=== PATIENT | female | born 1975 | race Caucasian/White ===

== ENCOUNTER 2020-04-01 15:24 | Emergency (ER) | payer BC ==
--- OUTSIDE RECORDS SUMMARY | 2020-04-01 15:29 | XMS REPORT | Continuity of Care Document ---
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 MH OP[facility] left knee [facility] Other synovitis 04/07/2019 MH [facility] and [facility] tenosynovitis, Joint left lower leg Effusion, left 04/07/2019 MH O PID knee [facility] Other articular 04/07/2019 MH OPID cartilage [facility] disorders, Joint unspecified site Medications Medication Details Route Status Patient Ordering Order Source Instructions Provider Date Cefuroxime 500 500 mg = 1 Active MH MG Oral Tablet tab, PO, 019 Medical BID, X 7 Group day, # 14 tab, 0 Refill(s), Pharmacy: [facility]/pharmacy #[id number] benzonatate 100 100 mg = 1 Active MH mg oral capsule cap, PO, 019 Medical TID, do not Group crush or chew, X 10 day, # 30 cap, 0 Refill(s), Pharmacy: [facility]/pharmacy #[id number] 200 ACTUAT 1 puff, Active MH Albuterol 0.09 INHALER, 019 Medical MG/ACTUAT Q6H, PRN As Group Metered Dose needed for Inhaler [ProAir shortness of HFA] breath, # 1 ea, 1 Refill(s), Pharmacy: [facility]/pharmacy #[id number] Lo Loestrin Fe PO, Daily, 0 Active MH Refill(s) 019 Medical Group multivitamin 1 tab, PO, Active MH Daily, 0 018 Medical Refill(s) Group Allergies, Adverse Reactions, Alerts Substance Category Reaction Severity Reaction Status Date Comments S ource type Reported No Known Assertion Drug MH OP ID Medication allergy Jaky Allergies Immunizations No Data Provided for This Section Results No Data Provided for This Section Pathology Reports No Data Provided for This Section Diagnostic Reports Report Value Date Source Abdomen/Pelvis w IV Radiation Dose CTDIVOL = 0 (mGy): DLP = 610.39 (mGy-cm) 11/30/2019 MH OPID Jaky contrast CT PROCEDURE INFORMATION: Exam: CT Abdomen And Pelvis With Contrast Exam date and time: 11/30/2019 9:55 AM Age: 44 years old Clinical indication: Epigastric pain; Nausea wit h vomiting, unspecified; Additional info: R10.13 r11.2/. TECHNIQUE: Imaging protocol: Computed tomography of the abd omen and pelvis with intravenous contrast. Total DLP: 610.39 mGy-cm Radiation optimization: All CT scans at this facility use at least one of these dose optimization techniques: automated exposure control; mA and/or kV adjustment per patient size (includes targeted e xams where dose is matched to clinical indication); or iterative reconstructio n. Contrast material: OMNI 300; Contrast volume: 10 0 ml; Contrast route: I.V. Other contrast: Route: Oral, Material: OMNI 300, Volume: 50; COMPARISON: No relevant prior studies available. FINDINGS: Liver: Normal. No mass. Gallbladder and bile ducts: Status post cholecystectomy. There is intrahepatic biliary dilatation. The common bile duct does no t appear dilated. Pancreas: Normal. No ductal dilation. Spleen: Normal. No splenomegaly. Adrenals: Normal. No mass. Kidneys and ureters: There is a small hy podensity in the left kidney measuring 8 mm, too small to accurately characterize. Stomach and bowel: Small and large bowel are not obstructed. Moderate volume of stool within the colon. There is loop of small b owel extending into the right upper quadrant with adjacent surgical sutures co nsistent with biliary enteric anastomosis. Appendix: The appendix is normal caliber and yung led with oral contrast. No surrounding inflammatory changes. Intraperitoneal space: Unremarkable. No free air . No significant fluid collection. Vasculature: Unremarkable. No abdominal aortic a neurysm. Lymph nodes: Unremarkable. No enlarged lymph nod es. Bladder: Unremarkable as visualized. Reproductive: 2.8 cm hypodensity in the left ova ry. Bones/joints: Unremarkable. No acute fracture. Soft tissues: There are a few tiny fat containin g midline supraumbilical hernias. No large hernias or herniated loop of b owel. IMPRESSION: 1. Status post cholecystectomy and bilio enteric anastomosis. Mild intrahepatic biliary dilatation. Correlate with laboratory va lues 2. Moderate stool within the colon. Correlate fo r constipation. 3. Small right renal hypodensity, too small to a ccurately characterize. 4. Likely left ovarian cyst. This could be furth er assessed with follow-up pelvic ultrasound if clinically indicated. Satya Nieves MD On 11/30/2019 14:15:26; V [id number] Knee wo contrast MRI MRI of the Left Knee Without IV Contrast 1 11/17/2017 [facility] History: pain. Joint Comparison Study: none Technique: The study was per formed on a high field magnet without intravenous contrast. Findings: Menisci: There is no evidence of meniscal tear. Degenerative signal in the body and posterior ho rn of the medial meniscus. Cruciate Ligaments: Anterior and posterior cruci ate ligaments are intact. Collateral Ligaments: Medial collateral ligament is intact. Lateral collateral complex appears intact. The patellar and quadriceps tendons are intact. Osseous Structures: No bone contusions are ident ified. Grade II chondromalacia cent ral weightbearing articular aspect medial femoral condyle with subtle area subchondral sclerosis and reactive bone marrow edema that may represent a healed stress related inj ury. Articular cartilage in lateral compartment is intact. Soft Tissues: There is a moderate joint effusion with synovitis. There is no Banerjee's cyst. Patellofemoral Compartment: Full-thickness small chondral fissure medial patella facet. Grade II chondromalacia at the medial trochlear facet. Medial and lateral patellar retinacula appear in tact. Impression: No meniscal tear or cruciate ligament disruption . Subchondral sclerosis with m ild adjacent reactive bone marrow edema central weightbearing articular aspect of medial femoral condyle that may represent a healing/healed stress related injury. Minimal overlying chondromalacia. Moderate joint effusion with synovitis. Full-thickness chondral fiss ure medial patella facet. Mild chondromalacia medial trochlear facet. Dictation Code: 100 Knee 3 views DX Patient Name: ESTEE RESENDEZ 12/15/2017 Ian Santoyo DOB: 1975; Age: 42 years Female MR: [id number] Study: Knee 3 views DX 12/12/2017 3:47 PM DETECTIVE PRECINCT CLINICAL INDICATION: - PAIN NO INJURY COMPARISON: None FINDINGS: Views and laterality: Left knee 3 views No displaced fracture or dis location. The tibiofemoral and patellofemoral compartments are intact. Small to moderate joint effusion. IMPRESSION: No acute bony abnormalities. SL: [id number] Consultation Notes No Data Provided for This Section Discharge Summaries No Data Provided for This Section History and Physicals No Data Provided for This Section Vital Signs Vital Sign Value Date Comments Source Systolic (mm Hg) 124 06/15/2019 Medical Group Diastolic (mm Hg) 80 06/15/2019 Medical Group Heart Rate 98 06/15/2019 [facility] Temperature Oral (F) 98.3 F 06/15/2019 [facility] Weight 85.455 06/15/2019 Medical [facility] p Weight 72.727 12/12/2017 [facility] Heart Rate 73 12/12/2017 [facility] p Temperature Oral (F) 98.2 F 12/12/2017 [facility] Systolic (mm Hg) 111 12/12/2017 Medical Group Diastolic (mm Hg) 71 12/12/2017 Medical Group Encounters Location Location Encounter Encounter Reason Attending ADM [place] Stat Source Details Type Number For Provider Date Date Visit Outpatient [id number] LIZZ 10/28 [facility] [id number] KANWAL [facility] [id number] MARY 12/12 [facility] [id number] XRAY VISIT 12/12 [facility] [id number] XRAY VISIT 12/12 [facility] Family Outpatient [id number] NURSE 12/12 12/13 Medicine VISIT /2017 [facility] [place] [facility] Ambulatory [id number] NURSE 12/12 12/12 Radiology Pre-Reg VISIT /2017 [facility] [place] [facility] Outpatient [id number] NURSE 12/12 12/13 Radiology VISIT /2017 [facility] [place] [facility] Outpatient [id number] DOPPLER 02/26 [facility] VISIT /2017 [facility] Ambulatory [id number] NURSE 12/15 12/15 Radiology Pre-Reg VISIT /2017 [facility] [place] [facility] Outpt Diag [id number] Lino 09/17 09/18 [facility] Outpatient Services Rangel /2017 [facility] [place] [facility] [id number] 06/15 [facility] Family Outpatient [id number] 06/15 06/16 Medicine /2018 [facility] Outpt Diag [id number] Theodore 11/30 12/01 [facility] Outpatient Services Christopher /2019 [facility]aky Procedures Procedure Code Date Perfomer Comments Source Influenza [id number] [facility] Medica l vaccination<sup>1</s 7 Grou p,MH up> OPID Jaky, [facility] Cholecystectomy [id number] Medica l Group, OPID Jaky, OPID [facility] Miscellaneous [id number] reconstruction of [facility] edical operations<sup>2</rivera bile duct Grou p,MH p> OPID Jaky, OPID [facility] TL - Tubal ligation [id number] [facility] dical Group, OPID Jaky, OPID [facility] Assessment and Plan No Data Provided for This Section Plan of Care No Data Provided for This Section Social History Social History Date Source Social History TypeResponse 06/15/2019 [facility] Smoking Status Never smoker; Ready to change: No; Noelle rns about tobacco use in household: No; Exposure to Tobacco Smoke None; Cigarette Smoking Last 365 Days No; Reg Smoking Cessation Counseling No entered on: 06/15/19 Social History TypeResponse 06/15/2019 OPID Jaky Smoking Status Never smoker; Ready to change: No; Noelle rns about tobacco use in household: No; Exposure to Tobacco Smoke None; Cigarette Smoking Last 365 Days No; Reg Smoking Cessation Counseling No entered on: 06/15/19 Social History TypeResponse 12/12/2017 OPID [facility] Smoking Status Never smoker; Ready to change: No; Noelle rns about tobacco use in household: No; Exposure to Tobacco Smoke None; Cigarette Smoking Last 365 Days No; Reg Smoking Cessation Counseling No entered on: 12/12/17 Family History No Data Provided for This Section Advance Directives No Data Provided for This Section Functional Status No Data Provided for This Section
[2020-04-01] MEDS ORDERED: ONDANSETRON 4 MG/2 ML VIAL ONE (16:17)
[2020-04-01] MEDS ORDERED: PANTOPRAZOLE 40 MG INJ ONE (16:17)
[2020-04-01] MEDS ORDERED: NA CHLORIDE 0.9% 1,000 ML ONE ×3 (16:17→20:30)
[2020-04-01] MEDS ORDERED: WATER FOR INJ,STERILE 10 ML ONE (16:17)
[2020-04-01] MEDS ORDERED: MORPHINE 4 MG/ML SYR ONE ×2 (16:17→18:26)
[2020-04-01 16:24] LABS: Absolute Lymphocytes (CBC) 0.3 K/uL (0.7-4.9); Basophils % 0.3 % (0-1.3); Hematocrit 42.3 % (36.0-45.0); Lymphocytes % 7.6 % (15.3-44.8); MPV 10.6 fL (7.6-11.3); RBC Red Blood Cell Count 4.64 M/uL (3.86-4.86)
[2020-04-01 16:39] LABS: ALT/SGPT 905 U/L (12-78); Albumin 3.8 g/dL (3.4-5.0); Alkaline Phosphatase 348 U/L (45-117); BUN Blood Urea Nitrogen 13 mg/dL (7-18); Bicarbonate 25 mmol/L (21-32); Bilirubin Direct 0.6 mg/dL (0-0.2); Bilirubin Total 1.2 mg/dL (0.2-1.0); Glucose Level 121 mg/dL (74-106); Lipase 91 U/L (73-393); Potassium 3.7 mmol/L (3.5-5.1); Protein, Total 8.3 g/dL (6.4-8.2); Sodium Level 137 mmol/L (136-145)
[2020-04-01 16:42] LABS: AST/SGOT 502 U/L (15-37)
--- NOTE | 2020-04-01 17:26 | RAD REPORT ---
EXAM DESCRIPTION: CT - Abdomen Pelvis W Contrast - 04/01/2020 4:58 pm CLINICAL HISTORY: Abdominal pain COMPARISON: none. TECHNIQUE: Computed axial tomography of the abdomen pelvis was obtained. 100 cc Isovue-300 was admin istered intravenously. Oral contrast was not requested which limits evaluation of bowel. All CT scans are performed using dose optimization technique as appropriate and may include automated exposure control or mA/KV adjustment according to patient size. FINDINGS: Cholecystectomy. Mild to moderate prominence of the intrahepatic biliary tree Spleen, pancreas, adrenal and left kidney appear unremarkable. Small right renal cyst There is no evidence of diverticulitis. Normal appendix IMPRESSION: Moderate prominence of the intrahepatic biliary tree. This may be physiologic in this pa tient status post cholecystectomy. However, pathology such as stricture, neoplasm or stone can also r esult in this appearance. This should be correlated clinically and with appropriate lab values.
--- NOTE | 2020-04-01 18:29 | EDPHYS ---
Physician Documentation [facility] Name: Janey Hernandez Age: 44 yrs Sex: Female : 1975 Arrival Date: 04/01/2020 Time: 15:26 Bed 19 Private MD: [facility] Physician Eliud Dutton HPI: 04/01 15:56 This 44 yrs old Female presents to ER via Ambulatory with complaints of cp Abdominal Pain. 15:56 The patient presents with abdominal pain in the epigastric area. Onset: The cp symptoms/episode began/occurred today. The symptoms radiate to back. Associated signs and symptoms: Pertinent positives: nausea, vomiting, Pertinent negatives: chest pain, constipation, diarrhea, dysuria, fever. The symptoms are described as constant. Modifying factors: the symptoms are aggravated by pressure. 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 - Social history:: Smoking status: Patient denies any tobacco usage or history of. ROS: 15:57 Eyes: Negative for injury, pain, redness, and discharge. cp 15:57 Constitutional: Negative for body aches, chills, fever, poor PO intake. 15:57 Cardiovascular: Negative for chest pain, palpitations. 15:57 Respiratory: Negative for cough, shortness of breath, wheezing. 15:57 Abdomen/GI: Positive for abdominal pain, nausea and vomiting, Negative for diarrhea, constipation, anorexia, hematemesis, black/tarry stool, rectal bleeding. 15:57 Back: Positive for radiated pain. 15:57 : Negative for urinary symptoms. 15:57 Neuro: Negative for altered mental status, headache, weakness. 15:57 All other systems are negative. Exam: 15:58 Head/Face: Normocephalic, atraumatic. cp 15:58 Constitutional: The patient appears in no acute distress, alert, awake, non-diaphoretic, non-toxic, well developed, well nourished, uncomfortable. 16:00 Eyes: Periorbital structures: appear normal, Conjunctiva: normal, no exudate, no cp injection, Sclera: no appreciated abnormality, Lids and lashes: appear normal, bilaterally. 16:00 ENT: External ear(s): are unremarkable, Nose: is normal, Mouth: is normal, Posterior pharynx: is normal, airway is patent. 16:00 Chest/axilla: Inspection: normal, Palpation: is normal, no crepitus, no tenderness. 16:00 Cardiovascular: Rate: normal, Rhythm: regular. 16:00 Respiratory: the patient does not display signs of respiratory distress, Respirations: normal, no use of accessory muscles, no retractions, labored breathing, is not present, Breath sounds: are clear throughout, no decreased breath sounds, no stridor, no wheezing. 16:00 Abdomen/GI: Inspection: scar(s), are noted in the mid abdomen, Bowel sounds: active, all quadrants, Palpation: soft, in all quadrants, severe abdominal tenderness, in the epigastric area, rebound tenderness, is not appreciated, voluntary guarding, is elicited in the epigastric area. 16:00 Back: pain, that is mild, ROM is normal. 16:00 Neuro: Orientation: to person, place \T\ time. Mentation: is normal, Motor: moves all fours, strength is normal. Vital Signs: 15:51 BP 149 / 82; Pulse 70; Resp 18 S; Temp 99.5(O); Pulse Ox 97% on R/A; Weight 74.39 kg ca1 (R); Height 5 ft. 3 in. (160.02 cm) (R); Pain 10/10; 16:33 BP 123 / 65; Pulse 76; Resp 15 S; Pulse Ox 97% on R/A; ca1 17:30 BP 124 / 76; Pulse 111; Resp 16 S; Pulse Ox 99% on R/A; ca1 18:30 BP 121 / 61; Pulse 110; Resp 15 S; Pulse Ox 95% on R/A; ca1 20:00 BP 119 / 62; Pulse 112; Resp 18; Temp 99; Pulse Ox 100% on R/A; mg2 15:51 Body Mass Index 29.05 (74.39 kg, 160.02 cm) ca1 MDM: 15:49 Patient medically screened. christiane 16:00 Differential diagnosis: gastritis, non-specific abd pain, pancreatitis, Peptic Ulcer cp Disease, Perf. Duodenal Ulcer, Perf. Gastric Ulcer, Pyelonephritis, Ureterolithiasis, urinary tract infection, choledocholithiasis. 17:40 Data reviewed: vital signs, nurses notes, lab test result(s), radiologic studies, CT cp scan, I have discussed the patient's presentation/case with the attending Emergency Department Physician;. 19:35 Physician consultation: was contacted at 18:25, regarding regarding transfer, to [facility]. patient's condition, DR Torres, hospitalist, will accept patient as transfer due to our lack of GI availability. 04/01 15:57 Order name: Basic Metabolic Panel; Complete Time: 16:48 ca1 04/01 17:36 Interpretation: Normal except: GLUC 121. 04/01 15:57 Order name: CBC with Diff ca1 04/01 16:38 Interpretation: Normal except: KANA% 91.2; LYM% 7.6; MN% 0.5; LYMA 0.3; MNA 0.0. 04/01 15:57 Order name: Hepatic Function; Complete Time: 16:48 ca1 04/01 17:37 Interpretation: Normal except: ALK 348; BILIT 1.2; BILID 0.6; TP 8.3; GLOB 4.5; A/G cp 0.8; AST 502; ALT 905. 04/01 15:57 Order name: Lipase; Complete Time: 16:48 ca1 04/01 16:32 Order name: Urine Dipstick--Ancillary (enter results) 04/01 16:32 Order name: Urine --Ancillary (enter results) 04/01 15:59 Order name: CT Abd/Pelvis - IV Contrast Only; Complete Time: 17:28 04/01 17:28 Interpretation: Report reviewed. 04/01 20:03 Order name: CBC Smear Scan EDWI 04/01 15:57 Order name: IV Saline Lock; Complete Time: 16:06 ca1 04/01 15:57 Order name: Labs collected and sent; Complete Time: 16:06 ca1 04/01 15:59 Order name: Urine Dipstick-Ancillary (obtain specimen); Complete Time: 16:31 04/01 15:59 Order name: Urine Test (obtain specimen); Complete Time: 16:31 cp Administered Medications: 16:08 Drug: NS 0.9% 1000 ml Route: IV; Rate: 1 bolus; Site: right antecubital; ca1 19:16 Follow up: Response: No adverse reaction; IV Status: Completed infusion; IV Intake: mg2 1000ml 16:10 Drug: Zofran (Ondansetron) 4 mg Route: IVP; Site: right antecubital; ca1 19:15 Follow up: Response: No adverse reaction mg2 16:12 Drug: ProTONIX 40 mg Route: IVP; Site: right antecubital; ca1 19:15 Follow up: Response: No adverse reaction mg2 16:15 Drug: morphine 4 mg {Note: rass 0.} Route: IVP; Site: right antecubital; ca1 19:15 Follow up: Response: No adverse reaction; Marked relief of symptoms mg2 18:15 Drug: NS 0.9% 1000 ml Route: IV; Rate: 1 bolus; Site: right antecubital; ca1 19:16 Follow up: Response: No adverse reaction; IV Status: Completed infusion; IV Intake: mg2 1000ml 18:17 Drug: morphine 4 mg {Note: rass 0.} Route: IVP; Site: right antecubital; ca1 19:00 Follow up: Response: No adverse reaction; Marked relief of symptoms; RASS: Alert and mg2 Calm (0) 20:26 Drug: Dilaudid 0.5 mg Route: IVP; Site: right antecubital; mg2 20:32 Follow up: Response: No adverse reaction; administered prior to transfer mg2 20:30 Not Given (Physician Discretion): Dilaudid 0.5 mg IVP once; RASS on ADMIN: Combtv4, mg2 Very Agttd3, Agttd2, Rstlss1, AlertClm0, Drwsy-1, Lt Sdtn-2, Mod Sdtn-3, Dp Sdtn-4, UnArsble-5 20:31 Drug: NS 0.9% 1000 ml Route: IV; Rate: 125 ml/hr; Site: right antecubital; mg2 20:31 Follow up: Response: No adverse reaction; IV Status: Infusion continued upon transfer mg2 Disposition: 04/02 16:59 Co-signature as Attending Physician, Eliud Dutton MD I agree with the assessment and christiane plan of care. Disposition: 04/01/20 18:28 Transfer ordered to [facility]. Diagnosis are Abnormal results of liver function studies, Epigastric pain, Nausea and vomiting. - Reason for transfer: Higher level of care. - Accepting physician is DR Torres. - Condition is Stable. - Problem is new. - Symptoms have improved. Signatures: Dispatcher [employer] EDEliud Modi MD MD cha Page, Corey PA PA cp Haresh Gould RN RN mg2 Annalisa Lemus RN RN ca1 Corrections: (The following items were deleted from the chart) 04/01 16:38 16:38 Normal except: KANA% 91.2; LYM% 7.6; MN% 0.5; LYMA 0.3. cp cp 17:37 17:37 Normal except: ALK 348; BILIT 1.2; BILID 0.6; TP 8.3; GLOB 4.5; A/G 0.8; AST 502. cp cp 20:33 18:28 04/01/2020 18:28 Transfer ordered to [facility]. mg2 Diagnosis is Abnormal results of liver function studies; Epigastric pain; Nausea and vomiting. Reason for transfer: Higher level of care. Accepting physician is DR Torres. Condition is Stable. Problem is new. Symptoms have improved. cp
--- NOTE | 2020-04-01 18:29 | ER ---
Nurse's Notes [facility] Name: Janey Hernandez Age: 44 yrs Sex: Female : 1975 Arrival Date: 04/01/2020 Time: 15:26 Bed 19 Private MD: Diagnosis: Abnormal results of liver function studies;Epigastric pain;Nausea and vomiting Presentation: 04/01 15:51 Chief complaint: Patient states: Upper abdominal pain since 2.5 hrs ago, 30 minutes ca1 after eating. I have stomach issues. I take omeprazole everyday and Carafate when needed. Reports N/V. Denies diarrhea. Coronavirus screen: Proceed with normal triage. Patient denies a cough. Patient denies shortness of breath or difficulty breathing. Patient denies measured and/or subjective temperature greater than 100.4F prior to today's visit. Patient denies travel on a cruise ship or to a country the [facility] currently lists as an affected area. Patient denies contact with known and/or suspected case of COVID-19. Ebola Screen: Patient negative for fever greater than or equal to 101.5 degrees Fahrenheit, and additional compatible Ebola Virus Disease symptoms Patient denies exposure to infectious person. Patient denies travel to an Ebola-affected area in the 21 days before illness onset. No symptoms or risks identified at this time. Initial Sepsis Screen: Does the patient meet any 2 criteria? No. Patient's initial sepsis screen is negative. Does the patient have a suspected source of infection? No. Patient's initial sepsis screen is negative. Risk Assessment: Do you want to hurt yourself or someone else? Patient reports no desire to harm self or others. Onset of symptoms was April 01, 2020. 15:51 Method Of Arrival: Ambulatory ca1 15:51 Acuity: MICHAEL 3 ca1 Triage Assessment: 15:55 General: Appears in no apparent distress. uncomfortable, Behavior is calm, cooperative, ca1 appropriate for age. Pain: Complains of pain in right upper quadrant and left upper quadrant Pain does not radiate. Pain currently is 10 out of 10 on a pain scale. Pain began 2 hours ago. EENT: No signs and/or symptoms were reported regarding the EENT system. Neuro: Level of Consciousness is awake, alert, obeys commands, Oriented to person, place, time, situation. Cardiovascular: Heart tones S1 S2 present Capillary refill < 3 seconds is > 3 seconds Patient's skin is warm and dry. Respiratory: Airway is patent Respiratory effort is even, unlabored, Respiratory pattern is regular, symmetrical, Breath sounds are clear bilaterally. GI: Abdomen is round non-distended, Bowel sounds present X 4 quads. Abd is soft and non tender X 4 quads. Reports nausea, vomiting. : No signs and/or symptoms were reported regarding the genitourinary system. Derm: Skin is intact, is healthy with good turgor, Skin is pink, warm \T\ dry. Musculoskeletal: Circulation, motion, and sensation intact. Capillary refill < 3 seconds. 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 - Social history:: Smoking status: Patient denies any tobacco usage or history of. Screenin:56 Abuse screen: Denies threats or abuse. Denies injuries from another. Nutritional ca1 screening: No deficits noted. Tuberculosis screening: No symptoms or risk factors identified. Fall Risk IV access (20 points). Assessment: 15:56 Reassessment: see triage notes. ca1 16:33 Reassessment: Patient appears in no apparent distress at this time. Patient and/or ca1 family updated on plan of care and expected duration. Pain level reassessed. Patient is alert, oriented x 3, equal unlabored respirations, skin warm/dry/pink. 17:32 Reassessment: Patient appears in no apparent distress at this time. Patient and/or ca1 family updated on plan of care and expected duration. Pain level reassessed. Patient is alert, oriented x 3, equal unlabored respirations, skin warm/dry/pink. 18:30 Reassessment: Patient appears in no apparent distress at this time. Patient and/or ca1 family updated on plan of care and expected duration. Pain level reassessed. Patient is alert, oriented x 3, equal unlabored respirations, skin warm/dry/pink. 19:14 Reassessment: Patient appears in no apparent distress at this time. Patient and/or mg2 family updated on plan of care and expected duration. Pain level reassessed. Patient is alert, oriented x 3, equal unlabored respirations, skin warm/dry/pink. reports abdominal pain is back. 4/10. 19:22 Reassessment: tried to call for report [facility], but they said to call back in 10 mg2 mins. 19:49 Reassessment: report given to GURDEEP Lema of [facility]. mg2 Vital Signs: 15:51 BP 149 / 82; Pulse 70; Resp 18 S; Temp 99.5(O); Pulse Ox 97% on R/A; Weight 74.39 kg ca1 (R); Height 5 ft. 3 in. (160.02 cm) (R); Pain 10/10; 16:33 BP 123 / 65; Pulse 76; Resp 15 S; Pulse Ox 97% on R/A; ca1 17:30 BP 124 / 76; Pulse 111; Resp 16 S; Pulse Ox 99% on R/A; ca1 18:30 BP 121 / 61; Pulse 110; Resp 15 S; Pulse Ox 95% on R/A; ca1 20:00 BP 119 / 62; Pulse 112; Resp 18; Temp 99; Pulse Ox 100% on R/A; mg2 15:51 Body Mass Index 29.05 (74.39 kg, 160.02 cm) ca1 ED Course: 15:26 Patient arrived in ED. ag5 15:47 Eliud Puga PA is PHCP. cp 15:47 Eliud Dutton MD is Attending Physician. cp 15:51 Annalisa Lemus, GURDEEP is Primary Nurse. ca1 15:54 Triage completed. ca1 15:55 Arm band placed on right wrist. ca1 15:56 Patient has correct armband on for positive identification. Bed in low position. Call ca1 light in reach. Side rails up X 1. Pulse ox on. NIBP on. Warm blanket given. 16:02 No provider procedures requiring assistance completed. Initial lab(s) drawn, by me, ca1 sent to lab. Inserted saline lock: 20 gauge in right antecubital area, using aseptic technique. Blood collected. 16:56 CT completed. Patient tolerated procedure well. Patient moved back from CT. bq 16:59 CT Abd/Pelvis - IV Contrast Only In Process Unspecified. EDMS 17:56 initiated a transfer with Shell from the [facility]. eb 18:[address] Torres the hospitalist application security developer for [facility] with Eliud TERRY for patient transfer consultation. 18:28 administrative approval given by Kael Pepper Rn/ patient has been accepted to [facility] 16 tower bed 1614/ report to be called to [phone]/ Dr. Sood has accepted the patient in transfer. 19:06 Report given to GURDEEP Zambrano. ca1 20:33 Patient transferred, IV remains in place. mg2 Administered Medications: 16:08 Drug: NS 0.9% 1000 ml Route: IV; Rate: 1 bolus; Site: right antecubital; ca1 19:16 Follow up: Response: No adverse reaction; IV Status: Completed infusion; IV Intake: mg2 1000ml 16:10 Drug: Zofran (Ondansetron) 4 mg Route: IVP; Site: right antecubital; ca1 19:15 Follow up: Response: No adverse reaction mg2 16:12 Drug: ProTONIX 40 mg Route: IVP; Site: right antecubital; ca1 19:15 Follow up: Response: No adverse reaction mg2 16:15 Drug: morphine 4 mg {Note: rass 0.} Route: IVP; Site: right antecubital; ca1 19:15 Follow up: Response: No adverse reaction; Marked relief of symptoms mg2 18:15 Drug: NS 0.9% 1000 ml Route: IV; Rate: 1 bolus; Site: right antecubital; ca1 19:16 Follow up: Response: No adverse reaction; IV Status: Completed infusion; IV Intake: mg2 1000ml 18:17 Drug: morphine 4 mg {Note: rass 0.} Route: IVP; Site: right antecubital; ca1 19:00 Follow up: Response: No adverse reaction; Marked relief of symptoms; RASS: Alert and mg2 Calm (0) 20:26 Drug: Dilaudid 0.5 mg Route: IVP; Site: right antecubital; mg2 20:32 Follow up: Response: No adverse reaction; administered prior to transfer mg2 20:30 Not Given (Physician Discretion): Dilaudid 0.5 mg IVP once; RASS on ADMIN: Combtv4, mg2 Very Agttd3, Agttd2, Rstlss1, AlertClm0, Drwsy-1, Lt Sdtn-2, Mod Sdtn-3, Dp Sdtn-4, UnArsble-5 20:31 Drug: NS 0.9% 1000 ml Route: IV; Rate: 125 ml/hr; Site: right antecubital; mg2 20:31 Follow up: Response: No adverse reaction; IV Status: Infusion continued upon transfer mg2 Intake: 19:16 IV: 1000ml; Total: 1000ml. mg2 19:16 IV: 1000ml; Total: 2000ml. mg2 Outcome: 18:28 ER care complete, transfer ordered by MD. cp 20:33 [place] [facility] [facility] [place]. mg2 20:33 Condition: stable 20:33 Instructed on the need for transfer, Demonstrated understanding of instructions. 20:33 Patient left the ED. mg2 Signatures: Dispatcher [employer] EDMS Nadine Mata Corey, PA PA cp Botello, Elizabeth eb Gardose, Michele, RN RN mg2 Annalisa Lemus RN RN [facility] Tony Ugalde ag5
[2020-04-01 20:03] LABS: Blood Morphology Comment NOT SEEN (NOT SEEN); Platelet Estimate ADEQ; Urine White Blood Cell Casts OK
[2020-04-01] MEDS ORDERED: HYDROMORPHONE HCL 0.5 MG/0.5 ML INJ ONE (20:29)
[2020-04-01 21:03] LABS: Urine Blood NEGATIVE (NEG); Urine Glucose NEGATIVE (NEG); Urine Protein NEGATIVE (NEG); Urine Specific Gravity 1.025 (1.005-1.030)
[2020-04-01 21:47] VITALS: BP 119/62; TEMP 99; O2SAT 100
== END 2020-04-01 20:33 | disposition short-term general hospital (02) ==
LOC: ER 15:24
DX: R94.5 Abnormal results of liver function studies (principal); R11.2 Nausea with vomiting, unspecified; E07.9 Disorder of thyroid, unspecified
CPT/HCPCS: 96361; 85025; 80048; 36415; 81025; 80076; 81003; 83690; 74177; 96375; 96374; 99285; Q9967; C9113; J1170; J7030 ×3; J2405

== ENCOUNTER 2021-10-20 07:25 | Emergency (ER) | payer BC ==
--- OUTSIDE RECORDS SUMMARY | 2021-10-20 07:30 | XMS REPORT | Continuity of Care Document ---
:1975 Author Organization [facility] t Address [address] [place] [address] Care Team Providers Name Role Phone Attending Clinician Unavailable FREEMAN GONZALEZ Attending Clinician Unavailable CARLOS DAVIS Attending Clinician Unavailable REGIS Attending Clinician Unavailable ANNELISE Attending Clinician Unavailable Admitting Clinician Unavailable FREEMAN GONZALEZ Admitting Clinician Unavailable BRITTANI Admitting Clinician Unavailable Payers Payer Name Policy Type Policy Number Effective Date Expiration Date S amanda BCBS OS [id number] 2017 POS/PPO/EPO 00:00:00 CDC REVIEW [id number] 2020 00:00:00 Problems Condition Condition Condition Status Onset Resolution Last Treating Co mments Source Name Details Category Date Date Treatment Clinician Date Left knee Left knee Problem Active [facility] pain pain HL7.CCDAR2 [facility] [place] [facility] Internal Internal Problem Active Unive rs derangemen derangemen HL7.CCDAR2 [facility] [place] Osteoarthr Osteoarthr Problem Active U nivers itis of itis of HL7.CCDAR2 [place] [facility] Synovitis Synovitis Problem Active Uni vers of left of left HL7.CCDAR2 ity of knee knee [place] [facility] Allergies, Adverse Reactions, Alerts Allergy Allergy Status Severity Reaction(s) Onset Inactive Treating Comm ents Source Name Type Date Date Clinician NO KNOWN Allergy Active [facility] ALLERGIE S Medications Ordered Filled Start Stop Current Ordering Indication Dosage Frequency Signature Comments Components Source Medication Medication Date Date Medication? Clinician (SIG) Name Name Giuseppe Chin 2020- No Lindsey [address] [facility] 5-18 05-23 [facility] 00 :00 [facility] Ferrous Ferrous Yes Lindsey [address] Sulfate Sulfate 05-11 [facility] - [facility]: [facility] 00 [facility] Fluticasone Fluticasone Yes Lindsey [address] [facility] Propionate Propionate 10-21 Logan each Kathrine kes - 00:00: nostril Memoria 00 [facility] Naproxen Naproxen 2017-10 Yes MAN[place]OR Q12H TAKE 1 Uni vers 500 MG Oral 500 MG Oral 1-20 ANNELISE TABLET ity of Tablet Tablet 00:00: N.P. EVERY 12 [place] 00 HOURS Physici NEEDED. ans Levothyroxi Levothyroxi Yes Lindsey [address] [facility] ne Sodium ne Sodium Logan in the - morning on oria an empty [facility] Omeprazole Omeprazole Yes Lindsey not C [facility] defined [facility] Vital Signs Vital Name Observation Time Observation Value Comments Source WEIGHT 2020-04-01 00:00:00 74.39 kg HEIGHT 2020-04-01 00:00:00 160 cm HEIGHT 2020-05-05 00:00:00 157.5 cm WEIGHT 2020-05-05 00:00:00 67.586 kg HEIGHT 2020-05-05 00:00:00 157.5 cm WEIGHT 2020-05-05 00:00:00 67.586 kg WEIGHT 2020-04-13 00:00:00 69.854 kg HEIGHT 2020-04-13 00:00:00 160 cm WEIGHT 2020-04-13 00:00:00 69.854 kg HEIGHT 2020-04-13 00:00:00 160 cm HEIGHT 2020-04-12 00:00:00 160 cm WEIGHT 2020-04-12 00:00:00 69.99 kg HEIGHT 2020-04-12 00:00:00 160 cm WEIGHT 2020-04-12 00:00:00 69.99 kg HEIGHT 2020-04-12 00:00:00 160 cm WEIGHT 2020-04-12 00:00:00 69.99 kg WEIGHT 2020-04-01 00:00:00 74.39 kg HEIGHT 2020-04-01 00:00:00 160 cm Procedures Procedure Date / Time Performed Performing Clinician Sour e MR Knee wo contrast 2018-09-08 00:00:00 [facility] [address] Physicians Encounters Start End Encounter Admission Attending Care Care Encounter Source Date/Time Date/Time Type Type Clinicians Facility Department ID 2020-04-01 Inpatient ER MERCHANT SHARON Internal [id number] SLE 21:44:00 SHANIQUA Med 2021-09-11 2021-09-11 ambulatory [facility] [id number] [facility] 2021-04-13 2021-04-13 Outpatient [facility] [id number] [facility] 2021-03-16 2021-03-16 Outpatient [facility] [id number] [facility] 2021-03-16 2021-03-16 Outpatient [facility] [id number] [facility] 2021-03-13 2021-03-13 Outpatient [facility] [id number] [facility] 2021-02-23 2021-02-23 Outpatient [facility] [id number] [facility] 2020-09-07 2020-09-07 Outpatient [facility] [id number] [facility] 2020-05-05 2020-05-05 Outpatient SHARON FRAZIER SLE [id number] [facility] 00:00:00 00:00:00 SAYDA 2020-04-19 2020-04-19 Outpatient EVERARDO GONZALEZ, [facility] [id number] [facility] 00:00:00 00:00:00 SAYDA 2020-04-13 2020-04-13 Emergency ER SLE Emergency [id number] [facility] 11:47:00 11:47:00 2020-04-12 2020-04-12 Outpatient [facility] [id number] [facility] 00:00:00 00:00:00 2020-04-12 2020-04-12 Outpatient [facility] [id number] [facility] 00:00:00 00:00:00 2020-03-08 2020-03-08 [facility] [id number] [facility] 09:46:00 09:46:00 [facility] Medicine Outpati ent Clinics 2020-03-06 2020-03-06 [facility] [id number] [facility] 16:00:00 16:00:00 [facility] Medicine Medicine Outpati ent Clinics 2020-02-09 2020-02-09 [facility] [id number] 10:07:00 10:07:00 [facility] Medicine Medicine Outpati ent Clinics 2020-01-13 2020-01-13 [facility] [id number] [address] 09:58:00 09:58:00 [facility] Medicine Medicine Outpati ent Clinics 2020-01-12 2020-01-12 [facility] [id number] [address] 10:03:00 10:03:00 [facility] Medicine Medicine Outpati ent Clinics 2019-12-15 2019-12-15 [facility] [id number] 13:39:00 13:39:00 [facility] Medicine Outpati ent Clinics 2019-11-10 2019-11-10 [facility] [id number] 09:00:00 09:00:[address] [facility] 2019-09-15 2019-09-15 [facility] [id number] 10:14[facility]00 10[facility]14[facility] 2019-07-06 2019-07-06 [facility] [id number] 16:00:00 16:00:00 t [facility] Outpati ent Clinics 2019-05-11 2019-05-11 [facility] [id number] 15:00:00 15:00:00 t [facility] Outpati ent Clinics 2018-12-01 2018-12-01 [facility] [id number] [address] 09[facility]45:00 09:45:00 [facility] Outpati ent Clinics 2018-10-21 2018-10-21 [facility] [id number] 13:45:00 13:45:00 t [facility] 2018-09-29 2018-09-29 Appointmen MARC STACY UTP [id number] Univers 09:30:00 09:30:00 t; VICKIE STACY, [facility] [place] [facility] [place] [facility] 1 ans 2018-09-08 2018-09-08 Appointmen MARC CASTELAN UTP [id number] Univers 14:15:00 14:15:00 t; [facility] [place] [facility] - [facility] as MALCOM MAX Physic i Trace 1 ans Results Test Description Test Time Test Comments Results Result Sour e Comments ANTOINETTE, 2020-05-05 Reason for FINAL REPORT PATIENT CHOLANGIOGRAM, 13:36:00 Exam:->Possibl ID: [id number] T-TUBE e removal of PROCEDURE: PTC Cholangiogram through an existing internal/external catheter, followed by catheter removal CLINICAL HISTORY: Possible removal of PTC POLICEMAN: David Rodriguez DO, JD ANESTHESIA: Conscious sedation was provided by radiology nursing using constant hemodynamic monitoring for 45 Minutes. Versed IV 0.5 mg, Fentanyl IV 25 mcg. DEVICE: 14 [place] internal/external biliary catheter Estimated Blood Loss: < 5cc Samples: As below. DOSE INFORMATION - Ka,r: 11 mGy DOSE REDUCTION: The examination was performed according to the departmental dose-optimization program, which includes automated exposure control, adjustment of the mA and/or kV according to patient size and/or use of iterative reconstruction technique. PROCEDURE: The risks, benefits, and alternatives to the procedure were discussed with the patient/healthcare proxy. All questions were answered and informed consent was obtained. A universal timeout was performed prior to starting the procedure. For the prevention of infection all elements of maximal sterile barrier technique, hand hygiene, skin preparation and sterile techniques were followed. The catheter was removed over a wire, and contrast injection demonstrated free flow of contrast through the biliary tree. Additionally, note is made of the initial position of the catheter, with all the sideholes within the bowel. The drain was removed and a dry sterile dressing was applied. The patient tolerated the procedure well and was returned to the holding area/floor in stable condition. IMPRESSION:Successful fluoroscopically guided cholangiogram through an existing internal/external catheter, followed by catheter removal. Signed: David Rodriguez MDReport Verified Date/Time: 05/05/2020 13:36:15 Reading Location: [place] [address] Angio Body Reading Room EN, URINE 2020-05-05 07:38:00 Test Item Value Reference Range Interpretation Comme nts TEST URINE (BEAKER) (test code = 583) Negative [id number] 07:37:00 Test Item Value Reference Range Interpretation Comments PARTIAL THROMBOPLASTIN TIME 28.9 seconds 22.5-36.0 (BEAKER) (test code = 760) PROTHROMBIN [id number] 07:36:00 Test Item Value Reference Range Interpretation Comments PROTIME (BEAKER) (test code = 12.8 seconds 11.9-14.2 759) INR (BEAKER) (test code = 370) 1.0 <=5.9 Effective 03/17/2019: PT Reference Range ChangeNew: 11.9-14.2 Previous: 11.7- 14.7RECOMMENDED COUMADIN/WARFARIN INR THERAPY RANGESSTANDARD DOSE: 2.0-3.0 Includes: PROPHYLAXIS for venous thrombosis, systemic embolization; TREATMENT for venous thrombosis and/or pulmonary embolus.HIGH RISK: Target INR is2.5-3.5 for patients wiht mechanical heart valves.CBC W/PLT COUNT & AUTO [id number] 07:25:00 Test Item Value Reference Range Interpretation Comments WHITE BLOOD CELL COUNT (BEAKER) 7.4 K/ L 3.5-10.5 (test code = 775) RED BLOOD CELL COUNT (BEAKER) 4.29 M/ L 3.93-5.22 (test code = 761) HEMOGLOBIN (BEAKER) (test code = 12.9 GM/DL 11.2-15.7 410) HEMATOCRIT (BEAKER) (test code = 39.8 % 34.1-44.9 411) MEAN CORPUSCULAR VOLUME (BEAKER) 92.8 fL 79.4-94.8 (test code = 753) MEAN CORPUSCULAR HEMOGLOBIN 30.1 pg 25.6-32.2 (BEAKER) (test code = 751) MEAN CORPUSCULAR HEMOGLOBIN CONC 32.4 GM/DL 32.2-35.5 (BEAKER) (test code = 752) RED CELL DISTRIBUTION WIDTH 13.9 % 11.7-14.4 (BEAKER) (test code = 412) PLATELET COUNT (BEAKER) (test 216 K/CU MM 150-450 code = 756) MEAN PLATELET VOLUME (BEAKER) 11.2 fL 9.4-12.3 (test code = 754) NUCLEATED RED BLOOD CELLS 0 /100 WBC 0-0 (BEAKER) (test code = 413) NEUTROPHILS RELATIVE PERCENT 76 % (BEAKER) (test code = 429) LYMPHOCYTES RELATIVE PERCENT 17 % (BEAKER) (test code = 430) MONOCYTES RELATIVE PERCENT 5 % (BEAKER) (test code = 431) EOSINOPHILS RELATIVE PERCENT 2 % (BEAKER) (test code = 432) BASOPHILS RELATIVE PERCENT 1 % (BEAKER) (test code = 437) NEUTROPHILS ABSOLUTE COUNT 5.56 K/ L 1.56-6.13 (BEAKER) (test code = 670) LYMPHOCYTES ABSOLUTE COUNT 1.21 K/ L 1.18-3.74 (BEAKER) (test code = 414) MONOCYTES ABSOLUTE COUNT (BEAKER) 0.39 K/ L 0.24-0.36 H (test code = 415) EOSINOPHILS ABSOLUTE COUNT 0.13 K/ L 0.04-0.36 (BEAKER) (test code = 416) BASOPHILS ABSOLUTE COUNT (BEAKER) 0.04 K/ L 0.01-0.08 (test code = 417) IMMATURE GRANULOCYTES-RELATIVE 0 % 0-1 PERCENT (BEAKER) (test code = 2801) ANTOINETTE CHOLANGIOGRAM, [id number] 14:34:00Dr. Gonzalez discussed case with Dr. Ignacio on 04/12/2020.Patient needs PTC revision in the next 1 week.Reason for Exam:->cholangitis, PTC drain in placeFINAL REPORT PROCEDURE: Cholangiogram through an existing internal/external catheter, common bile duct dilatation and catheter up size CLINICAL HISTORY: cholangitis, PTC drain inplace POLICEMAN: David Rodriguez DO, JD ANESTHESIA: Conscious sedation was provided by radiology nursing using constant hemodynamic monitoring for 45 Minutes. Versed IV 1.5 mg, Fentanyl IV 75 mcg. DEVICE: 14 [place] internal/external biliary catheter, 4 mm balloon Estimated Blood Loss: < 5cc Samples: As below. DOSE INFORMATION - Ka,r: 104 mGy DOSE REDUCTION: The examination was performed according to the departmental dose-optimization program, which includes automated exposure control, adjustment of the mA and/or kV according to patient size and/or use of iterative reconstruction technique. PROCEDURE: The risks, benefits, and alternatives to the procedure were discussed with the patient/healthcare proxy. All questions were answered and informed consent was obtained. A universal timeout was performed prior to starting the procedure. For the prevention of infection all elements of maximal sterile barrier technique, hand hygiene, skin preparation and sterile techniques were followed. Thecurrent catheter was injected, followed by dilatation of the common bile duct with the balloon, and exchange over a wire for the new catheter. Contrast injection confirmed appropriate location. The pigtail was locked. The drain was connected to drainage and secured to the skin with a suture and a dry sterile dressing was applied. The patient tolerated the procedure well and was returned to the holding area/floor in stable condition. IMPRESSION:1.Successful fluoroscopically guided cholangiogram through an existing internal/external catheter, common bile duct dilatation and catheter upsizing.2.Followup in two weeks, possible removal.3.The drain is clamped. Signed: David Rodriguez MDReport Verified Date/Time: 04/19/2020 14:34:30 Reading Location: [place] [address] Angio Body Reading Room PREGNANCY SCREEN, [id number] 11:23:00 Test Item Value Reference Range Interpretation Comments TEST URINE (BEAKER) (test Negative code = 583) [id number] 11:10:00 Test Item Value Reference Range Interpretation Comments PARTIAL THROMBOPLASTIN TIME 30.9 seconds 22.5-36.0 (BEAKER) (test code = 760) PROTHROMBIN [id number] 11:09:00 Test Item Value Reference Range Interpretation Comments PROTIME (BEAKER) (test code = 13.8 seconds 11.9-14.2 759) INR (BEAKER) (test code = 370) 1.1 <=5.9 Effective 03/17/2019: PT Reference Range ChangeNew: 11.9-14.2 Previous: 11.7- 14.7RECOMMENDED COUMADIN/WARFARIN INR THERAPY RANGESSTANDARD DOSE: 2.0-3.0 Includes: PROPHYLAXIS for venous thrombosis, systemic embolization; TREATMENT for venous thrombosis and/or pulmonary embolus.HIGH RISK: Target INR is2.5-3.5 for patients wiht mechanical heart valves.CBC W/PLT COUNT & AUTO [id number] 11:02:00 Test Item Value Reference Range Interpretation Comments WHITE BLOOD CELL COUNT (BEAKER) 7.7 K/ L 3.5-10.5 (test code = 775) RED BLOOD CELL COUNT (BEAKER) 4.76 M/ L 3.93-5.22 (test code = 761) HEMOGLOBIN (BEAKER) (test code = 14.0 GM/DL 11.2-15.7 410) HEMATOCRIT (BEAKER) (test code = 44.4 % 34.1-44.9 411) MEAN CORPUSCULAR VOLUME (BEAKER) 93.3 fL 79.4-94.8 (test code = 753) MEAN CORPUSCULAR HEMOGLOBIN 29.4 pg 25.6-32.2 (BEAKER) (test code = 751) MEAN CORPUSCULAR HEMOGLOBIN CONC 31.5 GM/DL 32.2-35.5 L (BEAKER) (test code = 752) RED CELL DISTRIBUTION WIDTH 13.4 % 11.7-14.4 (BEAKER) (test code = 412) PLATELET COUNT (BEAKER) (test 383 K/CU MM 150-450 code = 756) MEAN PLATELET VOLUME (BEAKER) 11.0 fL 9.4-12.3 (test code = 754) NUCLEATED RED BLOOD CELLS 0 /100 WBC 0-0 (BEAKER) (test code = 413) NEUTROPHILS RELATIVE PERCENT 70 % (BEAKER) (test code = 429) LYMPHOCYTES RELATIVE PERCENT 20 % (BEAKER) (test code = 430) MONOCYTES RELATIVE PERCENT 6 % (BEAKER) (test code = 431) EOSINOPHILS RELATIVE PERCENT 1 % (BEAKER) (test code = 432) BASOPHILS RELATIVE PERCENT 1 % (BEAKER) (test code = 437) NEUTROPHILS ABSOLUTE COUNT 5.38 K/ L 1.56-6.13 (BEAKER) (test code = 670) LYMPHOCYTES ABSOLUTE COUNT 1.55 K/ L 1.18-3.74 (BEAKER) (test code = 414) MONOCYTES ABSOLUTE COUNT (BEAKER) 0.49 K/ L 0.24-0.36 H (test code = 415) EOSINOPHILS ABSOLUTE COUNT 0.10 K/ L 0.04-0.36 (BEAKER) (test code = 416) BASOPHILS ABSOLUTE COUNT (BEAKER) 0.11 K/ L 0.01-0.08 H (test code = 417) IMMATURE GRANULOCYTES-RELATIVE 0 % 0-1 PERCENT (BEAKER) (test code = 2801) LACTIC ACID, [id number] 16:01:00 Test Item Value Reference Range Interpretation Comments LACTATE BLOOD VENOUS 1.36 mmol/L 0.50-2.20 Specime n slightly (2) (BEAKER) (test hemolyzed code = 3382) Tourist Cabin Keeper ID - DBCOMPREHENSIVE METABOLIC [id number] 16:00:00 Test Item Value Reference Range Interpretation Comments TOTAL PROTEIN 8.8 gm/dL 6.0-8.3 H Specimen sligh tly (BEAKER) (test code = hemoly zed 770) ALBUMIN (BEAKER) 4.3 g/dL 3.5-5.0 Specimen sl ightly (test code = 1145) hemolyzed ALKALINE PHOSPHATASE 238 U/L 40-150 H (BEAKER) (test code = 346) BILIRUBIN TOTAL 1.9 mg/dL 0.2-1.2 H Specimen sli ghtly (BEAKER) (test code = hemoly zed 377) SODIUM (BEAKER) (test 136 meq/L 136-145 code = 381) POTASSIUM (BEAKER) 4.3 meq/L 3.5-5.1 Specimen slightly (test code = 379) hemolyzed CHLORIDE (BEAKER) 100 meq/L 98-107 (test code = 382) CO2 (BEAKER) (test 26 meq/L 22-29 code = 355) BLOOD UREA NITROGEN 12 mg/dL 7-21 (BEAKER) (test code = 354) CREATININE (BEAKER) 0.76 mg/dL 0.57-1.25 Specimen slightly (test code = 358) hemolyzed GLUCOSE RANDOM 101 mg/dL 70-105 (BEAKER) (test code = 652) CALCIUM (BEAKER) 10.3 mg/dL 8.4-10.2 H (test code = 697) AST (SGOT) (BEAKER) 741 U/L 5-34 H Specimen slightly (test code = 353) hemolyzed ALT (SGPT) (BEAKER) 1369 U/L 6-55 H Specimen slightly (test code = 347) hemolyzed EGFR (BEAKER) (test 83 mL/min/1.73 ESTIMA GUY GFR IS code = 1092) sq m NOT ACCURATE CREATININE CLEARANCE IN PREDICTING GLOMERULAR FILTRATION RATE . ESTIMATED GFR I S NOT APPLICABLE FOR DIALYSIS PATIEN TS. Tourist Cabin Keeper ID - DBURINALYSIS W/ REFLEX URINE [id number] 15:51:00 Test Item Value Reference Range Interpretation Comments COLOR (BEAKER) (test code = 470) [place] CLARITY (BEAKER) (test code = 469) Hazy SPECIFIC GRAVITY UA (BEAKER) (test 1.019 1.001-1.035 code = 468) PH UA (BEAKER) (test code = 467) 5.5 5.0-8.0 PROTEIN UA (BEAKER) (test code = 30 mg/dL Negative A 464) GLUCOSE UA (BEAKER) (test code = Negative Negative 365) KETONES UA (BEAKER) (test code = Negative Negative 371) BILIRUBIN UA (BEAKER) (test code = Positive Negative A 462) BLOOD UA (BEAKER) (test code = 461) Negative Negative NITRITE UA (BEAKER) (test code = Negative Negative 465) LEUKOCYTE ESTERASE UA (BEAKER) Negative Negative (test code = 466) UROBILINOGEN UA (BEAKER) (test code 6.0 mg/dL 0.2-1.0 H = 463) RBC UA (BEAKER) (test code = 519) < /HPF WBC UA (BEAKER) (test code = 520) 2 /HPF BACTERIA (BEAKER) (test code = 517) Rare MUCUS (BEAKER) (test code = 1574) Rare SQUAMOUS EPITHELIAL (BEAKER) (test 21 /HPF code = 516) CALCIUM OXALATE CRYSTALS (BEAKER) Moderate (test code = 518) SOURCE(BEAKER) (test code = 2795) Tourist Cabin Keeper ID - [auto]Tourist Cabin Keeper ID - techCBC W/PLT COUNT & AUTO DIFFERENTIAL 2020-04-13 15:50:00 Test Item Value Reference Range Interpretation Comments WHITE BLOOD CELL COUNT (BEAKER) 12.8 K/ L 3.5-10.5 H (test code = 775) RED BLOOD CELL COUNT (BEAKER) 4.88 M/ L 3.93-5.22 (test code = 761) HEMOGLOBIN (BEAKER) (test code = 14.5 GM/DL 11.2-15.7 410) HEMATOCRIT (BEAKER) (test code = 44.4 % 34.1-44.9 411) MEAN CORPUSCULAR VOLUME (BEAKER) 91.0 fL 79.4-94.8 (test code = 753) MEAN CORPUSCULAR HEMOGLOBIN 29.7 pg 25.6-32.2 (BEAKER) (test code = 751) MEAN CORPUSCULAR HEMOGLOBIN CONC 32.7 GM/DL 32.2-35.5 (BEAKER) (test code = 752) RED CELL DISTRIBUTION WIDTH 13.3 % 11.7-14.4 (BEAKER) (test code = 412) PLATELET COUNT (BEAKER) (test 391 K/CU MM 150-450 code = 756) MEAN PLATELET VOLUME (BEAKER) 11.0 fL 9.4-12.3 (test code = 754) NUCLEATED RED BLOOD CELLS 0 /100 WBC 0-0 (BEAKER) (test code = 413) NEUTROPHILS RELATIVE PERCENT 76 % (BEAKER) (test code = 429) LYMPHOCYTES RELATIVE PERCENT 17 % (BEAKER) (test code = 430) MONOCYTES RELATIVE PERCENT 5 % (BEAKER) (test code = 431) EOSINOPHILS RELATIVE PERCENT 1 % (BEAKER) (test code = 432) BASOPHILS RELATIVE PERCENT 1 % (BEAKER) (test code = 437) NEUTROPHILS ABSOLUTE COUNT 9.71 K/ L 1.56-6.13 H (BEAKER) (test code = 670) LYMPHOCYTES ABSOLUTE COUNT 2.19 K/ L 1.18-3.74 (BEAKER) (test code = 414) MONOCYTES ABSOLUTE COUNT (BEAKER) 0.64 K/ L 0.24-0.36 H (test code = 415) EOSINOPHILS ABSOLUTE COUNT 0.10 K/ L 0.04-0.36 (BEAKER) (test code = 416) BASOPHILS ABSOLUTE COUNT (BEAKER) 0.10 K/ L 0.01-0.08 H (test code = 417) IMMATURE GRANULOCYTES-RELATIVE 1 % 0-1 PERCENT (BEAKER) (test code = 2801) HEPATIC FUNCTION [id number] 17:05:00 Test Item Value Reference Range Interpretation Comments TOTAL PROTEIN (BEAKER) (test code = 8.6 gm/dL 6.0-8.3 H 770) ALBUMIN (BEAKER) (test code = 1145) 4.3 g/dL 3.5-5.0 BILIRUBIN TOTAL (BEAKER) (test code 2.7 mg/dL 0.2-1.2 H = 377) BILIRUBIN DIRECT (BEAKER) (test 1.9 mg/dL 0.1-0.5 H code = 706) ALKALINE PHOSPHATASE (BEAKER) (test 241 U/L 40-150 H code = 346) AST (SGOT) (BEAKER) (test code = 607 U/L 5-34 H 353) ALT (SGPT) (BEAKER) (test code = 1139 U/L 6-55 H 347) Tourist Cabin Keeper ID - BSBASIC METABOLIC [id number] 17:05:00 Test Item Value Reference Range Interpretation Comments SODIUM (BEAKER) 135 meq/L 136-145 L (test code = 381) POTASSIUM (BEAKER) 4.2 meq/L 3.5-5.1 (test code = 379) CHLORIDE (BEAKER) 98 meq/L 98-107 (test code = 382) CO2 (BEAKER) (test 30 meq/L 22-29 H code = 355) BLOOD UREA NITROGEN 11 mg/dL 7-21 (BEAKER) (test code = 354) CREATININE (BEAKER) 0.80 mg/dL 0.57-1.25 (test code = 358) GLUCOSE RANDOM 113 mg/dL 70-105 H (BEAKER) (test code = 652) CALCIUM (BEAKER) 10.1 mg/dL 8.4-10.2 (test code = 697) EGFR (BEAKER) (test 78 mL/min/1.73 ESTIMA GUY GFR IS code = 1092) sq m NOT ACCURATE CREATININE CLEARANCE IN PREDICTING GLOMERULAR FILTRATION RATE . ESTIMATED GFR I S NOT APPLICABLE FOR DIALYSIS PATIEN TS. Tourist Cabin Keeper ID - BSCBC W/PLT COUNT & AUTO [id number] 16:44:00 Test Item Value Reference Range Interpretation Comments WHITE BLOOD CELL COUNT (BEAKER) 19.5 K/ L 3.5-10.5 H (test code = 775) RED BLOOD CELL COUNT (BEAKER) 4.96 M/ L 3.93-5.22 (test code = 761) HEMOGLOBIN (BEAKER) (test code = 14.4 GM/DL 11.2-15.7 410) HEMATOCRIT (BEAKER) (test code = 45.5 % 34.1-44.9 H 411) MEAN CORPUSCULAR VOLUME (BEAKER) 91.7 fL 79.4-94.8 (test code = 753) MEAN CORPUSCULAR HEMOGLOBIN 29.0 pg 25.6-32.2 (BEAKER) (test code = 751) MEAN CORPUSCULAR HEMOGLOBIN CONC 31.6 GM/DL 32.2-35.5 L (BEAKER) (test code = 752) RED CELL DISTRIBUTION WIDTH 13.5 % 11.7-14.4 (BEAKER) (test code = 412) PLATELET COUNT (BEAKER) (test 425 K/CU MM 150-450 code = 756) MEAN PLATELET VOLUME (BEAKER) 10.9 fL 9.4-12.3 (test code = 754) NUCLEATED RED BLOOD CELLS 0 /100 WBC 0-0 (BEAKER) (test code = 413) NEUTROPHILS RELATIVE PERCENT 83 % (BEAKER) (test code = 429) LYMPHOCYTES RELATIVE PERCENT 11 % (BEAKER) (test code = 430) MONOCYTES RELATIVE PERCENT 5 % (BEAKER) (test code = 431) EOSINOPHILS RELATIVE PERCENT 1 % (BEAKER) (test code = 432) BASOPHILS RELATIVE PERCENT 0 % (BEAKER) (test code = 437) NEUTROPHILS ABSOLUTE COUNT 16.15 K/ L 1.56-6.13 H (BEAKER) (test code = 670) LYMPHOCYTES ABSOLUTE COUNT 2.18 K/ L 1.18-3.74 (BEAKER) (test code = 414) MONOCYTES ABSOLUTE COUNT (BEAKER) 0.91 K/ L 0.24-0.36 H (test code = 415) EOSINOPHILS ABSOLUTE COUNT 0.09 K/ L 0.04-0.36 (BEAKER) (test code = 416) BASOPHILS ABSOLUTE COUNT (BEAKER) 0.08 K/ L 0.01-0.08 (test code = 417) IMMATURE GRANULOCYTES-RELATIVE 1 % 0-1 PERCENT (BEAKER) (test code = 2801) ANG, CHOLANGIOGRAM, [id number] 15:31:00Reason for exam:->Needs PTC, biliary brushings and needs Liver biopsy per hepatology team. Pleasecall [phone]. Pt has altered anatomy due to complicaton from cholecystectomy in 2010FINAL REPORT Procedure: Percutaneous transhepatic cholangiography and internal/external biliary drainage catheter placement. Ultrasound-guided liver biopsy. 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 Failed ERCP. [place] biopsy of the biliary stricture is also requested. The patient hashepatic fibrosis. A percutaneous liver biopsy has been requested. Contract Analyst: Arias Lucas M.D. Psychologist: Jose Danielle Modality: Sonography and fluoroscopy. DOSE REDUCTION: The examination was performed according to departmental dose- optimization program. Fluoro time: 28.7 minutes Radiation dose: 201.4 mGy Air Kerma. Sedation: The procedure was performed under intravenous conscious sedation. Intravenousconscious sedation was administered and monitored by a dedicated RN under direct supervision of Dr. Lucas. Physician intra- service sedation time was 90 minutes. Anesthesia: Lidocaine local infiltration. Medicines: The patient is on IV antibioticsBiliary infection. Drugs used for intravenous conscious sedation: Versed 3 mg IV. Fentanyl 2 50 mcg IV. Dilaudid 1 mg IV. Contrast medium:Isovue 300, 20 cc. Estimated blood loss: < 5 cc. Technique: A discussion of the risks, benefits, and alternatives was carried out with the patient. The patient expressed understanding and agreed to proceed. A written informed consent was obtained. The procedure room personnel used personal protective equipment. The operators used sterile gowns and gloves. The patient was laid supine on the procedure table. The surgical site was prepped with chlorhexidine gluconate and draped in the standard sterile fashion. A universal timeout was performed prior to starting the procedure. The lowestright intercostal site posterior to the mid axillary line was selected for initial access. After dermatotomy, a 21-gauge needle was advanced using the standard technique into the liver parenchyma. The needle was slowly withdrawn as gentle puffs of dilute contrast medium were made into the liver parenchyma. Eventually opacification of a bile duct was achieved. This was used to inject additional volumeof contrast medium into the biliary tree to obtain a percutaneous transhepatic cholangiogram. All steps of this segment of the procedure were carried out with fluoroscopy. A guidewire could not be advanced into the biliary system. We resorted to ultrasonography for real-time guidance to cannulate a peripheral bile duct. This was also unsuccessful. A suitable peripheral bile duct of segment 6 of the liver previously opacified was then targeted for catheter placement access. A 21-gauge needle was advanced targeting the chosen bile duct. The duct was entered successfully. A 018 guidewire was advanced under fluoroscopic guidance into the bile duct and then into the central biliary passages. Over the wire, in exchange for the needle, an AccuStick conversion set was placed. The stiffeners for the AccuStick set were removed. Contrast injection through the sheath confirmed satisfactory position in the bile ducts. A guidewire in combination with a directional catheter was maneuvered across the more central bile ducts into the bowel across the stricture. Contrast injection through the catheter confirmed satisfactory positioning of the catheter tip in the bowel lumen. A superstiff Amplatz wire was placed through the wire. Following sequential dilatation of the tract an 8 [place] internal/external biliary drainage catheter was placed over the wire with the pigtail locked in the bowel and the most proximal sidehole placed in the peripheral bile duct upstream from the obstruction. Contrast injection confirmed satisfactory position of the catheter with free flow of the contrast medium in the biliary treeand drainage into the bowel. The catheter was secured to skin with nonabsorbable suture. An aseptic dressing was applied. The catheter was connected to a gravity drainage bag. Unfortunately we did not have a biliary brush biopsy set at the time of this procedure. [place] biopsy could not be performed. Using real-time ultrasonographic guidance, after local anesthesia and dermatotomy, using an intercostal space above the access site for PTC, a 16-gauge [place] biopsy needle was used to perform 2 core biopsies of the liver parenchyma without complication. The specimens were deposited in formalin and transferred to the lab for further processing. An aseptic dressing was applied. The patient was transferred to the recovery area and transferred out of the department in stable condition. Complications: None immediate. Findings:Mild dilatation of the biliary tree. There is occlusion of thehepaticojejunostomy anastomotic site. This was crossed with some difficulty. Final image shows presence of an 8 Slovak internal/external biliary drainage catheter with the most proximal sidehole in theperipheral bile duct and the tip coiled up in the jejunum across the hepaticojejunostomy. The filling defects in the biliary passages are present blood product. Impression: Successful ultrasound and fluoroscopic guided percutaneous transhepatic cholangiogram and percutaneous transhepatic biliary drainage catheter placement using a right low intercostal access site and peripheral access into a branch duct of segment 6 of the liver as described above. There was occlusion of the hepaticojejunostomy anastomosis. This was successfully crossed. An 8 [place] internal/external biliary drainage catheter has been placed extending from the intrahepatic bile ducts across the anastomosis into the bowel. Please allow the catheter to drain externally for at least 24 hours. Once the clinical symptoms, abnormal enzymes, hemobilia have settled, the catheter can be capped externally. The catheter should be forward flushed with 10 cc of normal saline at least once a day. The catheter needs exchangefor routine maintenance in three months at the latest. Because of the unavailability of a brush biopsy set, biliary brush biopsy could not be performed. It can be performed at a later date once the equipment is available. Successful ultrasound-guided core biopsy of the right lobe of the liver as described above. Thank you for the opportunity to assist in the care of your patient. Signed: Arias [place] Verified Date/Time: 04/11/2020 15:31:21 Reading Location: [facility] B1 P048 Angio Body Reading Room TISSUE [id number] 11:07:00Surgical Pathology Report Case: [id number] Authorizing Provider: Serge Frazier MD Collected: 04/06/2020 05:37 PM Ordering Location: [address] Received: 04/06/2020 10:12 PM Service Pathologist: Heidy Markham MD Specimen: Biopsy, Liver, Bx LIVER, RANDOM NEEDLE CORE: - PORTAL TRIADS WITH MIXED PORTAL INFLAMMATION WITH MILD DUCTULAR REACTION, EDEMA AND BILIARY TYPE INTERFACE HEPATITIS - BILE DUCT APPEARS TO BE PRESERVED - SOME PERIDUCTAL FIBROSIS NOTED - HEPATIC LOBULES WITH MILD INFLAMMATION AND KUPFFER CELL HYPERPLASIASJ/pl Signing Pathologist Direct Phone Line: [phone] signed by Heidy Markham MD on 04/10/2020 at 11:07 Rivera this 44-year-old female, AST 418, ALT 974, alkaline phosphatase 320, total bilirubin 1.1. Direct 0.7. TENISHA negative. negative viral hepatitis panel with past medical history of cholecystectomy complicated by CBD injury, s/p surgical repair, recurrent pancreatitis, now presented with acute c holangitis the findings are suggestive of early large bile duct obstruction Clinical correlation recommended with ERCP findings. Clinician Notified: Dr Macias (Liver Fellow) was informed on 04/07/2020 by telephonic call [id number] [phone]; [id number] in normal formalin, two sanchez-brown liver cores measuring 2.5 and 1.3 cm in length. The entire specimen is submitted in cassette A1 Three liver cores with more than 20 portal triads with adequate number of portal triads and preserved hepatic parenchyma. The portal triads shows edema with mild mixed inflammation comprised of lymphocytes, histiocytes, neutrophils and eosinophils. The bile ducts at the portal triads are preserved. No significant interface hepatitis noted. There is mild ductular reaction noted at the portal triad associated with neutrophils.The lobule shows significant diffuse Kupffer cell hyperplasia with lymphocytes lining the sinusoids with mild congestion. There is mild perivenular, centrivenular inflammation noted. Trichrome stain shows mild portal fibrosis, portal expansion by fibrosis. Reticulin stain shows mild nodular regeneration. PAS-D stain is negative for Alpha-1 antitrypsin globules. Iron stain is negative for increased iron. The interpretation of this case included the use of immunohistochemistry or special stains.Control Slides Examined: In-house known positive controls were evaluated along with the test tissue. These control slides run alongside of the patients sample show appropriate staining. Internal positive and negative controls when available are evaluated Immunohistochemistry technical testing was performed at [facility], Pathology Laboratory where it was developed and its performance characteristics were determined. It has not been cleared or approved by the U.S. Food and Drug Administration. The FDA has determined that such clearance or approval is not necessary. The test is used for clinical purposes. It should not be regarded as investigational or for research. This laboratory is certified under the Clinical Laboratory Improvement Amendments of 1988 (CLIA-88) as qualified to perform high complexity clinical laboratory testing.PHOSPHORUS 2020-04-08 06:08:00 Test Item Value Reference Range Interpretation Comments PHOSPHORUS (BEAKER) (test code = 3.5 mg/dL 2.3-4.7 604) Tourist Cabin Keeper ID - BOUBACAR [id number] 06:08:00 Test Item Value Reference Range Interpretation Comments MAGNESIUM (BEAKER) (test code = 1.7 mg/dL 1.6-2.6 627) Tourist Cabin Keeper ID - BOUBACAR MBASIC METABOLIC [id number] 06:08:00 Test Item Value Reference Range Interpretation Comments SODIUM (BEAKER) 135 meq/L 136-145 L (test code = 381) POTASSIUM (BEAKER) 3.6 meq/L 3.5-5.1 (test code = 379) CHLORIDE (BEAKER) 97 meq/L 98-107 L (test code = 382) CO2 (BEAKER) (test 28 meq/L 22-29 code = 355) BLOOD UREA NITROGEN 10 mg/dL 7-21 (BEAKER) (test code = 354) CREATININE (BEAKER) 0.63 mg/dL 0.57-1.25 (test code = 358) GLUCOSE RANDOM 113 mg/dL 70-105 H (BEAKER) (test code = 652) CALCIUM (BEAKER) 9.8 mg/dL 8.4-10.2 (test code = 697) EGFR (BEAKER) (test 103 mL/min/1.73 ESTIM ATED GFR IS code = 1092) sq m NOT ACCURATE CREATININE CLEARANCE IN PREDICTING GLOMERULAR FILTRATION RATE . ESTIMATED GFR I S NOT APPLICABLE FOR DIALYSIS PATIEN TS. Tourist Cabin Keeper ID - BOUBACAR EPATIC FUNCTION [id number] 06:08:00 Test Item Value Reference Range Interpretation Comments TOTAL PROTEIN (BEAKER) (test code = 7.7 gm/dL 6.0-8.3 770) ALBUMIN (BEAKER) (test code = 1145) 3.8 g/dL 3.5-5.0 BILIRUBIN TOTAL (BEAKER) (test code 0.8 mg/dL 0.2-1.2 = 377) BILIRUBIN DIRECT (BEAKER) (test 0.5 mg/dL 0.1-0.5 code = 706) ALKALINE PHOSPHATASE (BEAKER) (test 298 U/L 40-150 H code = 346) AST (SGOT) (BEAKER) (test code = 460 U/L 5-34 H 353) ALT (SGPT) (BEAKER) (test code = 1031 U/L 6-55 H 347) Tourist Cabin Keeper ID - BOUBACAR MCBC W/PLT COUNT & AUTO [id number] 05:29:00 Test Item Value Reference Range Interpretation Comments WHITE BLOOD CELL COUNT (BEAKER) 10.3 K/ L 3.5-10.5 (test code = 775) RED BLOOD CELL COUNT (BEAKER) 4.88 M/ L 3.93-5.22 (test code = 761) HEMOGLOBIN (BEAKER) (test code = 14.4 GM/DL 11.2-15.7 410) HEMATOCRIT (BEAKER) (test code = 44.7 % 34.1-44.9 411) MEAN CORPUSCULAR VOLUME (BEAKER) 91.6 fL 79.4-94.8 (test code = 753) MEAN CORPUSCULAR HEMOGLOBIN 29.5 pg 25.6-32.2 (BEAKER) (test code = 751) MEAN CORPUSCULAR HEMOGLOBIN CONC 32.2 GM/DL 32.2-35.5 (BEAKER) (test code = 752) RED CELL DISTRIBUTION WIDTH 13.2 % 11.7-14.4 (BEAKER) (test code = 412) PLATELET COUNT (BEAKER) (test 335 K/CU MM 150-450 code = 756) MEAN PLATELET VOLUME (BEAKER) 11.1 fL 9.4-12.3 (test code = 754) NUCLEATED RED BLOOD CELLS 0 /100 WBC 0-0 (BEAKER) (test code = 413) NEUTROPHILS RELATIVE PERCENT 75 % (BEAKER) (test code = 429) LYMPHOCYTES RELATIVE PERCENT 16 % (BEAKER) (test code = 430) MONOCYTES RELATIVE PERCENT 6 % (BEAKER) (test code = 431) EOSINOPHILS RELATIVE PERCENT 2 % (BEAKER) (test code = 432) BASOPHILS RELATIVE PERCENT 1 % (BEAKER) (test code = 437) NEUTROPHILS ABSOLUTE COUNT 7.73 K/ L 1.56-6.13 H (BEAKER) (test code = 670) LYMPHOCYTES ABSOLUTE COUNT 1.62 K/ L 1.18-3.74 (BEAKER) (test code = 414) MONOCYTES ABSOLUTE COUNT (BEAKER) 0.59 K/ L 0.24-0.36 H (test code = 415) EOSINOPHILS ABSOLUTE COUNT 0.16 K/ L 0.04-0.36 (BEAKER) (test code = 416) BASOPHILS ABSOLUTE COUNT (BEAKER) 0.06 K/ L 0.01-0.08 (test code = 417) IMMATURE GRANULOCYTES-RELATIVE 1 % 0-1 PERCENT (BEAKER) (test code = 2801) ANTI-MITOCHONDRIAL AB, REFLEX TO [id number] 12:32:00 Test Item Value Reference Range Interpretation Comments SCAN RESULT (test code = 0706967) ANTI-NUCLEAR ANTIBODY (TENISHA)2020-04-07 10:26:00 Test Item Value Reference Range Interpretation Comments ANTI-NUCLEAR ANTIBODY (TENISHA) (BEAKER) Negative Negative (test code = 418) Test performed by IFA method.Test performed by IFA method.BLOOD CULTURE 2020-04-07 09:00:00 Test Item Value Reference Range Interpretation Comments CULTURE (BEAKER) (test No growth in 5 days code = 1095) BLOOD [id number] 09:00:00 Test Item Value Reference Range Interpretation Comments CULTURE (BEAKER) (test No growth in 5 days code = 1095) [id number] 05:05:00 Test Item Value Reference Range Interpretation Comments PHOSPHORUS (BEAKER) (test code = 3.4 mg/dL 2.3-4.7 604) Tourist Cabin Keeper ID - BOUBACAR [id number] 05:05:00 Test Item Value Reference Range Interpretation Comments MAGNESIUM (BEAKER) (test code = 2.1 mg/dL 1.6-2.6 627) Tourist Cabin Keeper ID - BOUBACAR MBASIC METABOLIC [id number] 05:05:00 Test Item Value Reference Range Interpretation Comments SODIUM (BEAKER) 137 meq/L 136-145 (test code = 381) POTASSIUM (BEAKER) 3.7 meq/L 3.5-5.1 (test code = 379) CHLORIDE (BEAKER) 98 meq/L 98-107 (test code = 382) CO2 (BEAKER) (test 28 meq/L 22-29 code = 355) BLOOD UREA NITROGEN 12 mg/dL 7-21 (BEAKER) (test code = 354) CREATININE (BEAKER) 0.65 mg/dL 0.57-1.25 (test code = 358) GLUCOSE RANDOM 102 mg/dL 70-105 (BEAKER) (test code = 652) CALCIUM (BEAKER) 9.5 mg/dL 8.4-10.2 (test code = 697) EGFR (BEAKER) (test 99 mL/min/1.73 ESTIMA GUY GFR IS code = 1092) sq m NOT ACCURATE CREATININE CLEARANCE IN PREDICTING GLOMERULAR FILTRATION RATE . ESTIMATED GFR I S NOT APPLICABLE FOR DIALYSIS PATIEN TS. Tourist Cabin Keeper ID - BOUBACAR MHEPATIC FUNCTION [id number] 05:05:00 Test Item Value Reference Range Interpretation Comments TOTAL PROTEIN (BEAKER) (test code = 7.6 gm/dL 6.0-8.3 770) ALBUMIN (BEAKER) (test code = 1145) 3.8 g/dL 3.5-5.0 BILIRUBIN TOTAL (BEAKER) (test code 1.1 mg/dL 0.2-1.2 = 377) BILIRUBIN DIRECT (BEAKER) (test 0.7 mg/dL 0.1-0.5 H code = 706) ALKALINE PHOSPHATASE (BEAKER) (test 320 U/L 40-150 H code = 346) AST (SGOT) (BEAKER) (test code = 418 U/L 5-34 H 353) ALT (SGPT) (BEAKER) (test code = 974 U/L 6-55 H 347) Tourist Cabin Keeper ID - BOUBACAR MCBC W/PLT COUNT & AUTO [id number] 04:30:00 Test Item Value Reference Range Interpretation Comments WHITE BLOOD CELL COUNT (BEAKER) 10.9 K/ L 3.5-10.5 H (test code = 775) RED BLOOD CELL COUNT (BEAKER) 4.91 M/ L 3.93-5.22 (test code = 761) HEMOGLOBIN (BEAKER) (test code = 14.4 GM/DL 11.2-15.7 410) HEMATOCRIT (BEAKER) (test code = 45.0 % 34.1-44.9 H 411) MEAN CORPUSCULAR VOLUME (BEAKER) 91.6 fL 79.4-94.8 (test code = 753) MEAN CORPUSCULAR HEMOGLOBIN 29.3 pg 25.6-32.2 (BEAKER) (test code = 751) MEAN CORPUSCULAR HEMOGLOBIN CONC 32.0 GM/DL 32.2-35.5 L (BEAKER) (test code = 752) RED CELL DISTRIBUTION WIDTH 12.9 % 11.7-14.4 (BEAKER) (test code = 412) PLATELET COUNT (BEAKER) (test 311 K/CU MM 150-450 code = 756) MEAN PLATELET VOLUME (BEAKER) 11.2 fL 9.4-12.3 (test code = 754) NUCLEATED RED BLOOD CELLS 0 /100 WBC 0-0 (BEAKER) (test code = 413) NEUTROPHILS RELATIVE PERCENT 79 % (BEAKER) (test code = 429) LYMPHOCYTES RELATIVE PERCENT 12 % (BEAKER) (test code = 430) MONOCYTES RELATIVE PERCENT 6 % (BEAKER) (test code = 431) EOSINOPHILS RELATIVE PERCENT 1 % (BEAKER) (test code = 432) BASOPHILS RELATIVE PERCENT 1 % (BEAKER) (test code = 437) NEUTROPHILS ABSOLUTE COUNT 8.60 K/ L 1.56-6.13 H (BEAKER) (test code = 670) LYMPHOCYTES ABSOLUTE COUNT 1.31 K/ L 1.18-3.74 (BEAKER) (test code = 414) MONOCYTES ABSOLUTE COUNT (BEAKER) 0.64 K/ L 0.24-0.36 H (test code = 415) EOSINOPHILS ABSOLUTE COUNT 0.12 K/ L 0.04-0.36 (BEAKER) (test code = 416) BASOPHILS ABSOLUTE COUNT (BEAKER) 0.08 K/ L 0.01-0.08 (test code = 417) IMMATURE GRANULOCYTES-RELATIVE 1 % 0-1 PERCENT (BEAKER) (test code = 2801) [id number] 14:07:00 Test Item Value Reference Range Interpretation Comments POTASSIUM (BEAKER) (test code = 3.8 meq/L 3.5-5.1 379) Tourist Cabin Keeper ID - RANDY NOE-NUCLEAR ANTIBODY (TENISHA)2020-04-06 10:20:00 Test Item Value Reference Range Interpretation Comments ANTI-NUCLEAR ANTIBODY (TENISHA) (BEAKER) Negative Negative (test code = 418) Test performed by IFA method.Test performed by IFA method.PROTHROMBIN TIME/INR 2020-04-06 09:13:00 Test Item Value Reference Range Interpretation Comments PROTIME (BEAKER) (test code = 13.2 seconds 11.9-14.2 759) INR (BEAKER) (test code = 370) 1.0 <=5.9 Effective 03/17/2019: PT Reference Range ChangeNew: 11.9-14.2 Previous: 11.7- 14.7RECOMMENDED COUMADIN/WARFARIN INR THERAPY RANGESSTANDARD DOSE: 2.0-3.0 Includes: PROPHYLAXIS for venous thrombosis, systemic embolization; TREATMENT for venous thrombosis and/or pulmonary embolus.HIGH RISK: Target INR is2.5-3.5 for patients wiht mechanical heart valves.[id number] 07:09:00 Test Item Value Reference Range Interpretation Comments PHOSPHORUS (BEAKER) (test code = 3.8 mg/dL 2.3-4.7 604) Tourist Cabin Keeper ID - TIFF [id number] 07:09:00 Test Item Value Reference Range Interpretation Comments MAGNESIUM (BEAKER) (test code = 1.6 mg/dL 1.6-2.6 627) Tourist Cabin Keeper ID - TIFF CBASIC METABOLIC [id number] 07:09:00 Test Item Value Reference Range Interpretation Comments SODIUM (BEAKER) 135 meq/L 136-145 L (test code = 381) POTASSIUM (BEAKER) 2.9 meq/L 3.5-5.1 L (test code = 379) CHLORIDE (BEAKER) 97 meq/L 98-107 L (test code = 382) CO2 (BEAKER) (test 27 meq/L 22-29 code = 355) BLOOD UREA NITROGEN 8 mg/dL 7-21 (BEAKER) (test code = 354) CREATININE (BEAKER) 0.61 mg/dL 0.57-1.25 (test code = 358) GLUCOSE RANDOM 106 mg/dL 70-105 H (BEAKER) (test code = 652) CALCIUM (BEAKER) 9.4 mg/dL 8.4-10.2 (test code = 697) EGFR (BEAKER) (test 107 mL/min/1.73 ESTIM ATED GFR IS code = 1092) sq m NOT ACCURATE CREATININE CLEARANCE IN PREDICTING GLOMERULAR FILTRATION RATE . ESTIMATED GFR I S NOT APPLICABLE FOR DIALYSIS PATIEN TS. Tourist Cabin Keeper ID - TIFF CHEPATIC FUNCTION [id number] 07:09:00 Test Item Value Reference Range Interpretation Comments TOTAL PROTEIN (BEAKER) (test code = 7.4 gm/dL 6.0-8.3 770) ALBUMIN (BEAKER) (test code = 1145) 3.7 g/dL 3.5-5.0 BILIRUBIN TOTAL (BEAKER) (test code 1.2 mg/dL 0.2-1.2 = 377) BILIRUBIN DIRECT (BEAKER) (test 0.8 mg/dL 0.1-0.5 H code = 706) ALKALINE PHOSPHATASE (BEAKER) (test 239 U/L 40-150 H code = 346) AST (SGOT) (BEAKER) (test code = 371 U/L 5-34 H 353) ALT (SGPT) (BEAKER) (test code = 888 U/L 6-55 H 347) Tourist Cabin Keeper ID - TIFF CCBC W/PLT COUNT & AUTO [id number] 06:20:00 Test Item Value Reference Range Interpretation Comments WHITE BLOOD CELL COUNT (BEAKER) 9.1 K/ L 3.5-10.5 (test code = 775) RED BLOOD CELL COUNT (BEAKER) 4.64 M/ L 3.93-5.22 (test code = 761) HEMOGLOBIN (BEAKER) (test code = 13.7 GM/DL 11.2-15.7 410) HEMATOCRIT (BEAKER) (test code = 41.9 % 34.1-44.9 411) MEAN CORPUSCULAR VOLUME (BEAKER) 90.3 fL 79.4-94.8 (test code = 753) MEAN CORPUSCULAR HEMOGLOBIN 29.5 pg 25.6-32.2 (BEAKER) (test code = 751) MEAN CORPUSCULAR HEMOGLOBIN CONC 32.7 GM/DL 32.2-35.5 (BEAKER) (test code = 752) RED CELL DISTRIBUTION WIDTH 12.7 % 11.7-14.4 (BEAKER) (test code = 412) PLATELET COUNT (BEAKER) (test 270 K/CU MM 150-450 code = 756) MEAN PLATELET VOLUME (BEAKER) 11.4 fL 9.4-12.3 (test code = 754) NUCLEATED RED BLOOD CELLS 0 /100 WBC 0-0 (BEAKER) (test code = 413) NEUTROPHILS RELATIVE PERCENT 78 % (BEAKER) (test code = 429) LYMPHOCYTES RELATIVE PERCENT 12 % (BEAKER) (test code = 430) MONOCYTES RELATIVE PERCENT 7 % (BEAKER) (test code = 431) EOSINOPHILS RELATIVE PERCENT 1 % (BEAKER) (test code = 432) BASOPHILS RELATIVE PERCENT 1 % (BEAKER) (test code = 437) NEUTROPHILS ABSOLUTE COUNT 7.09 K/ L 1.56-6.13 H (BEAKER) (test code = 670) LYMPHOCYTES ABSOLUTE COUNT 1.08 K/ L 1.18-3.74 L (BEAKER) (test code = 414) MONOCYTES ABSOLUTE COUNT (BEAKER) 0.64 K/ L 0.24-0.36 H (test code = 415) EOSINOPHILS ABSOLUTE COUNT 0.12 K/ L 0.04-0.36 (BEAKER) (test code = 416) BASOPHILS ABSOLUTE COUNT (BEAKER) 0.07 K/ L 0.01-0.08 (test code = 417) IMMATURE GRANULOCYTES-RELATIVE 1 % 0-1 PERCENT (BEAKER) (test code = 2801) [id number] 18:25:00 Test Item Value Reference Range Interpretation Comments LIPASE (BEAKER) (test code = 749) 30 U/L 8-78 Tourist Cabin Keeper ID - [id number] 04:52:00 Test Item Value Reference Range Interpretation Comments PHOSPHORUS (BEAKER) (test code = 3.2 mg/dL 2.3-4.7 604) Tourist Cabin Keeper ID - RANDY [id number] 04:52:00 Test Item Value Reference Range Interpretation Comments MAGNESIUM (BEAKER) (test code = 1.5 mg/dL 1.6-2.6 L 627) Tourist Cabin Keeper ID - RANDY LBASIC METABOLIC [id number] 04:52:00 Test Item Value Reference Range Interpretation Comments SODIUM (BEAKER) 136 meq/L 136-145 (test code = 381) POTASSIUM (BEAKER) 3.1 meq/L 3.5-5.1 L (test code = 379) CHLORIDE (BEAKER) 99 meq/L 98-107 (test code = 382) CO2 (BEAKER) (test 27 meq/L 22-29 code = 355) BLOOD UREA NITROGEN 6 mg/dL 7-21 L (BEAKER) (test code = 354) CREATININE (BEAKER) 0.54 mg/dL 0.57-1.25 L (test code = 358) GLUCOSE RANDOM 115 mg/dL 70-105 H (BEAKER) (test code = 652) CALCIUM (BEAKER) 8.8 mg/dL 8.4-10.2 (test code = 697) EGFR (BEAKER) (test 123 mL/min/1.73 ESTIM ATED GFR IS code = 1092) sq m NOT ACCURATE CREATININE CLEARANCE IN PREDICTING GLOMERULAR FILTRATION RATE . ESTIMATED GFR I S NOT APPLICABLE FOR DIALYSIS PATIEN TS. Tourist Cabin Keeper ID - PIAYA LHEPATIC FUNCTION [id number] 04:52:00 Test Item Value Reference Range Interpretation Comments TOTAL PROTEIN (BEAKER) (test code = 6.8 gm/dL 6.0-8.3 770) ALBUMIN (BEAKER) (test code = 1145) 3.6 g/dL 3.5-5.0 BILIRUBIN TOTAL (BEAKER) (test code 0.9 mg/dL 0.2-1.2 = 377) BILIRUBIN DIRECT (BEAKER) (test 0.6 mg/dL 0.1-0.5 H code = 706) ALKALINE PHOSPHATASE (BEAKER) (test 213 U/L 40-150 H code = 346) AST (SGOT) (BEAKER) (test code = 404 U/L 5-34 H 353) ALT (SGPT) (BEAKER) (test code = 819 U/L 6-55 H 347) Tourist Cabin Keeper ID - PIAYA LCBC W/PLT COUNT & AUTO [id number] 04:08:00 Test Item Value Reference Range Interpretation Comments WHITE BLOOD CELL COUNT (BEAKER) 10.0 K/ L 3.5-10.5 (test code = 775) RED BLOOD CELL COUNT (BEAKER) 4.08 M/ L 3.93-5.22 (test code = 761) HEMOGLOBIN (BEAKER) (test code = 12.2 GM/DL 11.2-15.7 410) HEMATOCRIT (BEAKER) (test code = 37.9 % 34.1-44.9 411) MEAN CORPUSCULAR VOLUME (BEAKER) 92.9 fL 79.4-94.8 (test code = 753) MEAN CORPUSCULAR HEMOGLOBIN 29.9 pg 25.6-32.2 (BEAKER) (test code = 751) MEAN CORPUSCULAR HEMOGLOBIN CONC 32.2 GM/DL 32.2-35.5 (BEAKER) (test code = 752) RED CELL DISTRIBUTION WIDTH 12.8 % 11.7-14.4 (BEAKER) (test code = 412) PLATELET COUNT (BEAKER) (test 199 K/CU MM 150-450 code = 756) MEAN PLATELET VOLUME (BEAKER) 12.3 fL 9.4-12.3 (test code = 754) NUCLEATED RED BLOOD CELLS 0 /100 WBC 0-0 (BEAKER) (test code = 413) NEUTROPHILS RELATIVE PERCENT 81 % (BEAKER) (test code = 429) LYMPHOCYTES RELATIVE PERCENT 11 % (BEAKER) (test code = 430) MONOCYTES RELATIVE PERCENT 7 % (BEAKER) (test code = 431) EOSINOPHILS RELATIVE PERCENT 1 % (BEAKER) (test code = 432) BASOPHILS RELATIVE PERCENT 0 % (BEAKER) (test code = 437) NEUTROPHILS ABSOLUTE COUNT 8.05 K/ L 1.56-6.13 H (BEAKER) (test code = 670) LYMPHOCYTES ABSOLUTE COUNT 1.05 K/ L 1.18-3.74 L (BEAKER) (test code = 414) MONOCYTES ABSOLUTE COUNT (BEAKER) 0.67 K/ L 0.24-0.36 H (test code = 415) EOSINOPHILS ABSOLUTE COUNT 0.09 K/ L 0.04-0.36 (BEAKER) (test code = 416) BASOPHILS ABSOLUTE COUNT (BEAKER) 0.04 K/ L 0.01-0.08 (test code = 417) IMMATURE GRANULOCYTES-RELATIVE 1 % 0-1 PERCENT (BEAKER) (test code = 2801) ANTI-NUCLEAR ANTIBODY (TENISHA)2020-04-04 10:46:00 Test Item Value Reference Range Interpretation Comments ANTI-NUCLEAR ANTIBODY (TENISHA) (BEAKER) Positive Negative A (test code = 418) Test performed by IFA method.TENISHA TITER AND [id number] 10:46:00 Test Item Value Reference Range Interpretation Comments TENISHA TITER (BEAKER) (test code = :160 1541) TENISHA PATTERN (BEAKER) (test code = Nucleolar 1781) POCT-GLUCOSE [id number] 07:05:00 Test Item Value Reference Range Interpretation Comments POC-GLUCOSE METER 126 mg/dL 70-110 H : TESTED A T [facility] 6720 (BEAKER) (test code = BERNIE Sen [place], 1538) [address]: Tourist Cabin Keeper/Techni diann ID = [id number] for Al i, Pita [id number] 06:58:00 Test Item Value Reference Range Interpretation Comments MAGNESIUM (BEAKER) 1.8 mg/dL 1.6-2.6 Specimen slightly (test code = 627) hemolyzed Tourist Cabin Keeper ID - BOUBACAR [id number] 06:58:00 Test Item Value Reference Range Interpretation Comments PHOSPHORUS (BEAKER) 2.8 mg/dL 2.3-4.7 Specimen slightly (test code = 604) hemolyzed Tourist Cabin Keeper ID - BOUBACAR MBASIC METABOLIC [id number] 06:58:00 Test Item Value Reference Range Interpretation Comments SODIUM (BEAKER) 136 meq/L 136-145 (test code = 381) POTASSIUM (BEAKER) 4.2 meq/L 3.5-5.1 Specimen slightly (test code = 379) hemolyzed CHLORIDE (BEAKER) 103 meq/L 98-107 (test code = 382) CO2 (BEAKER) (test 27 meq/L 22-29 code = 355) BLOOD UREA NITROGEN 8 mg/dL 7-21 (BEAKER) (test code = 354) CREATININE (BEAKER) 0.64 mg/dL 0.57-1.25 Specimen slightly (test code = 358) hemolyzed GLUCOSE RANDOM 135 mg/dL 70-105 H (BEAKER) (test code = 652) CALCIUM (BEAKER) 9.0 mg/dL 8.4-10.2 (test code = 697) EGFR (BEAKER) (test 101 mL/min/1.73 ESTIM ATED GFR IS code = 1092) sq m NOT ACCURATE CREATININE CLEARANCE IN PREDICTING GLOMERULAR FILTRATION RATE . ESTIMATED GFR I S NOT APPLICABLE FOR DIALYSIS PATIEN TS. Tourist Cabin Keeper ID - BOUBACAR MHEPATIC FUNCTION [id number] 06:58:00 Test Item Value Reference Range Interpretation Comments TOTAL PROTEIN (BEAKER) 7.2 gm/dL 6.0-8.3 Speci men slightly (test code = 770) hemolyzed ALBUMIN (BEAKER) (test 3.5 g/dL 3.5-5.0 Speci men slightly code = 1145) hemolyzed BILIRUBIN TOTAL 0.7 mg/dL 0.2-1.2 Specimen sli ghtly (BEAKER) (test code = hemoly zed 377) BILIRUBIN DIRECT 0.3 mg/dL 0.1-0.5 Specimen sl ightly (BEAKER) (test code = hemoly zed 706) ALKALINE PHOSPHATASE 211 U/L 40-150 H (BEAKER) (test code = 346) AST (SGOT) (BEAKER) 210 U/L 5-34 H Specimen slightly (test code = 353) hemolyzed ALT (SGPT) (BEAKER) 581 U/L 6-55 H Specimen slightly (test code = 347) hemolyzed Tourist Cabin Keeper ID - BOUBACAR MCBC W/PLT COUNT & AUTO [id number] 06:01:00 Test Item Value Reference Range Interpretation Comments WHITE BLOOD CELL COUNT (BEAKER) 9.5 K/ L 3.5-10.5 (test code = 775) RED BLOOD CELL COUNT (BEAKER) 3.99 M/ L 3.93-5.22 (test code = 761) HEMOGLOBIN (BEAKER) (test code = 12.0 GM/DL 11.2-15.7 410) HEMATOCRIT (BEAKER) (test code = 37.8 % 34.1-44.9 411) MEAN CORPUSCULAR VOLUME (BEAKER) 94.7 fL 79.4-94.8 (test code = 753) MEAN CORPUSCULAR HEMOGLOBIN 30.1 pg 25.6-32.2 (BEAKER) (test code = 751) MEAN CORPUSCULAR HEMOGLOBIN CONC 31.7 GM/DL 32.2-35.5 L (BEAKER) (test code = 752) RED CELL DISTRIBUTION WIDTH 12.7 % 11.7-14.4 (BEAKER) (test code = 412) PLATELET COUNT (BEAKER) (test 168 K/CU MM 150-450 code = 756) MEAN PLATELET VOLUME (BEAKER) 11.9 fL 9.4-12.3 (test code = 754) NUCLEATED RED BLOOD CELLS 0 /100 WBC 0-0 (BEAKER) (test code = 413) NEUTROPHILS RELATIVE PERCENT 85 % (BEAKER) (test code = 429) LYMPHOCYTES RELATIVE PERCENT 9 % (BEAKER) (test code = 430) MONOCYTES RELATIVE PERCENT 6 % (BEAKER) (test code = 431) EOSINOPHILS RELATIVE PERCENT 0 % (BEAKER) (test code = 432) BASOPHILS RELATIVE PERCENT 0 % (BEAKER) (test code = 437) NEUTROPHILS ABSOLUTE COUNT 8.08 K/ L 1.56-6.13 H (BEAKER) (test code = 670) LYMPHOCYTES ABSOLUTE COUNT 0.81 K/ L 1.18-3.74 L (BEAKER) (test code = 414) MONOCYTES ABSOLUTE COUNT (BEAKER) 0.57 K/ L 0.24-0.36 H (test code = 415) EOSINOPHILS ABSOLUTE COUNT 0.01 K/ L 0.04-0.36 L (BEAKER) (test code = 416) BASOPHILS ABSOLUTE COUNT (BEAKER) 0.01 K/ L 0.01-0.08 (test code = 417) IMMATURE GRANULOCYTES-RELATIVE 0 % 0-1 PERCENT (BEAKER) (test code = 2801) SARS-COV2/RT-PCR ([facility])2020-04-03 16:01:00 Test Item Value Reference Range Interpretation Comments SARS-COV2/RT-PCR (test Not Detected Not Detected, Negative code = 7944762) SARS-COV-2 PERFORMING LAB [facility] (test code = 7528244) Negative results do not preclude SARS-CoV-2 infection and should not be used as the sole basis for patient management decisions. Negative results must be combined with clinical observations, patient history, and epidemiological information. A false negative result may occur if a specimen is improperly collected, transported or handled.The limit of detection for this assay is 250 copies/mL.This SARS CoV-2 test is a rapid, real-time RT-PCR test intended for the qualitative detection of nucleic acid from SARS-CoV-2 in a nasopharyngeal swab specimen collected from individuals suspected of COVID-19 by their healthcare provider.This test has not been Food and Drug Administration (FDA) cleared or approved and has been authorized by FDA under an Emergency Use Authorization (EUA). This EUA will be effective until the declaration that circumstances exist justifying the authorization of the emergency use of in vitro diagnostic tests for detection and/or diagnosis of COVID-19 is terminated under Section 564(b)(2) of the Act or the EUA is revoked under Section 564(g) of the Act.Fact Sheet for Healthcare Pro viders:https://www.[employer]/Documents/Xpert%20Xpress%20SARS%20CoV-2/Fact%20Sh eets/302-3802%87FBCL-XKV-0%20HEALTHCARE%20PROVIDERS%20FACT%20SHEET.pdfFact Sheet for Healthcare Patients:https://www.[employer]/Documents/Xpert%20Xpress%20SARS%20CoV-2/Fact%20Sheets/302-3801%20SARS-COV -2%20PATIENT%20FACT%20SHEET.pdfPerforming Laboratory:[facility] [place], [place] [address]marshall Rivera.[place], [place] [address]OY, [id number] 15:02:00Reason for exam:->ERCPFINAL REPORT A fluoroscopic unit was utilized for a procedure performed in the operating room. No interpretation was requested. Please refer to the operative report regarding findings. Please refer to PACS for patient radiation dose information. Signed: Josefa Vernon MDReport Verified Date/Time: 04/03/2020 15:02:53 Reading Location: [facility] Reading Room SARS-COV2/RT-PCR ([facility])2020-04-03 09:37:00 Test Item Value Reference Range Interpretation Comments SARS-COV2/RT-PCR (test code = Negative Not Detected, Negative 5143558) SARS-COV-2 PERFORMING LAB [facility] (test code = 5790912) ALPHA FETOPROTEIN (AFP), TUMOR [id number] 07:15:00 Test Item Value Reference Range Interpretation Comments ALPHA-FETOPROTEIN (BEAKER) (test code < ng/mL <10.0 = 1094) Tourist Cabin Keeper ID - RANDY [id number] 07:02:00 Test Item Value Reference Range Interpretation Comments ALPHA-1 ANTITRYPSIN (BEAKER) 257.80 mg/dL 90.00-200.00 H (test code = 502) Tourist Cabin Keeper ID - RANDY [id number] 06:12:00 Test Item Value Reference Range Interpretation Comments PHOSPHORUS (BEAKER) (test code = 2.5 mg/dL 2.3-4.7 604) Tourist Cabin Keeper ID - RANDY [id number] 06:12:00 Test Item Value Reference Range Interpretation Comments MAGNESIUM (BEAKER) (test code = 1.9 mg/dL 1.6-2.6 627) Tourist Cabin Keeper ID - RANDY LBASIC METABOLIC [id number] 06:12:00 Test Item Value Reference Range Interpretation Comments SODIUM (BEAKER) 139 meq/L 136-145 (test code = 381) POTASSIUM (BEAKER) 3.4 meq/L 3.5-5.1 L (test code = 379) CHLORIDE (BEAKER) 109 meq/L 98-107 H (test code = 382) CO2 (BEAKER) (test 23 meq/L 22-29 code = 355) BLOOD UREA NITROGEN 9 mg/dL 7-21 (BEAKER) (test code = 354) CREATININE (BEAKER) 0.58 mg/dL 0.57-1.25 (test code = 358) GLUCOSE RANDOM 87 mg/dL 70-105 (BEAKER) (test code = 652) CALCIUM (BEAKER) 8.4 mg/dL 8.4-10.2 (test code = 697) EGFR (BEAKER) (test 113 mL/min/1.73 ESTIM ATED GFR IS code = 1092) sq m NOT ACCURATE CREATININE CLEARANCE IN PREDICTING GLOMERULAR FILTRATION RATE . ESTIMATED GFR I S NOT APPLICABLE FOR DIALYSIS PATIEN TS. Tourist Cabin Keeper ID - RANDY LHEPATIC FUNCTION [id number] 06:12:00 Test Item Value Reference Range Interpretation Comments TOTAL PROTEIN (BEAKER) (test code = 6.3 gm/dL 6.0-8.3 770) ALBUMIN (BEAKER) (test code = 1145) 3.3 g/dL 3.5-5.0 L BILIRUBIN TOTAL (BEAKER) (test code 1.1 mg/dL 0.2-1.2 = 377) BILIRUBIN DIRECT (BEAKER) (test 0.7 mg/dL 0.1-0.5 H code = 706) ALKALINE PHOSPHATASE (BEAKER) (test 197 U/L 40-150 H code = 346) AST (SGOT) (BEAKER) (test code = 396 U/L 5-34 H 353) ALT (SGPT) (BEAKER) (test code = 758 U/L 6-55 H 347) Tourist Cabin Keeper ID - PIAYA LCBC W/PLT COUNT & AUTO [id number] 05:29:00 Test Item Value Reference Range Interpretation Comments WHITE BLOOD CELL COUNT (BEAKER) 7.8 K/ L 3.5-10.5 (test code = 775) RED BLOOD CELL COUNT (BEAKER) 3.78 M/ L 3.93-5.22 L (test code = 761) HEMOGLOBIN (BEAKER) (test code = 11.3 GM/DL 11.2-15.7 410) HEMATOCRIT (BEAKER) (test code = 36.1 % 34.1-44.9 411) MEAN CORPUSCULAR VOLUME (BEAKER) 95.5 fL 79.4-94.8 H (test code = 753) MEAN CORPUSCULAR HEMOGLOBIN 29.9 pg 25.6-32.2 (BEAKER) (test code = 751) MEAN CORPUSCULAR HEMOGLOBIN CONC 31.3 GM/DL 32.2-35.5 L (BEAKER) (test code = 752) RED CELL DISTRIBUTION WIDTH 13.2 % 11.7-14.4 (BEAKER) (test code = 412) PLATELET COUNT (BEAKER) (test 149 K/CU MM 150-450 L code = 756) MEAN PLATELET VOLUME (BEAKER) 12.0 fL 9.4-12.3 (test code = 754) NUCLEATED RED BLOOD CELLS 0 /100 WBC 0-0 (BEAKER) (test code = 413) NEUTROPHILS RELATIVE PERCENT 80 % (BEAKER) (test code = 429) LYMPHOCYTES RELATIVE PERCENT 12 % (BEAKER) (test code = 430) MONOCYTES RELATIVE PERCENT 7 % (BEAKER) (test code = 431) EOSINOPHILS RELATIVE PERCENT 1 % (BEAKER) (test code = 432) BASOPHILS RELATIVE PERCENT 0 % (BEAKER) (test code = 437) NEUTROPHILS ABSOLUTE COUNT 6.20 K/ L 1.56-6.13 H (BEAKER) (test code = 670) LYMPHOCYTES ABSOLUTE COUNT 0.91 K/ L 1.18-3.74 L (BEAKER) (test code = 414) MONOCYTES ABSOLUTE COUNT (BEAKER) 0.53 K/ L 0.24-0.36 H (test code = 415) EOSINOPHILS ABSOLUTE COUNT 0.06 K/ L 0.04-0.36 (BEAKER) (test code = 416) BASOPHILS ABSOLUTE COUNT (BEAKER) 0.03 K/ L 0.01-0.08 (test code = 417) IMMATURE GRANULOCYTES-RELATIVE 0 % 0-1 PERCENT (BEAKER) (test code = 2801) [id number] 18:21:00 Test Item Value Reference Range Interpretation Comments FERRITIN (BEAKER) (test code = 1130.77 ng/mL 5.00-275.00 H 361) Tourist Cabin Keeper ID - DBHEPATITIS C [id number] 18:02:00 Test Item Value Reference Range Interpretation Comments HEPATITIS C ANTIBODY (BEAKER) Nonreactive Nonreactive (test code = 367) Tourist Cabin Keeper ID - DBIRON, TIBC, % SAT. (WITHOUT FERRITIN)2020-04-02 17:42:00 Test Item Value Reference Range Interpretation Comments IRON (BEAKER) (test code = 547) 19.0 ug/dL 40.0-160.0 L TOTAL IRON BINDING CAPACITY 328 ug/dL 250-450 (BEAKER) (test code = 769) IRON % SATURATION (2) (BEAKER) 6 % 20-55 L (test code = 2590) Tourist Cabin Keeper ID - DBMR, ABDOMEN, [id number] 15:37:00FINAL REPORT MR Abdomen dated 04/02/2020 Comment: Multiplanar T1 and T2-weighted images, respiratory triggered and breath-hold MRCP sequences were obtained. 3-D reconstruction ofthe abdomen was performed for better evaluation of the biliary tree. Gallbladder is surgically absent. No fluid collections is seen in the gallbladder fossa. MRCP demonstrates dilatation of the intrahepatic biliary ducts. Common hepatic duct is not visualized. Common bile duct is normal in caliber. Common bile duct measures approximately 3 mm in size. Pancreatic duct is normal in caliber. Liver is normal in size without focal abnormality. Liver is suboptimally evaluated on the MRCP sequences. Spleenis normal in size. Pancreas and adrenals are unremarkable. Both kidneys are normal in size. Impression: Status post cholecystectomy with dilatation of intrahepatic biliary ducts and nonvisualization ofthe common hepatic duct. Recommend further evaluation with ERCP. Signed: Micah Aguileraort Verified Date/Time: 04/02/2020 15:37:49 Reading Location: [place] [id number] Ortho Consult Reading Room PREGNANCY SCREEN, [id number] 10:42:00 Test Item Value Reference Range Interpretation Comments TEST URINE (BEAKER) (test Negative code = 583) RAD, CHEST, 1 VIEW, NON [id number] 09:30:00Reason for exam:->r/o PNAShould this be performed at the bedside?->YesFINAL REPORT INDICATION: r/o PNA COMPARISON: None TECHNIQUE: Single frontal view of the chest. FINDINGS: Lungs and pleura: Clear lungs. No effusion.Heart and mediastinum: Normal heart size. Unremarkable mediastinal contours.Osseous structures: No acute abnormality.Other: None. IMPRESSION: No acute intrathoracic abnormality. Signed: Magnus Ayalaort Verified Date/Time: 04/02/2020 09:30:21 Reading Location: [facility] C013V Neuro Reading Room ALYSIS W/ REFLEX URINE [id number] 07:23:00 Test Item Value Reference Range Interpretation Comments COLOR (BEAKER) (test code = 470) Yellow CLARITY (BEAKER) (test code = 469) Clear SPECIFIC GRAVITY UA (BEAKER) (test 1.023 1.001-1.035 code = 468) PH UA (BEAKER) (test code = 467) 6.0 5.0-8.0 PROTEIN UA (BEAKER) (test code = 10 mg/dL Negative A 464) GLUCOSE UA (BEAKER) (test code = Negative Negative 365) KETONES UA (BEAKER) (test code = 20 mg/dL Negative A 371) BILIRUBIN UA (BEAKER) (test code = Negative Negative 462) BLOOD UA (BEAKER) (test code = Trace Negative A 461) NITRITE UA (BEAKER) (test code = Negative Negative 465) LEUKOCYTE ESTERASE UA (BEAKER) Negative Negative (test code = 466) UROBILINOGEN UA (BEAKER) (test 8.0 mg/dL 0.2-1.0 H code = 463) RBC UA (BEAKER) (test code = 519) < /HPF WBC UA (BEAKER) (test code = 520) 1 /HPF BACTERIA (BEAKER) (test code = Occasional 517) MUCUS (BEAKER) (test code = 1574) Rare SQUAMOUS EPITHELIAL (BEAKER) (test 1 /HPF code = 516) SOURCE(BEAKER) (test code = 2795) Tourist Cabin Keeper ID - [auto]Tourist Cabin Keeper ID - [id number] 07:00:00 Test Item Value Reference Range Interpretation Comments MAGNESIUM (BEAKER) 1.5 mg/dL 1.6-2.6 L Specimen slightly (test code = 627) hemolyzed Tourist Cabin Keeper ID - PIAYA [id number] 07:00:00 Test Item Value Reference Range Interpretation Comments PHOSPHORUS (BEAKER) 2.5 mg/dL 2.3-4.7 Specimen slightly (test code = 604) hemolyzed Tourist Cabin Keeper ID - PIAYA LBASIC METABOLIC [id number] 07:00:00 Test Item Value Reference Range Interpretation Comments SODIUM (BEAKER) 133 meq/L 136-145 L (test code = 381) POTASSIUM (BEAKER) 3.8 meq/L 3.5-5.1 Specimen slightly (test code = 379) hemolyzed CHLORIDE (BEAKER) 103 meq/L 98-107 (test code = 382) CO2 (BEAKER) (test 23 meq/L 22-29 code = 355) BLOOD UREA NITROGEN 8 mg/dL 7-21 (BEAKER) (test code = 354) CREATININE (BEAKER) 0.66 mg/dL 0.57-1.25 Specimen slightly (test code = 358) hemolyzed GLUCOSE RANDOM 117 mg/dL 70-105 H (BEAKER) (test code = 652) CALCIUM (BEAKER) 8.1 mg/dL 8.4-10.2 L (test code = 697) EGFR (BEAKER) (test 98 mL/min/1.73 ESTIMA GUY GFR IS code = 1092) sq m NOT ACCURATE CREATININE CLEARANCE IN PREDICTING GLOMERULAR FILTRATION RATE . ESTIMATED GFR I S NOT APPLICABLE FOR DIALYSIS PATIEN TS. Tourist Cabin Keeper ID - RANDY LHEPATIC FUNCTION [id number] 07:00:00 Test Item Value Reference Range Interpretation Comments TOTAL PROTEIN (BEAKER) 6.7 gm/dL 6.0-8.3 Speci men slightly (test code = 770) hemolyzed ALBUMIN (BEAKER) (test 3.5 g/dL 3.5-5.0 Speci men slightly code = 1145) hemolyzed BILIRUBIN TOTAL 1.7 mg/dL 0.2-1.2 H Specimen sli ghtly (BEAKER) (test code = hemoly zed 377) BILIRUBIN DIRECT 0.9 mg/dL 0.1-0.5 H Specimen sl ightly (BEAKER) (test code = hemoly zed 706) ALKALINE PHOSPHATASE 234 U/L 40-150 H (BEAKER) (test code = 346) AST (SGOT) (BEAKER) 542 U/L 5-34 H Specimen slightly (test code = 353) hemolyzed ALT (SGPT) (BEAKER) 831 U/L 6-55 H Specimen slightly (test code = 347) hemolyzed Tourist Cabin Keeper ID Tiffanie PADILLA [id number] 07:00:00 Test Item Value Reference Range Interpretation Comments LIPASE (BEAKER) (test code = 749) 6 U/L 8-78 L Tourist Cabin Keeper ID - RANDY LHEPATITIS B [id number] 06:58:00 Test Item Value Reference Range Interpretation Comments HEPATITIS B CORE TOTAL ANTIBODY Nonreactive Nonreactive (BEAKER) (test code = 497) HEPATITIS B SURFACE ANTIBODY < mIU/mL <8.0 (BEAKER) (test code = 647) HEPATITIS B SURFACE ANTIGEN (2) Nonreactive Nonreactive (BEAKER) (test code = 2585) Tourist Cabin Keeper ID Tiffanie PADILLA LPROTHROMBIN TIME/[id number] 06:24:00 Test Item Value Reference Range Interpretation Comments PROTIME (BEAKER) (test code = 13.9 seconds 11.9-14.2 759) INR (BEAKER) (test code = 370) 1.1 <=5.9 Effective 03/17/2019: PT Reference Range ChangeNew: 11.9-14.2 Previous: 11.7- 14.7RECOMMENDED COUMADIN/WARFARIN INR THERAPY RANGESSTANDARD DOSE: 2.0-3.0 Includes: PROPHYLAXIS for venous thrombosis, systemic embolization; TREATMENT for venous thrombosis and/or pulmonary embolus.HIGH RISK: Target INR is2.5-3.5 for patients wiht mechanical heart valves.CBC W/PLT COUNT & AUTO [id number] 06:19:00 Test Item Value Reference Range Interpretation Comments WHITE BLOOD CELL COUNT (BEAKER) 11.5 K/ L 3.5-10.5 H (test code = 775) RED BLOOD CELL COUNT (BEAKER) 4.11 M/ L 3.93-5.22 (test code = 761) HEMOGLOBIN (BEAKER) (test code = 12.4 GM/DL 11.2-15.7 410) HEMATOCRIT (BEAKER) (test code = 39.0 % 34.1-44.9 411) MEAN CORPUSCULAR VOLUME (BEAKER) 94.9 fL 79.4-94.8 H (test code = 753) MEAN CORPUSCULAR HEMOGLOBIN 30.2 pg 25.6-32.2 (BEAKER) (test code = 751) MEAN CORPUSCULAR HEMOGLOBIN CONC 31.8 GM/DL 32.2-35.5 L (BEAKER) (test code = 752) RED CELL DISTRIBUTION WIDTH 13.2 % 11.7-14.4 (BEAKER) (test code = 412) PLATELET COUNT (BEAKER) (test 175 K/CU MM 150-450 code = 756) MEAN PLATELET VOLUME (BEAKER) 12.2 fL 9.4-12.3 (test code = 754) NUCLEATED RED BLOOD CELLS 0 /100 WBC 0-0 (BEAKER) (test code = 413) NEUTROPHILS RELATIVE PERCENT 91 % (BEAKER) (test code = 429) LYMPHOCYTES RELATIVE PERCENT 4 % (BEAKER) (test code = 430) MONOCYTES RELATIVE PERCENT 5 % (BEAKER) (test code = 431) EOSINOPHILS RELATIVE PERCENT 0 % (BEAKER) (test code = 432) BASOPHILS RELATIVE PERCENT 0 % (BEAKER) (test code = 437) NEUTROPHILS ABSOLUTE COUNT 10.37 K/ L 1.56-6.13 H (BEAKER) (test code = 670) LYMPHOCYTES ABSOLUTE COUNT 0.41 K/ L 1.18-3.74 L (BEAKER) (test code = 414) MONOCYTES ABSOLUTE COUNT (BEAKER) 0.56 K/ L 0.24-0.36 H (test code = 415) EOSINOPHILS ABSOLUTE COUNT 0.03 K/ L 0.04-0.36 L (BEAKER) (test code = 416) BASOPHILS ABSOLUTE COUNT (BEAKER) 0.03 K/ L 0.01-0.08 (test code = 417) IMMATURE GRANULOCYTES-RELATIVE 0 % 0-1 PERCENT (BEAKER) (test code = 2801) MR Knee wo contrast [id number] 08:50:00MRI of the Left Knee Without IV ContrastHistory: pain.Comparison Study: noneTechnique: The study was performed on a high field magnet without intravenouscontrast.Findings:Menisci: There is no evidenceof meniscal tear.Degenerative signal in the body and posterior horn of the medial meniscus.Cruciate Ligaments: Anterior and posterior cruciate ligaments are intact.Collateral Ligaments: Medial collateral ligament is intact.Lateral collateral complex appears intact.The patellar and quadriceps tendons are intact.Osseous Structures: No bone contusions are identified.Grade II chondromalacia central weightbearing articular aspect medial femoralcondyle with subtle area subchondral sclerosis and reactive bone marrow edemathat may represent a healed stress related injury. Articular cartilage inlateral paola rtment is intact.Soft Tissues: There is a moderate joint effusion with synovitis.There is no Banerjee'scyst.Patellofemoral Compartment: Full-thickness small chondral fissure medialpatella facet.Grade II chondromalacia at the medial trochlear facet.Medial and lateral patellar retinacula appear intact.Impr ession:No meniscal tear or cruciate ligament disruption.Subchondral sclerosis with mild adjacent reactive bone marrow edema centralweightbearing articular aspect of medial femoral condyle that may represent ahealing/healed stress related injury. Minimal overlying chondromalacia.Moderate joint effusionwith synovitis.Full-thickness chondral fissure medial patella facet. Mild chondromalaciamedial trochlear facet.Dictation Code: 100--Read by: Lorelei Lemos MDDictated Date/time: 09/17/18 21:31Electronically Signed by: Lorelei Lemos MD 09/17/1821:38FINAL REPORTUnUtah Valley Hospital Physicians
[2021-10-20] MEDS ORDERED: ONDANSETRON 4 MG/2 ML VIAL ONE (08:17)
[2021-10-20] MEDS ORDERED: MORPHINE 4 MG/ML SYR ONE ×2 (08:17→11:29)
[2021-10-20] MEDS ORDERED: NA CHLORIDE 0.9% 1,000 ML ONE (08:17)
[2021-10-20 08:24] LABS: Urine Blood Trace-lysed (Negative); Urine Glucose Trace (Negative); Urine Protein 2+ (Negative); Urine Specific Gravity >=1.030 (1.005-1.030); Urine pH 5.5 (5.0-7.0)
[2021-10-20 08:39] LABS: Absolute Lymphocytes (CBC) 0.6 K/uL (0.7-4.9); Hematocrit 40.8 % (36.0-45.0); Lymphocytes % 4.4 % (15.3-44.8); MPV 8.8 fL (7.6-11.3); RBC Red Blood Cell Count 4.53 M/uL (3.86-4.86)
[2021-10-20 08:56] LABS: ALT/SGPT 59 U/L (12-78); AST/SGOT 26 U/L (15-37); Albumin 3.5 g/dL (3.4-5.0); Alkaline Phosphatase 105 U/L (45-117); BUN Blood Urea Nitrogen 13 mg/dL (7-18); Bicarbonate 25 mmol/L (21-32); Bilirubin Direct 0.5 mg/dL (0-0.2); Bilirubin Total 1.6 mg/dL (0.2-1.0); Glucose Level 133 mg/dL (74-106); Lipase 32 U/L (73-393); Potassium 3.5 mmol/L (3.5-5.1); Protein, Total 7.8 g/dL (6.4-8.2); Sodium Level 138 mmol/L (136-145)
[2021-10-20 09:06] LABS: Urine Amorphous Sediment 1+ /HPF (NONE SEEN); Urine Bacteria 20-50 /HPF (<20); Urine Mucus HEAVY /HPF (NONE SEEN); Urine RBC <5 /HPF (NONE SEEN)
[2021-10-20 09:16] LABS: Blood Morphology Comment NOT SEEN (NOT SEEN); Platelet Estimate ADEQ; White Blood Cell Scan OK (OK)
--- NOTE | 2021-10-20 09:37 | RAD REPORT ---
EXAM DESCRIPTION: CT - Abdomen Pelvis W Contrast - 10/20/2021 9:17 am CLINICAL HISTORY: EPIGASTRIC PAIN Patient has history of cholecystectomy with bile duct air not otherwise specified COMPARISON: Abdomen Pelvis W Contrast dated 04/01/2020 TECHNIQUE: Biphasic, helical CT imaging of the abdomen and pelvis was performed following 100 ml non -ionic IV contrast. No oral contrast administered. All CT scans are performed using dose optimization technique as appropriate and may include automated exposure control or mA/KV adjustment according to patient size. FINDINGS: No suspicious findings in the lung bases. The liver, spleen, and pancreas show no suspicious findings. Gallbladder is absent. Mild dilatation o f the intrahepatic and extrahepatic biliary tree noted. This is less prominent than seen March 2020 an d is believed to be physiologic reservoir affect. There is a tubular fluid attenuation structure that extends from the gallbladder fossa along the right anterolateral margin of the gastric antrum and du odenal bulb. This is similar to the 2019 study and may be part of a biliary tree repair procedure. Symmetric renal function is seen with no hydronephrosis or suspicious renal mass. No pyelonephritis o r acute parenchymal process. No bladder abnormalities. No adrenal abnormalities. Uterus and ovaries s how no suspicious findings. Small simple cyst lateral upper pole is unchanged from March 2020 No gastric wall thickening or focal gastric mass identifiable. No congestion or edema in the fatty ti ssues around the stomach or pancreas. No large or small bowel dilatation is present. There is a moder ate amount of stool present throughout the colon filling but not dilating the large intestine. No abram endicitis. No free air, free fluid or inflammatory stranding. No hernia, mass or bulky lymphadenopathy. No suspicious bony findings. IMPRESSION: Contrast enhanced CT abdomen and pelvis showing no acute or emergent finding.
[2021-10-20] MEDS ORDERED: FAMOTIDINE 20 MG/2 ML VIAL IV ONE (10:49)
--- NOTE | 2021-10-20 12:38 | ER ---
Nurse's Notes Formerly [facility] Name: Janey Hernandez Age: 46 yrs Sex: Female : 1975 Arrival Date: 10/20/2021 Time: 07:30 Bed 5 Private MD: Diagnosis: Abdominal pain, unspecified Presentation: 10/20 07:43 Chief complaint: Patient states: mid abd pain since , had blockage in March last iw year, no n/v , had blockage in her bile duct. Coronavirus screen: At this time, the client does not indicate any symptoms associated with coronavirus-19. Ebola Screen: Patient negative for fever greater than or equal to 101.5 degrees Fahrenheit, and additional compatible Ebola Virus Disease symptoms Patient denies exposure to infectious person. Patient denies travel to an Ebola-affected area in the 21 days before illness onset. No symptoms or risks identified at this time. Initial Sepsis Screen: Does the patient meet any 2 criteria? No. Patient's initial sepsis screen is negative. Does the patient have a suspected source of infection? No. Patient's initial sepsis screen is negative. Risk Assessment: Do you want to hurt yourself or someone else? Patient reports no desire to harm self or others. Onset of symptoms was October 17, 2021. 07:43 Method Of Arrival: Ambulatory iw 07:43 Acuity: MICHAEL 3 iw Triage Assessment: 07:51 General: Appears Behavior is calm, cooperative. 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 - Social history:: Smoking status: Patient denies any tobacco usage or history of. Screenin:50 Abuse screen: Denies threats or abuse. Denies injuries from another. Nutritional laurent screening: No deficits noted. Tuberculosis screening: No symptoms or risk factors identified. Fall Risk None identified. Assessment: 07:50 Pain: Complains of pain in abdomen Quality of pain is described as pressure, sharp. GI: laurent Bowel sounds present X 4 quads. Abdomen is tender to palpation in epigastric area. Vital Signs: 07:43 BP 123 / 63; Pulse 113; Resp 18; Pulse Ox 100% on R/A; Weight 74.84 kg; Height 5 ft. 3 iw in. (160.02 cm); 08:30 BP 126 / 81; Pulse 99; Resp 18; Pulse Ox 98% ; laurent 09:38 BP 121 / 77; Pulse 85; Resp 16; Pulse Ox 99% on R/A; laurent 10:55 BP 120 / 73; Pulse 86; Resp 18; Pulse Ox 99% ; laurent 11:42 BP 115 / 58; Pulse 73; Resp 18; Pulse Ox 100% on R/A; laurent 07:43 Body Mass Index 29.23 (74.84 kg, 160.02 cm) iw ED Course: 07:30 Patient arrived in ED. mr 07:44 Triage completed. iw 07:45 Arm band placed on. iw 07:50 Patient has correct armband on for positive identification. Bed in low position. laurent 07:50 No provider procedures requiring assistance completed. laurent 07:55 Mohamud Wing, MALCOM is PHCP. pm1 07:57 Eliud Dutton MD is Attending Physician. christiane 08:08 Wandy Pemberton, RN is Primary Nurse. ww 08:27 Urine Microscopic Only Sent. laurent 08:27 Urine --Ancillary (enter results) Sent. laurent 08:29 Basic Metabolic Panel Sent. laurent 08:29 CBC with Diff Sent. laurent 08:29 Hepatic Function Sent. laurent 08:29 Lipase Sent. laurent 08:29 Urine Microscopic Only Sent. laurent 08:29 Urine --Ancillary Sent. laurent 08:29 Initial lab(s) drawn, by in, sent to lab. Inserted saline lock: 20 gauge in left kj1 forearm, using aseptic technique. Blood collected. 09:17 CT Abd/Pelvis - IV Contrast Only In Process Unspecified. EDMS 12:54 IV discontinued, intact, Pressure dressing applied. laurent Administered Medications: 08:27 Drug: Zofran (Ondansetron) 4 mg Route: IVP; Site: left forearm; laurent 08:28 Follow up: Response: No adverse reaction laurent 08:28 Drug: NS 0.9% 1000 ml Route: IV; Rate: 1000 ml; Site: left forearm; laurent 09:12 Follow up: IV Status: Completed infusion laurent 08:28 Drug: morphine 4 mg Route: IVP; Site: left forearm; laurent 08:29 Follow up: Response: No adverse reaction laurent 10:55 Drug: Pepcid (famotidine) 20 mg Route: IVP; Site: left forearm; ww 11:36 Follow up: Response: No adverse reaction laurent 11:32 Drug: morphine 4 mg Route: IVP; Site: left forearm; ww 11:36 Follow up: Response: No adverse reaction laurent 12:53 Drug: GI Cocktail without - (Maalox Suspension 30 ml, Lidocaine Liquid 2 % 15 laurent ml) Route: PO; 12:53 Follow up: Response: No adverse reaction laurent Outcome: 12:37 Discharge ordered by . pm1 12:54 Discharged to home ambulatory. laurent 12:54 Condition: good 12:54 Discharge instructions given to patient, Prescriptions given X 3. 12:55 Patient left the ED. laurent Signatures: Dispatcher [employer] EDMS Eliud Dutton MD MD cha Rivera, Mary mr Shakira Torres RN RN iw Marinas, Patrick, NP JBOSS DEVELOPER pm1 Florencia Rodgers kj1 Wandy Pemberton RN RN ww Au-Stager, Heather, RN RN ha Corrections: (The following items were deleted from the chart) 08:49 08:30 Inserted saline lock: 20 gauge in left forearm, using aseptic technique. laurent kj1
--- NOTE | 2021-10-20 12:38 | EDPHYS ---
Physician Documentation [facility] Name: Janey Hernandez Age: 46 yrs Sex: Female : 1975 Arrival Date: 10/20/2021 Time: 07:30 Bed 5 Private MD: ED Physician Eliud Dutton HPI: 10/20 08:03 This 46 yrs old Female presents to ER via Ambulatory with complaints of Abdominal Pain. pm1 08:03 The patient presents with abdominal pain in the upper abdomen. Onset: The pm1 symptoms/episode began/occurred 3 day(s) ago. The symptoms do not radiate. 08:03 Associated signs and symptoms: Pertinent negatives: nausea, vomiting, and diarrhea, pm1 chest pain, shortness of breath. The symptoms are described as burning. Modifying factors: The symptoms are alleviated by nothing, the symptoms are aggravated by nothing. Severity of pain: in the emergency department the pain is actually worse. The patient has experienced similar episodes in the past, a few times. The patient has not recently seen a physician. 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 - Social history:: Smoking status: Patient denies any tobacco usage or history of. ROS: 08:03 Constitutional: Negative for fever, chills, and weight loss, Cardiovascular: Negative pm1 for chest pain, palpitations, and edema, Respiratory: Negative for shortness of breath, cough, wheezing, and pleuritic chest pain. 08:03 Back: Negative for injury and pain, MS/Extremity: Negative for injury and deformity, Skin: Negative for injury, rash, and discoloration, Neuro: Negative for headache, weakness, numbness, tingling, and seizure. 08:03 Abdomen/GI: Positive for abdominal pain, Negative for nausea, vomiting, and diarrhea. 08:03 All other systems are negative. Exam: 08:03 Constitutional: This is a well developed, well nourished patient who is awake, alert, pm1 and in no acute distress. Head/Face: Normocephalic, atraumatic. 08:03 Back: No spinal tenderness. No costovertebral tenderness. Full range of motion. Skin: Warm, dry with normal turgor. Normal color with no rashes, no lesions, and no evidence of cellulitis. MS/ Extremity: Pulses equal, no cyanosis. Neurovascular intact. Full, normal range of motion. 08:03 Cardiovascular: Exam negative for acute changes, Rate: normal, Rhythm: regular, Pulses: no pulse deficits are appreciated. 08:03 Respiratory: Exam negative for acute changes, respiratory distress, shortness of breath, Breath sounds: are clear throughout. 08:03 Abdomen/GI: Inspection: abdomen appears normal, Palpation: soft, in all quadrants, mild abdominal tenderness, in the epigastric area. 08:03 Neuro: Exam negative for acute changes, Orientation: is normal, Mentation: is normal, Motor: is normal, moves all fours. Vital Signs: 07:43 BP 123 / 63; Pulse 113; Resp 18; Pulse Ox 100% on R/A; Weight 74.84 kg; Height 5 ft. 3 iw in. (160.02 cm); 08:30 BP 126 / 81; Pulse 99; Resp 18; Pulse Ox 98% ; laurent 09:38 BP 121 / 77; Pulse 85; Resp 16; Pulse Ox 99% on R/A; laurent 10:55 BP 120 / 73; Pulse 86; Resp 18; Pulse Ox 99% ; laurent 11:42 BP 115 / 58; Pulse 73; Resp 18; Pulse Ox 100% on R/A; laurent 07:43 Body Mass Index 29.23 (74.84 kg, 160.02 cm) iw MDM: 07:57 Patient medically screened. [facility] 11:43 Data reviewed: vital signs. Data interpreted: Pulse oximetry: on room air is 100 %. pm1 Interpretation: normal. 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 12:43 [facility] pm1 10/20 08:03 Order name: Basic Metabolic Panel; Complete Time: 09:01 iw 10/20 08:03 Order name: CBC with Diff; Complete Time: 09:24 iw 10/20 08:03 Order name: Hepatic Function; Complete Time: 09:01 iw 10/20 08:03 Order name: Lipase; Complete Time: 09:01 iw 10/20 08:05 Order name: COVID-19 SARS RT PCR (Document "Date of Onset" if Symptomatic); Complete pm1 Time: 10:32 10/20 08:23 Order name: Urine Dipstick-Ancillary; Complete Time: 08:25 EDMS 10/20 08:05 Order name: CT Abd/Pelvis - IV Contrast Only; Complete Time: 10:32 pm1 10/20 08:24 Order name: Urine --Ancillary (enter results) eb 10/20 08:25 Order name: Urine Microscopic Only pm1 10/20 08:25 Order name: Urine --Ancillary; Complete Time: 10:32 EDMS 10/20 08:25 Order name: Urine Microscopic Only; Complete Time: 09:24 EDMS 10/20 09:16 Order name: CBC Smear Scan; Complete Time: 09:24 EDMS 10/20 08:03 Order name: IV Saline Lock; Complete Time: 08:15 iw 10/20 08:03 Order name: Labs collected and sent; Complete Time: 08:15 iw 10/20 08:04 Order name: Urine Dipstick-Ancillary (obtain specimen); Complete Time: 08:29 pm1 10/20 08:04 Order name: Urine Test (obtain specimen); Complete Time: 08:29 pm1 Administered Medications: 08:27 Drug: Zofran (Ondansetron) 4 mg Route: IVP; Site: left forearm; laurent 08:28 Follow up: Response: No adverse reaction laurent 08:28 Drug: NS 0.9% 1000 ml Route: IV; Rate: 1000 ml; Site: left forearm; laurent 09:12 Follow up: IV Status: Completed infusion laurent 08:28 Drug: morphine 4 mg Route: IVP; Site: left forearm; laurent 08:29 Follow up: Response: No adverse reaction laurent 10:55 Drug: Pepcid (famotidine) 20 mg Route: IVP; Site: left forearm; ww 11:36 Follow up: Response: No adverse reaction laurent 11:32 Drug: morphine 4 mg Route: IVP; Site: left forearm; ww 11:36 Follow up: Response: No adverse reaction laurent 12:53 Drug: GI Cocktail without - (Maalox Suspension 30 ml, Lidocaine Liquid 2 % 15 laurent ml) Route: PO; 12:53 Follow up: Response: No adverse reaction laurent Disposition: 10/21 04:37 Co-signature as Attending Physician, Eliud Dutton MD I agree with the assessment and christiane plan of care. Disposition Summary: 10/20/21 12:37 Discharge Ordered Location: Home pm1 Problem: new pm1 Symptoms: have improved pm1 Condition: Stable pm1 Diagnosis - Abdominal pain, unspecified pm1 Followup: pm1 - With: Emergency Department - When: As needed - Reason: Worsening of condition Followup: pm1 - With: Private Physician - When: 2 - 3 days - Reason: Recheck today's complaints, Continuance of care, Re-evaluation by your physician Discharge Instructions: - Discharge Summary Sheet pm1 - Abdominal Pain, Adult pm1 Forms: - Medication Reconciliation Form pm1 - Thank You Letter pm1 - Antibiotic Education pm1 - Prescription Opioid Use pm1 Prescriptions: - ondansetron 4 mg Oral tablet,disintegrating - place 1 tablet by TRANSLINGUAL route every 8 hours As needed; 20 tablet; pm1 Refills: 0, Product Selection Permitted - dicyclomine 20 mg Oral Tablet - take 1 tablet by ORAL route every 6 hours As needed; 20 tablet; Refills: 0, pm1 Product Selection Permitted - Tylenol-Codeine #3 300 mg-30 mg Oral - take 2 tablet by ORAL route every 6 hours As needed; 20 tablet; Refills: 0, pm1 Product Selection Permitted Signatures: Dispatcher [employer] Eliud Chiu MD MD cha Williams, Irene, RN RN iw Marinas, Patrick, NP STAGE RIGGER pm1 Wandy Pemberton RN RN ww Au-Stager, Heather, RN RN ha
[2021-10-20] MEDS ORDERED: MAGNES/ALUMIN/SIMET 30ML UCUP ONE (12:44)
[2021-10-20] MEDS ORDERED: LIDOCAINE VISCOUS 2% SOLN 15 ML UDC ONE (12:44)
[2021-10-20 13:17] VITALS: BP 115/58; O2SAT 100
== END 2021-10-20 12:55 | disposition home or self-care (01) ==
LOC: ER 07:25
DX: R10.9 Unspecified abdominal pain (principal); Z20.822 Contact with and (suspected) exposure to COVID-19
CPT/HCPCS: 96361; 85025; 80048; 36415; 81025; 80076; 83690; 74177; 96375; 96374; 99284; U0003; Q9967; J7030; J2405; 81003; 81015

== ENCOUNTER 2022-01-12 16:41 | Emergency (ER) | payer BC ==
--- OUTSIDE RECORDS SUMMARY | 2022-01-12 16:46 | XMS REPORT | Continuity of Care Document ---
:1975 Author Organization [facility] t Address [address] [place] [address] Care Team Providers Name Role Phone Sierra Attending Clinician Unavailable Attending Clinician Unavailable FREEMAN GONZALEZ Attending Clinician Unavailable CARLOS DAVIS Attending Clinician Unavailable REGIS Attending Clinician Unavailable ANNELISE Attending Clinician Unavailable Admitting Clinician Unavailable FREEMAN GONZALEZ Admitting Clinician Unavailable BRITTANI Admitting Clinician Unavailable Payers Payer Name Policy Type Policy Number Effective Date Expiration Date S amanda BCBS OS [id number] 2017 POS/PPO/EPO 00:00:00 CDC REVIEW [id number] 2020 00:00:00 Problems Condition Condition Condition Status Onset Resolution Last Treating Co mments Source Name Details Category Date Date Treatment Clinician Date Left knee Left knee Problem Active Uni vers pain pain [id number] [facility] [place] [facility] Internal Internal Problem Active Un[facility] [...] [facility] 00 :00 [facility] Ferrous Ferrous Yes Lindsey [address] Sulfate Sulfate 05-11 Logan [facility] Fluticasone Fluticasone Yes Lindsey [address] [facility] Propionate Propionate 10-21 Logan each Kathrine kes - 00:00: nostril Memoria 00 l [facility] Naproxen Naproxen 2017-10 Yes MANSOOR Q12H TAKE 1 Uni vers 500 MG Oral 500 MG Oral 1-20 ANNELISE TABLET ity of Tablet Tablet 00:00: N.P. EVERY 12 [place] 00 HOURS Physici NEEDED. ans Levothyroxi Levothyroxi Yes Lindsey [address] [facility] ne Sodium ne Sodium Logan in the - morning on oria an empty l stomach [facility] Omeprazole Omeprazole Yes Lindsey not C [facility] Logan defined [facility] Vital Signs Vital Name Observation [...] e MR Knee wo contrast 2018-09-08 00:00:00 [facility] [address] Physicians Encounters Start End Encounter Admission Attending Care Care Encounter Source Date/Time Date/Time Type Type Clinicians Facility Department ID 2021-11-14 Outpatient Sierra, STLMLC STLMLC [id number] [facility] 14:35:10 [facility] 2021-11-14 Outpatient Sierra, STLMLC STLMLC [id number] [facility] 13:08:37 Katrina [id number] [facility] 2021-11-14 Outpatient Sierra, STLMLC STLMLC [id number] [facility] 11:02:00 Katrina 79007 [facility] 2020-04-01 Inpatient ER [facility], SLE Internal [id number] SLE 21:44:00 SHANIQUA Med 2021-11-05 2021-11-05 ambulatory STLMLC STLMLC [id number] [facility] 2021-11-05 2021-11-05 ambulatory STLMLC STLMLC [id number] [facility] 2021-10-29 2021-10-29 ambulatory STLMLC STLMLC [id number] [facility] 2021-10-22 2021-10-22 ambulatory STLMLC STLMLC [id number] [facility] 2021-10-22 2021-10-22 ambulatory STLMLC STLMLC [id number] [facility] 2021-09-11 2021-09-11 ambulatory STLMLC STLMLC [id number] [facility] 2021-04-13 2021-04-13 Outpatient STLMLC STLMLC [id number] [facility] 2021-03-16 2021-03-16 Outpatient STLMLC STLMLC [id number] [facility] 2021-03-16 2021-03-16 Outpatient STLMLC STLC [id number] [facility] 2021-03-13 2021-03-13 Outpatient STLMLC STLMLC [id number] [facility] 2021-02-23 2021-02-23 Outpatient STLMLC STLMLC [id number] [facility] 2020-09-07 2020-09-07 Outpatient STLMLC STLMLC [id number] [facility] 2020-05-05 2020-05-05 Outpatient SHARON FRAZIER [facility] [id number] [facility] 00:00:00 00:00:00 SAYDA 2020-04-19 2020-04-19 Outpatient SHARON FRAZIER [facility] [id number] [facility] 00:00:00 00:00:00 SAYDA 2020-04-13 2020-04-13 Emergency ER [facility] Emergency [id number] SLE 11:47:00 11:47:00 2020-04-12 2020-04-12 Outpatient [facility] [id number] [facility] 00:00:00 00:00:00 2020-04-12 2020-04-12 [facility] [id number] 00:[facility]:00 00:00:00 2020-03-08 2020-03-08 [facility] [id number] 09:46:00 09:46:00 t [facility] Medicine Medicine Outpati ent Clinics 2020-03-06 2020-03-06 [facility] [id number] [address] 16:00:00 16:00:00 t [facility] Medicine Medicine Outpati ent Clinics 2020-02-09 2020-02-09 [facility] [id number] [address] 10:07:00 10:07:00 t [facility] Medicine l Medicine Outpati ent Clinics 2020-01-13 2020-01-13 [facility] [id number] 09:58:00 09:58:00 t [facility] Medicine Medicine Outpati ent Clinics 2020-01-12 2020-01-12 [facility] [id number] 10:03:00 10:03:00 t [facility] Medicine l Medicine Outpati ent Clinics 2019-12-15 2019-12-15 [facility] [id number] 13:39:00 13:39:00 t [facility] Medicine Medicine Outpati ent Clinics 2019-11-10 2019-11-10 [facility] [id number] 09:00:00 09:00:00 t [facility] Medicine Medicine Outpati ent Clinics 2019-09-15 2019-09-15 [facility] [id number] 10:14:00 10:14:00 t [facility] Medicine Medicine Outpati ent Clinics 2019-07-06 2019-07-06 [facility] [id number] 16:00:00 16:00:00 [facility] Medicine Outpati ent Clinics 2019-05-11 2019-05-11 [facility] [id number] 15:00:00 15:00:00 t [facility] 2018-12-01 2018-12-01 Outpatient Velia Moe [id number] 09:45:00 09:45:00 t [facility] ent [facility] 2018-10-21 2018-10-21 Outpatient Velia Moe [id number] 13:45:00 13:45:00 t [facility] ent [facility] 2018-09-29 2018-09-29 Appointmen MARC STACY UTP [id number] Univers 09:30:00 09:30:00 t; VICKIE STACY, [facility] [place] [facility] ans 2018-09-08 2018-09-08 Appointmen MARC CASTELAN UTP [id number] Univers 14:15:00 14:15:00 t; [facility] [place], [facility] as MALCOM MAX Physic i Trace 1 ans Results Test Description Test Time Test Comments Results Result Sour e Comments [facility], 2020-05-05 Reason for FINAL REPORT PATIENT CHOLANGIOGRAM, 13:36:00 Exam:->Possibl ID: [id number] T-TUBE e removal of PROCEDURE: PTC Cholangiogram through an existing internal/external catheter, followed by catheter removal CLINICAL HISTORY: Possible removal of PTC STAFF SERVICES MANAGER: David Rodriguez DO, JD ANESTHESIA: Conscious sedation was provided by radiology nursing using constant hemodynamic monitoring for 45 Minutes. Versed IV 0.5 mg, Fentanyl IV 25 mcg. DEVICE: 14 Beninese internal/external biliary catheter Estimated Blood Loss: < [...] MDReport Verified Date/Time: 05/05/2020 13:36:15 Reading Location: [facility] P048 Angio Body Reading Room EN, URINE 2020-05-05 07:38:00 Test Item Value Reference Range Interpretation Comme nts TEST URINE (BEAKER) (test code = 583) Negative [id number] 07:37:00 Test Item Value Reference Range Interpretation Comments PARTIAL THROMBOPLASTIN TIME 28.9 seconds 22.5-36.0 (BEAKER) (test code = 760) PROTHROMBIN TIME/[id number] 07:36:00 Test Item Value Reference Range Interpretation [...] mechanical heart valves.CBC W/PLT COUNT & AUTO [id number] 07:25:00 Test Item Value Reference Range Interpretation [...] (BEAKER) (test code = 2801) ANG, CHOLANGIOGRAM, [id number] 14:34:00Dr. Gonzalez discussed case with Dr. Ignacio on 04/12/2020.Patient needs PTC revision in the next 1 week.Reason for Exam:->cholangitis, PTC drain in placeFINAL REPORT PROCEDURE: Cholangiogram through an existing internal/external catheter, common bile duct dilatation and catheter up size CLINICAL HISTORY: cholangitis, PTC drain inplace STAFF SERVICES MANAGER: David Rodriguez DO, JD ANESTHESIA: Conscious sedation was provided by radiology nursing using constant hemodynamic monitoring for 45 Minutes. Versed IV 1.5 mg, Fentanyl IV 75 mcg. DEVICE: 14 Beninese internal/external biliary catheter, 4 mm balloon Estimated [...] MDReport Verified Date/Time: 04/19/2020 14:34:30 Reading Location: [address] Body Reading Room PREGNANCY SCREEN, [id number] 11:23:00 Test Item Value Reference Range Interpretation Comments TEST URINE (BEAKER) (test Negative code = 583) [id number] 11:10:00 Test Item Value Reference Range Interpretation Comments PARTIAL THROMBOPLASTIN TIME 30.9 seconds 22.5-36.0 (BEAKER) (test code = 760) PROTHROMBIN TIME/[id number] 11:09:00 Test Item Value Reference Range Interpretation [...] mechanical heart valves.CBC W/PLT COUNT & AUTO [id number] 11:02:00 Test Item Value Reference Range Interpretation [...] (BEAKER) (test code = 2801) LACTIC ACID, [id number] 16:01:00 Test Item Value Reference Range Interpretation Comments LACTATE BLOOD VENOUS 1.36 mmol/L 0.50-2.20 Specime n slightly (2) (BEAKER) (test hemolyzed code = 9312) Media Marketing Manager ID - DBCOMPREHENSIVE METABOLIC [id number] 16:00:00 Test Item Value Reference Range Interpretation [...] S NOT APPLICABLE FOR DIALYSIS PATIEN TS. Media Marketing Manager ID - DBURINALYSIS W/ REFLEX URINE [id number] 15:51:00 Test Item Value Reference Range Interpretation Comments COLOR (BEAKER) (test code = 470) Brooks CLARITY (BEAKER) (test code = 469) Hazy [...] = 518) SOURCE(BEAKER) (test code = 2795) Media Marketing Manager ID - [auto]Media Marketing Manager ID - techCBC W/PLT COUNT & AUTO [...] (BEAKER) (test code = 2801) HEPATIC FUNCTION [id number] 17:05:00 Test Item Value Reference Range Interpretation [...] code = 1139 U/L 6-55 H 347) Media Marketing Manager ID - BSBASIC METABOLIC [id number] 17:05:00 Test Item Value Reference Range Interpretation [...] S NOT APPLICABLE FOR DIALYSIS PATIEN TS. Media Marketing Manager ID - BSCBC W/PLT COUNT & AUTO [id number] 16:44:00 Test Item Value Reference Range Interpretation [...] (BEAKER) (test code = 2801) ANG, CHOLANGIOGRAM, [id number] 15:31:00Reason for exam:->Needs PTC, biliary brushings and needs Liver biopsy per hepatology team. Pleasecall [phone]. Pt has altered anatomy due to complicaton from cholecystectomy in 2010FINAL REPORT Procedure: Percutaneous transhepatic cholangiography and internal/external biliary drainage catheter placement. Ultrasound-guided liver biopsy. 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 Failed ERCP. Lampe biopsy of the biliary stricture is also requested. The patient hashepatic fibrosis. A percutaneous liver biopsy has been requested. Child Caregiver: Arias Lucas M.D. Engineer First Assistant: Jose Danielle Modality: Sonography and fluoroscopy. DOSE [...] sequential dilatation of the tract an 8 Beninese internal/external biliary drainage catheter was placed over [...] set at the time of this procedure. Lampe biopsy could not be performed. Using real-time [...] Final image shows presence of an 8 Beninese internal/external biliary drainage catheter with the most [...] anastomosis. This was successfully crossed. An 8 Beninese internal/external biliary drainage catheter has been placed [...] the care of your patient. Signed: Arias Lucas MDReport Verified Date/Time: 04/11/2020 15:31:21 Reading Location: [place] [address] Angio Body Reading Room TISSUE [id number] 11:07:00Surgical Pathology Report Case: [id number] Authorizing Provider: Serge Frazier MD Collected: 04/06/2020 05:37 PM Ordering Location: [address] Received: 04/06/2020 10:12 PM Service Pathologist: Heidy Markham MD Specimen: Biopsy, Liver, Bx LIVER, RANDOM NEEDLE CORE: - PORTAL TRIADS WITH MIXED PORTAL INFLAMMATION WITH MILD DUCTULAR REACTION, EDEMA AND BILIARY TYPE INTERFACE HEPATITIS - BILE DUCT APPEARS TO BE PRESERVED - SOME PERIDUCTAL FIBROSIS NOTED - HEPATIC LOBULES WITH MILD INFLAMMATION AND KUPFFER CELL HYPERPLASIASJ/pl Signing Pathologist Direct Phone Line: [phone] signed by Heidy Markham MD on 04/10/2020 [...] was informed on 04/07/2020 by telephonic call [phone] x1; [phone] [id number] in normal formalin, two sanchez-brown liver cores [...] evaluated Immunohistochemistry technical testing was performed at [facility], Pathology Laboratory where it was developed and [...] (test code = 3.5 mg/dL 2.3-4.7 604) Media Marketing Manager ID - BOUBACAR [id number] 06:08:00 Test Item Value Reference Range Interpretation Comments MAGNESIUM (BEAKER) (test code = 1.7 mg/dL 1.6-2.6 627) Media Marketing Manager ID - BOUBACAR MBASIC METABOLIC [id number] 06:08:00 Test Item Value Reference Range Interpretation [...] S NOT APPLICABLE FOR DIALYSIS PATIEN TS. Media Marketing Manager ID - BOUBACAR EPATIC FUNCTION [id number] 06:08:00 Test Item Value Reference Range Interpretation [...] code = 1031 U/L 6-55 H 347) Media Marketing Manager ID - BOUBACAR MCBC W/PLT COUNT & AUTO [id number] 05:29:00 Test Item Value Reference Range Interpretation [...] code = 2801) ANTI-MITOCHONDRIAL AB, REFLEX TO [id number] 12:32:00 Test Item Value Reference Range Interpretation Comments SCAN RESULT (test code = 4446967) ANTI-NUCLEAR ANTIBODY (TENISHA)2020-04-07 10:26:00 Test Item Value Reference Range Interpretation Comments ANTI-NUCLEAR ANTIBODY (TENISHA) (BEAKER) Negative Negative (test code = 418) Test performed by IFA method.Test performed by IFA method.BLOOD CULTURE 2020-04-07 09:00:00 Test Item Value Reference Range Interpretation Comments CULTURE (BEAKER) (test No growth in 5 days code = 1095) BLOOD [id number] 09:00:00 Test Item Value Reference Range Interpretation Comments CULTURE (BEAKER) (test No growth in 5 days code = 1095) [id number] 05:05:00 Test Item Value Reference Range Interpretation Comments PHOSPHORUS (BEAKER) (test code = 3.4 mg/dL 2.3-4.7 604) Media Marketing Manager ID - BOUBACAR [id number] 05:05:00 Test Item Value Reference Range Interpretation Comments MAGNESIUM (BEAKER) (test code = 2.1 mg/dL 1.6-2.6 627) Media Marketing Manager ID - BOUBACAR MBASIC METABOLIC [id number] 05:05:00 Test Item Value Reference Range Interpretation [...] S NOT APPLICABLE FOR DIALYSIS PATIEN TS. Media Marketing Manager ID - BOUBACAR EPATIC FUNCTION [id number] 05:05:00 Test Item Value Reference Range Interpretation [...] code = 974 U/L 6-55 H 347) Media Marketing Manager ID - BOUBACAR MCBC W/PLT COUNT & AUTO [id number] 04:30:00 Test Item Value Reference Range Interpretation [...] 0-1 PERCENT (BEAKER) (test code = 2801) [id number] 14:07:00 Test Item Value Reference Range Interpretation Comments POTASSIUM (BEAKER) (test code = 3.8 meq/L 3.5-5.1 379) Media Marketing Manager ID - CAROLINADUSTY HASMUKH-NUCLEAR ANTIBODY (TENISHA)2020-04-06 10:20:00 Test Item Value Reference [...] INR is2.5-3.5 for patients wiht mechanical heart valves.[id number] 07:09:00 Test Item Value Reference Range Interpretation Comments PHOSPHORUS (BEAKER) (test code = 3.8 mg/dL 2.3-4.7 604) Media Marketing Manager ID - TIFF [id number] 07:09:00 Test Item Value Reference Range Interpretation Comments MAGNESIUM (BEAKER) (test code = 1.6 mg/dL 1.6-2.6 627) Media Marketing Manager ID - TIFF CBASIC METABOLIC [id number] 07:09:00 Test Item Value Reference Range Interpretation [...] S NOT APPLICABLE FOR DIALYSIS PATIEN TS. Media Marketing Manager ID - TIFF [facility] [id number] 07:09:00 Test Item Value Reference Range Interpretation [...] code = 888 U/L 6-55 H 347) Media Marketing Manager ID - TIFF CCBC W/PLT COUNT & AUTO [id number] 06:20:00 Test Item Value Reference Range Interpretation [...] 0-1 PERCENT (BEAKER) (test code = 2801) [id number] 18:25:00 Test Item Value Reference Range Interpretation Comments LIPASE (BEAKER) (test code = 749) 30 U/L 8-78 Media Marketing Manager ID - [id number] 04:52:00 Test Item Value Reference Range Interpretation Comments PHOSPHORUS (BEAKER) (test code = 3.2 mg/dL 2.3-4.7 604) Media Marketing Manager ID - PIAYA [id number] 04:52:00 Test Item Value Reference Range Interpretation Comments MAGNESIUM (BEAKER) (test code = 1.5 mg/dL 1.6-2.6 L 627) Media Marketing Manager ID - PIAYA LBASIC METABOLIC [id number] 04:52:00 Test Item Value Reference Range Interpretation [...] S NOT APPLICABLE FOR DIALYSIS PATIEN TS. Media Marketing Manager ID - PIAYA LHEPATIC FUNCTION [id number] 04:52:00 Test Item Value Reference Range Interpretation [...] code = 819 U/L 6-55 H 347) Media Marketing Manager ID - RANDY LCBC W/PLT COUNT & AUTO [id number] 04:08:00 Test Item Value Reference Range Interpretation [...] Test performed by IFA method.TENISHA TITER AND [id number] 10:46:00 Test Item Value Reference Range Interpretation Comments TENISHA TITER (BEAKER) (test code = :160 1541) TENISHA PATTERN (BEAKER) (test code = Nucleolar 1781) POCT-GLUCOSE [id number] 07:05:00 Test Item Value Reference Range Interpretation Comments POC-GLUCOSE METER 126 mg/dL 70-110 H : TESTED A T [facility] 67[address] (BEAKER) (test code = BERNIE CRUZ [place], 1538) [address]: Media Marketing Manager/Techni diann ID = [id number] for Al iPita [id number] 06:58:00 Test Item Value Reference Range Interpretation Comments MAGNESIUM (BEAKER) 1.8 mg/dL 1.6-2.6 Specimen slightly (test code = 627) hemolyzed Media Marketing Manager ID - BOUBACAR [id number] 06:58:00 Test Item Value Reference Range Interpretation Comments PHOSPHORUS (BEAKER) 2.8 mg/dL 2.3-4.7 Specimen slightly (test code = 604) hemolyzed Media Marketing Manager ID - BOUBACAR MBASIC METABOLIC [id number] 06:58:00 Test Item Value Reference Range Interpretation [...] S NOT APPLICABLE FOR DIALYSIS PATIEN TS. Media Marketing Manager ID - BOUBACAR MHEPATIC FUNCTION [id number] 06:58:00 Test Item Value Reference Range Interpretation [...] Specimen slightly (test code = 347) hemolyzed Media Marketing Manager ID - BOUBACAR MCBC W/PLT COUNT & AUTO [id number] 06:01:00 Test Item Value Reference Range Interpretation [...] PERCENT (BEAKER) (test code = 2801) SARS-COV2/RT-PCR [facility])2020-04-03 16:01:00 Test Item Value Reference Range Interpretation Comments SARS-COV2/RT-PCR (test Not Detected Not Detected, Negative code = 8271146) SARS-COV-[address] [facility] (test code = 6313370) Negative results do not preclude SARS-CoV-2 infection [...] of the Act.Fact Sheet for Healthcare Pro viders:https://www.CharityStars.com/Documents/Xpert%20Xpress%20SARS%20CoV-2/Fact%20Sh eets/3023802%11XAHL-EZX-5%20HEALTHCARE%20PROVIDERS%20FACT%20SHEET.pdfFact Sheet for Healthcare Patients:https://www.5to1.com/Documents/Xpert%20Xpress%20SARS%20CoV-2/Fact%20Sheets/302-3801%20SARS-COV -2%20PATIENT%20FACT%20SHEET.pdfPerforming Laboratory:[facility], [place] [address]ZW, [id number] 15:02:00Reason for exam:->ERCPFINAL REPORT A fluoroscopic unit was utilized for a procedure performed in the operating room. No interpretation was requested. Please refer to the operative report regarding findings. Please refer to PACS for patient radiation dose information. Signed: Josefa Vernon MDRepaileen Verified Date/Time: 04/03/2020 15:02:53 Reading Location: [facility] Radiology Reading Room SARS-COV2/RT-PCR ([facility])2020-04-03 09:37:00 Test Item Value Reference Range Interpretation Comments SARS-COV2/RT-PCR (test code = Negative Not Detected, Negative 9264299) SARS-COV-2 PERFORMING LAB CPL (test code = 4378988) ALPHA FETOPROTEIN (AFP), TUMOR [id number] 07:15:00 Test Item Value Reference Range Interpretation Comments ALPHA-FETOPROTEIN (BEAKER) (test code < ng/mL <10.0 = 1094) Media Marketing Manager ID - RANDY LLLEEM-0-[id number] 07:02:00 Test Item Value Reference Range Interpretation Comments ALPHA-1 ANTITRYPSIN (BEAKER) 257.80 mg/dL 90.00-200.00 H (test code = 502) Media Marketing Manager ID - RANDY [id number] 06:12:00 Test Item Value Reference Range Interpretation Comments PHOSPHORUS (BEAKER) (test code = 2.5 mg/dL 2.3-4.7 604) Media Marketing Manager ID - RANDY [id number] 06:12:00 Test Item Value Reference Range Interpretation Comments MAGNESIUM (BEAKER) (test code = 1.9 mg/dL 1.6-2.6 627) Media Marketing Manager ID - RANDY LBASIC METABOLIC [id number] 06:12:00 Test Item Value Reference Range Interpretation [...] S NOT APPLICABLE FOR DIALYSIS PATIEN TS. Media Marketing Manager ID - RANDY LHEPATIC FUNCTION [id number] 06:12:00 Test Item Value Reference Range Interpretation [...] code = 758 U/L 6-55 H 347) Media Marketing Manager ID Tiffanie PADILLA LCBC W/PLT COUNT & AUTO [id number] 05:29:00 Test Item Value Reference Range Interpretation [...] 0-1 PERCENT (BEAKER) (test code = 2801) [id number] 18:21:00 Test Item Value Reference Range Interpretation Comments FERRITIN (BEAKER) (test code = 1130.77 ng/mL 5.00-275.00 H 361) Media Marketing Manager ID - DBHEPATITIS C [id number] 18:02:00 Test Item Value Reference Range Interpretation Comments HEPATITIS C ANTIBODY (BEAKER) Nonreactive Nonreactive (test code = 367) Media Marketing Manager ID - DBIRON, TIBC, % SAT. (WITHOUT FERRITIN)2020-04-02 17:42:00 Test Item Value Reference Range Interpretation Comments IRON (BEAKER) (test code = 547) 19.0 ug/dL 40.0-160.0 L TOTAL IRON BINDING CAPACITY 328 ug/dL 250-450 (BEAKER) (test code = 769) IRON % SATURATION (2) (BEAKER) 6 % 20-55 L (test code = 2590) Media Marketing Manager ID - DBMR, ABDOMEN, [id number] 15:37:00FINAL REPORT MR Abdomen dated 04/02/2020 Comment: [...] Recommend further evaluation with ERCP. Signed: Micah Aguilera MDReport Verified Date/Time: 04/02/2020 15:37:49 Reading Location: [facility] C013X [facility] Consult Reading Room PREGNANCY SCREEN, [id number] 10:42:00 Test Item Value Reference Range Interpretation Comments TEST URINE (BEAKER) (test Negative code = 583) RAD, CHEST, 1 VIEW, NON [id number] 09:30:00Reason for exam:->r/o PNAShould this be performed at the bedside?->YesFINAL REPORT INDICATION: r/o PNA COMPARISON: None TECHNIQUE: Single frontal view of the chest. FINDINGS: Lungs and pleura: Clear lungs. No effusion.Heart and mediastinum: Normal heart size. Unremarkable mediastinal contours.Osseous structures: No acute abnormality.Other: None. IMPRESSION: No acute intrathoracic abnormality. Signed: Magnus Ayalaepaileen Verified Date/Time: 04/02/2020 09:30:21 Reading Location: [address] Neuro Reading Room ALYSIS W/ REFLEX URINE [id number] 07:23:00 Test Item Value Reference Range Interpretation [...] = 516) SOURCE(BEAKER) (test code = 2795) Media Marketing Manager ID - [auto]Media Marketing Manager ID - [id number] 07:00:00 Test Item Value Reference Range Interpretation Comments MAGNESIUM (BEAKER) 1.5 mg/dL 1.6-2.6 L Specimen slightly (test code = 627) hemolyzed Media Marketing Manager ID - RANDY [id number] 07:00:00 Test Item Value Reference Range Interpretation Comments PHOSPHORUS (BEAKER) 2.5 mg/dL 2.3-4.7 Specimen slightly (test code = 604) hemolyzed Media Marketing Manager ID - RANDY LBASIC METABOLIC [id number] 07:00:00 Test Item Value Reference Range Interpretation [...] S NOT APPLICABLE FOR DIALYSIS PATIEN TS. Media Marketing Manager ID - PIAYA LHEPATIC FUNCTION [id number] 07:00:00 Test Item Value Reference Range Interpretation [...] Specimen slightly (test code = 347) hemolyzed Media Marketing Manager ID - RANDY [id number] 07:00:00 Test Item Value Reference Range Interpretation Comments LIPASE (BEAKER) (test code = 749) 6 U/L 8-78 L Media Marketing Manager ID - RANDY LHEPATITIS B [id number] 06:58:00 Test Item Value Reference Range Interpretation Comments HEPATITIS B CORE TOTAL ANTIBODY Nonreactive Nonreactive (BEAKER) (test code = 497) HEPATITIS B SURFACE ANTIBODY < mIU/mL <8.0 (BEAKER) (test code = 647) HEPATITIS B SURFACE ANTIGEN (2) Nonreactive Nonreactive (BEAKER) (test code = 2585) Media Marketing Manager ID - RANDY LPROTHROMBIN [id number] 06:24:00 Test Item Value Reference Range Interpretation [...] mechanical heart valves.CBC W/PLT COUNT & AUTO [id number] 06:19:00 Test Item Value Reference Range Interpretation [...] code = 2801) MR Knee wo contrast [id number] 08:50:00MRI of the Left Knee Without IV [...] 21:31Electronically Signed by: Lorelei Lemos MD 09/17/1821:38[facility]
[2022-01-12] MEDS ORDERED: ONDANSETRON 4 MG/2 ML VIAL ONE ×2 (17:15→20:45)
[2022-01-12] MEDS ORDERED: NA CHLORIDE 0.9% 1,000 ML ONE (17:15)
[2022-01-12] MEDS ORDERED: MORPHINE 4 MG/ML SYR ONE ×2 (17:15→20:43)
[2022-01-12 17:56] LABS: Absolute Lymphocytes (CBC) 0.2 K/uL (0.7-4.9); Hematocrit 40.7 % (36.0-45.0); Lymphocytes % 1.5 % (15.3-44.8); MPV 9.1 fL (7.6-11.3); RBC Red Blood Cell Count 4.54 M/uL (3.86-4.86)
[2022-01-12 18:14] LABS: Albumin 3.7 g/dL (3.4-5.0); Bilirubin Total 2.2 mg/dL (0.2-1.0); Potassium 3.5 mmol/L (3.5-5.1); Protein, Total 7.7 g/dL (6.4-8.2)
--- NOTE | 2022-01-12 18:53 | RAD REPORT ---
EXAM DESCRIPTION: CTAbdomen Pelvis W Contrast - 01/12/2022 6:38 pm CLINICAL HISTORY: ABD PAIN COMPARISON: <Comparisons> TECHNIQUE: CT of the abdomen and pelvis was performed. All CT scans are performed using dose optimization technique as appropriate and may include automated exposure control or mA/KV adjustment according to patient size. FINDINGS: Lower chest: No acute abnormality. Liver: Mild intrahepatic biliary duct dilatation is similar to prior. Hepatic steatosis. No suspiciou s liver lesions. Biliary: Cholecystectomy. Stomach: No significant focal abnormality. Duodenum: No significant focal abnormality. Pancreas: No significant abnormality. Spleen: No significant abnormality. Adrenal: No suspicious lesions. Kidney/ureter: No hydronephrosis. No renal calculi. Simple cyst in the upper pole right kidney. Retroperitoneum: No retroperitoneal adenopathy. Vascular: No aneurysm. Bowel: No significant focal abnormality. Normal appendix . Peritoneum: No ascites or free air. Bladder: Grossly unremarkable. Reproductive: No adnexal masses. Bones: No acute fracture. Other: n/a IMPRESSION: No acute intra-abdominal or pelvic finding. Normal appendix.
[2022-01-12 20:28] LABS: SARS-COV-2 RT PCR NEGATIVE (NEGATIVE)
--- NOTE | 2022-01-12 20:33 | EDPHYS ---
Physician Documentation [facility] Name: Janey Hernandez Age: 46 yrs Sex: Female : 1975 Arrival Date: 01/12/2022 Time: 16:42 Bed 24 Private MD: Katrina Esquivel ED Physician Eliud Dutton HPI: 01/12 17:33 This 46 yrs old Female presents to ER via Ambulatory with complaints of Abdominal Pain kb - upper, Epigastric Pain. 17:33 The patient presents with abdominal pain in the epigastric area. Onset: The kb symptoms/episode began/occurred last night. The symptoms do not radiate. Associated signs and symptoms: none. The symptoms are described as constant. Modifying factors: The symptoms are alleviated by nothing, the symptoms are aggravated by nothing. Severity of pain: At its worst the pain was moderate in the emergency department the pain is unchanged. The patient has experienced similar episodes in the past, a few times. The patient has not recently seen a physician. Historical: - Allergies: 16:50 No Known Allergies; ab2 - PMHx: 16:50 Gastric Reflux; Thyroid problem; ab2 - Immunization history:: Adult Immunizations up to date, Client reports receiving the 2nd dose of the Covid vaccine. - Social history:: Smoking status: Patient denies any tobacco usage or history of. ROS: 17:33 Constitutional: Negative for fever, chills, and weight loss. kb 17:33 Abdomen/GI: Positive for abdominal pain, Negative for nausea, vomiting, and diarrhea. 17:33 All other systems are negative. Exam: 17:34 Constitutional: This is a well developed, well nourished patient who is awake, alert, kb and in no acute distress. Head/Face: Normocephalic, atraumatic. ENT: Moist Mucous membranes Respiratory: Respirations even and unlabored. No increased work of breathing. Talking in full sentences Skin: Warm, dry with normal turgor. Normal color. MS/ Extremity: Pulses equal, no cyanosis. Neurovascular intact. Full, normal range of motion. Neuro: Awake and alert, GCS 15, oriented to person, place, time, and situation. Moves all extremities. Normal gait. Psych: Awake, alert, with orientation to person, place and time. Behavior, mood, and affect are within normal limits. 17:34 Abdomen/GI: Inspection: abdomen appears normal, Bowel sounds: normal, in all quadrants, Palpation: soft, in all quadrants, mild abdominal tenderness, in the epigastric area, right upper quadrant and left upper quadrant. Vital Signs: 16:49 BP 123 / 72; Pulse 105; Resp 19; Temp 98.4(TE); Pulse Ox 100% ; Weight 74.84 kg; Height ab2 5 ft. 3 in. (160.02 cm); Pain 10/10; 17:22 BP 110 / 56; Pulse 101; Resp 18; Pulse Ox 94% on R/A; ld1 18:24 BP 96 / 60; Pulse 95; Resp 18; Pulse Ox 98% on R/A; ld1 19:38 BP 104 / 74; Pulse 105; Resp 18; Pulse Ox 98% on R/A; ld1 20:15 BP 102 / 69; Pulse 94; Resp 18; Pulse Ox 98% on R/A; ld1 21:21 BP 107 / 70; Pulse 87; Resp 18; Pulse Ox 98% on R/A; ld1 16:49 Body Mass Index 29.23 (74.84 kg, 160.02 cm) ab2 MDM: 16:51 Patient medically screened. 17:34 Data reviewed: vital signs, nurses notes. Data interpreted: Pulse oximetry: on room air kb is 94 %. Interpretation: normal. 19:27 ED course: Pt has had similar pain with elevated LFTs in the past, was transferred to [facility] and had a common bile duct obstruction. Discussed with Dr Dutton, he recommends transfer. 20:31 Counseling: I had a detailed discussion with the patient and/or guardian regarding: the historical points, exam findings, and any diagnostic results supporting the discharge/admit diagnosis, lab results, radiology results, the need to transfer to another facility, [facility] does not immediately have the required specialist. ED course: Dr Gaspar at [facility] accepts pt for transfer. 21:20 ED course: Dr Villalpando with biliary accepts pt for consult. 01/12 16:51 Order name: CBC with Diff; Complete Time: 21:19 kb 01/12 16:51 Order name: CMP; Complete Time: 18:17 01/12 16:51 Order name: Lipase; Complete Time: 18:17 01/12 19:15 Order name: COVID-19/FLU A+B (Document "Date of Onset" if Symptomatic); Complete Time: bb 20:32 01/12 20:27 Order name: Lactate; Complete Time: 21:11 kb 01/12 20:27 Order name: Blood Culture Adult (2) kb 01/12 17:07 Order name: CT Abd/Pelvis - IV Contrast Only; Complete Time: 18:58 kb 01/12 21:16 Order name: Manual Differential; Complete Time: 21:19 EDMS 01/12 16:51 Order name: IV Saline Lock; Complete Time: 17:22 kb 01/12 16:51 Order name: Labs collected and sent; Complete Time: 17:22 kb Administered Medications: 17:21 Drug: morphine 4 mg Route: IVP; Site: right antecubital; ld1 21:23 Follow up: Response: No adverse reaction ld1 17:22 Drug: NS 0.9% 1000 ml Route: IV; Rate: 1 bolus; Site: right antecubital; ld1 21:24 Follow up: Response: No adverse reaction; IV Status: Completed infusion; IV Intake: ld1 1000ml 17:22 Drug: Zofran (Ondansetron) 4 mg Route: IVP; Site: right antecubital; ld1 21:23 Follow up: Response: No adverse reaction ld1 20:46 Drug: Zosyn (piperacillin-tazobactam) 3.375 grams Route: IVPB; Infused Over: 60 mins; ld1 Site: right antecubital; 21:23 Follow up: Response: No adverse reaction; IV Status: Completed infusion; IV Intake: ld1 100ml 20:47 Drug: morphine 4 mg Route: IVP; Site: right antecubital; ld1 21:23 Follow up: Response: No adverse reaction ld1 20:47 Drug: Zofran (Ondansetron) 4 mg Route: IVP; Site: right antecubital; ld1 21:23 Follow up: Response: No adverse reaction ld1 Disposition Summary: 01/12/22 20:32 Transfer Ordered Transfer Location: [facility] kb Reason: Higher level of care kb Condition: Stable kb Problem: new kb Symptoms: are unchanged kb Accepting Physician: Hubert(01/12/22 22:32) ld1 Diagnosis - Upper abdominal pain, unspecified kb - Abnormal results of liver function studies kb Discharge Instructions: - Discharge Summary Sheet bb Forms: - Medication Reconciliation Form bb - SBAR form bb Addendum: 01/16/2022 07:11 Co-signature as Attending Physician, Eliud Dutton MD I agree with the assessment and c laurent plan of care. Signatures: Dispatcher [employer] EDTierra Brown, LADIES UNDERWEAR OPERATOR-C LADIES UNDERWEAR OPERATOR-Ckb Eliud Dutton MD MD cha Dibbern, Lauren, RN RN ld1 Raffy Carr2 Corrections: (The following items were deleted from the chart) 01/12 22:32 20:32 Hubert olmstead ld1
--- NOTE | 2022-01-12 20:33 | ER ---
Nurse's Notes [facility] Name: Janey Hernandez Age: 46 yrs Sex: Female : 1975 Arrival Date: 01/12/2022 Time: 16:42 Bed 24 Private MD: Katrina Esquivel Diagnosis: Upper abdominal pain, unspecified;Abnormal results of liver function studies Presentation: 01/12 16:49 Chief complaint: Patient states: "I've had pain in my stomach since last night and its ab2 making me nauseous. I cant take it anymore." Pt denies v/d. Chief complaint:. Coronavirus screen: Vaccine status: Patient reports receiving the 2nd dose of the covid vaccine. Client denies travel out of the [place] in the last 14 days. Ebola Screen: Patient negative for fever greater than or equal to 101.5 degrees Fahrenheit, and additional compatible Ebola Virus Disease symptoms Patient denies exposure to infectious person. Patient denies travel to an Ebola-affected area in the 21 days before illness onset. No symptoms or risks identified at this time. Initial Sepsis Screen: Does the patient meet any 2 criteria? No. Patient's initial sepsis screen is negative. Does the patient have a suspected source of infection? No. Patient's initial sepsis screen is negative. Risk Assessment: Do you want to hurt yourself or someone else? Patient reports no desire to harm self or others. Onset of symptoms is unknown. 16:49 Method Of Arrival: Ambulatory ab2 16:49 Acuity: MICHAEL 3 ab2 Triage Assessment: 16:50 General: Appears in no apparent distress. comfortable, Behavior is calm, cooperative, ab2 appropriate for age. Pain: Complains of pain in epigastric area. GI: Reports nausea. Historical: - Allergies: 16:50 No Known Allergies; ab2 - PMHx: 16:50 Gastric Reflux; Thyroid problem; ab2 - Immunization history:: Adult Immunizations up to date, Client reports receiving the 2nd dose of the Covid vaccine. - Social history:: Smoking status: Patient denies any tobacco usage or history of. Screenin:22 Abuse screen: Denies threats or abuse. Denies injuries from another. Nutritional ld1 screening: No deficits noted. Tuberculosis screening: No symptoms or risk factors identified. Fall Risk None identified. Assessment: 17:22 General: Appears in no apparent distress. comfortable, Behavior is calm, cooperative, ld1 appropriate for age. Pain: Complains of pain in epigastric area Pain does not radiate. Pain currently is 8 out of 10 on a pain scale. Quality of pain is described as throbbing, Pain began suddenly, Is continuous. Neuro: Level of Consciousness is awake, alert, obeys commands, Oriented to person, place, time, situation. Cardiovascular: Capillary refill < 3 seconds Patient's skin is warm and dry. Respiratory: Airway is patent Respiratory effort is even, unlabored, Respiratory pattern is regular, symmetrical. GI: Abdomen is round non-distended, Bowel sounds present X 4 quads. Abd is soft Abdomen is tender to palpation X 4 quads. : No signs and/or symptoms were reported regarding the genitourinary system. EENT: No signs and/or symptoms were reported regarding the EENT system. Derm: No signs and/or symptoms reported regarding the dermatologic system. Musculoskeletal: No signs and/or symptoms reported regarding the musculoskeletal system. 20:15 Reassessment: Patient appears in no apparent distress at this time. Patient and/or ld1 family updated on plan of care and expected duration. Pain level reassessed. Patient is alert, oriented x 3, equal unlabored respirations, skin warm/dry/pink. Vital Signs: 16:49 BP 123 / 72; Pulse 105; Resp 19; Temp 98.4(TE); Pulse Ox 100% ; Weight 74.84 kg; Height ab2 5 ft. 3 in. (160.02 cm); Pain 10/10; 17:22 BP 110 / 56; Pulse 101; Resp 18; Pulse Ox 94% on R/A; ld1 18:24 BP 96 / 60; Pulse 95; Resp 18; Pulse Ox 98% on R/A; ld1 19:38 BP 104 / 74; Pulse 105; Resp 18; Pulse Ox 98% on R/A; ld1 20:15 BP 102 / 69; Pulse 94; Resp 18; Pulse Ox 98% on R/A; ld1 21:21 BP 107 / 70; Pulse 87; Resp 18; Pulse Ox 98% on R/A; ld1 16:49 Body Mass Index 29.23 (74.84 kg, 160.02 cm) ab2 ED Course: 16:42 Patient arrived in ED. am2 16:42 Katrina Esquivel FNP-C is Private Physician. am2 16:48 Tierra Rodgers FNP-C [facility] kb 16:48 Eliud Dutton MD is Attending Physician. kb 16:50 Triage completed. ab2 16:51 Arm band placed on left wrist. ab2 17:11 Zoe Bhakta, RN is Primary Nurse. ld1 17:22 Patient has correct armband on for positive identification. Placed in gown. Bed in low ld1 position. Call light in reach. Side rails up X2. alarm security or surveillance monitor on. Pulse ox on. NIBP on. Door closed. Noise minimized. Warm blanket given. 17:22 No provider procedures requiring assistance completed. Inserted saline lock: 20 gauge ld1 in right antecubital area, using aseptic technique. Blood collected. 18:39 CT Abd/Pelvis - IV Contrast Only In Process Unspecified. EDMS 19:38 COVID-19/FLU A+B (Document "Date of Onset" if Symptomatic) Sent. ld1 20:47 Lactate Sent. ld1 20:47 Blood Culture Adult (2) Sent. ld1 22:32 Patient transferred, IV remains in place. ld1 Administered Medications: 17:21 Drug: morphine 4 mg Route: IVP; Site: right antecubital; ld1 21:23 Follow up: Response: No adverse reaction ld1 17:22 Drug: NS 0.9% 1000 ml Route: IV; Rate: 1 bolus; Site: right antecubital; ld1 21:24 Follow up: Response: No adverse reaction; IV Status: Completed infusion; IV Intake: ld1 1000ml 17:22 Drug: Zofran (Ondansetron) 4 mg Route: IVP; Site: right antecubital; ld1 21:23 Follow up: Response: No adverse reaction ld1 20:46 Drug: Zosyn (piperacillin-tazobactam) 3.375 grams Route: IVPB; Infused Over: 60 mins; ld1 Site: right antecubital; 21:23 Follow up: Response: No adverse reaction; IV Status: Completed infusion; IV Intake: ld1 100ml 20:47 Drug: morphine 4 mg Route: IVP; Site: right antecubital; ld1 21:23 Follow up: Response: No adverse reaction ld1 20:47 Drug: Zofran (Ondansetron) 4 mg Route: IVP; Site: right antecubital; ld1 21:23 Follow up: Response: No adverse reaction ld1 Intake: 21:23 IV: 100ml; Total: 100ml. ld1 21:24 IV: 1000ml; Total: 1100ml. ld1 Outcome: 20:32 ER care complete, transfer ordered by MD. olmstead 22:31 Transferred by ground EMS to [facility]. ld1 22:31 Condition: stable 22:31 Instructed on the need for transfer. 22:32 Patient left the ED. ld1 Addendum: 01/15/2022 11:23 Addendum: Culture Results: Positive blood culture. Phone call Attempt #1 faxed report s s to [facility]. TATI Johnson RN. Signatures: Dispatcher [employer] EDMS Tierra Rodgers, MARINE OPERATIONS COORDINATOR-C MARINE OPERATIONS COORDINATOR-CkChloé Gamboa RN RN ss Moreno, Amanda am2 Zoe Bhakta RN RN ld1 Raffy Carr
[2022-01-12] MEDS ORDERED: NA CHLORIDE 0.9% 100 ML IV ONE (20:43)
[2022-01-12] MEDS ORDERED: PIPERACIL/TAZO 3.375 GM VIAL IV ONE (20:43)
[2022-01-12 21:15] LABS: Blood Morphology Comment NOT SEEN (NOT SEEN); Platelet Estimate ADEQ
[2022-01-12 22:47] VITALS: TEMP 98.4
[2022-01-12 22:50] VITALS: O2SAT 98
[2022-01-12 22:54] VITALS: BP 107/70
== END 2022-01-12 22:32 | disposition short-term general hospital (02) ==
LOC: ER 16:41
DX: R10.13 Epigastric pain (principal); R94.5 Abnormal results of liver function studies; K21.9 Gastro-esophageal reflux disease without esophagitis; Z20.822 Contact with and (suspected) exposure to COVID-19
CPT/HCPCS: 96365; 96361; 87040 ×2; 85025; 36415; 87205 ×4; 83605; 87077 ×2; 87186 ×2; 83690; 80053; 0240U; 74177; 96375; 99285; Q9967; J2543; J7030; J2405 ×2

== ENCOUNTER 2022-02-05 20:16 | Emergency (ER) | payer BC ==
--- OUTSIDE RECORDS SUMMARY | 2022-02-05 20:22 | XMS REPORT | Continuity of Care Document ---
:1975 Author Organization [facility] t Address [address] [place] [address] Care Team Providers Name Role Phone ISIS RUTH Primary Care Physician Unavailable TERI GARDNER Attending Clinician Unavailable Isis Attending Clinician Unavailable Attending Clinician Unavailable JJ Attending Clinician Unavailable CONSUELO VALENCIA Attending Clinician Unavailable SOCRATES Attending Clinician Unavailable FREEMAN GONZALEZ Attending Clinician Unavailable CARLOS DAVIS Attending Clinician Unavailable REGIS Attending Clinician Unavailable ANNELISE Attending Clinician Unavailable TERI GARDNER Admitting Clinician Unavailable Admitting Clinician Unavailable CONSUELO VALENCIA Admitting Clinician Unavailable FREEMAN GONZALEZ Admitting Clinician Unavailable BRITTANI Admitting Clinician Unavailable Payers Payer Name Policy Type Policy Number Effective Date Expiration Date S amanda BCBS OS [id number] 2017 POS/PPO/EPO 00:00:00 OUT OF STATE [id number] BCBS - PPO - BCBS GENERIC PPO - [id number] 2020 GENERIC PAYOR 00:00:00 CDC REVIEW [id number] 2020 00:00:00 Problems Condition Condition Condition Status [...] NO KNOWN Allergy Active [facility] Social History Social Habit Start Date Stop Date Quantity Comments Source History [facility] Alcohol Std Drinks of Med icine History [facility] Alcohol Binge of Medicine History [facility] Alcohol Comment of Medici ne Tobacco use and 2022-01-23 2022-01-23 Smokeless tobacco [facility] exposure 00:00:00 00:00:00 non-user of Medicine Alcohol intake 2022-01-23 2022-01-23 Lifetime [facility] Col lege 00:00:00 00:00:00 non-drinker of Medicine (finding) History [facility] 2022-01-23 2022-01-23 1 [facility] ge Alcohol Frequency 00:00:00 00:00:00 of Medi cine Sex [birth year] [facility] 00:00:00 00:00:00 of Medicine Smoking Status Start Date Stop Date Source Never smoked tobacco [facility] Axel ege of Medicine Medications Ordered Filled Start Stop Current Ordering Indication Dosage Frequency Signature Comments Components Source Medication Medication Date Date Medication? Clinician (SIG) Name Name sucralfate Yes 1g Take 1 g [place] [facility] (CARAFATE) 4-06 by mouth. Axel ege 1 g tablet 10:55: of 23 Medicin e valacyclovi Yes 500mg Take 500 [facility] (VALTREX) 4-06 mg by [place] 500 MG 10:55: mouth. of tablet 23 Medicin e levothyroxi Yes 1 tablet [facility] ne 4-06 in the [place] (SYNTHROID) 10:55: morning on of 137 MCG 23 an empty Medicin tablet stomach e medroxyPROG Yes [facility] ESTERone 01-23 [place] (DEPO-PROVE 10:55: of RA) 150 23 Medicin MG/ML e injection fluconazole Yes [facility] (DIFLUCAN) 01-22 [place] 150 MG 00:00: of tablet 00 Medicin e cefdinir Yes TAKE 1 [facility] (OMNICEF) 3-30 CAPSULE BY Axel ege 300 MG 00:00: MOUTH 2 of capsule 00 TIMES Medicin DAILY FOR e 7 DAYS. omeprazole Yes 1 CAPSULE Ba michelle[facility] (PRILOSEC) 2-19 30 MINUTES Col lege 40 MG 00:00: BEFORE of capsule 00 MORNING Medicin MEAL ONCE e A DAY ORAL 90 DAYS albuterol 2020-10 Yes Every 4 [place] [facility] (90 1-23 hours. [facility]) 00:00: of mcg/act 00 Medicin inhaler e Cipro Cipro 2019- No Lindsey [address] [facility] 5-18 05-23 [facility] Ferrous Ferrous Yes Lindsey [address] Sulfate Sulfate 05-11 [facility] Fluticasone Fluticasone Yes Lindsey [address] [facility] Propionate Propionate 10-21 [facility] each Kathrine ke - 00:00: nostril [facility] 00 [facility] Clin[facility] Naproxen Naproxen 2017-10 Yes [place] Q12H TAKE 1 Uni vers 500 MG Oral 500 MG Oral 1-20 ANNELISE TABLET ity of Tablet Tablet 00:00: N.P. EVERY 12 [place] 00 HOURS Physici NEEDED. ans Levothyroxi Levothyroxi Yes Lindsey [address] [facility] ne Sodium ne Sodium Logan in the Kathrine ke - morning on [facility] an empty l stomach Outpati ent Clinics Omeprazole Omeprazole Yes Lindsey not C [facility] defined [facility] Vital Signs Vital Name Observation Time Observation Value Comments Source WEIGHT 2020-04-01 00:00:00 74.39 kg HEIGHT 2020-04-01 00:00:00 160 cm Systolic blood 2022-01-23 15:57:00 120 mm[Hg] [facility] pressure Medicine Diastolic blood 2022-01-23 15:57:00 62 mm[Hg] [facility] pressure Medicine Respiratory rate 2022-01-23 15:57:00 18 /min [facility] Body height 2022-01-23 15:57:[address] [facility] Body weight 2022-01-23 15:57:[address] [facility] BMI 2022-01-23 15:57:00 28.34 kg/m2 [facility] HEIGHT 2022-01-12 23:53:00 160 cm WEIGHT 2022-01-12 23:53:00 75.4 kg HEIGHT 2022-01-12 23:53:00 160 cm WEIGHT 2022-01-12 23:53:00 75.4 kg HEIGHT 2020-05-05 00:00:00 157.5 cm WEIGHT [...] Procedure Date / Time Performed Performing Clinician Felicia e MR Knee wo contrast 2018-09-08 00:00:00 [facility] [id number] Physicians Plan of Care Planned Activity Planned Date Details Comments Source Future Scheduled 2022-01-23 Screening for malignant [facility] Test 11:43:48 neoplasm of colon of Medicin e (procedure) [code = 911190497] Future Scheduled 2022-01-23 Screening for malignant [facility] Test 11:43:48 neoplasm of breast of Medici ne (procedure) [code = 763285918] Future Scheduled 2022-01-23 TETANUS SHOT (ADULT) [place] [facility] [employer] Test 11:43:48 [code = TETANUS SHOT of Medi cine (ADULT)] Future Scheduled 2022-01-23 BMI FOLLOW UP PLAN [facility] Test 11:43:48 [code = BMI FOLLOW UP of Med icine PLAN] Future Scheduled 2022-01-23 [facility] 11:43:48 virus screening of Medicine (procedure) [code = 180179610] Future Scheduled 2022-01-23 Screening for malignant [facility] Test 11:43:48 neoplasm of cervix of Medici ne (procedure) [code = 283473387] Future Scheduled 2022-01-23 COVID-19 Vaccine (3 - Ba [facility] Test 11:43:48 Booster for Moderna of Medic ine series) [code = COVID-19 Vaccine (3 - Booster for Moderna series)] Future Scheduled 2022-01-23 FLU VACCINE > 6 MONTHS [facility] Test 11:43:48 [code = FLU VACCINE > 6 of M edicine MONTHS] Future Scheduled 2022-01-23 ERCP W/MAC - GI DEPT 1 Occurrences [facility] Test 11:18:30 [code = 86558] starting of Medicine 01/23/2022 until 07/25/2022 Future Scheduled 2022-01-23 BALLOON 1 Occurrences [facility] Test 11:17:44 ENTEROSCOPY,ANTEGRADE W starting of M edicine ILEUM [code = 11674] 01/23/2022 until 07/25/2022 Encounters Start End Encounter Admission Attending Care Care Encounter Source Date/Time Date/Time Type Type Clinicians Facility Department ID 2022-01-24 Outpatient SHARON GARDNER Surgery [id number] [facility] 11:57:57 [place]GLE 2021-11-[address] [facility] [id number] [facility] 14:35:10 [facility] 2021-11-14 Outpatient Van Orin, STLMLC STLMLC [id number] [facility] 13:08:37 Katrina 07027 [facility] 2021-11-14 Outpatient Isis, STLMLC STLMLC [id number] [facility] 11:02:00 Katrina 04551 [facility] 2020-04-01 Inpatient ER MERCHANT [facility] Internal [id number] [facility] 21:44:00 SHANIQUA Med 2022-01-23 2022-01-23 Office OXANA GARDNER [id number] [facility] 10:50:08 15:02:06 Visit SALMAAN AMBULATOR [id number] College Y [id number] of [id number] Medi karlie 325 e 2022-01-22 2022-01-22 ambulatory STLMLC STLMLC [id number] [facility] 2022-01-12 2022-01-16 Inpatient ER SOCRATES, [facility] [id number] [facility] 23:38:00 13:29:00 PAXTON 2021-11-05 2021-11-05 ambulatory STLMLC STLMLC [id number] [facility] 2021-11-05 2021-11-05 ambulatory STLMLC STLMLC [id number] [facility] 2021-10-29 2021-10-29 ambulatory STLMLC STLMLC [id number] [facility] 2021-10-22 2021-10-22 ambulatory STLMLC STLMLC [id number] [facility] 2021-10-22 2021-10-22 ambulatory STLMLC STLMLC [id number] [facility] 2021-09-11 2021-09-11 ambulatory STLMLC STLMLC [id number] [facility] 2021-04-13 2021-04-13 Outpatient STLMLC STLMLC [id number] [facility] 2021-03-16 2021-03-16 Outpatient STLMLC STLMLC [id number] [facility] 2021-03-16 2021-03-16 Outpatient STLMLC STLMLC [id number] [facility] 2021-03-13 2021-03-13 Outpatient STLMLC STLMLC [id number] [facility] 2021-02-23 2021-02-23 Outpatient STLMLC [facility]LMLC [id number] [facility] 2020-09-07 2020-09-07 Outpatient STLMLC [facility]LMLC [id number] [facility] 2020-05-05 2020-05-05 Outpatient SHARON FRAZIER [facility] [id number] [facility] 00:00:00 00:00:00 SAYDA 2020-04-19 2020-04-19 Outpatient SHARON FRAZIER SLE [id number] [facility] 00:00:00 00:00:00 SAYDA 2020-04-13 2020-04-13 Emergency ER SLE Emergency [id number] [facility] 11:47:00 11:47:00 2020-04-12 2020-04-12 Outpatient SLEH [facility] [id number] [facility] 00:00:00 00:00:00 2020-04-12 2020-04-12 Outpatient [facility]H [facility] [id number] [facility] 00:00:00 00:00:00 2020-03-08 2020-03-08 [facility] [id number] [facility] 09:46:00 09:46:00 [facility] Medicine Outpati ent Clinics 2020-03-06 2020-03-06 [facility] [id number] 16:00:00 16:00:00 [facility] Medicine Outpati ent Clinics 2020-02-09 2020-02-09 [facility] [id number] 10:07:00 10:07:00 [facility] Medicine Outpati ent Clinics 2020-01-13 2020-01-13 [facility] [id number] 09:58:00 09:58:00 [facility] Medicine Outpati ent Clinics 2020-01-12 2020-01-12 [facility] [id number] [facility] 10:03:00 10:03:00 [facility] Medicine Outpati ent Clinics 2019-12-15 2019-12-15 [facility] [id number] 13:39:00 13:39:00 t [facility] Medicine Medicine Outpati ent Clinics 2019-11-10 2019-11-10 [facility] [id number] 09:00:00 09:00:00 [facility] Medicine Outpati ent Clinics 2019-09-15 2019-09-15 [facility] [id number] 10:14:00 10:14:00 t [facility] Medicine Medicine Outpati ent Clinics 2019-07-06 2019-07-06 [facility] [id number] [facility] 16:00:00 16:00:00 [facility] Medicine Outpati ent Clinics 2019-05-11 2019-05-11 [facility] [id number] [facility] 15:00:00 15:00:00 [facility] Medicine Outpati ent Clinics 2018-12-01 2018-12-01 [facility] [id number] 09:45:00 09:45:00 [facility] Medicine Outpati ent Clinics 2018-10-21 2018-10-21 [facility] [id number] 13:45:00 13:45:00 [facility] 2018-09-29 2018-09-29 Appointmen MARC STACY UTP [id number] [facility] 09:30:00 09:30:00 t; VICKIE STACY, [facility] [place] [facility] 1 ans 2018-09-08 2018-09-08 Appointmen MARC CASTELAN UTP [id number] [facility] 14:15:00 14:15:00 t; [facility], Surgery - Von as MALCOM MAX Physic i Trace 1 ans Results Test Description Test Time Test Comments Results Result Comments Source BLOOD CULTURE 2022-01-20 11:35:06 Test Item Value Reference Range Interpretation Comme nts CULTURE (BEAKER) (test code = ESCHERICHIA COLI A From Aerobic Bottle Only 1095) Escherichia col i Amikacin (test code = 1) S Ampicillin + Sulbactam (test S code = 6) Aztreonam (test code = 32) S Cefepime (test code = 51) S Cefoxitin (test code = 68) S Ceftazidime (test code = 27) S Ceftriaxone (test code = 52) S Ertapenem (test code = 38) S Gentamicin (test code = 18) S Levofloxacin (test code = 22) R Meropenem (test code = 34) S Nitrofurantoin (test code = 23) S Piperacillin + Tazobactam (test S code = 29) Tetracycline (test code = 2) S Tobramycin (test code = 25) S Trimethoprim + Sulfamethoxazole R (test code = 47) GRAM STAIN RESULT (BEAKER) From aerobic bottle only: (test code = 1123) gram negative rods The specimen volume collected for this blood culture was below the optimum (10 mL per bottle or 20 mL total). Use of lower volumes may adversely affect recovery and/or detection times of some organisms.BLOOD [id number] 11:34:29 Test Item Value Reference Range Interpretation Comments CULTURE (BEAKER) A From Aerobi c Bottle (test code = Only Same organ ism has 1095) been isolated f rom cultures(s) of the same body site and collection date . Repeat identifi cation and susceptibil ity testing perform ed only after consultat ion with the [facility] microbiology laboratory.Refe r to previous cultur e ofEscherichia c frank GRAM STAIN From aerobic RESULT (BEAKER) bottle only: (test code = gram negative 1123) rods The specimen volume collected for this blood culture was below the optimum (10 mL per bottle or 20 mL total). Use of lower volumes may adversely affect recovery and/or detection times of some organisms.[id number] 06:18:35 Test Item Value Reference Range Interpretation Comments MAGNESIUM (BEAKER) (test code = 1.6 mg/dL 1.6-2.6 627) Hob Machine Operator ID - PIAYA LCOMPREHENSIVE METABOLIC [id number] 06:18:34 Test Item Value Reference Range Interpretation Comments TOTAL PROTEIN 6.9 gm/dL 6.0-8.3 (BEAKER) (test code = 770) ALBUMIN (BEAKER) 3.4 g/dL 3.5-5.0 L (test code = 1145) ALKALINE PHOSPHATASE 393 U/L 40-150 H (BEAKER) (test code = 346) BILIRUBIN TOTAL 1.4 mg/dL 0.2-1.2 H (BEAKER) (test code = 377) SODIUM (BEAKER) (test 138 meq/L 136-145 code = 381) POTASSIUM (BEAKER) 3.6 meq/L 3.5-5.1 (test code = 379) CHLORIDE (BEAKER) 103 meq/L 98-107 (test code = 382) CO2 (BEAKER) (test 25 meq/L 22-29 code = 355) BLOOD UREA NITROGEN 9 mg/dL 7-21 (BEAKER) (test code = 354) CREATININE (BEAKER) 0.62 mg/dL 0.57-1.25 (test code = 358) GLUCOSE RANDOM 124 mg/dL 70-105 H (BEAKER) (test code = 652) CALCIUM (BEAKER) 9.4 mg/dL 8.4-10.2 (test code = 697) AST (SGOT) (BEAKER) 103 U/L 5-34 H (test code = 353) ALT (SGPT) (BEAKER) 165 U/L 6-55 H (test code = 347) EGFR (BEAKER) (test 104 ESTIMATE D GFR IS code = 1092) mL/min/1.73 sq NOT ACCURA TE m CREATININE CLEARANCE IN PREDICTING GLOMERULAR FILTRATION RATE . ESTIMATED GFR I S NOT APPLICABLE FOR DIALYSIS PATIEN TS. Hob Machine Operator ID - PIAYA LCBC W/PLT COUNT & AUTO [id number] 05:47:42 Test Item Value Reference Range Interpretation Comments WHITE BLOOD CELL COUNT 9.7 K/ L 3.5-10.5 (BEAKER) (test code = 775) RED BLOOD CELL COUNT 4.02 M/ L 3.93-5.22 (BEAKER) (test code = 761) HEMOGLOBIN (BEAKER) 11.7 GM/DL 11.2-15.7 (test code = 410) HEMATOCRIT (BEAKER) 36.1 % 34.1-44.9 (test code = 411) MEAN CORPUSCULAR 89.8 fL 79.4-94.8 VOLUME (BEAKER) (test code = 753) MEAN CORPUSCULAR 29.1 pg 25.6-32.2 HEMOGLOBIN (BEAKER) (test code = 751) MEAN CORPUSCULAR 32.4 GM/DL 32.2-35.5 HEMOGLOBIN CONC (BEAKER) (test code = 752) RED CELL DISTRIBUTION 13.3 % 11.7-14.4 WIDTH (BEAKER) (test code = 412) PLATELET COUNT 299 K/CU MM 150-[address] (BEAKER) (test code = result s compared to 756) previous result s; clinical correl ation required. MEAN PLATELET VOLUME 10.8 fL 9.4-12.3 (BEAKER) (test code = 754) NUCLEATED RED BLOOD 0 /100 WBC 0-0 CELLS (BEAKER) (test code = 413) NEUTROPHILS RELATIVE 85 % PERCENT (BEAKER) (test code = 429) LYMPHOCYTES RELATIVE 10 % PERCENT (BEAKER) (test code = 430) MONOCYTES RELATIVE 5 % PERCENT (BEAKER) (test code = 431) EOSINOPHILS RELATIVE 0 % PERCENT (BEAKER) (test code = 432) BASOPHILS RELATIVE 0 % PERCENT (BEAKER) (test code = 437) NEUTROPHILS ABSOLUTE 8.16 K/ L 1.56-6.13 H COUNT (BEAKER) (test code = 670) LYMPHOCYTES ABSOLUTE 0.95 K/ L 1.18-3.74 L COUNT (BEAKER) (test code = 414) MONOCYTES ABSOLUTE 0.47 K/ L 0.24-0.36 H COUNT (BEAKER) (test code = 415) EOSINOPHILS ABSOLUTE 0.01 K/ L 0.04-0.36 L COUNT (BEAKER) (test code = 416) BASOPHILS ABSOLUTE 0.01 K/ L 0.01-0.08 COUNT (BEAKER) (test code = 417) IMMATURE 1 % 0-1 GRANULOCYTES-RELATIVE PERCENT (BEAKER) (test code = 2801) ANG, DRAINAGE, BILIARY, [id number] 11:46:00Reason for exam:- >Ext/[facility] 1975 Sex: FFINAL REPORT PROCEDURE: Transhepatic cholangiogram and biliary drain placement Procedural PersonnelAttending physician(s): Kyara Green physician(s): Tammie Gaines physician(s): NoneAdvanced practice provider(s): None Pre-procedure diagnosis: Biliary obstructionPost-procedure diagnosis: SameIndication: Biliary obstructionAdditional clinical history: None Complications: No immediate complications. IMPRESSION: Transhepatic cholangiogram demonstrates mildly dilated intrahepatic bile ducts. Successful placement of 10 Cymraes internal/external biliary drainage catheter with distal loop in the small bowel. Plan: Drain to gravity. Consider for capping when bilirubin normalizes. _ PROCEDURE SUMMARY:- Percutaneous transhepatic cholangiogram(s)- Biliary drain placement(s) as described below- Additional procedure(s): None PROCEDURE DETAILS: Pre-procedureConsent: Informed consent for the procedure including risks, benefits and alternatives was obtained and time-out was performed prior to the procedure.Preparation: The site was prepared and draped using maximal sterile barrier technique including cutaneous antisepsis. Anesthesia/sedationLevel of anesthesia/sedation: General anesthesiaAnesth esia/sedation administered by: AnesthesiologyTotal intra-service sedation time (minutes): See anesthesia note. Right cholangiogram and biliary drain placementLocal anesthesia was administered. A needlewas used to access a right intrahepatic duct under ultrasound and fluoroscopic guidance, and cholangi ography was performed. A guidewire was passed through the bile ducts and into the small bowel and a biliary drainage catheter was placed. Final contrast injection was performed.Initial cholangiogram findings: Mildly dilated intrahepatic bile ducts.Biliary drain: Cook 10Fr internal-externalBiliary drain diameter (Cymraes): 10Final cholangiogram findings: Distal loop in duodenum.External catheter securement: Non-absorbable suture ContrastContrast agent: Isovue-300 Radiation DoseFluoroscopy time (minutes): 14.9 Reference air kerma (mGy): 343 Additional DetailsAdditional description of procedure: None Equipment details: NoneSpecimens removed: NoneEstimated blood loss (mL): Less than 10Standardized report: [email or web address]_v3 AttestationSigner name: Caitlin Mobley attest that I was present for the entire procedure. I reviewed the stored images and agree with the report as written. Signed: Caitlin Bear MDReport Verified Date/Time: 01/15/2022 11:46:08 Reading Location: [facility] P048 [facility] Body Reading Room SARS-COV2/RT-PCR ([facility])2022-01-15 07:25:15 Test Item Value Reference Range Interpretation Comments SARS-COV2/RT-PCR (test Negative Not Detected, Negative, code = 2974553) See external report for linked test SARS-COV-2 PERFORMING LAB [facility] ISIDRO (test code = 1129073) Negative result for this test determines that SARS-CoV-2 RNA was not present in the specimen above the Limit of Detection (LOD). However, Negative results do not preclude SARS-CoV-2 infection and should not be used as the sole basis for treatment or patient management decisions. Negative results mustbe combined with clinical observations, patient history, and epidemiological information. A false negative result may occur if a specimen is improperly collected, transported or handled. A false negative result should be considered if patient's recent exposures or clinical presentation indicate that COVID-19 (SARS-CoV-2) is likely and diagnostic tests for other causes of illness are negative. Re-testing should be considered in cases of suspected false negatives.The limit of detection for this assay is 800 copies/mL.This SARS CoV-2 test is a real-time RT-PCR test intended for the qualitative detection of nucleic acid from SARS-CoV-2 in a nasopharyngeal swab specimen collected from individuals susp ected of COVID-19 by their healthcare provider.This test has not been Food and Drug Administration (FDA) cleared or approved. This is a modified version of an approved Emergency Use Authorization (EUA) and is in the process of review by the FDA. Once authorized by the FDA, the issued EUA will be effective until the declaration that circumstances exist justifying the authorization of the emergency use of in vitro diagnostic tests for detection and/or diagnosis of COVID-19 is terminated under Section 564(b)(2) of the Act or the EUA is revoked under Section 564(g) of the Act.Fact Sheet for Healthcare Providers:https://www.Abloomyidel.com/sites/default/files/product/documents/Fact_Shee d_XS_Ckpsqogzh_Tpbn_DMTC-RjD-7.pdfFact Sheet for Healthcare Patients:https://www.Ablo[employer]idel.com/sites/default/files/product/ documents/Bikb_Mtpgw_Tpqimvee_Rtsc_JDFC-JsZ-1.pdfPerforming Laboratory:[facility], [place] [id number] 05:53:04 Test Item Value Reference Range Interpretation Comments PHOSPHORUS (BEAKER) (test code = 2.7 mg/dL 2.3-4.7 604) Hob Machine Operator ID - RANDY LCOMPREHENSIVE METABOLIC [id number] 05:53:03 Test Item Value Reference Range Interpretation Comments TOTAL PROTEIN 6.2 gm/dL 6.0-8.3 (BEAKER) (test code = 770) ALBUMIN (BEAKER) 3.1 g/dL 3.5-5.0 L (test code = 1145) ALKALINE PHOSPHATASE 372 U/L 40-150 H (BEAKER) (test code = 346) BILIRUBIN TOTAL 2.6 mg/dL 0.2-1.2 H (BEAKER) (test code = 377) SODIUM (BEAKER) (test 135 meq/L 136-145 L code = 381) POTASSIUM (BEAKER) 3.7 meq/L 3.5-5.1 (test code = 379) CHLORIDE (BEAKER) 103 meq/L 98-107 (test code = 382) CO2 (BEAKER) (test 24 meq/L 22-29 code = 355) BLOOD UREA NITROGEN 6 mg/dL 7-21 L (BEAKER) (test code = 354) CREATININE (BEAKER) 0.55 mg/dL 0.57-1.25 L (test code = 358) GLUCOSE RANDOM 97 mg/dL 70-105 (BEAKER) (test code = 652) CALCIUM (BEAKER) 9.0 mg/dL 8.4-10.2 (test code = 697) AST (SGOT) (BEAKER) 71 U/L 5-34 H (test code = 353) ALT (SGPT) (BEAKER) 142 U/L 6-55 H (test code = 347) EGFR (BEAKER) (test 120 ESTIMATE D GFR IS code = 1092) mL/min/1.73 sq NOT ACCURA TE m CREATININE CLEARANCE IN PREDICTING GLOMERULAR FILTRATION RATE . ESTIMATED GFR I S NOT APPLICABLE FOR DIALYSIS PATIEN TS. Hob Machine Operator ID - RANDY [id number] 05:53:03 Test Item Value Reference Range Interpretation Comments MAGNESIUM (BEAKER) (test code = 1.5 mg/dL 1.6-2.6 L 627) Hob Machine Operator ID - RANDY LCBC W/PLT COUNT & AUTO [id number] 05:03:47 Test Item Value Reference Range Interpretation Comments WHITE BLOOD CELL COUNT (BEAKER) 6.2 K/ L 3.5-10.5 (test code = 775) RED BLOOD CELL COUNT (BEAKER) 3.67 M/ L 3.93-5.22 L (test code = 761) HEMOGLOBIN (BEAKER) (test code = 10.9 GM/DL 11.2-15.7 L 410) HEMATOCRIT (BEAKER) (test code = 33.4 % 34.1-44.9 L 411) MEAN CORPUSCULAR VOLUME (BEAKER) 91.0 fL 79.4-94.8 (test code = 753) MEAN CORPUSCULAR HEMOGLOBIN 29.7 pg 25.6-32.2 (BEAKER) (test code = 751) MEAN CORPUSCULAR HEMOGLOBIN CONC 32.6 GM/DL 32.2-35.5 (BEAKER) (test code = 752) RED CELL DISTRIBUTION WIDTH 13.2 % 11.7-14.4 (BEAKER) (test code = 412) PLATELET COUNT (BEAKER) (test 193 K/CU MM 150-450 code = 756) MEAN PLATELET VOLUME (BEAKER) 11.0 fL 9.4-12.3 (test code = 754) NUCLEATED RED BLOOD CELLS 0 /100 WBC 0-0 (BEAKER) (test code = 413) NEUTROPHILS RELATIVE PERCENT 75 % (BEAKER) (test code = 429) LYMPHOCYTES RELATIVE PERCENT 15 % (BEAKER) (test code = 430) MONOCYTES RELATIVE PERCENT 7 % (BEAKER) (test code = 431) EOSINOPHILS RELATIVE PERCENT 2 % (BEAKER) (test code = 432) BASOPHILS RELATIVE PERCENT 1 % (BEAKER) (test code = 437) NEUTROPHILS ABSOLUTE COUNT 4.68 K/ L 1.56-6.13 (BEAKER) (test code = 670) LYMPHOCYTES ABSOLUTE COUNT 0.92 K/ L 1.18-3.74 L (BEAKER) (test code = 414) MONOCYTES ABSOLUTE COUNT (BEAKER) 0.45 K/ L 0.24-0.36 H (test code = 415) EOSINOPHILS ABSOLUTE COUNT 0.12 K/ L 0.04-0.36 (BEAKER) (test code = 416) BASOPHILS ABSOLUTE COUNT (BEAKER) 0.03 K/ L 0.01-0.08 (test code = 417) IMMATURE GRANULOCYTES-RELATIVE 1 % 0-1 PERCENT (BEAKER) (test code = 2801) SCREEN, [id number] 16:24:23 Test Item Value Reference Range Interpretation Comments TEST URINE (BEAKER) (test Negative code = 583) BLOOD CULTURE IDENTIFICATION [id number] 13:53:24 Test Item Value Reference Interpretation Comments Range LISTERIA MONOCYTOGENES Not detected Not detected (test code = 7855261) STAPHYLOCOCCUS (test Not detected Not detected code = 4125965) STAPHYLOCOCCUS AUREUS Not detected Not detected (test code = 4256297) STREPTOCOCCUS (test code Not detected Not detected = 1103012) STREPTOCOCCUS AGALACTIAE Not detected Not detected (GROUP B) (test code = 2291191) STREPTOCOCCUS PNEUMONIAE Not detected Not detected (test code = 9935699) STREPTOCOCCUS PYOGENES Not detected Not detected (GROUP A) (test code = 4558260) ACINETOBACTER BAUMANNII Not detected Not detected (test code = 6741175) HAEMOPHILUS INFLUENZAE Not detected Not detected (test code = 1581934) NEISSERIA MENINGITIDIS Not detected Not detected (test code = 0152491) ENTEROBACTERIACEAE (test Detected Not detected A code = 4843250) ENTEROBACTER CLOACOE Not detected Not detected COMPLEX (test code = 0372536) KLEBSIELLA OXYTOCA (test Not detected Not detected code = 2566837) KLEBSIELLA PNEUMONIAE Not detected Not detected (test code = 1650) PROTEUS (test code = Not detected Not detected 3935169) SERRATIA MARCESCENS Not detected Not detected (test code = 0479977) OTTONIEL ALBICANS (test Not detected Not detected code = 4563636) OTTONIEL GLABRATA (test Not detected Not detected code = 3308190) OTTONIEL KRUSEI (test Not detected Not detected code = 4490767) OTTONIEL PARAPSILOSIS Not detected Not detected (test code = 4146236) OTTONIEL TROPICALIS (test Not detected Not detected code = 3495111) ESCHERICHIA COLI (test Detected Not detected A Esche richia coliKPC code = 0597552) not detected (a carbapenamase gene)First-line therapy: MeropenemDe-esc alat e based on susceptibilitie s.Th is test does no t evaluate for ESBLReference Range: Not Dete cted METHICILLIN-RESISTANCE GENE (test code = 7343750) VANCOMYCIN-RESISTANCE GENE (test code = 8948696) CARBAPENEM-RESISTANCE Not detected Not detected Note: Antimicrobial GENE (test code = resistance can 8306853) occur via multi ple mechanisms. A N ot Detected result for the FilmArray antimicrobial resistance gene assays does not indicate antimicrobial susceptibility. Subculturing is required for species identification and susceptibility testing of isolates.DELTARuth G: A Not Detected re sult for the KPC gen e does not indica te susceptibility to carbapenems. Gr am negative bacter ia can be resistan t to carbapenems by mechanisms othe r than carrying t he KPC gene. ENTEROCOCCUS-BEAKER Not detected Not detected (test code = 1524504) PSEUDOMONAS Not detected Not detected AERUGINOSA-BEAKER (test code = 0187717) Other bacteria and resistance markers not targeted by this PCR panel cannot be excluded; therefore clinical correlation and follow up of serology, culture results, and other molecular studies is required. The results are not intended to be used as the sole means for clinical diagnosis or patient management decisions. This sample was tested at the [facility] using the InSample Blood Culture ID Panel. It is FDA cleared and has been verified and approved by the [facility] for clinical use. This laboratory is CLIA-certified and College ofAmerican Pathologists (CAP)-accredited to perform high complexity testing.MR, ABDOMEN, [id number] 09:34:00Unlisted Reason for Exam - Click Yes and Enter Reason Below->NoMELIS[facility] : 1975 Sex: FFINAL REPORT MRCP, MRI of abdomen without contrast Clinical History: Biliary obstruction suspected Technique: Multiplanar and multisequence MR images of the biliary system are obtained, with dedicated MRCP protocol and images. No intravenous contrast is administered. In addition, 3 dimensional reformatted images of the biliary system are obtained to evaluate the biliary anatomy. Comparison: MRI dated April 02, 2020, ultrasound dated January 13, 2022 Discussion: This examination is not dedicated to evaluating masses or parenchymal abnormalities of the abdominal organs.Liver is enlarged, and measures 20.2 cm sagittally. Parenchymal signal is slightly heterogeneous, but no discrete liver lesion is identified. There is tuyn-ww-nbgdntcc intrahepatic biliary ductal dilatation, marginally worse in the anterior right lobe compared to April 02, 2020. Patient is status post hepaticojejunostomy. There is edema and trace fluid in the nubia hepatis region, which is new. Spleenis enlarged, and measures 13.2 cm sagittally. There is pancreatic divisum. No significant peripancreatic inflammation, and no pancreatic lesion is identified on this noncontrast exam. Adrenal glands are normal. Kidneys demonstrate no hydronephrosis, or mass. There is a small cyst in the right kidney. Visualized bowel is unremarkable. There is trace ascites. Trace bilateral pleural effusions. No lymphadenopathy. Marrow signal is normal. Impression: Status post hepaticojejunostomy. There is jqqg-ue-zkwtcabw intrahepatic biliary ductal dilatation, marginally worse in the anterior right hepatic lobe compared to April 02, 2020. There is new edema and trace fluid in the nubia hepatis region. Splenomegaly. Trace ascites. Trace bilateral pleural effusions. Signed: Abilio Warner Verified Date/Time: 09:34:27 Reading Location: [place] [id number] [facility] Consult Reading Room PHOSPHORUS 2022-01-14 05:54:37 Test Item Value Reference Range Interpretation Comments PHOSPHORUS (BEAKER) (test code = 2.3 mg/dL 2.3-4.7 604) Hob Machine Operator ID - BOUBACAR MCOMPREHENSIVE METABOLIC [id number] 05:54:37 Test Item Value Reference Range Interpretation Comments TOTAL PROTEIN 6.3 gm/dL 6.0-8.3 (BEAKER) (test code = 770) ALBUMIN (BEAKER) 3.2 g/dL 3.5-5.0 L (test code = 1145) ALKALINE PHOSPHATASE 366 U/L 40-150 H (BEAKER) (test code = 346) BILIRUBIN TOTAL 3.8 mg/dL 0.2-1.2 H (BEAKER) (test code = 377) SODIUM (BEAKER) (test 136 meq/L 136-145 code = 381) POTASSIUM (BEAKER) 3.4 meq/L 3.5-5.1 L (test code = 379) CHLORIDE (BEAKER) 103 meq/L 98-107 (test code = 382) CO2 (BEAKER) (test 25 meq/L 22-29 code = 355) BLOOD UREA NITROGEN 8 mg/dL 7-21 (BEAKER) (test code = 354) CREATININE (BEAKER) 0.60 mg/dL 0.57-1.25 (test code = 358) GLUCOSE RANDOM 99 mg/dL 70-105 (BEAKER) (test code = 652) CALCIUM (BEAKER) 9.2 mg/dL 8.4-10.2 (test code = 697) AST (SGOT) (BEAKER) 77 U/L 5-34 H (test code = 353) ALT (SGPT) (BEAKER) 177 U/L 6-55 H (test code = 347) EGFR (BEAKER) (test 108 ESTIMATE D GFR IS code = 1092) mL/min/1.73 sq NOT ACCURA TE m CREATININE CLEARANCE IN PREDICTING GLOMERULAR FILTRATION RATE . ESTIMATED GFR I S NOT APPLICABLE FOR DIALYSIS PATIEN TS. Hob Machine Operator ID - BOUBACAR MSpecimen slightly [id number] 05:54:36 Test Item Value Reference Range Interpretation Comments MAGNESIUM (BEAKER) (test code = 1.9 mg/dL 1.6-2.6 627) Hob Machine Operator ID - BOUBACAR MCBC W/PLT COUNT & AUTO [id number] 05:16:24 Test Item Value Reference Range Interpretation Comments WHITE BLOOD CELL COUNT (BEAKER) 8.8 K/ L 3.5-10.5 (test code = 775) RED BLOOD CELL COUNT (BEAKER) 3.81 M/ L 3.93-5.22 L (test code = 761) HEMOGLOBIN (BEAKER) (test code = 11.3 GM/DL 11.2-15.7 410) HEMATOCRIT (BEAKER) (test code = 35.1 % 34.1-44.9 411) MEAN CORPUSCULAR VOLUME (BEAKER) 92.1 fL 79.4-94.8 (test code = 753) MEAN CORPUSCULAR HEMOGLOBIN 29.7 pg 25.6-32.2 (BEAKER) (test code = 751) MEAN CORPUSCULAR HEMOGLOBIN CONC 32.2 GM/DL 32.2-35.5 (BEAKER) (test code = 752) RED CELL DISTRIBUTION WIDTH 13.2 % 11.7-14.4 (BEAKER) (test code = 412) PLATELET COUNT (BEAKER) (test 187 K/CU MM 150-450 code = 756) MEAN [...] (test code = 437) NEUTROPHILS ABSOLUTE COUNT 7.16 K/ L 1.56-6.13 H (BEAKER) (test code = 670) LYMPHOCYTES ABSOLUTE COUNT 0.97 K/ L 1.18-3.74 L (BEAKER) (test code = 414) MONOCYTES ABSOLUTE COUNT (BEAKER) 0.48 K/ L 0.24-0.36 H (test code = 415) EOSINOPHILS ABSOLUTE COUNT 0.09 K/ L 0.04-0.36 (BEAKER) (test code = 416) BASOPHILS ABSOLUTE COUNT (BEAKER) 0.03 K/ L 0.01-0.08 (test code = 417) IMMATURE GRANULOCYTES-RELATIVE 1 % 0-1 PERCENT (BEAKER) (test code = 2801) U/S, ABDOMINAL, [id number] 04:45:00Abdomen limited area? Add comment if clarification is needed.->Right upper quadrantReason for exam:->elevated bili, LFTs, abdominal pain [facility]: 1975 Sex: FFINAL REPORT U/S, ABDOMINAL, LIMITED CLINICAL HISTORY: elevated bili, LFTs, abdominal pain Comparison: None Technique: Real-time transabdominal ultrasound of the right upper quadrant abdomen was performed. Liver: 14.4 cm, No acute findings. Gallbladder: Cholecystectomy changes. Biliary tree: No intrahepatic ductal dilatation. CBD: 0.7 cm. Pancreas: Not well-seen. Right kidney: No acute findings. There is a 9 mm cortical cyst. No ascites is present in the abdomen. The visualized portions of the abdominal aorta, IVC and hepatic veins are unremarkable. Impression: Cholecystectomy. Signed: Julian Simental MDReport Verified Date/Time: 01/13/2022 04:45:48 [id number] 01:25:42 Test Item Value Reference Range Interpretation Comments PHOSPHORUS (BEAKER) (test code = 4.3 mg/dL 2.3-4.7 604) Hob Machine Operator ID - DBHEPATIC FUNCTION [id number] 01:25:42 Test Item Value Reference Range Interpretation Comments TOTAL PROTEIN (BEAKER) (test code = 6.9 gm/dL 6.0-8.3 770) ALBUMIN (BEAKER) (test code = 1145) 3.7 g/dL 3.5-5.0 BILIRUBIN TOTAL (BEAKER) (test code 1.7 mg/dL 0.2-1.2 H = 377) BILIRUBIN DIRECT (BEAKER) (test 1.0 mg/dL 0.1-0.5 H code = 706) ALKALINE PHOSPHATASE (BEAKER) (test 355 U/L 40-150 H code = 346) AST (SGOT) (BEAKER) (test code = 105 U/L 5-34 H 353) ALT (SGPT) (BEAKER) (test code = 246 U/L 6-55 H 347) Hob Machine Operator ID - DBBASIC METABOLIC [id number] 01:25:41 Test Item Value Reference Range Interpretation Comments SODIUM (BEAKER) 136 meq/L 136-145 (test code = 381) POTASSIUM (BEAKER) 3.6 meq/L 3.5-5.1 (test code = 379) CHLORIDE (BEAKER) 103 meq/L 98-107 (test code = 382) CO2 (BEAKER) (test 23 meq/L 22-29 code = 355) BLOOD UREA NITROGEN 15 mg/dL 7-21 (BEAKER) (test code = 354) CREATININE (BEAKER) 0.70 mg/dL 0.57-1.25 (test code = 358) GLUCOSE RANDOM 130 mg/dL 70-105 H (BEAKER) (test code = 652) CALCIUM (BEAKER) 8.5 mg/dL 8.4-10.2 (test code = 697) EGFR (BEAKER) (test 90 mL/min/1.73 ESTIMA GUY GFR IS code = 1092) sq m NOT ACCURATE CREATININE CLEARANCE IN PREDICTING GLOMERULAR FILTRATION RATE . ESTIMATED GFR I S NOT APPLICABLE FOR DIALYSIS PATIEN TS. Hob Machine Operator ID - [id number] 01:25:41 Test Item Value Reference Range Interpretation Comments MAGNESIUM (BEAKER) (test code = 1.6 mg/dL 1.6-2.6 627) Hob Machine Operator ID - [id number] 01:19:35 Test Item Value Reference Range Interpretation Comments PROTIME (BEAKER) (test 14.3 seconds 11.9-14.2 H code = 759) INR (BEAKER) (test 1.13 See_Comment [Automat ed code = 370) message] The sy stem which generated this result transmitted reference range : <=5.90. The reference range was not used to interpret this result as normal/abnormal . PARTIAL THROMBOPLASTIN 30.4 seconds 22.5-36.0 TIME (BEAKER) (test code = 760) RECOMMENDED COUMADIN/WARFARIN INR THERAPY RANGESSTANDARD DOSE: 2.0 - 3.0 Includes: PROPHYLAXIS forvenous thrombosis, systemic embolization; TREATMENT for venous thrombosis and/or pulmonary embolus.HIGH RISK: Target INR is 2.5-3.5 for patients with mechanical heart valves.CBC W/PLT COUNT & AUTO DIFFERENTIAL 2022-01-13 01:11:02 Test Item Value Reference Range Interpretation Comments WHITE BLOOD CELL COUNT (BEAKER) 14.1 K/ L 3.5-10.5 H (test code = 775) RED BLOOD CELL COUNT (BEAKER) 4.14 M/ L 3.93-5.22 (test code = 761) HEMOGLOBIN (BEAKER) (test code = 12.3 GM/DL 11.2-15.7 410) HEMATOCRIT (BEAKER) (test code = 38.1 % 34.1-44.9 411) MEAN CORPUSCULAR VOLUME (BEAKER) 92.0 fL 79.4-94.8 (test code = 753) MEAN CORPUSCULAR HEMOGLOBIN 29.7 pg 25.6-32.2 (BEAKER) (test code = 751) MEAN CORPUSCULAR HEMOGLOBIN CONC 32.3 GM/DL 32.2-35.5 (BEAKER) (test code = 752) RED CELL DISTRIBUTION WIDTH 13.3 % 11.7-14.4 (BEAKER) (test code = 412) PLATELET COUNT (BEAKER) (test 197 K/CU MM 150-450 code = 756) MEAN PLATELET VOLUME (BEAKER) 10.7 fL 9.4-12.3 (test code = 754) NUCLEATED RED BLOOD CELLS 0 /100 WBC 0-0 (BEAKER) (test code = 413) NEUTROPHILS RELATIVE PERCENT 93 % (BEAKER) (test code = 429) LYMPHOCYTES RELATIVE PERCENT 4 % (BEAKER) (test code = 430) MONOCYTES RELATIVE PERCENT 3 % (BEAKER) (test code = 431) EOSINOPHILS RELATIVE PERCENT 0 % (BEAKER) (test code = 432) BASOPHILS RELATIVE PERCENT 0 % (BEAKER) (test code = 437) NEUTROPHILS ABSOLUTE COUNT 13.08 K/ L 1.56-6.13 H (BEAKER) (test code = 670) LYMPHOCYTES ABSOLUTE COUNT 0.55 K/ L 1.18-3.74 L (BEAKER) (test code = 414) MONOCYTES ABSOLUTE COUNT (BEAKER) 0.38 K/ L 0.24-0.36 H (test code = 415) EOSINOPHILS ABSOLUTE COUNT 0.01 K/ L 0.04-0.36 L (BEAKER) (test code = 416) BASOPHILS ABSOLUTE COUNT (BEAKER) 0.02 K/ L 0.01-0.08 (test code = 417) IMMATURE GRANULOCYTES-RELATIVE 1 % 0-1 PERCENT (BEAKER) (test code = 2801) ANG, CHOLANGIOGRAM, [id number] 13:36:00Reason for Exam:->Possible removal of PTCFINAL REPORT PROCEDURE: Cholangiogram through an existing internal/external catheter, followed by catheter removal CLINICAL HISTORY: Possible removal of PTC MATERIAL DISTRIBUTOR: David Rodriguez DO, JD ANESTHESIA: Conscious sedation was provided by radiology nursing using constant hemodynamic monitoring for 45 Minutes. Versed IV 0.5 mg, Fentanyl IV 25 mcg. DEVICE: 14 Cymraes internal/external biliary catheter Estimated Blood Loss: < 5cc Samples: As below. DOSE INFORMATION - Ka,r: 11mGy DOSE REDUCTION: The examination was performed according to the departmental dose-optimization pro gram, which includes automated exposure control, adjustment of the mA and/or kV according to patientsize and/or use of iterative reconstruction technique. PROCEDURE: [...] MDReport Verified Date/Time: 05/05/2020 13:36:15 Reading Location: [place] [address] Angio Body Reading Room PREGNANCY SCREEN, [id number] 07:38:00 Test Item Value Reference Range Interpretation Comments TEST URINE (BEAKER) (test Negative code = 583) [id number] 07:37:00 Test Item Value Reference Range Interpretation Comments PARTIAL THROMBOPLASTIN TIME 28.9 seconds 22.5-36.0 (BEAKER) (test code = 760) PROTHROMBIN [id number] 07:36:00 Test Item Value Reference Range Interpretation [...] mechanical heart valves.CBC W/PLT COUNT & AUTO [id number] 07:25:00 Test Item Value Reference Range Interpretation [...] (BEAKER) (test code = 2801) ANG, CHOLANGIOGRAM, [id number] 14:34:00Dr. Gonzalez discussed case with Dr. Ignacio on 04/12/2020.Patient needs PTC revision in the next 1 week.Reason for Exam:->cholangitis, PTC drain in placeFINAL REPORT PROCEDURE: Cholangiogram through an existing internal/external catheter, common bile duct dilatation and catheter up size CLINICAL HISTORY: cholangitis, PTC drain inplace MATERIAL DISTRIBUTOR: David Rodriguez DO, JD ANESTHESIA: Conscious sedation was provided by radiology nursing using constant hemodynamic monitoring for 45 Minutes. Versed IV 1.5 mg, Fentanyl IV 75 mcg. DEVICE: 14 Cymraes internal/external biliary catheter, 4 mm balloon Estimated [...] MDReport Verified Date/Time: 04/19/2020 14:34:30 Reading Location: [place] [address] Angio Body Reading Room PREGNANCY SCREEN, [id number] 11:23:00 Test Item Value Reference Range Interpretation Comments TEST URINE (BEAKER) (test Negative code = 583) [id number] 11:10:00 Test Item Value Reference Range Interpretation Comments PARTIAL THROMBOPLASTIN TIME 30.9 seconds 22.5-36.0 (BEAKER) (test code = 760) PROTHROMBIN [id number] 11:09:00 Test Item Value Reference Range Interpretation [...] mechanical heart valves.CBC W/PLT COUNT & AUTO [id number] 11:02:00 Test Item Value Reference Range Interpretation [...] (BEAKER) (test code = 2801) LACTIC ACID, [id number] 16:01:00 Test Item Value Reference Range Interpretation Comments LACTATE BLOOD VENOUS 1.36 mmol/L 0.50-2.20 Specime n slightly (2) (BEAKER) (test hemolyzed code = 2872) Hob Machine Operator ID - DBCOMPREHENSIVE METABOLIC [id number] 16:00:00 Test Item Value Reference Range Interpretation [...] S NOT APPLICABLE FOR DIALYSIS PATIEN TS. Hob Machine Operator ID - DBURINALYSIS W/ REFLEX URINE [id number] 15:51:00 Test Item Value Reference Range Interpretation Comments COLOR (BEAKER) (test code = 470) [place] CLARITY (BEAKER) (test code = 469) Hazy [...] = 518) SOURCE(BEAKER) (test code = 2795) Hob Machine Operator ID - [auto]Hob Machine Operator ID - techCBC W/PLT COUNT & AUTO [...] (BEAKER) (test code = 2801) HEPATIC FUNCTION [id number] 17:05:00 Test Item Value Reference Range Interpretation [...] code = 1139 U/L 6-55 H 347) Hob Machine Operator ID - BSBASIC METABOLIC [id number] 17:05:00 Test Item Value Reference Range Interpretation [...] S NOT APPLICABLE FOR DIALYSIS PATIEN TS. Hob Machine Operator ID - BSCBC W/PLT COUNT & AUTO [id number] 16:44:00 Test Item Value Reference Range Interpretation [...] (BEAKER) (test code = 2801) ANG, CHOLANGIOGRAM, [id number] 15:31:00Reason for exam:->Needs PTC, biliary brushings and needs Liver biopsy per hepatology team. Pleasecall [phone]. Pt has altered anatomy due to complicaton from cholecystectomy in 2010FINAL REPORT Procedure: Percutaneous transhepatic cholangiography and internal/external biliary drainage catheter placement. Ultrasound-guided liver biopsy. 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 Failed ERCP. [place] biopsy of the biliary stricture is also requested. The patient hashepatic fibrosis. A percutaneous liver biopsy has been requested. [place] Table Assembler: Arias Lucas M.D. Assembly Machine Feeder: Jose Danielle Modality: Sonography and fluoroscopy. DOSE [...] sequential dilatation of the tract an 8 Cymraes internal/external biliary drainage catheter was placed over [...] set at the time of this procedure. [place] biopsy could not be performed. Using real-time [...] Final image shows presence of an 8 Cymraes internal/external biliary drainage catheter with the most [...] anastomosis. This was successfully crossed. An 8 Cymraes internal/external biliary drainage catheter has been placed [...] care of your patient. Signed: Arias Lucas Verified Date/Time: 04/11/2020 15:31:21 Reading Location: [facility] [address] Angio Body Reading Room TISSUE [id number] 11:07:00Surgical Pathology Report Case: [id number] Authorizing Provider: Serge Frazier MD Collected: 04/06/2020 05:37 PM Ordering Location: [address] Received: 04/06/2020 10:12 PM Service Pathologist: Heidy Markham MD Specimen: Biopsy, Liver, Bx LIVER, RANDOM NEEDLE CORE: - PORTAL TRIADS WITH MIXED PORTAL INFLAMMATION WITH MILD DUCTULAR REACTION, EDEMA AND BILIARY TYPE INTERFACE HEPATITIS - BILE DUCT APPEARS TO BE PRESERVED - SOME PERIDUCTAL FIBROSIS NOTED - HEPATIC LOBULES WITH MILD INFLAMMATION AND KUPFFER CELL HYPERPLASIASJ/pl Signing Pathologist Direct Phone Line: [phone] signed by Heidy Markham MD on 04/10/2020 [...] was informed on 04/07/2020 by telephonic call [phone] x1; [id number] [id number] in normal formalin, two sanchez-brown liver cores [...] evaluated Immunohistochemistry technical testing was performed at [facility], Pathology Laboratory where it was developed [...] (test code = 3.5 mg/dL 2.3-4.7 604) Hob Machine Operator ID - BOUBACAR [id number] 06:08:00 Test Item Value Reference Range Interpretation Comments MAGNESIUM (BEAKER) (test code = 1.7 mg/dL 1.6-2.6 627) Hob Machine Operator ID - BOUBACAR MBASIC METABOLIC [id number] 06:08:00 Test Item Value Reference Range Interpretation [...] S NOT APPLICABLE FOR DIALYSIS PATIEN TS. Hob Machine Operator ID - BOUBACAR MHEPATIC FUNCTION [id number] 06:08:00 Test Item Value Reference Range Interpretation [...] code = 1031 U/L 6-55 H 347) Hob Machine Operator ID - BOUBACAR MCBC W/PLT COUNT & AUTO [id number] 05:29:00 Test Item Value Reference Range Interpretation [...] code = 2801) ANTI-MITOCHONDRIAL AB, REFLEX TO [id number] 12:32:00 Test Item Value Reference Range Interpretation Comments SCAN RESULT (test code = 4129703) ANTI-NUCLEAR ANTIBODY (TENISHA)2020-04-07 10:26:00 Test Item Value Reference Range Interpretation Comments ANTI-NUCLEAR ANTIBODY (TENISHA) (BEAKER) Negative Negative (test code = 418) Test performed by IFA method.Test performed by IFA method.BLOOD CULTURE 2020-04-07 09:00:00 Test Item Value Reference Range Interpretation Comments CULTURE (BEAKER) (test No growth in 5 days code = 1095) BLOOD [id number] 09:00:00 Test Item Value Reference Range Interpretation Comments CULTURE (BEAKER) (test No growth in 5 days code = 1095) [id number] 05:05:00 Test Item Value Reference Range Interpretation Comments PHOSPHORUS (BEAKER) (test code = 3.4 mg/dL 2.3-4.7 604) Hob Machine Operator ID - BOUBACAR [id number] 05:05:00 Test Item Value Reference Range Interpretation Comments MAGNESIUM (BEAKER) (test code = 2.1 mg/dL 1.6-2.6 627) Hob Machine Operator ID - BOUBACAR MBASIC METABOLIC [id number] 05:05:00 Test Item Value Reference Range Interpretation [...] S NOT APPLICABLE FOR DIALYSIS PATIEN TS. Hob Machine Operator ID - BOUBACAR MHEPATIC FUNCTION [id number] 05:05:00 Test Item Value Reference Range Interpretation [...] code = 974 U/L 6-55 H 347) Hob Machine Operator ID - BOUBACAR MCBC W/PLT COUNT & AUTO [id number] 04:30:00 Test Item Value Reference Range Interpretation [...] 0-1 PERCENT (BEAKER) (test code = 2801) [id number] 14:07:00 Test Item Value Reference Range Interpretation Comments POTASSIUM (BEAKER) (test code = 3.8 meq/L 3.5-5.1 379) Hob Machine Operator ID - CAROLINADUSTY HASMUKH-NUCLEAR ANTIBODY (TENISHA)2020-04-06 10:20:00 [...] INR is2.5-3.5 for patients wiht mechanical heart valves.[id number] 07:09:00 Test Item Value Reference Range Interpretation Comments PHOSPHORUS (BEAKER) (test code = 3.8 mg/dL 2.3-4.7 604) Hob Machine Operator ID - TIFF [id number] 07:09:00 Test Item Value Reference Range Interpretation Comments MAGNESIUM (BEAKER) (test code = 1.6 mg/dL 1.6-2.6 627) Hob Machine Operator ID - TIFF CBASIC METABOLIC [id number] 07:09:00 Test Item Value Reference Range Interpretation [...] S NOT APPLICABLE FOR DIALYSIS PATIEN TS. Hob Machine Operator ID - TIFF CHEPATIC FUNCTION [id number] 07:09:00 Test Item Value Reference Range Interpretation [...] code = 888 U/L 6-55 H 347) Hob Machine Operator ID - TIFF CCBC W/PLT COUNT & AUTO [id number] 06:20:00 Test Item Value Reference Range Interpretation [...] 0-1 PERCENT (BEAKER) (test code = 2801) [id number] 18:25:00 Test Item Value Reference Range Interpretation Comments LIPASE (BEAKER) (test code = 749) 30 U/L 8-78 Hob Machine Operator ID - [id number] 04:52:00 Test Item Value Reference Range Interpretation Comments PHOSPHORUS (BEAKER) (test code = 3.2 mg/dL 2.3-4.7 604) Hob Machine Operator ID - RANDY [id number] 04:52:00 Test Item Value Reference Range Interpretation Comments MAGNESIUM (BEAKER) (test code = 1.5 mg/dL 1.6-2.6 L 627) Hob Machine Operator ID - RANDY LBASIC METABOLIC [id number] 04:52:00 Test Item Value Reference Range Interpretation [...] S NOT APPLICABLE FOR DIALYSIS PATIEN TS. Hob Machine Operator ID - RANDY LHEPATIC FUNCTION [id number] 04:52:00 Test Item Value Reference Range Interpretation [...] code = 819 U/L 6-55 H 347) Hob Machine Operator NOLBERTO - RANDY LCBC W/PLT COUNT & AUTO [id number] 04:08:00 Test Item Value Reference Range Interpretation [...] Test performed by IFA method.TENISHA TITER AND [id number] 10:46:00 Test Item Value Reference Range Interpretation Comments TENISHA TITER (BEAKER) (test code = :160 1541) TENISHA PATTERN (BEAKER) (test code = Nucleolar 1781) POCT-GLUCOSE [id number] 07:05:00 Test Item Value Reference Range Interpretation Comments POC-GLUCOSE METER 126 mg/dL 70-110 H : TESTED A T [facility] 6720 (BEAKER) (test code = BERNIE CRUZ MD, 1538) 27451: Hob Machine Operator/Techni diann ID = [id number] for Al i, Pita [id number] 06:58:00 Test Item Value Reference Range Interpretation Comments MAGNESIUM (BEAKER) 1.8 mg/dL 1.6-2.6 Specimen slightly (test code = 627) hemolyzed Hob Machine Operator ID - BOUBACAR [id number] 06:58:00 Test Item Value Reference Range Interpretation Comments PHOSPHORUS (BEAKER) 2.8 mg/dL 2.3-4.7 Specimen slightly (test code = 604) hemolyzed Hob Machine Operator ID - BOUBACAR MBASIC METABOLIC [id number] 06:58:00 Test Item Value Reference Range Interpretation [...] S NOT APPLICABLE FOR DIALYSIS PATIEN TS. Hob Machine Operator ID - BOUBACAR EPATIC FUNCTION [id number] 06:58:00 Test Item Value Reference Range Interpretation [...] Specimen slightly (test code = 347) hemolyzed Hob Machine Operator ID - BOUBACAR MCBC W/PLT COUNT & AUTO [id number] 06:01:00 Test Item Value Reference Range Interpretation [...] PERCENT (BEAKER) (test code = 2801) SARS-COV2/RT-PCR ([facility])2020-04-03 16:01:00 Test Item Value Reference Range Interpretation Comments SARS-COV2/RT-PCR (test Not Detected Not Detected, Negative code = 9176243) SARS-COV-2 PERFORMING LAB [facility] (test code = 1272183) Negative results do not preclude SARS-CoV-2 infection [...] of the Act.Fact Sheet for Healthcare Pro viders:https://www.[employer]/Documents/Xpert%20Xpress%20SARS%20CoV-2/Fact%20Sh eets/302-3802%09SFYG-UWG-7%20HEALTHCARE%20PROVIDERS%20FACT%20SHEET.pdfFact Sheet for Healthcare Patients:https://www.[employer] [place]Documents/Xpert%20Xpress%20SARS%20CoV-2/Fact%20Sheets/302-3801%20SARS-COV -2%20PATIENT%20FACT%20SHEET.pdfPerforming Laboratory:[facility].[place], [place] [address]YU, [id number] 15:02:00Reason for exam:->ERCPFINAL REPORT A fluoroscopic unit was utilized for a procedure performed in the operating room. No interpretation was requested. Please refer to the operative report regarding findings. Please refer to PACS for patient radiation dose information. Signed: Josefa Vernon MDReport Verified Date/Time: 04/03/2020 15:02:53 [facility] Reading Room SARS-COV2/RT-PCR ([facility])2020-04-03 09:37:00 Test Item Value Reference Range Interpretation Comments SARS-COV2/RT-PCR (test code = Negative Not Detected, Negative 4582150) SARS-COV-2 PERFORMING LAB [facility] (test code = 1425167) ALPHA FETOPROTEIN (AFP), TUMOR [id number] 07:15:00 Test Item Value Reference Range Interpretation Comments ALPHA-FETOPROTEIN (BEAKER) (test code < ng/mL <10.0 = 1094) Hob Machine Operator ID - RANDY [id number] 07:02:00 Test Item Value Reference Range Interpretation Comments ALPHA-1 ANTITRYPSIN (BEAKER) 257.80 mg/dL 90.00-200.00 H (test code = 502) Hob Machine Operator ID - RANDY [id number] 06:12:00 Test Item Value Reference Range Interpretation Comments PHOSPHORUS (BEAKER) (test code = 2.5 mg/dL 2.3-4.7 604) Hob Machine Operator ID - PIDUSTY [id number] 06:12:00 Test Item Value Reference Range Interpretation Comments MAGNESIUM (BEAKER) (test code = 1.9 mg/dL 1.6-2.6 627) Hob Machine Operator ID - RANDY LBASIC METABOLIC [id number] 06:12:00 Test Item Value Reference Range Interpretation [...] S NOT APPLICABLE FOR DIALYSIS PATIEN TS. Hob Machine Operator ID - PIAYA LHEPATIC FUNCTION [id number] 06:12:00 Test Item Value Reference Range Interpretation [...] code = 758 U/L 6-55 H 347) Hob Machine Operator ID - PIAYA LCBC W/PLT COUNT & AUTO [id number] 05:29:00 Test Item Value Reference Range Interpretation [...] 0-1 PERCENT (BEAKER) (test code = 2801) [id number] 18:21:00 Test Item Value Reference Range Interpretation Comments FERRITIN (BEAKER) (test code = 1130.77 ng/mL 5.00-275.00 H 361) Hob Machine Operator ID - DBHEPATITIS C [id number] 18:02:00 Test Item Value Reference Range Interpretation Comments HEPATITIS C ANTIBODY (BEAKER) Nonreactive Nonreactive (test code = 367) Hob Machine Operator ID - DBIRON, TIBC, % SAT. (WITHOUT FERRITIN)2020-04-02 17:42:00 Test Item Value Reference Range Interpretation Comments IRON (BEAKER) (test code = 547) 19.0 ug/dL 40.0-160.0 L TOTAL IRON BINDING CAPACITY 328 ug/dL 250-450 (BEAKER) (test code = 769) IRON % SATURATION (2) (BEAKER) 6 % 20-55 L (test code = 2590) Hob Machine Operator ID - DBMR, ABDOMEN, [id number] 15:37:00FINAL REPORT MR Abdomen dated 04/02/2020 Comment: [...] further evaluation with ERCP. Signed: Micah Aguilera Verified Date/Time: 04/02/2020 15:37:49 Reading Location: [address] Ortho Consult Reading Room PREGNANCY SCREEN, [id number] 10:42:00 Test Item Value Reference Range Interpretation Comments TEST URINE (BEAKER) (test Negative code = 583) RAD, CHEST, 1 VIEW, NON [id number] 09:30:00Reason for exam:->r/o PNAShould this be performed at the bedside?->YesFINAL REPORT INDICATION: r/o PNA COMPARISON: None TECHNIQUE: Single frontal view of the chest. FINDINGS: Lungs and pleura: Clear lungs. No effusion.Heart and mediastinum: Normal heart size. Unremarkable mediastinal contours.Osseous structures: No acute abnormality.Other: None. IMPRESSION: No acute intrathoracic abnormality. Signed: Lilia Ayalaort Verified Date/Time: 04/02/2020 09:30:21 Reading Location: [address] Neuro Reading Room ALYSIS W/ REFLEX URINE [id number] 07:23:00 Test Item Value Reference Range Interpretation [...] = 516) SOURCE(BEAKER) (test code = 2795) Hob Machine Operator ID - [auto]Hob Machine Operator ID - [id number] 07:00:00 Test Item Value Reference Range Interpretation Comments MAGNESIUM (BEAKER) 1.5 mg/dL 1.6-2.6 L Specimen slightly (test code = 627) hemolyzed Hob Machine Operator ID - PIAYA [id number] 07:00:00 Test Item Value Reference Range Interpretation Comments PHOSPHORUS (BEAKER) 2.5 mg/dL 2.3-4.7 Specimen slightly (test code = 604) hemolyzed Hob Machine Operator ID - PIAYA LBASIC METABOLIC [id number] 07:00:00 Test Item Value Reference Range Interpretation [...] S NOT APPLICABLE FOR DIALYSIS PATIEN TS. Hob Machine Operator ID - RANDY BERNALEPATIC FUNCTION [id number] 07:00:00 Test Item Value Reference Range Interpretation [...] Specimen slightly (test code = 347) hemolyzed Hob Machine Operator ID Tiffanie PADILLA [id number] 07:00:00 Test Item Value Reference Range Interpretation Comments LIPASE (BEAKER) (test code = 749) 6 U/L 8-78 L Hob Machine Operator ID - RANDY LHEPATITIS B [id number] 06:58:00 Test Item Value Reference Range Interpretation Comments HEPATITIS B CORE TOTAL ANTIBODY Nonreactive Nonreactive (BEAKER) (test code = 497) HEPATITIS B SURFACE ANTIBODY < mIU/mL <8.0 (BEAKER) (test code = 647) HEPATITIS B SURFACE ANTIGEN (2) Nonreactive Nonreactive (BEAKER) (test code = 2585) Hob Machine Operator ID - PIAYA LPROTHROMBIN [id number] 06:24:00 Test Item Value Reference Range Interpretation [...] mechanical heart valves.CBC W/PLT COUNT & AUTO [id number] 06:19:00 Test Item Value Reference Range Interpretation [...] code = 2801) MR Knee wo contrast [id number] 08:50:00MRI of the Left Knee Without IV [...] 21:31Electronically Signed by: Lorelei Lemos MD 09/17/1821:38FINAL REPORTUnGarfield Memorial Hospital
[2022-02-05] MEDS ORDERED: ONDANSETRON 4 MG/2 ML VIAL ONE (22:13)
[2022-02-05] MEDS ORDERED: MORPHINE 4 MG/ML SYR ONE (22:13)
[2022-02-05] MEDS ORDERED: NA CHLORIDE 0.9% 1,000 ML ONE (22:56)
[2022-02-05 22:58] LABS: Absolute Lymphocytes (CBC) 2.3 K/uL (0.7-4.9); Hematocrit 37.3 % (36.0-45.0); MPV 9.5 fL (7.6-11.3); RBC Red Blood Cell Count 4.25 M/uL (3.86-4.86)
[2022-02-05 23:12] LABS: ALT/SGPT 33 U/L (12-78); AST/SGOT 17 U/L (15-37); Albumin 3.6 g/dL (3.4-5.0); Alkaline Phosphatase 130 U/L (45-117); BUN Blood Urea Nitrogen 16 mg/dL (7-18); Bicarbonate 25 mmol/L (21-32); Bilirubin Direct 0.1 mg/dL (0-0.2); Bilirubin Total 0.4 mg/dL (0.2-1.0); Glucose Level 124 mg/dL (74-106); Lipase 154 U/L (73-393); Potassium 3.5 mmol/L (3.5-5.1); Protein, Total 7.4 g/dL (6.4-8.2); Sodium Level 139 mmol/L (136-145)
[2022-02-06] MEDS ORDERED: CLINDAMYCIN 900MG/D5W 900 MG/50 ML IVPB IV ONE (00:31)
--- NOTE | 2022-02-06 03:26 | EDPHYS ---
Physician Documentation [facility] Name: Janey Hernandez Age: 46 yrs Sex: Female : 1975 Arrival Date: 02/05/2022 Time: 20:32 Bed 11 Private MD: ED Physician Jacky Strickland HPI: 02/05 21:35 This 46 yrs old Female presents to ER via Unassigned with complaints of Problem with cp bile duct drain. 21:35 The patient presents with abdominal pain. cp 21:35 Onset: The symptoms/episode began/occurred 5 day(s) ago. cp 21:35 The symptoms do not radiate. Associated signs and symptoms: Pertinent negatives: chest cp pain, constipation, diarrhea, fever, vomiting. Patient reports having bile duct drain placed by radiology at [facility] last month. Since Friday has had increased pain to area with drainage around tube. Historical: - Allergies: 22:59 No Known Allergies; bb - Home Meds: 22:59 levothyroxine 137 mcg cap once daily [Active]; omeprazole 40 mg Oral cpDR once daily bb [Active]; Carafate Oral [Active]; Valtrex Oral [Active]; inhaler [Active]; Depo injection [Active]; - PMHx: 22:59 Gastric Reflux; Thyroid problem; bb - PSHx: 22:59 Cholecystectomy; tubal ligation; bb - Immunization history:: Client reports receiving the 2nd dose of the Covid vaccine, Moderna. - Social history:: Smoking status: unknown. ROS: 21:40 Constitutional: Negative for body aches, chills, fever, poor PO intake. cp 21:40 Cardiovascular: Negative for chest pain. cp 21:40 Respiratory: Negative for cough, shortness of breath, wheezing. 21:40 Abdomen/GI: Positive for abdominal pain, Negative for vomiting, diarrhea, constipation. 21:40 Back: Negative for radiated pain. 21:40 : Negative for urinary symptoms. 21:40 Neuro: Negative for altered mental status. 21:40 All other systems are negative. Exam: 21:45 Constitutional: The patient appears in no acute distress, alert, awake, non-toxic, well cp developed, well nourished, uncomfortable. 21:45 Head/Face: Normocephalic, atraumatic. cp 21:45 Eyes: Periorbital structures: appear normal, Conjunctiva: normal, no exudate, no injection, Sclera: no appreciated abnormality, Lids and lashes: appear normal, bilaterally. 21:45 ENT: External ear(s): are unremarkable, Nose: is normal, Mouth: Lips: moist, Oral mucosa: moist, Posterior pharynx: Airway: no evidence of obstruction, patent. 21:45 Chest/axilla: Inspection: normal, Palpation: is normal, no crepitus, no tenderness. 21:45 Cardiovascular: Rate: normal, Rhythm: regular. 21:45 Respiratory: the patient does not display signs of respiratory distress, Respirations: normal, no use of accessory muscles, no retractions, labored breathing, is not present, Breath sounds: are clear throughout, no decreased breath sounds, no stridor, no wheezing. 21:45 Abdomen/GI: Inspection: noted drain right upper quadrant with mild surrounding erythema, mild colored drainage noted around drain, Bowel sounds: active, all quadrants, Palpation: soft, in all quadrants, moderate abdominal tenderness, in the right upper quadrant, rebound tenderness, is not appreciated, involuntary guarding, is not appreciated. 21:45 Back: pain, is absent, ROM is normal. 21:45 Neuro: Orientation: to person, place \T\ time. Mentation: is normal. Vital Signs: 23:02 BP 126 / 55; Pulse 75; Resp 18 S; Temp 98.2(O); Pulse Ox 99% on R/A; Weight 74.84 kg bb (R); Height 5 ft. 3 in. (160.02 cm) (R); Pain 10/10; 02/06 00:17 BP 115 / 68; Pulse 83; Resp 16 S; Pulse Ox 100% on R/A; bb 01:02 BP 116 / 72; Pulse 73; Resp 16 S; Temp 98.1(O); Pulse Ox 100% on R/A; bb 02/05 23:02 Body Mass Index 29.23 (74.84 kg, 160.02 cm) bb MDM: 02/05 21:19 Patient medically screened. cp 02/06 00:47 Data reviewed: vital signs, nurses notes, lab test result(s), radiologic studies, CT cp scan. 00:47 Counseling: I had a detailed discussion with the patient and/or guardian regarding: the cp historical points, exam findings, and any diagnostic results supporting the discharge/admit diagnosis, lab results, radiology results, the need for outpatient follow up, IR, to return to the emergency department if symptoms worsen or persist or if there are any questions or concerns that arise at home. Response to treatment: the patient's symptoms have markedly improved after treatment, and as a result, I will discharge patient. Special discussion: Based on the patient's Hx, exam, and Dx evaluation, there is no indication for emergent surgery or inpatient Tx. It is understood by the patient/guardian that if the Sx's persist or worsen they need to return immediately for re-evaluation. 02/05 21:31 Order name: CBC with Diff; Complete Time: 23:34 cp 02/05 21:31 Order name: Lipase; Complete Time: 23:34 cp 02/05 21:31 Order name: BMP; Complete Time: 23:34 cp 02/05 21:31 Order name: LFT's; Complete Time: 23:34 cp 02/05 22:48 Order name: CT Abd/Pelvis - IV Contrast Only cp 02/05 21:31 Order name: IV Saline Lock; Complete Time: 22:51 cp 02/05 21:31 Order name: Labs collected and sent; Complete Time: 22:51 cp 02/06 00:22 Order name: Wound dressing: topical antibiotic around stent; Complete Time: 00:30 cp Administered Medications: 02/05 22:45 Drug: Zofran (Ondansetron) 4 mg Route: IVP; Site: right antecubital; bb 23:33 Follow up: Response: No adverse reaction bb 22:47 Drug: morphine 4 mg Route: IVP; Site: right antecubital; bb 23:33 Follow up: Response: No adverse reaction; Pain is decreased; RASS: Alert and Calm (0) bb 22:51 Drug: NS 0.9% 1000 ml Route: IV; Rate: 1 bolus; Site: right antecubital; bb 23:50 Follow up: IV Status: Completed infusion; IV Intake: 1000ml bb 02/06 00:30 Drug: Clindamycin 900 mg Route: IVPB; Infused Over: 30 mins; Site: right antecubital; bb 01:01 Follow up: IV Status: Completed infusion; IV Intake: 100ml bb Disposition: 07:16 Co-signature as Attending Physician, Jacky Strickland MD. [email or web address] Disposition Summary: 02/06/22 00:47 Discharge Ordered Location: Home cp Problem: new cp Symptoms: have improved cp Condition: Stable cp Diagnosis - Local infection of the skin and subcutaneous tissue, unspecified - Right Upper cp Abdomen Followup: cp - With: Private Physician - When: 2 - 3 days - Reason: Recheck today's complaints Discharge Instructions: - Discharge Summary Sheet cp - Cellulitis, Adult cp Forms: - Medication Reconciliation Form cp - Thank You Letter cp - Antibiotic Education cp - Prescription Opioid Use cp Prescriptions: - Clindamycin HCl 300 mg Oral Capsule - take 1 capsule by ORAL route every 6 hours for 10 days; 40 capsule; Refills: 0, cp Product Selection Permitted - Ibuprofen 800 mg Oral Tablet - take 1 tablet by ORAL route every 8 hours As needed take with food; 30 tablet; cp Refills: 0, Product Selection Permitted - Tylenol-Codeine #3 300 mg-30 mg Oral - take 2 tablets by ORAL route every 8-10 hours; 15 tablet; Refills: 0, Product cp Selection Permitted Signatures: Dispatcher [employer] Geni Ochoa RN RN bb Eliud Puga PA PA cp Jacky Strickland MD MD [email or web address]
--- NOTE | 2022-02-06 03:26 | ER ---
Nurse's Notes [facility] Name: Janey Hernandez Age: 46 yrs Sex: Female : 1975 Arrival Date: 02/05/2022 Time: 20:32 Bed 11 Private MD: Diagnosis: Local infection of the skin and subcutaneous tissue, unspecified-Right Upper Abdomen Presentation: 02/05 23:34 Acuity: MICHAEL 3 bb Historical: - Allergies: 22:59 No Known Allergies; bb - Home Meds: 22:59 levothyroxine 137 mcg cap once daily [Active]; omeprazole 40 mg Oral cpDR once daily bb [Active]; Carafate Oral [Active]; Valtrex Oral [Active]; inhaler [Active]; Depo injection [Active]; - PMHx: 22:59 Gastric Reflux; Thyroid problem; bb - PSHx: 22:59 Cholecystectomy; tubal ligation; bb - Immunization history:: Client reports receiving the 2nd dose of the Covid vaccine, Moderna. - Social history:: Smoking status: unknown. Screenin:59 Abuse screen: Denies threats or abuse. Nutritional screening: No deficits noted. bb Tuberculosis screening: No symptoms or risk factors identified. Fall Risk None identified. Assessment: 22:56 General: Appears uncomfortable, Reports pt states she started having abdominal pain on Friday which has continued to worsen to the point she is unable to sleep she has a tube to her abdomen to drain her bile duct and it has a pus-like discharge. Pain: Complains of pain in abdomen Pain currently is 10 out of 10 on a pain scale. Neuro: Level of Consciousness is awake, alert, obeys commands, Oriented to person, place, time, situation. Cardiovascular: Capillary refill < 3 seconds Patient's skin is warm and dry. Respiratory: Airway is patent Respiratory effort is even, unlabored, Respiratory pattern is regular. GI: Abdomen is round in place, Site reddened. Site with drainage. bile duct tube in place. Derm: Skin is pink, warm \T\ dry. Musculoskeletal: Circulation, motion, and sensation intact. 02/06 00:16 Reassessment: Patient is alert, oriented x 3, equal unlabored respirations, skin bb warm/dry/pink. awaiting diagnostic results. IV site intact, no erythema or edema noted. 00:49 Reassessment: pt awaiting completion of antibiotics prior to discharge. bb 01:01 Reassessment: Patient is alert, oriented x 3, equal unlabored respirations, skin bb warm/dry/pink. pt verbalized understanding of and agrees to plan of care discharge instructions given pt ambulated with steady gait to exit. Vital Signs: 02/05 23:02 BP 126 / 55; Pulse 75; Resp 18 S; Temp 98.2(O); Pulse Ox 99% on R/A; Weight 74.84 kg bb (R); Height 5 ft. 3 in. (160.02 cm) (R); Pain 10/10; 02/06 00:17 BP 115 / 68; Pulse 83; Resp 16 S; Pulse Ox 100% on R/A; bb 01:02 BP 116 / 72; Pulse 73; Resp 16 S; Temp 98.1(O); Pulse Ox 100% on R/A; bb 02/05 23:02 Body Mass Index 29.23 (74.84 kg, 160.02 cm) bb ED Course: 02/05 20:32 Patient arrived in ED. kz 21:16 Eliud Puga PA is PHCP. cp 21:16 Jacky Strickland MD is Attending Physician. cp 21:54 Geni Irwin RN is Primary Nurse. bb 22:45 Initial lab(s) drawn, by me, sent to lab. Inserted saline lock: 20 gauge in right bb antecubital area, using aseptic technique. Blood collected. 22:59 Patient has correct armband on for positive identification. Bed in low position. Call bb light in reach. 23:34 Triage completed. bb 23:36 CT Abd/Pelvis - IV Contrast Only In Process Unspecified. EDMS 02/06 00:47 Wound care: to surgical incision for drainage tube located on abdomen was cleaned with bb with normal saline, antibiotic ointment applied, covered with a 4x4. 01:02 No provider procedures requiring assistance completed. IV discontinued, intact, bb bleeding controlled, No redness/swelling at site. Pressure dressing applied. Administered Medications: 02/05 22:45 Drug: Zofran (Ondansetron) 4 mg Route: IVP; Site: right antecubital; bb 23:33 Follow up: Response: No adverse reaction bb 22:47 Drug: morphine 4 mg Route: IVP; Site: right antecubital; bb 23:33 Follow up: Response: No adverse reaction; Pain is decreased; RASS: Alert and Calm (0) bb 22:51 Drug: NS 0.9% 1000 ml Route: IV; Rate: 1 bolus; Site: right antecubital; bb 23:50 Follow up: IV Status: Completed infusion; IV Intake: 1000ml bb 02/06 00:30 Drug: Clindamycin 900 mg Route: IVPB; Infused Over: 30 mins; Site: right antecubital; bb 01:01 Follow up: IV Status: Completed infusion; IV Intake: 100ml bb Intake: 02/05 23:50 IV: 1000ml; Total: 1000ml. bb 02/06 01:01 IV: 100ml; Total: 1100ml. bb Outcome: 00:47 Discharge ordered by MD. verónica 01:02 Discharged to home ambulatory, with family. bb 01:02 Condition: stable 01:02 Discharge instructions given to patient, Instructed on discharge instructions, follow up and referral plans. no driving heavy equipment, medication usage, Demonstrated understanding of instructions, follow-up care, medications, wound care, Prescriptions given X 3. 01:03 Patient left the ED. bb Signatures: Dispatcher [employer] Geni Ochoa RN RN bb Page, Corey, PA PA cp Zapata, Kelly kz
[2022-02-06 07:27] VITALS: O2SAT 100
[2022-02-06 07:29] VITALS: BP 116/72; TEMP 98.1
--- NOTE | 2022-02-06 12:28 | RAD REPORT ---
EXAM DESCRIPTION: CT - Abdomen Pelvis W Contrast - 02/06/2022 6:46 am CLINICAL HISTORY: The patient is 46 years old and is Female; Abdominal pain, acute, nonlocalized TECHNIQUE: Axial computed tomography images of the abdomen and pelvis with intravenous contrast. S agittal and coronal reformatted images were created and reviewed. This CT exam was performed using one or more of the following dose reduction techniques: automated exposure control, adjustment of t he mA and/or kV according to patient size, and/or use of iterative reconstruction technique. COMPARISON: CT abdomen and pelvis with contrast January 12, 2022 FINDINGS: Lung bases: Unremarkable. No mass. No consolidation. ABDOMEN: Liver: Mild intrahepatic biliary dilatation, similar to prior. Gallbladder and bile ducts: Interval placement of a biliary drain/stent. Gallbladder is surgically absent. Pancreas: Unremarkable. No mass. No ductal dilation. Spleen: Unremarkable. No splenomegaly. Adrenals: Unremarkable. No mass. Kidneys and ureters: Unremarkable. No solid mass. No hydronephrosis. Stomach and bowel: Prominence of the small bowel in the left upper quadrant. No obstruction. No mucosal thickening. PELVIS: Appendix: No findings to suggest acute appendicitis. Bladder: Unremarkable. No mass. Reproductive: 3.2 cm right ovarian/adnexal cyst. ABDOMEN and PELVIS: Intraperitoneal space: Postsurgical changes in the upper abdomen. No free air. No significant fluid collection. Bones/joints: Slight cervical prominence. Correlate with exam. No acute fracture. No dislocation. Soft tissues: Unremarkable. Vasculature: Unremarkable. No abdominal aortic aneurysm. Lymph nodes: Unremarkable. No enlarged lymph nodes. IMPRESSION: 1. Interval placement of a biliary drain/stent. 2. Mild intrahepatic biliary dilatation, similar to prior. 3. Gallbladder is surgically absent. 4. Postsurgical changes in the upper abdomen. 5. 3.2 cm right ovarian/adnexal cyst. 6. Prominence of the small bowel in the left upper quadrant. Correlate with any concern for enter itis. 7. Additional non-emergent findings as above. Electronically signed by: Antoni Myles MD 02/06/2022 12:07 AM CDT Due to temporary technical issues with the PACS/Fluency reporting system, reports are being signed by the in house radiologist without review as a courtesy to ensure prompt reporting. The interpreting r adiologist is fully responsible for the content of the report.
== END 2022-02-06 01:03 | disposition home or self-care (01) ==
LOC: ER 20:16
DX: R10.10 Upper abdominal pain, unspecified (principal); L08.9 Local infection of the skin and subcutaneous tissue, unspecified; E03.9 Hypothyroidism, unspecified; K21.9 Gastro-esophageal reflux disease without esophagitis; Z96.89 Presence of other specified functional implants
CPT/HCPCS: 96365; 96361; 85025; 80048; 36415; 82565; 80076; 83690; 74177; 96375; 99284; Q9967; J7030; J2405

== ENCOUNTER 2022-02-20 14:39 | Inpatient (IN) | payer BC ==
--- OUTSIDE RECORDS SUMMARY | 2022-02-20 14:43 | XMS REPORT | Continuity of Care Document ---
:1975 Author Organization [facility] t Address [address] [place] [address] Care Team Providers Name Role Phone CORI MARINELLIY Primary Care Physician Unavailable YANIV Attending Clinician Unavailable TERI GARDNER Attending Clinician Unavailable Sierra Attending Clinician Unavailable Attending Clinician Unavailable YANIV Attending Clinician Unavailable JJ Attending Clinician Unavailable CONSUELO VALENCIA Attending Clinician Unavailable SOCRATES Attending Clinician Unavailable FREEMAN GONZALEZ Attending Clinician Unavailable CARLOS DAVIS Attending Clinician Unavailable REGIS Attending Clinician Unavailable ANNELISE Attending Clinician Unavailable YANIV Admitting Clinician Unavailable TERI GARDNER Admitting Clinician Unavailable Admitting Clinician Unavailable CONSUELO VALENCIA Admitting Clinician Unavailable FREEMAN GONZALEZ Admitting Clinician Unavailable BRITTANI Admitting Clinician Unavailable Payers Payer Name Policy Type Policy Number Effective Date Expiration Date S amanda BCBS OS [id number] 2017 POS/PPO/EPO 00:00:00 OUT OF STATE [id number] BCBS - PPO - BCBS GENERIC PPO - [id number] 2020 GENERIC PAYOR 00:00:00 CDC REVIEW [id number] 2020 00:00:00 Problems Condition Condition Condition Status [...] Date Stop Date Quantity Comments Source History [facility] Alcohol Std Drinks of Med icine History [facility] Alcohol Binge of Medicine History [facility] Alcohol Comment of Medici ne Exposure to 2022-02-02 2022-02-12 Not sure [facility] e SARS-CoV-2 (event) 00:00:00 09:10:00 of Med icine Alcohol intake 2022-02-12 2022-02-12 Lifetime [facility] Col lege 00:00:00 00:00:00 non-drinker of Medicine (finding) Tobacco use and 2022-01-23 2022-01-23 Smokeless tobacco [facility] exposure 00:00:00 00:00:00 non-user of Medicine History [facility] 2022-01-23 2022-01-23 1 [facility] ge Alcohol Frequency 00:00:00 00:00:00 of Medi cine Sex [birth year] [facility] 00:00:00 00:00:00 of Medicine Smoking Status Start Date Stop Date Source Never smoked tobacco [facility] ege of Medicine Medications Ordered Filled Start Stop Current Ordering Indication Dosage Frequency Signature Comments Components Source Medication Medication Date Date Medication? Clinician (SIG) Name Name levothyroxi Yes 1 tablet [place] 02-12 in the [place] (SYNTHROID) 13:08: morning on of 137 MCG 24 an empty Medicin tablet stomach e medroxyPROG 2-0 Yes [facility] ESTERone 26 [place] (DEPO-PROVE 13:08: of RA) 150 24 Medicin MG/ML e injection sucralfate 2021-0 Yes 1g Take 1 g [facility] nestor (CARAFATE) 02-12 by mouth. Axel ege 1 g tablet 13:08: of 24 Medicin e valacyclovi 2021-0 Yes 500mg Take 500 [facility] r (VALTREX) 4-26 mg by [place] 500 MG 13:08: mouth. of tablet 24 Medicin e clindamycin 0 Yes TAKE 1 Bayl or (CLEOCIN) 4-20 CAPSULE BY Axel ege 300 MG 00:00: MOUTH of capsule 00 EVERY 6 Medicin HOURS FOR e 10 DAYS levothyroxi 2021-0 Yes 1 tablet [facility] ne 06 in the [facility] (SYNTHROID) 10:55: morning on of 137 MCG 23 an empty Medicin tablet stomach e medroxyPROG 2021-0 Yes Jose ESTERone 4 [place] (DEPO-PROVE 10:55: of RA) 150 23 Medicin MG/ML e injection sucralfate 2021-0 Yes 1g Take 1 g Aptos nestor (CARAFATE) 06 by mouth. Axel ege 1 g tablet 10:55: of 23 Medicin e valacyclovi 2021-0 Yes 500mg Take 500 [facility]or r (VALTREX) 4-06 mg by [facility] 500 MG 10:55: mouth. of tablet 23 Medicin e fluconazole 2021-0 Yes [facility] (DIFLUCAN) 4-05 [facility] 150 MG 00:00: of tablet 00 Medicin e fluconazole 2021-0 Yes Jose (DIFLUCAN) 4-05 [facility] 150 MG 00:00: of tablet 00 Medicin e cefdinir 2021-0 Yes TAKE 1 Jose (OMNICEF) 3-30 CAPSULE BY Axel ege 300 MG 00:00: MOUTH 2 of capsule 00 TIMES Medicin DAILY FOR e 7 DAYS. cefdinir 2022-0 Yes TAKE 1 Jose (OMNICEF) 3-30 CAPSULE BY Axel ege 300 MG 00:00: MOUTH 2 of capsule 00 TIMES Medicin DAILY FOR e 7 DAYS. omeprazole 2-0 Yes 1 CAPSULE [facility] (PRILOSEC) 2-19 30 MINUTES Col lege 40 MG 00:00: BEFORE of capsule 00 MORNING Medicin MEAL ONCE e A DAY ORAL 90 DAYS omeprazole Yes 1 CAPSULE Ba franklyn (PRILOSEC) 2-19 30 MINUTES Col lege 40 MG 00:00: BEFORE of capsule 00 MORNING Medicin MEAL ONCE e A DAY ORAL 90 DAYS albuterol 2020-10 Yes Every 4 [facility] 108 (90 1-23 hours. [facility]) 00:00: of mcg/act 00 Medicin inhaler e albuterol 2020-10 Yes Every 4 [facility] 108 (90 1-23 hours. [facility]) 00:00: of mcg/act 00 Medicin inhaler e Cipro Cipro 2019- No Lindsey [address] [facility] 5-18 05-23 [facility] 00:[facility]: [facility]00 Memoria 00 :00 l [facility] ent [facility] Ferrous Ferrous Yes Lindsey [address] Sulfate Sulfate 7 [facility] - 00:00: Memoria 00 [facility] Fluticasone Fluticasone Yes Lindsey [address] [facility] Propionate Propionate 102 Logan each Kathrine kes - 00:00: nostril Memoria 00 [facility] ent [facility] Naproxen Naproxen 2017-10 Yes MANSOOR Q12H TAKE 1 Uni vers 500 MG Oral 500 MG Oral 1-20 ANNELISE TABLET ity of Tablet Tablet 00:00: N.P. EVERY 12 [place] 00 HOURS Physici NEEDED. ans Levothyroxi Levothyroxi Yes Lindsey [address] [facility] ne Sodium ne Sodium Logan in the Kathrine ke - morning on oria an empty l stomach [facility] ent Clinics Omeprazole Omeprazole Yes Lindsey not C [facility] defined [facility] ent Clinics Vital Signs Vital Name Observation Time Observation Value Comments Source WEIGHT 2020-04-01 00:00:00 74.39 kg HEIGHT 2020-04-01 00:00:00 160 cm Systolic blood 2022-02-12 18:05:00 138 mm[Hg] [facility] pressure [facility] Diastolic blood 2022-02-12 18:05:00 84 mm[Hg] [facility] pressure [facility] Heart rate 2022-02-12 18:05:00 62 /min pulse ox 100% [facility] Body temperature 2022-02-12 18:05:00 36.72 Lilly [facility] Respiratory rate 2022-02-12 18:05:00 20 /min [facility] Body height 2022-02-12 18:05:00 161.3 cm [facility] Body weight 2022-02-12 18:05:00 75.206 kg [facility] BMI 2022-02-12 18:05:00 28.91 [facility] Systolic blood 2022-01-23 15:57:00 120 mm[Hg] [facility] pressure Medicine Diastolic blood 2022-01-23 15:57:00 62 mm[Hg] [facility] Respiratory rate 2022-01-23 15:57:00 18 /min [facility] Body height 2022-01-23 15:57:00 160 cm [facility] Body weight 2022-01-23 15:57:00 72.576 [facility] BMI 2022-01-23 15:57:00 28.34 kg/m2 [facility] HEIGHT 2022-01-12 23:53:00 160 cm WEIGHT 2022-01-12 [...] Time Performed Performing Clinician Sour e MR Luke braun contrast 2018-09-08 00:00:00 [facility] [address] Physicians Plan of Care Planned Activity Planned Date Details Comments Source Future Scheduled 2022-02-12 Screening for malignant [facility] [employer] Test 16:59:16 neoplasm of cervix of Medici ne (procedure) [code = 131576841] Future Scheduled 2022-02-12 COVID-19 Vaccine (3 - [facility] Test 16:59:16 Booster for Moderna of Medic ine series) [code = COVID-19 Vaccine (3 - Booster for Moderna series)] Future Scheduled 2022-02-12 FLU VACCINE > 6 MONTHS [facility] [employer] [facility] 16:59:16 [code = FLU VACCINE > 6 of M edicine MONTHS] Future Scheduled 2022-02-12 Screening for malignant [facility] Test 16:59:16 neoplasm of colon of Medicin e (procedure) [code = 808693113] Future Scheduled 2022-02-12 Screening for malignant Jose [employer] Test 16:59:16 neoplasm of breast of Medici ne (procedure) [code = 087078845] Future Scheduled 2022-02-12 TETANUS SHOT (ADULT) [facility] [employer] Test 16:59:16 [code = TETANUS SHOT of Medi cine (ADULT)] Future Scheduled 2022-02-12 BMI FOLLOW UP PLAN [facility] [employer] [facility] 16:59:16 [code = BMI FOLLOW UP of Med icine PLAN] Future Scheduled 2022-02-12 Human immunodeficiency [facility] [employer] [employer] 16:59:16 virus screening of Medicine (procedure) [code = 058115925] Future Scheduled 2022-02-12 CBC W/O DIFF W PLT Ordered: [facility] [employer] [facility] 14:04:14 [code = 6690-2] 02/12/2022 of Medicine Future Scheduled 2022-02-12 BASIC METABOLIC PANEL Ordered: [facility] [employer] [facility] 14:04:14 [code = 91356-7] 02/12/2022 of Medicine Future Scheduled 2022-02-12 HEPATIC FUNCTION PANEL Ordered: [facility] [employer] 14:04:14 [code = 12324-3] 02/12/2022 of Medicine Future Scheduled 2022-02-12 PREALBUMIN [code = Ordered: [facility] [employer] [facility] 14:04:14 18188-1] 02/12/2022 of Medicine Future Scheduled 2022-02-12 PROTIME & PTT [code = Ordered: [facility] [employer] [facility] 14:04:14 NOCPT] 02/12/2022 of Medicine Future Scheduled 2022-01-23 Screening for malignant [facility] [employer] 11:43:48 neoplasm of colon of Medicin e (procedure) [code = 468790699] Future Scheduled 2022-01-23 Screening for malignant Jose [employer] Test 11:43:48 neoplasm of breast of Medici ne (procedure) [code = 783752496] Future Scheduled 2022-01-23 TETANUS SHOT (ADULT) [facility] [employer] Test 11:43:48 [code = TETANUS SHOT of Medi cine (ADULT)] Future Scheduled 2022-01-23 BMI FOLLOW UP PLAN [employer] Test 11:43:48 [code = BMI FOLLOW UP of Med icine PLAN] Future Scheduled 2022-01-23 [facility] 11:43:48 virus screening of Medicine (procedure) [code = 927500566] Future Scheduled 2022-01-23 Screening for malignant [facility] Test 11:43:48 neoplasm of cervix of Medici ne (procedure) [code = 135223010] Future Scheduled 2022-01-23 COVID-19 Vaccine (3 - [facility] [employer] Test 11:43:48 Booster for Moderna of Medic ine series) [code = COVID-19 Vaccine (3 - Booster for Moderna series)] Future Scheduled 2022-01-23 FLU VACCINE > 6 MONTHS [employer] [employer] [facility] 11:43:48 [code = FLU VACCINE > 6 of M edicine MONTHS] Future Scheduled 2022-01-23 ERCP W/MAC - GI DEPT 1 Occurrences [employer] [facility] [employer] [facility] 11:18:30 [code = 79227] starting of Medicine 01/23/2022 until 07/25/2022 Future Scheduled 2022-01-23 BALLOON 1 Occurrences [facility] Test 11:17:44 ENTEROSCOPY,ANTEGRADE W starting of M edicine ILEUM [code = 86547] 01/23/2022 until 07/25/2022 Encounters Start End Encounter Admission Attending Care Care Encounter Source Date/Time Date/Time Type Type Clinicians Facility Department ID 2022-02-14 Inpatient SHARON ALONSO Surgery [id number] [facility] 10:48:54 SHANIQUA 2022-01-24 Outpatient JJ [facility] Surgery [id number] [facility] 11:57:57 SALMAAN 2021-11-14 Outpatient Sierra, ST[facility] 14[facility]35:10 [facility] 2021-11-14 Outpatient Sierra, STLC [facility] 13:08:37 Katrina [facility] 2021-11-14 Outpatient Sierra, STLC [facility] 11:02:00 Katrina [facility] [facility] 2020-04-01 Inpatient ER [facility] Internal [id number] SLE 21:44:00 SHANIQUA Med 2022-02-12 2022-02-12 Office YANIV JRC [id number] [facility] 12:53:15 14:28:53 Visit SHANIQUA Sung 350.1.13.21 Co llege 0.2.7.2.686 of [id number] Medi karlie 510 e 2022-01-23 2022-01-23 Office JJ OXANA [id number] [facility] 10:50:08 15:02:06 Visit SALNMAN AMBULATOR 350.1.13.21 College Y 0.2.7.2.686 of [id number] Medi karlie 325 e 2022-01-22 2022-01-22 ambulatory STLMLC [facility] [id number] [facility] 2022-01-12 2022-01-16 Inpatient ER SOCRATES [facility] Gastro [id number] [facility] 23:38:00 13:29:00 PAXTON 2021-11-05 2021-11-05 ambulatory [facility]MLC [facility] [id number] [facility] 2021-11-05 2021-11-05 ambulatory [facility]MLC [facility] [id number] [facility] 2021-10-29 2021-10-29 ambulatory [facility]LMLC [facility] [id number] [facility] 2021-10-22 2021-10-22 ambulatory [facility]LMLC [facility] [id number] [facility] 2021-10-22 2021-10-22 ambulatory [facility]LMLC [facility] [id number] [facility] 2021-09-11 2021-09-11 ambulatory [facility]LMLC [facility] [id number] [facility] 2021-04-13 2021-04-13 Outpatient [facility]MLC [facility] [id number] [facility] 2021-03-16 2021-03-16 Outpatient [facility]LMLC [facility] [id number] [facility] 2021-03-16 2021-03-16 Outpatient STLMLC [facility] [id number] [facility] 2021-03-13 2021-03-13 Outpatient STLMLC [facility] [id number] [facility] 2021-02-23 2021-02-23 Outpatient [facility]LMLC [facility] [id number] [facility] 2020-09-07 2020-09-07 Outpatient [facility]LMLC [facility] [id number] [facility]00 [facility] Outpati ent Clinics 2020-05-05 2020-05-05 Outpatient SHARON FRAZIER [facility] [id number] [facility] 00:00:00 00:00:00 SAYDA 2020-04-19 2020-04-19 Outpatient SHARON FRAZIER [facility] [id number] [facility] 00:00:00 00:00:00 SAYDA 2020-04-13 2020-04-13 Emergency ER [facility] Emergency [id number] [facility] 11:47:00 11:47:00 2020-04-12 2020-04-12 Outpatient SLEH [facility] [id number] [facility] 00:00:00 00:00:00 2020-04-12 2020-04-12 Outpatient SLEH [facility] [id number] [facility] 00:00:00 00:00:00 2020-03-08 2020-03-08 [facility] [id number] [facility] 09:46:00 09:46:00 [facility] Medicine Outpati ent Clinics 2020-03-06 2020-03-06 [facility] [id number] [facility] 16:00:00 16:00:00 [facility] Medicine Outpati ent Clinics 2020-02-09 2020-02-09 [facility] [id number] [facility] 10:07:00 10:07:00 [facility] Medicine Outpati ent Clinics 2020-01-13 2020-01-13 [facility] [id number] 09:58:00 09:58:00 [facility] Medicine Outpati ent Clinics 2020-01-12 2020-01-12 [facility] [id number] 10:03:00 10:03:00 [facility] Medicine Outpati ent Clinics 2019-12-15 2019-12-15 [facility] [id number] [facility] 13:39:00 13:39:00 [facility] Medicine Outpati ent Clinics 2019-11-10 2019-11-10 [facility] [id number] [facility] 09:00:00 09:00:00 t [facility] Medicine Outpati ent Clinics 2019-09-15 2019-09-15 [facility] [id number] 10:14:00 10:14:00 t [facility] Medicine Outpati ent Clinics 2019-07-06 2019-07-06 [facility] [id number] [facility] 16:00:00 16:00:00 t [facility] Medicine Outpati ent Clinics 2019-05-11 2019-05-11 [facility] [id number] [facility] 15:00:00 15:00:00 t [facility] Medicine Outpati ent Clinics 2018-12-01 2018-12-01 [facility] [id number] [facility] 09:45:00 09:45:00 t [facility] Medicine Outpati ent Clinics 2018-10-21 2018-10-21 [facility] [id number] 13:45:00 13:45:00 t [facility] Medicine Outpati ent Clinics 2018-09-29 2018-09-29 Appointmen MARC STACY UTP [id number] [facility] 09:30:00 09:30:00 t; VICKIE STACY, [facility] [place] [place] Surgery [facility] [place] [facility] Physici Trace 1 ans 2018-09-08 2018-09-08 Appointmen MARC CASTELAN UTP [id number] [facility] 14:15:00 14:15:00 t; MALCOM MAX [facility] CASTELAN - Von as MALCOM MAX Brian Physic i Trace 1 ans Results Test [...] recovery and/or detection times of some organisms.BLOOD [id number] 11:34:29 Test Item Value Reference Range Interpretation Comments CULTURE (BEAKER) A From Aerobi c Bottle (test code = Only Same organ ism has 1095) been isolated f rom cultures(s) of the same body site and collection date . Repeat identifi cation and susceptibil ity testing perform ed only after consultat ion with the [facility] microbiology laboratory.Refe r to previous cultur e ofEscherichia c frank GRAM STAIN From aerobic RESULT (BEAKER) bottle only: (test code = gram negative 1123) rods The specimen volume collected for this blood culture was below the optimum (10 mL per bottle or 20 mL total). Use of lower volumes may adversely affect recovery and/or detection times of some organisms.[id number] 06:18:35 Test Item Value Reference Range Interpretation Comments MAGNESIUM (BEAKER) (test code = 1.6 mg/dL 1.6-2.6 627) [facility] ID - PIAYA LCOMPREHENSIVE METABOLIC [id number] 06:18:34 Test Item Value Reference Range Interpretation [...] S NOT APPLICABLE FOR DIALYSIS PATIEN TS. [facility] ID - PIAYA LCBC W/PLT COUNT & AUTO [id number] 05:47:42 Test Item Value Reference Range Interpretation [...] (test code = 2801) ANG, DRAINAGE, BILIARY, [id number] 11:46:00Reason for exam:- >Ext/internal biliary drain [facility] 1975 Sex: FFINAL REPORT PROCEDURE: Transhepatic cholangiogram and biliary drain placement Procedural PersonnelAttending physician(s): Kyara Green physician(s): Tammie Gaines physician(s): NoneAdvanced practice provider(s): None Pre-procedure diagnosis: Biliary obstructionPost-procedure diagnosis: SameIndication: Biliary obstructionAdditional clinical history: None Complications: No immediate complications. IMPRESSION: Transhepatic cholangiogram demonstrates mildly dilated intrahepatic bile ducts. Successful placement of 10 Guyanese internal/external biliary drainage catheter with distal loop [...] ducts.Biliary drain: Cook 10Fr internal-externalBiliary drain diameter (Guyanese): 10Final cholangiogram findings: Distal loop in duodenum.External [...] MDReport Verified Date/Time: 01/15/2022 11:46:08 Reading Location: [place] [id number] Angio Body Reading Room SARS-COV2/RT-PCR ([facility])2022-01-15 07:25:15 Test Item Value Reference Range Interpretation Comments SARS-COV2/RT-PCR (test Negative Not Detected, Negative, code = 1627160) See external report for linked test SARS-COV-2 PERFORMING LAB [facility] (test code = 6394828) Negative result for this test determines that [...] 564(g) of the Act.Fact Sheet for Healthcare Providers:https://www.[employer]/sites/default/files/product/documents/Fact_Shee a_ES_Xqnvlsmlj_Ranp_CPWW-SkT-6.pdfFact Sheet for Healthcare Patients:https://www.[employer]/sites/default/files/product/ documents/Byiw_Wbrma_Wlubvnwg_Xzjl_BKXP-OtH-3.pdfPerforming Laboratory:[facility], [place] [id number] 05:53:04 Test Item Value Reference Range Interpretation Comments PHOSPHORUS (BEAKER) (test code = 2.7 mg/dL 2.3-4.7 604) [facility] - PIAYA LCOMPREHENSIVE METABOLIC [id number] 05:53:03 Test Item Value Reference Range Interpretation [...] S NOT APPLICABLE FOR DIALYSIS PATIEN TS. [facility] ID - CAROLINADUSTY [id number] 05:53:03 Test Item Value Reference Range Interpretation Comments MAGNESIUM (BEAKER) (test code = 1.5 mg/dL 1.6-2.6 L 627) [facility] ID - CAROLINADUSTY LCBC W/PLT COUNT & AUTO [id number] 05:03:47 Test Item Value Reference Range Interpretation [...] PERCENT (BEAKER) (test code = 2801) SCREEN, [id number] 16:24:23 Test Item Value Reference Range Interpretation Comments TEST URINE (BEAKER) (test Negative code = 583) BLOOD CULTURE IDENTIFICATION [id number] 13:53:24 Test Item Value Reference Interpretation Comments Range LISTERIA MONOCYTOGENES Not detected Not detected (test code = 4559914) STAPHYLOCOCCUS (test Not detected Not detected code = 5677377) STAPHYLOCOCCUS AUREUS Not detected Not detected (test code = 9389794) STREPTOCOCCUS (test code Not detected Not detected = 4795543) STREPTOCOCCUS AGALACTIAE Not detected Not detected (GROUP B) (test code = 9341448) STREPTOCOCCUS PNEUMONIAE Not detected Not detected (test code = 8485535) STREPTOCOCCUS PYOGENES Not detected Not detected (GROUP A) (test code = 6889006) ACINETOBACTER BAUMANNII Not detected Not detected (test code = 6471915) HAEMOPHILUS INFLUENZAE Not detected Not detected (test code = 0778181) NEISSERIA MENINGITIDIS Not detected Not detected (test code = 0177659) ENTEROBACTERIACEAE (test Detected Not detected A code = 7185441) ENTEROBACTER CLOACOE Not detected Not detected COMPLEX (test code = 3662364) KLEBSIELLA OXYTOCA (test Not detected Not detected code = 4874447) KLEBSIELLA PNEUMONIAE Not detected Not detected (test code = 1650) PROTEUS (test code = Not detected Not detected 0847575) SERRATIA MARCESCENS Not detected Not detected (test code = 2836626) OTTONIEL ALBICANS (test Not detected Not detected code = 2574726) OTTONIEL GLABRATA (test Not detected Not detected code = 2294958) OTTONIEL KRUSEI (test Not detected Not detected code = 4332349) OTTONIEL PARAPSILOSIS Not detected Not detected (test code = 7007679) OTTONIEL TROPICALIS (test Not detected Not detected code = 8317349) ESCHERICHIA COLI (test Detected Not detected A Esche richia coliKPC code = 4651348) not detected (a carbapenamase gene)First-line therapy: MeropenemDe-esc alat e based on susceptibilitie s.Th is test does no t evaluate for ESBLReference Range: Not Dete cted METHICILLIN-RESISTANCE GENE (test code = 3745771) VANCOMYCIN-RESISTANCE GENE (test code = 2399930) CARBAPENEM-RESISTANCE Not detected Not detected Note: Antimicrobial GENE (test code = resistance can ) occur via multi ple mechanisms. A N ot Detected result for the [employer] antimicrobial resistance gene assays does not indicate antimicrobial susceptibility. Subculturing is required for species identification and susceptibility testing of isolates.WARNIN G: A Not Detected re sult for the KPC gen e does not indica te susceptibility to carbapenems. Gr am negative bacter ia can be resistan t to carbapenems by mechanisms othe r than carrying t he KPC gene. ENTEROCOCCUS-BEAKER Not detected Not detected (test code = 3987056) PSEUDOMONAS Not detected Not detected AERUGINOSA-BEAKER (test code = 5492665) Other bacteria and resistance markers not targeted by this PCR panel cannot be excluded; therefore clinical correlation and follow up of serology, culture results, and other molecular studies is required. The results are not intended to be used as the sole means for clinical diagnosis or patient management decisions. This sample was tested at the [facility]ostics [facility] using the [employer] Blood Culture ID Panel. It is FDA cleared and has been verified and approved by the [facility] for clinical use. This laboratory is CLIA-certified and College ofAmerican Pathologists (CAP)-accredited to perform high complexity testing.MR, ABDOMEN, [id number] 09:34:00Unlisted Reason for Exam - Click Yes and Enter Reason Below->NoMELISSA [facility] : 1975 Sex: FFINAL REPORT [...] discrete liver lesion is identified. There is qabq-nb-mxzcytjd intrahepatic biliary ductal dilatation, marginally worse in [...] normal. Impression: Status post hepaticojejunostomy. There is xhfc-uf-cjnjsyad intrahepatic biliary ductal dilatation, marginally worse in the anterior right hepatic lobe compared to April 02, 2020. There is new edema and trace fluid in the nubia hepatis region. Splenomegaly. Trace ascites. Trace bilateral pleural effusions. Signed: Alana, Abilio MDReport Verified Date/Time: 09:34:27 Reading Location: [facility] B1 [id number] Ortho Consult Reading Room PHOSPHORUS 2022-01-14 05:54:37 Test Item Value Reference Range Interpretation Comments PHOSPHORUS (BEAKER) (test code = 2.3 mg/dL 2.3-4.7 604) [facility] ID - BOUBACAR MCOMPREHENSIVE METABOLIC [id number] 05:54:37 Test Item Value Reference Range Interpretation [...] S NOT APPLICABLE FOR DIALYSIS PATIEN TS. [facility] ID - BOUBACAR MSpecimen slightly [id number] 05:54:36 Test Item Value Reference Range Interpretation Comments MAGNESIUM (BEAKER) (test code = 1.9 mg/dL 1.6-2.6 627) [facility] ID - BOUBACAR MCBC W/PLT COUNT & AUTO [id number] 05:16:24 Test Item Value Reference Range Interpretation [...] (BEAKER) (test code = 2801) U/S, ABDOMINAL, [id number] 04:45:00Abdomen limited area? Add comment if clarification is needed.->Right upper quadrantReason for exam:->elevated bili, LFTs, abdominal pain [facility] : 1975 Sex: FFINAL REPORT U/S, ABDOMINAL, LIMITED [...] Julian Simental MDReport Verified Date/Time: 01/13/2022 04:45:48 [id number] 01:25:42 Test Item Value Reference Range Interpretation Comments PHOSPHORUS (BEAKER) (test code = 4.3 mg/dL 2.3-4.7 604) [facility] ID - DBHEPATIC FUNCTION [id number] 01:25:42 Test Item Value Reference Range Interpretation [...] code = 246 U/L 6-55 H 347) [facility] ID - DBBASIC METABOLIC [id number] 01:25:41 Test Item Value Reference Range Interpretation [...] S NOT APPLICABLE FOR DIALYSIS PATIEN TS. [facility] ID - [id number] 01:25:41 Test Item Value Reference Range Interpretation Comments MAGNESIUM (BEAKER) (test code = 1.6 mg/dL 1.6-2.6 627) [facility] ID - [id number]/[id number] 01:19:35 Test Item Value Reference Range Interpretation [...] (BEAKER) (test code = 2801) ANG, CHOLANGIOGRAM, [id number] 13:36:00Reason for Exam:->Possible removal of PTCFINAL REPORT PROCEDURE: Cholangiogram through an existing internal/external catheter, followed by catheter removal CLINICAL HISTORY: Possible removal of PTC QUALITY CONTROL AUDITOR: David Rodriguez DO, JD ANESTHESIA: Conscious sedation was provided by radiology nursing using constant hemodynamic monitoring for 45 Minutes. Versed IV 0.5 mg, Fentanyl IV 25 mcg. DEVICE: 14 Guyanese internal/external biliary catheter Estimated Blood Loss: < [...] MDReport Verified Date/Time: 05/05/2020 13:36:15 Reading Location: [place] [id number] Angio Body Reading Room PREGNANCY SCREEN, [id number] 07:38:00 Test Item Value Reference Range Interpretation Comments TEST URINE (BEAKER) (test Negative code = 583) [id number] 07:37:00 Test Item Value Reference Range Interpretation Comments PARTIAL THROMBOPLASTIN TIME 28.9 seconds 22.5-36.0 (BEAKER) (test code = 760) PROTHROMBIN [id number] 07:36:00 Test Item Value Reference Range Interpretation [...] mechanical heart valves.CBC W/PLT COUNT & AUTO [id number] 07:25:00 Test Item Value Reference Range Interpretation [...] (BEAKER) (test code = 2801) ANG, CHOLANGIOGRAM, [id number] 14:34:00Dr. Gonzalez discussed case with Dr. Ignacio on 04/12/2020.Patient needs PTC revision in the next 1 week.Reason for Exam:->cholangitis, PTC drain in placeFINAL REPORT PROCEDURE: Cholangiogram through an existing internal/external catheter, common bile duct dilatation and catheter up size CLINICAL HISTORY: cholangitis, PTC drain inplace QUALITY CONTROL AUDITOR: David Rodriguez DO, JD ANESTHESIA: Conscious sedation was provided by radiology nursing using constant hemodynamic monitoring for 45 Minutes. Versed IV 1.5 mg, Fentanyl IV 75 mcg. DEVICE: 14 Guyanese internal/external biliary catheter, 4 mm balloon Estimated [...] MDReport Verified Date/Time: 04/19/2020 14:34:30 Reading Location: [place] [address] Angio Body Reading Room PREGNANCY SCREEN, [id number] 11:23:00 Test Item Value Reference Range Interpretation Comments TEST URINE (BEAKER) (test Negative code = 583) [id number] 11:10:00 Test Item Value Reference Range Interpretation Comments PARTIAL THROMBOPLASTIN TIME 30.9 seconds 22.5-36.0 (BEAKER) (test code = 760) PROTHROMBIN TIME/[id number] 11:09:00 Test Item Value Reference Range Interpretation [...] mechanical heart valves.CBC W/PLT COUNT & AUTO [id number] 11:02:00 Test Item Value Reference Range Interpretation [...] (BEAKER) (test code = 2801) LACTIC ACID, [id number] 16:01:00 Test Item Value Reference Range Interpretation Comments LACTATE BLOOD VENOUS 1.36 mmol/L 0.50-2.20 Specime n slightly (2) (BEAKER) (test hemolyzed code = 8392) [facility] ID - DBCOMPREHENSIVE METABOLIC [id number] 16:00:00 Test Item Value Reference Range Interpretation [...] S NOT APPLICABLE FOR DIALYSIS PATIEN TS. [facility] ID - DBURINALYSIS W/ REFLEX URINE [id number] 15:51:00 Test Item Value Reference Range Interpretation Comments COLOR (BEAKER) (test code = 470) Jasper CLARITY (BEAKER) (test code = 469) Hazy [...] = 518) SOURCE(BEAKER) (test code = 2795) [facility] ID - [auto][facility] ID - techCBC W/PLT COUNT & AUTO [...] (BEAKER) (test code = 2801) HEPATIC FUNCTION [id number] 17:05:00 Test Item Value Reference Range Interpretation [...] code = 1139 U/L 6-55 H 347) [facility] ID - BSBASIC METABOLIC [id number] 17:05:00 Test Item Value Reference Range Interpretation [...] S NOT APPLICABLE FOR DIALYSIS PATIEN TS. [facility] ID - BSCBC W/PLT COUNT & AUTO [id number] 16:44:00 Test Item Value Reference Range Interpretation [...] (BEAKER) (test code = 2801) ANG, CHOLANGIOGRAM, [id number] 15:31:00Reason for exam:->Needs PTC, biliary brushings and needs Liver biopsy per hepatology team. Pleasecall [phone]. Pt has altered anatomy due to complicaton from cholecystectomy in 2010FINAL REPORT Procedure: Percutaneous transhepatic cholangiography and internal/external biliary drainage catheter placement. Ultrasound-guided liver biopsy. 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 Failed ERCP. [place] biopsy of the biliary stricture is also requested. The patient hashepatic fibrosis. A percutaneous liver biopsy has been requested. Crown Pouncer: Arias Lucas M.D. Ship [employer] Operating Engineer: Jose Danielle Modality: Sonography and fluoroscopy. DOSE [...] sequential dilatation of the tract an 8 Guyanese internal/external biliary drainage catheter was placed over [...] set at the time of this procedure. [place] biopsy could not be performed. Using real-time [...] Final image shows presence of an 8 Guyanese internal/external biliary drainage catheter with the most [...] anastomosis. This was successfully crossed. An 8 Guyanese internal/external biliary drainage catheter has been placed [...] MDReport Verified Date/Time: 04/11/2020 15:31:21 Reading Location: [address] Body Reading Room TISSUE [id number] 11:07:00Surgical Pathology Report Case: [id number] Authorizing Provider: Serge Frazier MD Collected: 04/06/2020 05:37 PM Ordering Location: [address] Received: 04/06/2020 10:12 PM Service Pathologist: Heidy Markham MD Specimen: Biopsy, Liver, Bx LIVER, RANDOM NEEDLE CORE: - PORTAL TRIADS WITH MIXED PORTAL INFLAMMATION WITH MILD DUCTULAR REACTION, EDEMA AND BILIARY TYPE INTERFACE HEPATITIS - BILE DUCT APPEARS TO BE PRESERVED - SOME PERIDUCTAL FIBROSIS NOTED - HEPATIC LOBULES WITH MILD INFLAMMATION AND KUPFFER CELL HYPERPLASIASJ/pl Signing Pathologist Direct Phone Line: [phone] signed by Heidy Markham MD on 04/10/2020 [...] was informed on 04/07/2020 by telephonic call [phone]; [phone] [id number] in normal formalin, two sanchez-brown liver cores [...] evaluated Immunohistochemistry technical testing was performed at [facility], Pathology Laboratory where it was developed [...] (test code = 3.5 mg/dL 2.3-4.7 604) [facility] ID - BOUBACAR [id number] 06:08:00 Test Item Value Reference Range Interpretation Comments MAGNESIUM (BEAKER) (test code = 1.7 mg/dL 1.6-2.6 627) [facility] ID - BOUBACAR MBASIC METABOLIC [id number] 06:08:00 Test Item Value Reference Range Interpretation [...] S NOT APPLICABLE FOR DIALYSIS PATIEN TS. [facility] ID - BOUBACAR EPATIC FUNCTION [id number] 06:08:00 Test Item Value Reference Range Interpretation [...] code = 1031 U/L 6-55 H 347) [facility] NOLBERTO HAMLIN MCBC W/PLT COUNT & AUTO [id number] 05:29:00 Test Item Value Reference Range Interpretation [...] code = 2801) ANTI-MITOCHONDRIAL AB, REFLEX TO [id number] 12:32:00 Test Item Value Reference Range Interpretation Comments SCAN RESULT (test code = 3726338) ANTI-NUCLEAR ANTIBODY (TENISHA)2020-04-07 10:26:00 Test Item Value Reference Range Interpretation Comments ANTI-NUCLEAR ANTIBODY (TENISHA) (BEAKER) Negative Negative (test code = 418) Test performed by IFA method.Test performed by IFA method.BLOOD CULTURE 2020-04-07 09:00:00 Test Item Value Reference Range Interpretation Comments CULTURE (BEAKER) (test No growth in 5 days code = 1095) BLOOD [id number] 09:00:00 Test Item Value Reference Range Interpretation Comments CULTURE (BEAKER) (test No growth in 5 days code = 1095) [id number] 05:05:00 Test Item Value Reference Range Interpretation Comments PHOSPHORUS (BEAKER) (test code = 3.4 mg/dL 2.3-4.7 604) [facility] ID - BOUBACAR [id number] 05:05:00 Test Item Value Reference Range Interpretation Comments MAGNESIUM (BEAKER) (test code = 2.1 mg/dL 1.6-2.6 627) [facility] ID - BOUBACAR MBASIC METABOLIC [id number] 05:05:00 Test Item Value Reference Range Interpretation [...] S NOT APPLICABLE FOR DIALYSIS PATIEN TS. [facility] ID - BOUBACAR EPATIC FUNCTION [id number] 05:05:00 Test Item Value Reference Range Interpretation [...] code = 974 U/L 6-55 H 347) [facility] ID - BOUBACAR MCBC W/PLT COUNT & AUTO [id number] 04:30:00 Test Item Value Reference Range Interpretation [...] 0-1 PERCENT (BEAKER) (test code = 2801) [id number] 14:07:00 Test Item Value Reference Range Interpretation Comments POTASSIUM (BEAKER) (test code = 3.8 meq/L 3.5-5.1 379) [facility] ID - RANDY HASMUKH-NUCLEAR ANTIBODY (TENISHA)2020-04-06 10:20:00 Test Item Value [...] INR is2.5-3.5 for patients wiht mechanical heart valves.[id number] 07:09:00 Test Item Value Reference Range Interpretation Comments PHOSPHORUS (BEAKER) (test code = 3.8 mg/dL 2.3-4.7 604) [facility] ID - TIFF [id number] 07:09:00 Test Item Value Reference Range Interpretation Comments MAGNESIUM (BEAKER) (test code = 1.6 mg/dL 1.6-2.6 627) [facility] ID - TIFF CBASIC METABOLIC [id number] 07:09:00 Test Item Value Reference Range Interpretation [...] S NOT APPLICABLE FOR DIALYSIS PATIEN TS. [facility] ID - TIFF CHEPATI FUNCTION [id number] 07:09:00 Test Item Value Reference Range Interpretation [...] code = 888 U/L 6-55 H 347) [facility] ID - OCT CCBC W/PLT COUNT & AUTO [id number] 06:20:00 Test Item Value Reference Range Interpretation [...] 0-1 PERCENT (BEAKER) (test code = 2801) [id number] 18:25:00 Test Item Value Reference Range Interpretation Comments LIPASE (BEAKER) (test code = 749) 30 U/L 8-78 [facility] ID - [id number] 04:52:00 Test Item Value Reference Range Interpretation Comments PHOSPHORUS (BEAKER) (test code = 3.2 mg/dL 2.3-4.7 604) [facility] ID - CAROLINAAYA [id number] 04:52:00 Test Item Value Reference Range Interpretation Comments MAGNESIUM (BEAKER) (test code = 1.5 mg/dL 1.6-2.6 L 627) [facility] ID - PIAYA LBASIC METABOLIC [id number] 04:52:00 Test Item Value Reference Range Interpretation [...] S NOT APPLICABLE FOR DIALYSIS PATIEN TS. [facility] ID - RANDY LHEPATIC FUNCTION [id number] 04:52:00 Test Item Value Reference Range Interpretation [...] code = 819 U/L 6-55 H 347) [facility] ID - RANDY LCBC W/PLT COUNT & AUTO [id number] 04:08:00 Test Item Value Reference Range Interpretation [...] Test performed by IFA method.TENISHA TITER AND [id number] 10:46:00 Test Item Value Reference Range Interpretation Comments TENISHA TITER (BEAKER) (test code = :160 1541) TENISHA PATTERN (BEAKER) (test code = Nucleolar 1781) POCT-GLUCOSE [id number] 07:05:00 Test Item Value Reference Range Interpretation Comments POC-GLUCOSE METER 126 mg/dL 70-110 H : TESTED A T [facility] 6720 (BEAKER) (test code = BERNIE CRUZ HI, 1538) [address]101[address]: Youth Advocate/Techni diann ID = [id number] for Al iPita [id number] 06:58:00 Test Item Value Reference Range Interpretation Comments MAGNESIUM (BEAKER) 1.8 mg/dL 1.6-2.6 Specimen slightly (test code = 627) hemolyzed [facility] ID - BOUBACAR [id number] 06:58:00 Test Item Value Reference Range Interpretation Comments PHOSPHORUS (BEAKER) 2.8 mg/dL 2.3-4.7 Specimen slightly (test code = 604) hemolyzed [facility] ID - BOUBACAR MBASIC METABOLIC [id number] 06:58:00 Test Item Value Reference Range Interpretation [...] S NOT APPLICABLE FOR DIALYSIS PATIEN TS. [facility] ID - BOUBACAR MHEPATIC FUNCTION [id number] 06:58:00 Test Item Value Reference Range Interpretation [...] Specimen slightly (test code = 347) hemolyzed [facility] ID - BOUBACAR MCBC W/PLT COUNT & AUTO [id number] 06:01:00 Test Item Value Reference Range Interpretation [...] PERCENT (BEAKER) (test code = 2801) SARS-COV2/RT-PCR ([facility])2020-04-03 16:01:00 Test Item Value Reference Range Interpretation Comments SARS-COV2/RT-PCR (test Not Detected Not Detected, Negative code = 9033843) SARS-COV-2 PERFORMING LAB [facility] (test code = 5752902) Negative results do not preclude SARS-CoV-2 infection [...] of the Act.Fact Sheet for Healthcare Pro viders:https://www.[facility].com/Documents/Xpert%20Xpress%20SARS%20CoV-2/Fact%20Sh eets/302-6802%79RLVR-SWA-9%20HEALTHCARE%20PROVIDERS%20FACT%20SHEET.pdfFact Sheet for Healthcare Patients:https://www.[employer].com/Documents/Xpert%20Xpress%20SARS%20CoV-2/Fact%20Sheets/3023801%20SARS-COV -2%20PATIENT%20FACT%20SHEET.pdfPerforming Laboratory:[place] [address], [place] [address]ZR, [id number] 15:02:00Reason for exam:->ERCPFINAL REPORT A fluoroscopic unit was utilized for a procedure performed in the operating room. No interpretation was requested. Please refer to the operative report regarding findings. Please refer to PACS for patient radiation dose information. Signed: Josefa Vernon MDReport Verified Date/Time: 04/03/2020 15:02:53 Reading Location: [facility] Radiology Reading Room SARS-COV2/RT-PCR ([facility])2020-04-03 09:37:00 Test Item Value Reference Range Interpretation Comments SARS-COV2/RT-PCR (test code = Negative Not Detected, Negative 6004085) SARS-COV-2 PERFORMING LAB [facility] (test code = 7455528) ALPHA FETOPROTEIN (AFP), TUMOR [id number] 07:15:00 Test Item Value Reference Range Interpretation Comments ALPHA-FETOPROTEIN (BEAKER) (test code < ng/mL <10.0 = 1094) [facility] ID - RANDY SMOERX-9-[id number] 07:02:00 Test Item Value Reference Range Interpretation Comments ALPHA-1 ANTITRYPSIN (BEAKER) 257.80 mg/dL 90.00-200.00 H (test code = 502) [facility] ID - RANDY [id number] 06:12:00 Test Item Value Reference Range Interpretation Comments PHOSPHORUS (BEAKER) (test code = 2.5 mg/dL 2.3-4.7 604) [facility] ID - RANDY [id number] 06:12:00 Test Item Value Reference Range Interpretation Comments MAGNESIUM (BEAKER) (test code = 1.9 mg/dL 1.6-2.6 627) [facility] NOLBERTO PADILLA LBASIC METABOLIC [id number] 06:12:00 Test Item Value Reference Range Interpretation [...] S NOT APPLICABLE FOR DIALYSIS PATIEN TS. [facility] NOLBERTO PADILLA LHEPATIC FUNCTION [id number] 06:12:00 Test Item Value Reference Range Interpretation [...] code = 758 U/L 6-55 H 347) [facility] NOLBERTO PADILLA LCBC W/PLT COUNT & AUTO [id number] 05:29:00 Test Item Value Reference Range Interpretation [...] 0-1 PERCENT (BEAKER) (test code = 2801) [id number] 18:21:00 Test Item Value Reference Range Interpretation Comments FERRITIN (BEAKER) (test code = 1130.77 ng/mL 5.00-275.00 H 361) [facility] ID - DBHEPATITIS C [id number] 18:02:00 Test Item Value Reference Range Interpretation Comments HEPATITIS C ANTIBODY (BEAKER) Nonreactive Nonreactive (test code = 367) [facility] ID - DBIRON, TIBC, % SAT. (WITHOUT FERRITIN)2020-04-02 17:42:00 Test Item Value Reference Range Interpretation Comments IRON (BEAKER) (test code = 547) 19.0 ug/dL 40.0-160.0 L TOTAL IRON BINDING CAPACITY 328 ug/dL 250-450 (BEAKER) (test code = 769) IRON % SATURATION (2) (BEAKER) 6 % 20-55 L (test code = 2590) [facility] ID - DBMR, ABDOMEN, [id number] 15:37:00FINAL REPORT MR Abdomen dated 04/02/2020 Comment: [...] MDReport Verified Date/Time: 04/02/2020 15:37:49 Reading Location: [address] Reading Room PREGNANCY SCREEN, [id number] 10:42:00 Test Item Value Reference Range Interpretation Comments TEST URINE (BEAKER) (test Negative code = 583) RAD, CHEST, 1 VIEW, NON [id number] 09:30:00Reason for exam:->r/o PNAShould this be performed at the bedside?->YesFINAL REPORT INDICATION: r/o PNA COMPARISON: None TECHNIQUE: Single frontal view of the chest. FINDINGS: Lungs and pleura: Clear lungs. No effusion.Heart and mediastinum: Normal heart size. Unremarkable mediastinal contours.Osseous structures: No acute abnormality.Other: None. IMPRESSION: No acute intrathoracic abnormality. Signed: Lilia Ayala MDReport Verified Date/Time: 04/02/2020 09:30:21 Reading Location: [address] Neuro Reading Room ALYSIS W/ REFLEX URINE [id number] 07:23:00 Test Item Value Reference Range Interpretation [...] = 516) SOURCE(BEAKER) (test code = 2795) [facility] ID - [auto][facility] Advocate ID - [id number] 07:00:00 Test Item Value Reference Range Interpretation Comments MAGNESIUM (BEAKER) 1.5 mg/dL 1.6-2.6 L Specimen slightly (test code = 627) hemolyzed [facility] ID - RANDY [id number] 07:00:00 Test Item Value Reference Range Interpretation Comments PHOSPHORUS (BEAKER) 2.5 mg/dL 2.3-4.7 Specimen slightly (test code = 604) hemolyzed [facility] ID - RANDY LBASIC METABOLIC [id number] 07:00:00 Test Item Value Reference Range Interpretation [...] S NOT APPLICABLE FOR DIALYSIS PATIEN TS. [facility] ID - CAROLINAAYA LHEPATIC FUNCTION [id number] 07:00:00 Test Item Value Reference Range Interpretation [...] Specimen slightly (test code = 347) hemolyzed [facility] ID - RANDY [id number] 07:00:00 Test Item Value Reference Range Interpretation Comments LIPASE (BEAKER) (test code = 749) 6 U/L 8-78 L [facility] ID - RANDY LHEPATITIS B [id number] 06:58:00 Test Item Value Reference Range Interpretation Comments HEPATITIS B CORE TOTAL ANTIBODY Nonreactive Nonreactive (BEAKER) (test code = 497) HEPATITIS B SURFACE ANTIBODY < mIU/mL <8.0 (BEAKER) (test code = 647) HEPATITIS B SURFACE ANTIGEN (2) Nonreactive Nonreactive (BEAKER) (test code = 2585) [facility] ID - RANDY LPROTHROMBIN [id number] 06:24:00 Test Item Value Reference Range Interpretation [...] mechanical heart valves.CBC W/PLT COUNT & AUTO [id number] 06:19:00 Test Item Value Reference Range Interpretation [...] code = 2801) MR Knee wo contrast [id number] 08:50:00MRI of the Left Knee Without IV [...] 21:31Electronically Signed by: Lorelei Lemos MD 09/17/1821:38FINAL REPORTUnSpanish [facility]ork [facility]
[2022-02-20 15:32] LABS: Absolute Lymphocytes (CBC) 1.7 K/uL (0.7-4.9); Lymphocytes % 22.8 % (15.3-44.8); MPV 9.5 fL (7.6-11.3); RBC Red Blood Cell Count 1.83 M/uL (3.86-4.86)
[2022-02-20 15:41] LABS: Hematocrit 16.2 % (36.0-45.0)
--- NOTE | 2022-02-20 15:44 | ER ---
Nurse's Notes [facility] Name: Janey Hernandez Age: 46 yrs Sex: Female : 1975 Arrival Date: 02/20/2022 Time: 14:40 Bed 17 Private MD: Edmund Ramachandran B Diagnosis: Abnormal uterine and vaginal bleeding, unspecified;Anemia, unspecified Presentation: 02/20 14:45 Chief complaint: Patient states: SENT FROM DR RAMACHANDRAN [employer] WRITER FOR LOW H/H, VAG BLEED x3 bp WK, HEAVY WITH CLOTS. Coronavirus screen: At this time, the client does not indicate any symptoms associated with coronavirus-19. Ebola Screen: No symptoms or risks identified at this time. Initial Sepsis Screen: Does the patient meet any 2 criteria? HR > 90 bpm. No. Patient's initial sepsis screen is negative. Does the patient have a suspected source of infection? No. Patient's initial sepsis screen is negative. Risk Assessment: Do you want to hurt yourself or someone else? Patient reports no desire to harm self or others. Onset of symptoms is unknown. 14:45 Method Of Arrival: Ambulatory bp 14:45 Acuity: MICHAEL 3 bp Triage Assessment: 14:45 General: Appears distressed, uncomfortable, Behavior is calm, cooperative, appropriate bp for age. 14:45 Pain: Denies pain. EENT: No deficits noted. Neuro: Level of Consciousness is awake, bp alert, obeys commands, Oriented to Appropriate for age. Cardiovascular: Rhythm is sinus tachycardia. Respiratory: No deficits noted. GI: No signs and/or symptoms were reported involving the gastrointestinal system. : Reports vaginal bleeding that is with clots, heavy flow. Derm: No deficits noted. Musculoskeletal: No deficits noted. Historical: - Allergies: 14:55 No Known Allergies; bp - Home Meds: 14:55 levothyroxine 137 mcg cap once daily [Active]; inhaler [Active]; omeprazole 40 mg Oral bp cpDR once daily [Active]; Valtrex Oral [Active]; Depo injection [Active]; Carafate Oral [Active]; - PMHx: 14:55 Gastric Reflux; Thyroid problem; bp - PSHx: 14:55 Cholecystectomy; tubal ligation; bp - Immunization history:: Adult Immunizations up to date. - Social history:: Smoking status: Patient denies any tobacco usage or history of. - Family history:: not pertinent. - Hospitalizations: : No recent hospitalization is reported. Screenin:45 Abuse screen: Denies threats or abuse. Denies injuries from another. Nutritional bp screening: No deficits noted. Tuberculosis screening: No symptoms or risk factors identified. Fall Risk None identified. Assessment: 14:45 General: SEE TRIAGE NOTE. bp 16:00 Reassessment: No changes from previously documented assessment. Patient and/or family bp updated on plan of care and expected duration. Pain level reassessed. ADMIT INITIATED. 17:00 Reassessment: ADMIT ON HOLD FOR COVID RESULTS. bp 18:00 Reassessment: REPORT TO DANIS MACKENZIE. PT HEIKE WITH PCT. bp Vital Signs: 14:45 BP 140 / 75; Pulse 124; Resp 17; Temp 98.9; Pulse Ox 100% ; Weight 73.94 kg; Height 5 bp ft. 3 in. (160.02 cm); 15:00 BP 135 / 82; Pulse 119; Resp 17; Pulse Ox 100% ; bp 16:00 BP 112 / 56; Pulse 91; Resp 23; Pulse Ox 100% ; bp 17:00 BP 106 / 70; Pulse 96; Resp 21; Pulse Ox 100% ; bp 18:00 BP 113 / 66; Pulse 94; Resp 18; Pulse Ox 100% ; bp 14:45 Body Mass Index 28.87 (73.94 kg, 160.02 cm) bp ED Course: 14:40 Patient arrived in ED. am2 14:40 Edmund Ramachandran MD is Private Physician. am2 14:42 Steven Faustin MD is Attending Physician. rn 14:45 Arm band placed on. bp 14:45 Patient has correct armband on for positive identification. Bed in low position. Call bp light in reach. Side rails up X2. Client placed on continuous cardiac and pulse oximetry monitoring. NIBP monitoring applied. 14:53 Harjeet Le RN is Primary Nurse. bp 14:55 Triage completed. bp 15:32 Inserted saline lock: 22 gauge in left antecubital area, using aseptic technique. ap3 15:44 Edmund Ramachandran MD is Hospitalizing Provider. rn 16:05 Lab(s) recollected, by me, sent to lab. em1 18:00 No provider procedures requiring assistance completed. Patient admitted, IV remains in bp place. Administered Medications: 15:30 Drug: Premarin 25 mg Route: IV; Rate: calculated rate; Site: left antecubital; bp 17:44 Follow up: IV Status: Completed infusion; IV Intake: 100ml bp Intake: 17:44 IV: 100ml; Total: 100ml. bp Outcome: 15:44 Decision to Hospitalize by Provider. rn 18:00 Admitted to accompanied by tech, via wheelchair, Report called to DANIS MACKENZIE FOR RM 270 bp [facility] 18:00 Condition: stable 18:00 Instructed on the need for admit. 18:12 Patient left the ED. bp Signatures: Steven Faustin MD MD rn Veto Grace em1 Armida Marrero am2 Harjeet Le RN RN bp Armida Ritter RN RN ap3
--- NOTE | 2022-02-20 15:44 | EDPHYS ---
Physician Documentation [facility] Name: Janey Hernandez Age: 46 yrs Sex: Female : 1975 Arrival Date: 02/20/2022 Time: 14:40 Bed 17 Private MD: Edmund Ramachandran B ED Physician Steven Faustin HPI: 02/20 15:01 This 46 yrs old Female presents to ER via Ambulatory with complaints of Vaginal rn Bleeding, Abnormal Lab Results. 15:01 The patient presents with vaginal bleeding that is heavy, with clots. rn 15:01 Onset: The symptoms/episode began/occurred 3 week(s) ago. Modifying factors: The rn symptoms are alleviated by nothing, the symptoms are aggravated by nothing. Associated signs and symptoms: Pertinent positives: vaginal bleeding, Pertinent negatives: fever. Severity of symptoms: At their worst the symptoms were moderate, in the emergency department the symptoms are unchanged. The patient has experienced similar episodes in the past. The patient has been recently seen by a physician:. And here by Dr. Ramachandran for heavy vaginal bleeding, began 2 to 3 weeks ago and was light but progressed to clots in the last couple days. Reports bleeding through and clothing and feels very lightheaded but no syncope. Reports mild shortness of breath. Dr. Ramachandran sent hemoglobin x2 and came back at 5.[address] Ramachandran wants us to give Premarin as well as blood transfusion with admission if warranted.. Historical: - Allergies: 14:55 No Known Allergies; bp - Home Meds: 14:55 levothyroxine 137 mcg cap once daily [Active]; inhaler [Active]; omeprazole 40 mg Oral bp cpDR once daily [Active]; Valtrex Oral [Active]; Depo injection [Active]; Carafate Oral [Active]; - PMHx: 14:55 Gastric Reflux; Thyroid problem; bp - PSHx: 14:55 Cholecystectomy; tubal ligation; bp - Immunization history:: Adult Immunizations up to date. - Social history:: Smoking status: Patient denies any tobacco usage or history of. - Family history:: not pertinent. - Hospitalizations: : No recent hospitalization is reported. ROS: 15:01 Constitutional: Negative for fever, chills, and weight loss, Eyes: Negative for injury, rn pain, redness, and discharge, Neck: Negative for injury, pain, and swelling, Cardiovascular: + palpitations Respiratory: Negative for shortness of breath, cough, wheezing, and pleuritic chest pain, Abdomen/GI: Negative for abdominal pain, nausea, vomiting, diarrhea, and constipation, : + vaginal bleeding MS/Extremity: Negative for injury and deformity, Skin: Negative for injury, rash, and discoloration, Neuro: Negative for headache, numbness, tingling, and seizure. Exam: 15:01 Constitutional: This is a well developed, well nourished patient who is awake, alert, rn and in no acute distress. Head/Face: Normocephalic, atraumatic. Eyes: Pale conjunctivae Cardiovascular: Tachycardic, regular Respiratory: No increased work of breathing, no retractions or nasal flaring. Abdomen/GI: soft, non-tender Skin: Warm, dry MS/ Extremity: Pulses equal, no cyanosis. Neurovascular intact. Full, normal range of motion. Equal circumference. Neuro: Awake and alert, GCS 15 Vital Signs: 14:45 BP 140 / 75; Pulse 124; Resp 17; Temp 98.9; Pulse Ox 100% ; Weight 73.94 kg; Height 5 bp ft. 3 in. (160.02 cm); 15:00 BP 135 / 82; Pulse 119; Resp 17; Pulse Ox 100% ; bp 16:00 BP 112 / 56; Pulse 91; Resp 23; Pulse Ox 100% ; bp 17:00 BP 106 / 70; Pulse 96; Resp 21; Pulse Ox 100% ; bp 18:00 BP 113 / 66; Pulse 94; Resp 18; Pulse Ox 100% ; bp 14:45 Body Mass Index 28.87 (73.94 kg, 160.02 cm) bp MDM: 14:42 Patient medically screened. rn 15:43 Differential diagnosis: dysmenorrhea, malignancy, menometrorrhagia, menorrhea, Neoplasm rn uterine fibroids. Data reviewed: vital signs, nurses notes, lab test result(s), and as a result, I will admit patient. Counseling: I had a detailed discussion with the patient and/or guardian regarding: the historical points, exam findings, and any diagnostic results supporting the discharge/admit diagnosis, lab results, the need for further work-up and treatment in the hospital. Admission orders: after a detailed discussion of the patient's condition and case, the admit orders are written by me. 02/20 14:44 Order name: Basic Metabolic Panel rn 02/20 14:44 Order name: CBC with Diff rn 02/20 14:44 Order name: Type And Screen rn 02/20 14:44 Order name: PT-INR rn 02/20 14:44 Order name: Ptt, Activated rn 02/20 15:45 Order name: Bb Add On bd 02/20 14:44 Order name: IV Saline Lock; Complete Time: 16:55 rn 02/20 14:44 Order name: Labs collected and sent; Complete Time: 16:55 rn 02/20 14:44 Order name: NPO; Complete Time: 14:53 rn 02/20 15:40 Order name: Labs - recollect needed: recollect type and screen, reband pt.; Complete bd Time: 16:05 02/20 15:46 Order name: SARS-COV-2 RT PCR (Document "Date of Onset" if Symptomatic) rn 02/20 15:58 Order name: Packed RBC Leukored [facility] 02/20 16:50 Order name: ABO/RH no charge [facility] 02/20 15:42 Order name: Labs - recollect needed: blue top; Complete Time: 16:05 aa5 Administered Medications: 15:30 Drug: Premarin 25 mg Route: IV; Rate: calculated rate; Site: left antecubital; bp 17:44 Follow up: IV Status: Completed infusion; IV Intake: 100ml bp Disposition Summary: 02/20/22 15:44 Hospitalization Ordered Hospitalization Status: Inpatient Admission rn Provider: Edmund Ramachandran rn [facility] rn Condition: Stable rn Problem: new rn Symptoms: have improved rn Bed/Room Type: Standard rn Room Assignment: 270-(02/20/22 16:25) bd Diagnosis - Abnormal uterine and vaginal bleeding, unspecified rn - Anemia, unspecified rn Forms: - Medication Reconciliation Form rn - SBAR form rn Signatures: Dispatcher [employer] EDJayshree Barboza Roman, MD MD rn Calderon, Audri RN RN aa5 Harjeet Le RN RN bp Corrections: (The following items were deleted from the chart) 16:25 15:44 rn bd
[2022-02-20 15:57] LABS: Potassium 3.6 mmol/L (3.5-5.1)
[2022-02-20 16:23] LABS: Protime INR 0.99
[2022-02-20] MEDS ORDERED: NA CHLORIDE 0.9% 250 ML ONE (16:48)
[2022-02-20] MEDS ORDERED: WATER FOR INJ,STERILE 10 ML ONE (16:48)
[2022-02-20] MEDS ORDERED: ESTROGENS,CONJ 25 MG IV ONE (16:49)
[2022-02-20 18:18] VITALS: O2SAT 100
[2022-02-20 18:33] VITALS: BMI 28.8
[2022-02-20] MEDS ORDERED: NA CHLORIDE 0.9% 500 ML ONE ×2 (19:26→22:27)
[2022-02-20] MEDS ORDERED: ACETAMINOPHEN 500 MG TAB PO PRN (19:38)
[2022-02-20] MEDS: ONDANSETRON 4 MG/2 ML VIAL IV PRN (19:40)
[2022-02-21] MEDS: ONDANSETRON 4 MG/2 ML VIAL IV PRN ×2 (01:42→09:30)
[2022-02-21 04:52] LABS: Absolute Lymphocytes (CBC) 2.3 K/uL (0.7-4.9); Lymphocytes % 24.7 % (15.3-44.8); MPV 8.7 fL (7.6-11.3); RBC Red Blood Cell Count 2.35 M/uL (3.86-4.86)
[2022-02-21 05:11] LABS: BUN Blood Urea Nitrogen 16 mg/dL (7-18); Bicarbonate 26 mmol/L (21-32); Glucose Level 98 mg/dL (74-106); Potassium 3.9 mmol/L (3.5-5.1); Sodium Level 140 mmol/L (136-145)
[2022-02-21] MEDS ORDERED: ESTROGENS,CONJ 25 MG IV IV ONE (06:38)
[2022-02-21] MEDS ORDERED: NA CHLORIDE 0.9% 0 ML ONE (07:41)
[2022-02-21] MEDS ORDERED: NA CHLORIDE 0.9% 500 ML ONE (07:43)
--- NOTE | 2022-02-21 08:32 | RAD REPORT ---
EXAM DESCRIPTION: US - Transvaginal Study Probe - 02/21/2022 8:20 am CLINICAL HISTORY: Vaginal bleeding COMPARISON: none FINDINGS: The uterus measures 14 x 5 x 5cm. A fibroid is not seen. Moderate to large amount of fluid is present within endometrial and cervical canal. Echogenic material likely blood is also present. 3.8 centimeter right ovarian cyst. Blood flow to the right ovary present. Left ovary normal in size and echotexture. Right and left adnexum unremarkable No significant free fluid is seen. IMPRESSION: Moderate to large amount of fluid/blood within the endometrium/ cervical canal 3.8 centimeter right ovarian cyst
[2022-02-21] MEDS ORDERED: TRANEXAMIC ACID 1,000 MG in NA CHLORIDE 0.9% 50 ML IV ONE (09:00)
--- NOTE | 2022-02-21 11:29 | PREOPHP ---
Date of Admission: 02/20/2022 History: A 46-year-old female with severe vaginal bleeding. The patient was seen in the office yest dieter. Hemoglobin there was 5.51 on one assessment and 6.6 on another. Her pulse was 111. She says she felt her pulse in her head. She was not bleeding heavily at that time. Endometrial biopsy was performed. She was sent to the emergency room. Hemoglobin there was 5.5. She was admitted and brito sfused 2 units of blood. She was also given Premarin 25 mg IV. Overnight, bleeding has gotten jenna r, but she has passed about 120 cc since admission. Her pulses came down into the 70 range. Her con junctivae were better perfused. She says she feels much better. She is not feeling the pulse in her head anymore, but this morning her hemoglobin was only 6.6 after 2 units of blood. I have ordered a nother 25 mg Premarin IV and another unit of packed cells. We will put the patient n.p.o. in case sh cayetano has to undergo D and C. She has scheduled surgery on the or so of the month. She had g allbladder surgery. 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 She had reconstructive surgery after that, wh ich did not work and she is going to go back for another attempted correction of the common bile duct , but of course this supersedes that at the moment. The plan is that if we get the bleeding under co ntrol we will wait for the endometrial biopsy report to come back and then proceed from there. We di scussed D and C and ablation as a possible option if bleeding continues of course depending upon path ology report if something abnormal is found we will send her to the appropriate place. Allergies: SHE HAS NO ALLERGIES. Family History: Her mother had breast cancer. Her grandmother had either gallbladder or liver cance r. Her maternal uncle had prostate cancer. There is a history of thalassemia on the other side of t he family, but the patient has never been diagnosed with thalassemia. She has never been diagnosed w ith any heart problems either and has undergone several surgeries, tubal ligation, gallbladder and th en repair of the common duct. No other surgeries. Physical Examination: HEENT: Clear. Pupils equal, round, reactive to light and accommodation. Conjunctivae were better p erfused for sure than yesterday. The patient does have dentures which can be removed. She knows she has to remove those for any surgery she might have. Lungs: Clear. Heart: Has a grade 2/6 systolic ejection murmur. This could be because of the anemia but she says s he has never been diagnosed with any kind of heart problems or had any cardiac symptoms. Breasts: Not examined. Abdomen: Soft. Extremities: Clear. Pelvic: Exam yesterday in the office, the uterus is normal to possibly slightly upper normal size. We will get a vaginal probe ultrasound sometime today to check for fibroids. Extremities: Clear without edema, cyanosis, or clubbing. Right now, the patient is stable. As I said the H and H were lower than expected after 2 units of bl ood, but right now quite stable. MEGAN/FENG Voice ID: [id number]
[2022-02-21 12:44] VITALS: BP 113/56; TEMP 98.2
[2022-02-21 13:25] LABS: Hematocrit 24.4 % (36.0-45.0)
--- NOTE | 2022-02-22 15:39 | DS ---
Date of Discharge: 02/21/2022 A 46-year-old female with severe dysfunctional bleeding. The patient was seen in my office, hemoglob in of 5.5. Sent to the emergency room, hemoglobin of 5.4. Pulse 110 to 115 range. She was admitted . She has had 3 units of packed cells. Her hematocrit is now up to approximately 25. She feels bet ter. Her pulses are in the 70 range. Bleeding is minimal. She has had 25 mg of Premarin IV and tra nexamic acid 1 g IV. This has resulted in minimal bleeding at this point. The patient states that s he feels well enough to go home, has ambulated up and down the wisdom several times. Her conjunctivae are well perfused. She is stable. She has given Lo Loestrin control to be taken to a day for the next 3 weeks. We have done an endometrial biopsy in the office. She is coming back next week to the office and we will discuss what we found and what to do next. A progesterone IUD, I think would be a very good idea. 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 I think the IUD would be a reasonable thing to do. She has surgery scheduled for the of this month to repair common b ile duct, which was injured after the gallbladder surgery. She has had 1 attempt to repair and now h as a second attempt. Whether or not they will want to do the surgery given the patient's low blood c ount is questionable. She still has 8 days before the surgery. She will contact them today or chandler villagran and see what they want to do. If they feel the surgery is urgent, they will proceed on with surg tiffany and may be given another unit of blood. If she gets the surgery done, which she has scheduled at [facility], I suggested they put in progesterone containing IUD at same time. Otherwise, we can fol low up in my office with that. Our other measures including ablation or even hysterectomy have been discussed. Final Diagnoses: At this point, the diagnosis is severe dysfunctional bleeding. Endometrial biopsy pathology pending. The patient is stable, dismissed to follow up in my office. MEGAN/FENG Voice ID: [id number] Report ID: [id number]
== END 2022-02-21 15:57 | disposition home or self-care (01) | DRG 761 ==
LOC: ER 14:39 → ERHOLD 16:11 → 2ND-WC 17:59
PROVIDERS: ADMIT Specialist; ATTEND Specialist
PROC: 30233N1 Transfusion of Nonautologous Red Blood Cells into Peripheral Vein, Percutaneous Approach (ICD-10-PCS; principal; 2022-02-20)
DX: N93.8 Other specified abnormal uterine and vaginal bleeding (principal); Z80.3 Family history of malignant neoplasm of breast; Z80.42 Family history of malignant neoplasm of prostate; Z20.822 Contact with and (suspected) exposure to COVID-19; R01.1 Cardiac murmur, unspecified
CPT/HCPCS: 36415; 76830; 80048; 85014; 85018; 85025; 85610; 85730; 86850; 86900; 86901; 96365; 96366; 99285; J1410; J2405; J7040; J7050; P9016; U0003

== ENCOUNTER 2022-02-23 11:18 | Emergency (ER) | payer BC ==
--- OUTSIDE RECORDS SUMMARY | 2022-02-23 11:23 | XMS REPORT | Continuity of Care Document ---
:1975 Author Organization [facility] t Address [address] [place] [address] Care Team Providers Name Role Phone CORI [...] Policy Number Effective Date Expiration Date S manueljazzy BCBS OS [id number] 2017 POS/PPO/EPO 00:00:00 OUT OF STATE [id number] BCBS - PPO - BCBS GENERIC PPO - [id number] 2020 GENERIC PAYOR 00:00:00 CDC REVIEW [id number] 2020 00:00:00 Problems Condition Condition Condition Status Onset Resolution Last Treating Co mments Source Name Details Category Date Date Treatment Clinician Date Left knee Left knee Problem Active NPI :152 pain pain HL7.CCDAR2 [id number] 5 Internal Internal Problem Active NPI:1 52 derangemen derangemen HL7.CCDAR2 [id number] t of left t of left knee knee Osteoarthr Osteoarthr Problem Active N PI:152 itis of itis of HL7.CCDAR2 8509 205 left knee left knee Synovitis Synovitis Problem Active NPI :152 of left of left HL7.CCDAR2 8509 205 knee knee Allergies, Adverse Reactions, Alerts Allergy Allergy Status Severity Reaction(s) Onset Inactive Treating Comm ents Source Name Type Date Date Clinician NO KNOWN Allergy Active [facility] ALLERGIE S Social History Social Habit Start Date Stop Date Quantity Comments Source History [facility] Alcohol Std Drinks of Med icine History [facility] Alcohol Binge of Medicine History [facility] Alcohol Comment of Medici ne Exposure to 2022-02-02 2022-02-12 Not sure [facility] e SARS-CoV-2 (event) 00:00:00 09:10:00 of Med icine Alcohol intake 2022-02-12 2022-02-12 Lifetime [facility] [place] [facility] 00:00:00 00:00:00 non-drinker of Medicine (finding) Tobacco use and 2022-01-23 2022-01-23 Smokeless tobacco [facility] exposure 00:00:00 00:00:00 non-user of Medicine History [facility] 2022-01-23 2022-01-23 1 [facility] ge Alcohol Frequency 00:00:00 00:00:00 of Medi cine Sex [birth year] [facility] [place] [facility] 00:00:00 00:00:00 of Medicine Smoking Status Start Date Stop Date Source Never smoked tobacco [facility] ege of Medicine Medications Ordered Filled Start Stop Current Ordering Indication Dosage Frequency Signature Comments Components Source Medication Medication Date Date Medication? Clinician (SIG) Name Name levothyroxi Yes 1 tablet Ba michelleshoaib carmela 02-12 in the [place] (SYNTHROID) 13:08: morning on of 137 MCG 24 an empty Medicin tablet stomach e medroxyPROG 2022-0 Yes Jose ESTERone 4-26 [place] (DEPO-PROVE 13:08: of RA) 150 24 Medicin MG/ML e injection sucralfate 2021-0 Yes 1g Take 1 g Jerauld nestor (CARAFATE) 4-26 by mouth. Axel ege 1 g tablet 13:08: of 24 Medicin e valacyclovi 0 Yes 500mg Take 500 B aylor r (VALTREX) 4-26 mg by [place] 500 MG 13:08: mouth. of tablet 24 Medicin e clindamycin 0 Yes TAKE 1 Bayl or (CLEOCIN) 4-20 CAPSULE BY Axel ege 300 MG 00:00: MOUTH of capsule 00 EVERY 6 Medicin HOURS FOR e 10 DAYS levothyroxi 2021-0 Yes 1 tablet Ba ylor ne 4-06 in the College (SYNTHROID) 10:55: morning on of 137 MCG 23 an empty Medicin tablet stomach e medroxyPROG 0 Yes [facility] [place] ESTERone 406 [place] (DEPO-PROVE 10:55: of ) 150 23 Medicin MG/ML e injection sucralfate 0 Yes 1g Take 1 g Jerauld nestor (CARAFATE) 4-06 by mouth. Axel ege 1 g tablet 10:55: of 23 Medicin e valacyclovi 0 Yes 500mg Take 500 B aylor r (VALTREX) 4-06 mg by [place] 500 MG 10:55: mouth. of tablet 23 Medicin e fluconazole 0 Yes Jose (DIFLUCAN) 4-05 [place] 150 MG 00:00: of tablet 00 Medicin e fluconazole 2021-0 Yes Jose (DIFLUCAN) 4-05 [place] 150 MG 00:00: of tablet 00 Medicin e cefdinir 2021-0 Yes TAKE 1 [facility] [place] (OMNICEF) 3-30 CAPSULE BY Axel ege 300 MG 00:00: MOUTH 2 of capsule 00 TIMES Medicin DAILY FOR e 7 DAYS. cefdinir 2021-0 Yes TAKE 1 Jose (OMNICEF) 3-30 CAPSULE BY Axel ege 300 MG 00:00: MOUTH 2 of capsule 00 TIMES Medicin DAILY FOR e 7 DAYS. omeprazole 2021-0 Yes 1 CAPSULE Ba ylor (PRILOSEC) 2-19 30 MINUTES Col lege 40 MG 00:00: BEFORE of capsule 00 MORNING Medicin MEAL ONCE e A DAY ORAL 90 DAYS omeprazole Yes 1 CAPSULE [facility] (PRILOSEC) 2-19 30 MINUTES Col lege 40 MG 00:00: BEFORE of capsule 00 MORNING Medicin MEAL ONCE e A DAY ORAL 90 DAYS albuterol 2020-10 Yes Every 4 [facility] (90 1-[facility] 00:00: of mcg/act 00 Medicin inhaler e albuterol 2020-10 Yes Every 4 [facility] 108 (90 1-23 hours. [facility]) 00:00: of mcg/act 00 Medicin inhaler e Cipro Cipro 2020- No Lindsey 1 tablet NPI: 174 5-18 - Logan [id number] 00:00: 00:00 00 :00 Ferrous Ferrous 2018-0 Yes Lindsey 1 tablet N PI:174 Sulfate Sulfate 05-11 [place] [id number] 00:00: 00 Fluticasone Fluticasone 2018-0 Yes Lindsey 1 spray in NPI:174 Propionate Propionate 1-02 Logan each 00:00: nostril 00 Naproxen Naproxen 2017-10 Yes MANSOOR Q12H TAKE 1 NPI :152 500 MG Oral 500 MG Oral 1-20 ANNELISE TABLET [id number] Tablet Tablet 00:00: N.P. EVERY 12 00 HOURS NEEDED. Levothyroxi Levothyroxi Yes Lindsey 1 tablet NPI:174 ne Sodium ne Sodium Logan in the morning on an empty stomach Omeprazole Omeprazole Yes Linsdey not N PI:174 Logan defined [id number] Vital Signs Vital Name Observation Time Observation Value Comments Source WEIGHT 2020-04-01 00:00:00 74.39 kg HEIGHT 2020-04-01 00:00:00 160 cm Systolic blood 2022-02-12 18:05:00 138 mm[Hg] [facility] Diastolic blood 2022-02-12 18:05:00 84 mm[Hg] [facility] Heart rate 2022-02-12 18:05:00 62 /min pulse ox 100% [facility] Body temperature 2022-02-12 18:05:00 36.72 Lilly [facility] Respiratory rate 2022-02-12 18:05:00 20 /min [facility] Body height 2022-02-12 18:05:00 161.3 cm [facility] [place] [facility] Body weight 2022-02-12 18:05:00 75.[address] [facility] ol[facility] BMI 2022-02-12 18:05:00 28.91 kg/m2 [facility] Systolic blood 2022-01-23 15:57:00 120 mm[Hg] [facility] pressure of Medicine Diastolic blood 2022-01-23 15:57:00 62 mm[Hg] [facility] pressure of Medicine Respiratory rate 2022-01-23 15:57:00 18 /min [facility] Body height 2022-01-23 15:57:00 160 cm [facility] [place] [facility] Body weight 2022-01-23 15:57:00 72.576 kg [facility] BMI 2022-01-23 15:57:00 28.34 kg/m2 [facility] HEIGHT 2022-01-12 23:53:00 160 cm WEIGHT [...] / Time Performed Performing Clinician Felicia e Knee wo contrast [id number] 2018-09-08 00:00:00 ON CALL [id number] Plan of Care Planned Activity Planned Date Details Comments Source Future Scheduled 2022-02-12 Screening for malignant [facility] Test 16:59:16 neoplasm of colon of Medicin e (procedure) [code = 283350310] Future Scheduled 2022-02-12 Screening for malignant [facility] Test 16:59:16 neoplasm of breast of Medici ne (procedure) [code = 438839448] Future Scheduled 2022-02-12 TETANUS SHOT (ADULT) Jerauld nestor College Test 16:59:16 [code = TETANUS SHOT of Medi cine (ADULT)] Future Scheduled 2022-02-12 BMI FOLLOW UP PLAN [facility] Test 16:59:16 [code = BMI FOLLOW UP of Med icine PLAN] Future Scheduled 2022-02-12 Human immunodeficiency [facility] Test 16:59:16 virus screening of Medicine (procedure) [code = 282525343] Future Scheduled 2022-02-12 Screening for malignant Jose College Test 16:59:16 neoplasm of cervix of Medici ne (procedure) [code = 893985950] Future Scheduled 2022-02-12 COVID-19 Vaccine (3 - [facility] Test 16:59:16 Booster for Moderna of Medic ine series) [code = COVID-19 Vaccine (3 - Booster for Moderna series)] Future Scheduled 2022-02-12 FLU VACCINE > 6 MONTHS B aylor [facility] Test 16:59:16 [code = FLU VACCINE > 6 of M edicine MONTHS] Future Scheduled 2022-02-12 CBC W/O DIFF W PLT Ordered: [facility] Test 14:04:14 [code = 6690-2] 02/12/2022 of Medicine Future Scheduled 2022-02-12 BASIC METABOLIC PANEL Ordered: [facility] Test 14:04:14 [code = 53918-0] 02/12/2022 of Medicine Future Scheduled 2022-02-12 HEPATIC FUNCTION PANEL Ordered: B aylor [facility] Test 14:04:14 [code = 78144-2] 02/12/2022 of Medicine Future Scheduled 2022-02-12 PREALBUMIN [code = Ordered: [facility] Test 14:04:14 12873-4] 02/12/2022 of Medicine Future Scheduled 2022-02-12 PROTIME & PTT [code = Ordered: [facility] Test 14:04:14 NOCPT] 02/12/2022 of Medicine Future Scheduled 2022-01-23 Screening for malignant [facility] Test 11:43:48 neoplasm of colon of Medicin e (procedure) [code = 645680605] Future Scheduled 2022-01-23 Screening for malignant [facility] Test 11:43:48 neoplasm of breast of Medici ne (procedure) [code = 855828821] Future Scheduled 2022-01-23 TETANUS SHOT (ADULT) Jerauld nestor [facility] Test 11:43:48 [code = TETANUS SHOT of Medi cine (ADULT)] Future Scheduled 2022-01-23 BMI FOLLOW UP PLAN [facility] Test 11:43:48 [code = BMI FOLLOW UP of Med icine PLAN] Future Scheduled 2022-01-23 Human immunodeficiency [facility] Test 11:43:48 virus screening of Medicine (procedure) [code = 914892874] Future Scheduled 2022-01-23 Screening for malignant [facility] Test 11:43:48 neoplasm of cervix of Medici ne (procedure) [code = 173013676] Future Scheduled 2022-01-23 COVID-19 Vaccine (3 - [...] [facility] Test 11:18:30 [code = 48254] starting of Medicine 01/23/2022 until 07/25/2022 Future Scheduled 2022-01-23 BALLOON 1 Occurrences [facility] [place] [facility] Test 11:17:44 ENTEROSCOPY,ANTEGRADE W starting of M edicine ILEUM [code = 07166] 01/23/2022 until 07/25/2022 Encounters Start End Encounter Admission Attending Care Care Encounter Source Date/Time Date/Time Type Type Clinicians Facility Department ID 2022-02-14 Inpatient EL SHARON PURVIS Surgery [id number] [facility] 10:48:54 SHANIQUA 2022-01-24 Outpatient JJ [facility] Surgery [id number] [facility] 11:57:57 SALMAAN 2021-11-14 Outpatient Sierra, STLMLC STLMLC NPI:174 14:35:10 Katrina [id number] 2021-11-14 Outpatient Sierra STLMLC STLMLC NPI:174 13:08:37 Katrina [id number] 2021-11-14 Outpatient Sierra STERINLC STLMLC NPI:174 11:02:00 Katrina [id number] 2020-04-01 Inpatient ER SHARON STEWART Internal [id number] [facility] 21:44:00 SHANIQUA Med 2022-02-12 2022-02-12 [facility] [id number] [facility] [place] 12:53:15 14:28:53 Visit SHANIQUA Sung 350.1.13.21 Co llege 0.2.7.2.686 of [id number] Medi karlie 510 e 2022-01-23 2022-01-23 Office JJ JAE [id number] [facility] [place] 10:50:08 15:02:06 Visit ANGLE AMBULATOR 350.1.13.21 College Y 0.2.7.2.686 of [id number] Medi karlie 325 e 2022-01-22 2022-01-22 ambulatory STLMLC STLMLC [id number] NPI:174 00:00:00 00:00:00 [id number] 2022-01-12 2022-01-16 Inpatient ER [facility] [id number] [facility] 23:38:00 13:29:00 PAXTON 2021-11-05 2021-11-05 ambulatory STLMLC STLMLC [id number] NPI:174 00:00:00 00:00:00 [id number] 2021-11-05 2021-11-05 ambulatory STLMLC STLMLC [id number] NPI:174 00:00:00 00:00:00 [id number] 2021-10-29 2021-10-29 ambulatory STLMLC STLMLC [id number] NPI:174 00:00:00 00:00:00 [id number] 2021-10-22 2021-10-22 ambulatory STLMLC STLMLC [id number] NPI:174 00:00:00 00:00:00 [id number] 2021-10-22 2021-10-22 ambulatory STLMLC STLMLC [id number] NPI:174 00:00:00 00:00:00 [id number] 2021-09-11 2021-09-11 ambulatory STLMLC STLMLC [id number] NPI:174 00:00:00 00:00:00 [id number] 2021-04-13 2021-04-13 Outpatient STLMLC STLMLC [id number] NPI:174 00:00:00 00:00:00 [id number] 2021-03-16 2021-03-16 Outpatient STLMLC STLMLC [id number] NPI:174 00:00:00 00:00:00 [id number] 2021-03-16 2021-03-16 Outpatient STLMLC STLMLC [id number] NPI:174 00:00:00 00:00:00 [id number] 2021-03-13 2021-03-13 Outpatient STLMLC STLMLC [id number] NPI:174 00:00:00 00:00:00 [id number] 2021-02-23 2021-02-23 Outpatient STLMLC STLMLC [id number] NPI:174 00:00:00 00:00:00 [id number] 2020-09-07 2020-09-07 Outpatient STLMLC STLMLC [id number] NPI:174 00:00:00 00:00:00 [id number] 2020-05-05 2020-05-05 Outpatient SHARON FRAZIER [facility] [id number] SLE 00:00:00 00:00:00 SAYDA 2020-04-19 2020-04-19 Outpatient SHARON FRAZIER SLE [id number] [facility] 00:00:00 00:00:00 SAYDA 2020-04-13 2020-04-13 Emergency ER [facility] Emergency [id number] [facility] 11:47:00 11:47:00 2020-04-12 2020-04-12 Outpatient [facility] SLE [id number] [facility] 00:00:00 00:00:00 2020-04-12 2020-04-12 Outpatient [facility] SLE [id number] [facility] 00:00:00 00:00:00 2020-03-08 2020-03-08 Outpatient [facility] [id number] NPI:174 09:46:00 09:46:[address] Medicine 2020-03-06 2020-03-06 Out[facility] [id number] NPI:174 16:00:00 16:00:[address] Medicine 2020-02-09 2020-02-09 Outpatient [facility] [id number] NPI:174 10:07:00 10:07:[address] Medicine 2020-01-13 2020-01-13 Outpatient [facility] [id number] NPI:174 09:58:00 09:58:[address] Medicine 2020-01-12 2020-01-12 Outpatient [facility] [id number] NPI:174 10:03:00 10:03:[address] Medicine 2019-12-15 2019-12-15 Outpatient [facility] [id number] NPI:174 13:39:00 13:39:[address] Medicine 2019-11-10 2019-11-10 Outpatient [facility] [id number] NPI:174 09:00:00 09:00:[address] Medicine 2019-09-15 2019-09-15 Outpatient [facility] [id number] NPI:174 10:14:00 10:14:[address] Medicine 2019-07-06 2019-07-06 Outpatient [facility] [id number] NPI:174 16:00:00 16:00:[address] 2019-05-11 2019-05-11 Outpatient [facility] [id number] NPI:174 15:00:00 15:00:[address] 2018-12-01 2018-12-01 Outpatient [facility] [id number] NPI:174 09:45:00 09:45:[address] 2018-10-21 2018-10-21 Outpatient Velia Gun[facility] 23 [id number] NPI:174 13:45:00 13:45:[address] 2018-09-29 2018-09-29 Appointmen MARC STACY UTP [id number] NPI:152 09:30:00 09:30:00 t; VICKIE STACY, Orthopedic 85 [id number] L[place] Surgery - MZainab [address] 1 2018-09-08 2018-09-08 Appointmen MARC CASTELAN UTP [id number] NPI:152 14:15:00 14:15:00 t; MALCOM MAX Orthopedic 85 [id number] ANNELISE, Surgery - MALCOM MAX [address] 1 Results Test Description Test Time Test Comments [...] recovery and/or detection times of some organisms.BLOOD [id number] 11:34:29 Test Item Value Reference Range Interpretation Comments CULTURE (BEAKER) A From Aerobi c Bottle (test code = Only Same organ ism has 1095) been isolated f rom cultures(s) of the same body site and collection date . Repeat identifi cation and susceptibil ity testing perform ed only after consultat ion with the [facility] microbiology laboratory.Refe r to previous cultur e ofEscherichia c frank GRAM STAIN From aerobic RESULT (BEAKER) bottle only: (test code = gram negative 1123) rods The specimen volume collected for this blood culture was below the optimum (10 mL per bottle or 20 mL total). Use of lower volumes may adversely affect recovery and/or detection times of some organisms.[id number] 06:18:35 Test Item Value Reference Range Interpretation Comments MAGNESIUM (BEAKER) (test code = 1.6 mg/dL 1.6-2.6 627) [facility] Brakeman ID - PIAYA LCOMPREHENSIVE METABOLIC [id number] 06:18:34 Test Item Value Reference Range Interpretation [...] S NOT APPLICABLE FOR DIALYSIS PATIEN TS. Railroad Brakeman ID - PIAYA LCBC W/PLT COUNT & AUTO [id number] 05:47:42 Test Item Value Reference Range Interpretation [...] (test code = 2801) ANG, DRAINAGE, BILIARY, [id number] 11:46:00Reason for exam:- >Ext/internal biliary drain [facility] : 1975 Sex: FFINAL REPORT PROCEDURE: Transhepatic cholangiogram and biliary drain placement Procedural PersonnelAttending physician(s): Kyara Green physician(s): Tammie Gaines physician(s): NoneAdvanced practice provider(s): None Pre-procedure diagnosis: Biliary obstructionPost-procedure diagnosis: SameIndication: Biliary obstructionAdditional clinical history: None Complications: No immediate complications. IMPRESSION: Transhepatic cholangiogram demonstrates mildly dilated intrahepatic bile ducts. Successful placement of 10 Scottish internal/external biliary drainage catheter with distal loop [...] ducts.Biliary drain: Cook 10Fr internal-externalBiliary drain diameter (Scottish): 10Final cholangiogram findings: Distal loop in duodenum.External [...] MDReport Verified Date/Time: 01/15/2022 11:46:08 Reading Location: [address] Body Reading Room SARS-COV2/RT-PCR ([facility])2022-01-15 07:25:15 Test Item Value Reference Range Interpretation Comments SARS-COV2/RT-PCR (test Negative Not Detected, Negative, code = 0162334) See external report for linked test SARS-COV-[address] [facility] ISIDRO (test code = 9294909) Negative result for this test determines that [...] 564(g) of the Act.Fact Sheet for Healthcare Providers:https://www.Musicmetric.Active Implants/sites/default/files/product/documents/Fact_Shee u_SJ_Fdglnxgdy_Mqpd_GUTP-IrR-8.pdfFact Sheet for Healthcare Patients:https://www.Musicmetric.com/sites/default/files/product/ documents/Phxo_Yvquz_Wmskdllt_Oxtt_IPZV-AzF-7.pdfPerforming Laboratory:[facility], [place] [id number] 05:53:04 Test Item Value Reference Range Interpretation Comments PHOSPHORUS (BEAKER) (test code = 2.7 mg/dL 2.3-4.7 604) [employer] [facility] ID - RANDY LCOMPREHENSIVE METABOLIC [id number] 05:53:03 Test Item Value Reference Range Interpretation [...] S NOT APPLICABLE FOR DIALYSIS PATIEN TS. [employer] Brakeman ID - RANDY [id number] 05:53:03 Test Item Value Reference Range Interpretation Comments MAGNESIUM (BEAKER) (test code = 1.5 mg/dL 1.6-2.6 L 627) [facility] ID - RANDY LCBC W/PLT COUNT & AUTO [id number] 05:03:47 Test Item Value Reference Range Interpretation [...] PERCENT (BEAKER) (test code = 2801) SCREEN, [id number] 16:24:23 Test Item Value Reference Range Interpretation Comments TEST URINE (BEAKER) (test Negative code = 583) BLOOD CULTURE IDENTIFICATION [id number] 13:53:24 Test Item Value Reference Interpretation Comments Range LISTERIA MONOCYTOGENES Not detected Not detected (test code = 7518976) STAPHYLOCOCCUS (test Not detected Not detected code = 8798076) STAPHYLOCOCCUS AUREUS Not detected Not detected (test code = 4907284) STREPTOCOCCUS (test code Not detected Not detected = 0331697) STREPTOCOCCUS AGALACTIAE Not detected Not detected (GROUP B) (test code = 7020661) STREPTOCOCCUS PNEUMONIAE Not detected Not detected (test code = 1019749) STREPTOCOCCUS PYOGENES Not detected Not detected (GROUP A) (test code = 1237678) ACINETOBACTER BAUMANNII Not detected Not detected (test code = 7095905) HAEMOPHILUS INFLUENZAE Not detected Not detected (test code = 2282449) NEISSERIA MENINGITIDIS Not detected Not detected (test code = 9990073) ENTEROBACTERIACEAE (test Detected Not detected A code = 5958074) ENTEROBACTER CLOACOE Not detected Not detected COMPLEX (test code = 4988563) KLEBSIELLA OXYTOCA (test Not detected Not detected code = 1275242) KLEBSIELLA PNEUMONIAE Not detected Not detected (test code = 1650) PROTEUS (test code = Not detected Not detected 0944511) SERRATIA MARCESCENS Not detected Not detected (test code = 8734748) OTTONIEL ALBICANS (test Not detected Not detected code = 4651103) OTTONIEL GLABRATA (test Not detected Not detected code = 8175408) OTTONIEL KRUSEI (test Not detected Not detected code = 1073758) OTTONIEL PARAPSILOSIS Not detected Not detected (test code = 8327364) OTTONIEL TROPICALIS (test Not detected Not detected code = 6403424) ESCHERICHIA COLI (test Detected Not detected A Esche richia coliKPC code = 4755810) not detected (a carbapenamase gene)First-line therapy: MeropenemDe-esc alat e based on susceptibilitie s.Th is test does no t evaluate for ESBLReference Range: Not Dete cted METHICILLIN-RESISTANCE GENE (test code = 4865733) VANCOMYCIN-RESISTANCE GENE (test code = 4497622) CARBAPENEM-RESISTANCE Not detected Not detected Note: Antimicrobial [...] Not detected Not detected (test code = 6754108) PSEUDOMONAS Not detected Not detected AERUGINOSA-BEAKER (test code = 2787289) Other bacteria and resistance markers not targeted by this PCR panel cannot be excluded; therefore clinical correlation and follow up of serology, culture results, and other molecular studies is required. The results are not intended to be used as the sole means for clinical diagnosis or patient management decisions. This sample was tested at the [facility] Molecular Diagnostics Laboratory using the [employer] Film[employer] Blood Culture ID Panel. It is FDA cleared and has been verified and approved by the [facility] Molecular Diagnostics Laboratory for clinical use. This laboratory is CLIA-certified and College ofAmerican Pathologists (CAP)-accredited to perform high complexity testing.MR, ABDOMEN, [id number] 09:34:00Unlisted Reason for Exam - Click Yes and Enter Reason Below->NoM[facility]IS[facility] : 1975 Sex: FFINAL [...] discrete liver lesion is identified. There is muot-jb-dgbsfqgq intrahepatic biliary ductal dilatation, marginally worse in [...] normal. Impression: Status post hepaticojejunostomy. There is oqym-td-shjhcdcd intrahepatic biliary ductal dilatation, marginally worse in the anterior right hepatic lobe compared to April 02, 2020. There is new edema and trace fluid in the nubia hepatis region. Splenomegaly. Trace ascites. Trace bilateral pleural effusions. Signed: Abilio Warnereport Verified Date/Time: 09:34:27 Reading Location: [facility] C013X [facility] Consult Reading Room PHOSPHORUS 2022-01-14 05:54:37 Test Item Value Reference Range Interpretation Comments PHOSPHORUS (BEAKER) (test code = 2.3 mg/dL 2.3-4.7 604) [employer] ID - BOUBACAR OMPREHENSIVE METABOLIC [id number] 05:54:37 Test Item Value Reference Range Interpretation [...] S NOT APPLICABLE FOR DIALYSIS PATIEN TS. [employer] Brakeman ID - OBUBACAR MSpecimen slightly [id number] 05:54:36 Test Item Value Reference Range Interpretation Comments MAGNESIUM (BEAKER) (test code = 1.9 mg/dL 1.6-2.6 627) [employer] [facility] ID - BOUBACAR MCBC W/PLT COUNT & AUTO [id number] 05:16:24 Test Item Value Reference Range Interpretation [...] (BEAKER) (test code = 2801) U/S, ABDOMINAL, [id number] 04:45:00Abdomen limited area? Add comment if clarification is needed.->Right upper quadrantReason for exam:->elevated bili, LFTs, abdominal pain [facility] : 1975 Sex: FFINAL [...] Julian Simental MDReport Verified Date/Time: 01/13/2022 04:45:48 [id number] 01:25:42 Test Item Value Reference Range Interpretation Comments PHOSPHORUS (BEAKER) (test code = 4.3 mg/dL 2.3-4.7 604) [employer] [facility] ID - DBHEPATIC FUNCTION [id number] 01:25:42 Test Item Value Reference Range Interpretation [...] code = 246 U/L 6-55 H 347) [facility] ID - DBBASIC METABOLIC [id number] 01:25:41 Test Item Value Reference Range Interpretation [...] S NOT APPLICABLE FOR DIALYSIS PATIEN TS. [facility] Brakeman ID - [id number] 01:25:41 Test Item Value Reference Range Interpretation Comments MAGNESIUM (BEAKER) (test code = 1.6 mg/dL 1.6-2.6 627) [employer] ID - [id number] 01:19:35 Test Item Value Reference Range Interpretation [...] (BEAKER) (test code = 2801) ANG, CHOLANGIOGRAM, [id number] 13:36:00Reason for Exam:->Possible removal of PTCFINAL REPORT PROCEDURE: Cholangiogram through an existing internal/external catheter, followed by catheter removal CLINICAL HISTORY: Possible removal of PTC PASTEURIZER HELPER: David Rodriguez DO, JD ANESTHESIA: Conscious sedation was provided by radiology nursing using constant hemodynamic monitoring for 45 Minutes. Versed IV 0.5 mg, Fentanyl IV 25 mcg. DEVICE: 14 Scottish internal/external biliary catheter Estimated Blood Loss: < [...] MDReport Verified Date/Time: 05/05/2020 13:36:15 Reading Location: [address] Body Reading Room PREGNANCY SCREEN, [id number] 07:38:00 Test Item Value Reference Range Interpretation Comments TEST URINE (BEAKER) (test Negative code = 583) [id number] 07:37:00 Test Item Value Reference Range Interpretation Comments PARTIAL THROMBOPLASTIN TIME 28.9 seconds 22.5-36.0 (BEAKER) (test code = 760) PROTHROMBIN [id number] 07:36:00 Test Item Value Reference Range Interpretation [...] mechanical heart valves.CBC W/PLT COUNT & AUTO [id number] 07:25:00 Test Item Value Reference Range Interpretation [...] (BEAKER) (test code = 2801) ANG, CHOLANGIOGRAM, [id number] 14:34:00Dr. Gonzalez discussed case with Dr. Ignacio on 04/12/2020.Patient needs PTC revision in the next 1 week.Reason for Exam:->cholangitis, PTC drain in placeFINAL REPORT PROCEDURE: Cholangiogram through an existing internal/external catheter, common bile duct dilatation and catheter up size CLINICAL HISTORY: cholangitis, PTC drain inplace PASTEURIZER HELPER: David Rodriguez DO, JD ANESTHESIA: Conscious sedation was provided by radiology nursing using constant hemodynamic monitoring for 45 Minutes. Versed IV 1.5 mg, Fentanyl IV 75 mcg. DEVICE: 14 [place] internal/external biliary catheter, 4 mm balloon Estimated [...] MDReport Verified Date/Time: 04/19/2020 14:34:30 Reading Location: [place] [address] Angio Body Reading Room PREGNANCY SCREEN, [id number] 11:23:00 Test Item Value Reference Range Interpretation Comments TEST URINE (BEAKER) (test Negative code = 583) [id number] 11:10:00 Test Item Value Reference Range Interpretation Comments PARTIAL THROMBOPLASTIN TIME 30.9 seconds 22.5-36.0 (BEAKER) (test code = 760) PROTHROMBIN [id number] 11:09:00 Test Item Value Reference Range Interpretation [...] mechanical heart valves.CBC W/PLT COUNT & AUTO [id number] 11:02:00 Test Item Value Reference Range Interpretation [...] (BEAKER) (test code = 2801) LACTIC ACID, [id number] 16:01:00 Test Item Value Reference Range Interpretation Comments LACTATE BLOOD VENOUS 1.36 mmol/L 0.50-2.20 Specime n slightly (2) (BEAKER) (test hemolyzed code = 2872) [employer] ID - DBCOMPREHENSIVE METABOLIC [id number] 16:00:00 Test Item Value Reference Range Interpretation [...] S NOT APPLICABLE FOR DIALYSIS PATIEN TS. [employer] ID - DBURINALYSIS W/ REFLEX URINE [id number] 15:51:00 Test Item Value Reference Range Interpretation Comments COLOR (BEAKER) (test code = 470) [place] CLARITY (BEAKER) (test code = 469) Hazy [...] = 518) SOURCE(BEAKER) (test code = 2795) [employer] ID - [auto][employer] ID - techCBC W/PLT COUNT & AUTO [...] (BEAKER) (test code = 2801) HEPATIC FUNCTION [id number] 17:05:00 Test Item Value Reference Range Interpretation [...] code = 1139 U/L 6-55 H 347) [employer] ID - BSBASIC METABOLIC [id number] 17:05:00 Test Item Value Reference Range Interpretation [...] S NOT APPLICABLE FOR DIALYSIS PATIEN TS. [employer] ID - BSCBC W/PLT COUNT & AUTO [id number] 16:44:00 Test Item Value Reference Range Interpretation [...] (BEAKER) (test code = 2801) ANG, CHOLANGIOGRAM, [id number] 15:31:00Reason for exam:->Needs PTC, biliary brushings and needs Liver biopsy per hepatology team. Pleasecall [phone]. Pt has altered anatomy due to complicaton from cholecystectomy in 2010FINAL REPORT Procedure: Percutaneous transhepatic cholangiography and internal/external biliary drainage catheter placement. Ultrasound-guided liver biopsy. 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 Failed ERCP. [place] biopsy of the biliary stricture is also requested. The patient hashepatic fibrosis. A percutaneous liver biopsy has been requested. Parts Identification Technician: Arias Lucas M.D. Gauge Maker: Jose Danielle Modality: Sonography and fluoroscopy. DOSE [...] sequential dilatation of the tract an 8 Scottish internal/external biliary drainage catheter was placed over [...] set at the time of this procedure. [place] biopsy could not be performed. Using real-time [...] Final image shows presence of an 8 Scottish internal/external biliary drainage catheter with the most [...] anastomosis. This was successfully crossed. An 8 [place] internal/external biliary drainage catheter has been placed [...] Lucas Verified Date/Time: 04/11/2020 15:31:21 Reading Location: [address] Body Reading Room TISSUE [id number] 11:07:00Surgical Pathology Report Case: [id number] Authorizing Provider: Serge Frazier MD Collected: 04/06/2020 05:37 PM Ordering Location: [address] Received: 04/06/2020 10:12 PM Service Pathologist: Heidy Markham MD Specimen: Biopsy, Liver, Bx LIVER, RANDOM NEEDLE CORE: - PORTAL TRIADS WITH MIXED PORTAL INFLAMMATION WITH MILD DUCTULAR REACTION, EDEMA AND BILIARY TYPE INTERFACE HEPATITIS - BILE DUCT APPEARS TO BE PRESERVED - SOME PERIDUCTAL FIBROSIS NOTED - HEPATIC LOBULES WITH MILD INFLAMMATION AND KUPFFER CELL HYPERPLASIASJ/pl Signing Pathologist Direct Phone Line: [phone] signed by Heidy Markham MD on 04/10/2020 [...] was informed on 04/07/2020 by telephonic call [phone]; [phone] [id number] in normal formalin, two sanchez-brown liver cores [...] evaluated Immunohistochemistry technical testing was performed at [facility], Pathology Laboratory where it was developed [...] (test code = 3.5 mg/dL 2.3-4.7 604) [employer] ID - BOUBACAR [id number] 06:08:00 Test Item Value Reference Range Interpretation Comments MAGNESIUM (BEAKER) (test code = 1.7 mg/dL 1.6-2.6 627) [employer] ID - BOUBACAR MBASIC METABOLIC [id number] 06:08:00 Test Item Value Reference Range Interpretation [...] S NOT APPLICABLE FOR DIALYSIS PATIEN TS. [employer] ID - BOUBACAR EPATIC FUNCTION [id number] 06:08:00 Test Item Value Reference Range Interpretation [...] code = 1031 U/L 6-55 H 347) [employer] ID - BOUBACAR MCBC W/PLT COUNT & AUTO [id number] 05:29:00 Test Item Value Reference Range Interpretation [...] code = 2801) ANTI-MITOCHONDRIAL AB, REFLEX TO [id number] 12:32:00 Test Item Value Reference Range Interpretation Comments SCAN RESULT (test code = 5501964) ANTI-NUCLEAR ANTIBODY (TENISHA)2020-04-07 10:26:00 Test Item Value Reference Range Interpretation Comments ANTI-NUCLEAR ANTIBODY (TENISHA) (BEAKER) Negative Negative (test code = 418) Test performed by IFA method.Test performed by IFA method.BLOOD CULTURE 2020-04-07 09:00:00 Test Item Value Reference Range Interpretation Comments CULTURE (BEAKER) (test No growth in 5 days code = 1095) BLOOD [id number] 09:00:00 Test Item Value Reference Range Interpretation Comments CULTURE (BEAKER) (test No growth in 5 days code = 1095) [id number] 05:05:00 Test Item Value Reference Range Interpretation Comments PHOSPHORUS (BEAKER) (test code = 3.4 mg/dL 2.3-4.7 604) [employer] ID - BOUBACAR [id number] 05:05:00 Test Item Value Reference Range Interpretation Comments MAGNESIUM (BEAKER) (test code = 2.1 mg/dL 1.6-2.6 627) [employer] ID - BOUBACAR MBASIC METABOLIC [id number] 05:05:00 Test Item Value Reference Range Interpretation [...] S NOT APPLICABLE FOR DIALYSIS PATIEN TS. [employer] ID - BOUBACAR MHEPATIC FUNCTION [id number] 05:05:00 Test Item Value Reference Range Interpretation [...] code = 974 U/L 6-55 H 347) [employer] ID - BOUBACAR MCBC W/PLT COUNT & AUTO [id number] 04:30:00 Test Item Value Reference Range Interpretation [...] 0-1 PERCENT (BEAKER) (test code = 2801) [id number] 14:07:00 Test Item Value Reference Range Interpretation Comments POTASSIUM (BEAKER) (test code = 3.8 meq/L 3.5-5.1 379) [employer] ID - RANDY NOE-NUCLEAR ANTIBODY (TENISHA)2020-04-06 10:20:00 [...] INR is2.5-3.5 for patients wiht mechanical heart valves.[id number] 07:09:00 Test Item Value Reference Range Interpretation Comments PHOSPHORUS (BEAKER) (test code = 3.8 mg/dL 2.3-4.7 604) [employer] ID - TIFF [id number] 07:09:00 Test Item Value Reference Range Interpretation Comments MAGNESIUM (BEAKER) (test code = 1.6 mg/dL 1.6-2.6 627) [employer] ID - TIFF CBASIC METABOLIC [id number] 07:09:00 Test Item Value Reference Range Interpretation [...] S NOT APPLICABLE FOR DIALYSIS PATIEN TS. [employer] ID - TIFF CHEPATIC FUNCTION [id number] 07:09:00 Test Item Value Reference Range Interpretation [...] code = 888 U/L 6-55 H 347) [employer] ID - TIFF CCBC W/PLT COUNT & AUTO [id number] 06:20:00 Test Item Value Reference Range Interpretation [...] 0-1 PERCENT (BEAKER) (test code = 2801) [id number] 18:25:00 Test Item Value Reference Range Interpretation Comments LIPASE (BEAKER) (test code = 749) 30 U/L 8-78 [employer] ID - [id number] 04:52:00 Test Item Value Reference Range Interpretation Comments PHOSPHORUS (BEAKER) (test code = 3.2 mg/dL 2.3-4.7 604) [employer] ID - RANDY [id number] 04:52:00 Test Item Value Reference Range Interpretation Comments MAGNESIUM (BEAKER) (test code = 1.5 mg/dL 1.6-2.6 L 627) [employer] ID - RANDY LBASIC METABOLIC [id number] 04:52:00 Test Item Value Reference Range Interpretation [...] S NOT APPLICABLE FOR DIALYSIS PATIEN TS. [employer] ID - RANDY LHEPATIC FUNCTION [id number] 04:52:00 Test Item Value Reference Range Interpretation [...] code = 819 U/L 6-55 H 347) [employer] ID - PIAYA LCBC W/PLT COUNT & AUTO [id number] 04:08:00 Test Item Value Reference Range Interpretation [...] Test performed by IFA method.TENISHA TITER AND [id number] 10:46:00 Test Item Value Reference Range Interpretation Comments TENISHA TITER (BEAKER) (test code = :160 1541) TENISHA PATTERN (BEAKER) (test code = Nucleolar 1781) POCT-GLUCOSE [id number] 07:05:00 Test Item Value Reference Range Interpretation Comments POC-GLUCOSE METER 126 mg/dL 70-110 H : TESTED A T [facility] 6720 (BEAKER) (test code = [place]ERNIE CRUZ [address], 1538) [address]: [employer] Brakeman/Techni diann ID = [id number] for Al i, Pita [id number] 06:58:00 Test Item Value Reference Range Interpretation Comments MAGNESIUM (BEAKER) 1.8 mg/dL 1.6-2.6 Specimen slightly (test code = 627) hemolyzed [employer] ID - BOUBACAR [id number] 06:58:00 Test Item Value Reference Range Interpretation Comments PHOSPHORUS (BEAKER) 2.8 mg/dL 2.3-4.7 Specimen slightly (test code = 604) hemolyzed [employer] ID - BOUBACAR MBASIC METABOLIC [id number] 06:58:00 Test Item Value Reference Range Interpretation [...] S NOT APPLICABLE FOR DIALYSIS PATIEN TS. [employer] ID - BOUBACAR MHEPATIC FUNCTION [id number] 06:58:00 Test Item Value Reference Range Interpretation [...] Specimen slightly (test code = 347) hemolyzed [employer] ID - BOUBACAR MCBC W/PLT COUNT & AUTO [id number] 06:01:00 Test Item Value Reference Range Interpretation [...] PERCENT (BEAKER) (test code = 2801) SARS-COV2/[facility]-PCR [facility])2020-04-03 16:01:00 Test Item Value Reference Range Interpretation Comments SARS-COV2/RT-PCR (test Not Detected Not Detected, Negative code = 1714966) SARS-COV-[address] [facility] (test code = 9163543) Negative results do not preclude SARS-CoV-2 infection [...] of the Act.Fact Sheet for Healthcare Pro viders:https://www.[employer]ideFX/Documents/Xpert%20Xpress%20SARS%20CoV-2/Fact%20Sh eets/3023802%63OBYX-JMB-1%20HEALTHCARE%20PROVIDERS%20FACT%20SHEET.pdfFact Sheet for Healthcare Patients:https://www.Kel[employer]/Documents/Xpert%20Xpress%20SARS%20CoV-2/Fact%20Sheets/3023801%20SARS-COV -2%20PATIENT%20FACT%20SHEET.pdfPerforming Laboratory:[facility], [place] [address]OY, [id number] 15:02:00Reason for exam:->ERCPFINAL REPORT A fluoroscopic unit was utilized for a procedure performed in the operating room. No interpretation was requested. Please refer to the operative report regarding findings. Please refer to PACS for patient radiation dose information. Signed: Josefa Vernon MDReport Verified Date/Time: 04/03/2020 15:02:53 Reading Location: [facility] Radiology Reading Room SARS-COV2/RT-PCR ([facility] & REF LABS)2020-04-03 09:37:00 Test Item Value Reference Range Interpretation Comments SARS-COV2/RT-PCR (test code = Negative Not Detected, Negative 1320953) SARS-COV-2 PERFORMING LAB [facility] (test code = 8825933) ALPHA FETOPROTEIN (AFP), TUMOR [id number] 07:15:00 Test Item Value Reference Range Interpretation Comments ALPHA-FETOPROTEIN (BEAKER) (test code < ng/mL <10.0 = 1094) [employer] ID - RANDY [id number] 07:02:00 Test Item Value Reference Range Interpretation Comments ALPHA-1 ANTITRYPSIN (BEAKER) 257.80 mg/dL 90.00-200.00 H (test code = 502) [employer] ID - PIDUSTY [id number] 06:12:00 Test Item Value Reference Range Interpretation Comments PHOSPHORUS (BEAKER) (test code = 2.5 mg/dL 2.3-4.7 604) [employer] ID - RANDY [id number] 06:12:00 Test Item Value Reference Range Interpretation Comments MAGNESIUM (BEAKER) (test code = 1.9 mg/dL 1.6-2.6 627) [employer] ID - PIDUSTY LBASIC METABOLIC [id number] 06:12:00 Test Item Value Reference Range Interpretation [...] S NOT APPLICABLE FOR DIALYSIS PATIEN TS. [employer] ID - PIAYA LHEPATIC FUNCTION [id number] 06:12:00 Test Item Value Reference Range Interpretation [...] code = 758 U/L 6-55 H 347) [employer] ID - PIAYA LCBC W/PLT COUNT & AUTO [id number] 05:29:00 Test Item Value Reference Range Interpretation [...] 0-1 PERCENT (BEAKER) (test code = 2801) [id number] 18:21:00 Test Item Value Reference Range Interpretation Comments FERRITIN (BEAKER) (test code = 1130.77 ng/mL 5.00-275.00 H 361) [employer] ID - DBHEPATITIS C [id number] 18:02:00 Test Item Value Reference Range Interpretation Comments HEPATITIS C ANTIBODY (BEAKER) Nonreactive Nonreactive (test code = 367) [employer] ID - DBIRON, TIBC, % SAT. (WITHOUT FERRITIN)2020-04-02 17:42:00 Test Item Value Reference Range Interpretation Comments IRON (BEAKER) (test code = 547) 19.0 ug/dL 40.0-160.0 L TOTAL IRON BINDING CAPACITY 328 ug/dL 250-450 (BEAKER) (test code = 769) IRON % SATURATION (2) (BEAKER) 6 % 20-55 L (test code = 2590) [employer] ID - DBMR, ABDOMEN, [id number] 15:37:00FINAL REPORT MR Abdomen dated 04/02/2020 Comment: [...] Aguileraort Verified Date/Time: 04/02/2020 15:37:49 Reading Location: [address] Consult Reading Room PREGNANCY SCREEN, [id number] 10:42:00 Test Item Value Reference Range Interpretation Comments TEST URINE (BEAKER) (test Negative code = 583) RAD, CHEST, 1 VIEW, NON [id number] 09:30:00Reason for exam:->r/o PNAShould this be performed at the bedside?->YesFINAL REPORT INDICATION: r/o PNA COMPARISON: None TECHNIQUE: Single frontal view of the chest. FINDINGS: Lungs and pleura: Clear lungs. No effusion.Heart and mediastinum: Normal heart size. Unremarkable mediastinal contours.Osseous structures: No acute abnormality.Other: None. IMPRESSION: No acute intrathoracic abnormality. Signed: Lilia Ayala MDReport Verified Date/Time: 04/02/2020 09:30:21 Reading Location: [facility] C013 Neuro Reading Room ALYSIS W/ REFLEX URINE [id number] 07:23:00 Test Item Value Reference Range Interpretation [...] = 516) SOURCE(BEAKER) (test code = 2795) [employer] ID - [auto]Rail[employer] Brak[employer] ID - [id number] 07:00:00 Test Item Value Reference Range Interpretation Comments MAGNESIUM (BEAKER) 1.5 mg/dL 1.6-2.6 L Specimen slightly (test code = 627) hemolyzed [employer] ID - CAROLINAAYA [id number] 07:00:00 Test Item Value Reference Range Interpretation Comments PHOSPHORUS (BEAKER) 2.5 mg/dL 2.3-4.7 Specimen slightly (test code = 604) hemolyzed [employer] ID - PIAYA LBASIC METABOLIC [id number] 07:00:00 Test Item Value Reference Range Interpretation [...] S NOT APPLICABLE FOR DIALYSIS PATIEN TS. [employer] ID - PIAYA LHEPATIC FUNCTION [id number] 07:00:00 Test Item Value Reference Range Interpretation [...] Specimen slightly (test code = 347) hemolyzed [employer] ID - PIDUSTY [id number] 07:00:00 Test Item Value Reference Range Interpretation Comments LIPASE (BEAKER) (test code = 749) 6 U/L 8-78 L [employer] ID - RANDY LHEPATITIS B [id number] 06:58:00 Test Item Value Reference Range Interpretation Comments HEPATITIS B CORE TOTAL ANTIBODY Nonreactive Nonreactive (BEAKER) (test code = 497) HEPATITIS B SURFACE ANTIBODY < mIU/mL <8.0 (BEAKER) (test code = 647) HEPATITIS B SURFACE ANTIGEN (2) Nonreactive Nonreactive (BEAKER) (test code = 2585) [employer] ID - RANDY LPROTHROMBIN [id number] 06:24:00 Test Item Value Reference Range Interpretation [...] mechanical heart valves.CBC W/PLT COUNT & AUTO [id number] 06:19:00 Test Item Value Reference Range Interpretation [...] code = 2801) MR Knee wo contrast [id number] 08:50:00MRI of the Left Knee Without IV [...] Lemos MDDictated Date/time: 09/17/18 21:31Electronically Signed by: Lorelie Lemos MD 09/17/1821:38FINAL REPORT
[2022-02-23] MEDS ORDERED: MORPHINE 4 MG/ML SYR ONE (12:03)
[2022-02-23] MEDS ORDERED: ONDANSETRON 4 MG/2 ML VIAL ONE (12:03)
[2022-02-23 12:06] LABS: Urine Blood 1+ (Negative); Urine Glucose Negative (Negative); Urine Protein Negative (Negative); Urine Specific Gravity >=1.030 (1.005-1.030)
[2022-02-23 12:42] LABS: Absolute Lymphocytes (CBC) 0.5 K/uL (0.7-4.9); Hematocrit 26.4 % (36.0-45.0); Lymphocytes % 4.9 % (15.3-44.8); MPV 8.2 fL (7.6-11.3); RBC Red Blood Cell Count 3.13 M/uL (3.86-4.86)
--- NOTE | 2022-02-23 12:56 | RAD REPORT ---
EXAM DESCRIPTION: CTAbdomen Pelvis W Contrast - 02/23/2022 12:45 pm CLINICAL HISTORY: Abdominal pain, post-op COMPARISON: Abdomen Pelvis W Contrast dated 02/05/2022; Abdomen Pelvis W Contrast dated 01/12/2022 ; Abdomen Pelvis W Contrast dated 10/20/2021; Abdomen Pelvis W Contrast dated 04/01/2020 TECHNIQUE: CT of the abdomen and pelvis was performed. All CT scans are performed using dose optimization technique as appropriate and may include automated exposure control or mA/KV adjustment according to patient size. FINDINGS: Lower chest: No acute abnormality. Liver: Internal external biliary stent in place. Mild intrahepatic biliary ductal dilatation is simil ar to 02/05/2022. Hepaticojejunostomy. Biliary: Cholecystectomy. Stomach: No significant focal abnormality. Duodenum: No significant focal abnormality. Pancreas: No significant abnormality. Spleen: No significant abnormality. Adrenal: No suspicious lesions. Kidney/ureter: No hydronephrosis. No renal calculi. Right upper pole renal cyst. Retroperitoneum: No retroperitoneal adenopathy. Vascular: No aneurysm. Bowel: Normal appendix. No bowel obstruction. Moderate stool in the colon.. Peritoneum: No ascites or free air. Bladder: Grossly unremarkable. Reproductive: Right adnexal cyst which is likely benign. Bones: No acute fracture. Other: n/a IMPRESSION: No acute intra-abdominal or pelvic finding. No significant change compared 02/05/2022. M ild intrahepatic biliary ductal dilatation is unchanged. Similar configuration of the internal rcp al biliary drain/stent.
[2022-02-23 13:06] LABS: ALT/SGPT 23 U/L (12-78); AST/SGOT 17 U/L (15-37); Albumin 3.3 g/dL (3.4-5.0); Alkaline Phosphatase 84 U/L (45-117); BUN Blood Urea Nitrogen 16 mg/dL (7-18); Bicarbonate 24 mmol/L (21-32); Bilirubin Total 0.5 mg/dL (0.2-1.0); Glucose Level 122 mg/dL (74-106); Lipase 60 U/L (73-393); Potassium 3.6 mmol/L (3.5-5.1); Protein, Total 6.6 g/dL (6.4-8.2); Sodium Level 138 mmol/L (136-145)
[2022-02-23 13:08] LABS: Anisocytosis 1+; Blood Morphology Comment NOTED (NOT SEEN); Platelet Estimate ADEQ; Polychromasia SLIGHT
[2022-02-23 13:09] LABS: Basophilic Stippling 1+
[2022-02-23] MEDS ORDERED: DICYCLOMINE HCL 20 MG/2 ML AMP IM ONE (14:11)
--- NOTE | 2022-02-23 14:47 | ER ---
Nurse's Notes [facility] Name: Janey Hernandez Age: 46 yrs Sex: Female : 1975 Arrival Date: 02/23/2022 Time: 11:20 Bed 14 Private MD: Katrina Esquivel Diagnosis: Abdominal pain, unspecified Presentation: 02/23 11:49 Chief complaint: Patient states: "I have a drain and I don't know what it has moved or ss what, but I'm having so much pain." C/o abd pain that began earlier today. Coronavirus screen: Client denies travel out of the [place] in the last 14 days. Ebola Screen: Patient denies exposure to infectious person. Patient denies travel to an Ebola-affected area in the 21 days before illness onset. Initial Sepsis Screen: Does the patient have a suspected source of infection? No. Patient's initial sepsis screen is negative. Initial Sepsis Screen: Does the patient meet any 2 criteria? No. Patient's initial sepsis screen is negative. Risk Assessment: Do you want to hurt yourself or someone else? Patient reports no desire to harm self or others. Onset of symptoms was February 23, 2022. 11:49 Method Of Arrival: Ambulatory ss 11:49 Acuity: MICHAEL 3 ss Historical: - Allergies: 11:51 No Known Allergies; ss - PMHx: 11:51 Gastric Reflux; Thyroid problem; ss - PSHx: 11:51 Cholecystectomy; tubal ligation; ss - Immunization history:: Client reports receiving the 2nd dose of the Covid vaccine. - Social history:: Smoking status: Patient denies any tobacco usage or history of. Screenin:06 Abuse screen: Denies threats or abuse. Denies injuries from another. Nutritional ld1 screening: No deficits noted. Tuberculosis screening: No symptoms or risk factors identified. Fall Risk None identified. Assessment: 12:06 General: Appears in no apparent distress. comfortable, Behavior is calm, cooperative, ld1 appropriate for age. Pain: Complains of pain in abdomen Pain does not radiate. Pain currently is 8 out of 10 on a pain scale. Quality of pain is described as throbbing. Neuro: Level of Consciousness is awake, alert, obeys commands, Oriented to person, place, time, situation. Cardiovascular: Capillary refill < 3 seconds Patient's skin is warm and dry. Respiratory: Airway is patent Respiratory effort is even, unlabored. GI: Abdomen is flat, non-distended, Bowel sounds present X 4 quads. Abd is soft Abdomen is tender to palpation X 4 quads. GI: Reports nausea, vomiting. : No signs and/or symptoms were reported regarding the genitourinary system. EENT: No signs and/or symptoms were reported regarding the EENT system. Derm: No signs and/or symptoms reported regarding the dermatologic system. Musculoskeletal: No signs and/or symptoms reported regarding the musculoskeletal system. 14:19 Reassessment: Patient appears in no apparent distress at this time. Patient is alert, ld1 oriented x 3, equal unlabored respirations, skin warm/dry/pink. Vital Signs: 11:49 BP 108 / 83; Pulse 79; Resp 20; Temp 98.8(TE); Pulse Ox 100% on R/A; ss 13:16 BP 115 / 53; Pulse 79; Resp 18; Pulse Ox 99% on R/A; ld1 14:22 BP 121 / 51; Pulse 94; Resp 18; Pulse Ox 100% on R/A; ld1 ED Course: 11:20 Patient arrived in ED. mr 11:20 Katrina Esquivel is Private Physician. mr 11:42 Mohamud Wing, MALCOM is PHCP. pm1 11:42 Eliud Dutton MD is Attending Physician. pm1 11:51 Triage completed. ss 11:51 Arm band placed on right wrist. ss 11:53 Zoe Bhakta, GURDEEP is Primary Nurse. ld1 12:05 COVID-19 SARS RT PCR (Document "Date of Onset" if Symptomatic) Sent. mb7 12:06 Bed in low position. Call light in reach. Side rails up X 1. Door closed. Noise mb7 minimized. Warm blanket given. 12:06 Patient has correct armband on for positive identification. Placed in gown. Cardiac ld1 monitor on. Pulse ox on. NIBP on. 12:06 No provider procedures requiring assistance completed. ld1 12:35 Inserted saline lock: 22 gauge in left antecubital area, using aseptic technique. Blood ll1 collected. 12:46 CT Abd/Pelvis - IV Contrast Only In Process Unspecified. EDMS 15:23 IV discontinued, intact, bleeding controlled, No redness/swelling at site. ld1 Administered Medications: 12:33 Drug: morphine 4 mg Route: IVP; Site: left antecubital; ld1 12:33 Drug: Zofran (Ondansetron) 4 mg Route: IVP; Site: left antecubital; ld1 14:12 Drug: Bentyl (dicyclomine) 20 mg Route: IM; Site: right deltoid; ld1 Outcome: 14:46 Discharge ordered by MD. pm1 15:22 Discharged to home ambulatory. ld1 15:22 Condition: stable 15:22 Discharge instructions given to patient, Instructed on discharge instructions, follow up and referral plans. medication usage, Demonstrated understanding of instructions, follow-up care, medications, Prescriptions given X 1, 2, 3. 15:23 Patient left the ED. ld1 Signatures: Dispatcher [employer] [facility] Elis Day Shelby, RN RN ss Marinas, Patrick, MALCOM DISABILITY SPECIALIST pm1 Kaushik Pérez RN RN 1 Zoe Bhakta RN RN 1 Elis Golden mb7
--- NOTE | 2022-02-23 14:47 | EDPHYS ---
Physician Documentation [facility] Name: Janey Hernandez Age: 46 yrs Sex: Female : 1975 Arrival Date: 02/23/2022 Time: 11:20 Bed 14 Private MD: Katrina Esquivel ED Physician Eliud Dutton HPI: 02/23 11:54 This 46 yrs old Female presents to ER via Ambulatory with complaints of Abdominal Pain, pm1 Vomiting. 11:54 The patient presents with abdominal pain in the right upper quadrant. Onset: The pm1 symptoms/episode began/occurred this morning. The symptoms do not radiate. Associated signs and symptoms: Pertinent positives: nausea and vomiting, Pertinent negatives: chest pain, constipation, shortness of breath. The symptoms are described as sharp. Modifying factors: The symptoms are alleviated by nothing, the symptoms are aggravated by nothing. Severity of pain: in the emergency department the pain is actually worse. The patient has not recently seen a physician, has an appointment scheduled, with surgeon on Friday for removal of her percutaneous drain and biliary duct reconstruction. 46-year-old patient presents to the ER with complaints of abdominal pain and vomiting onset this morning. Patient is concerned that she may have dislodged her percutaneous drain for her biliary ducts. On 01/14/2022 patient had the percutaneous drain placed in the [facility], [facility]. Patient reports on Friday she is going to have surgery to remove that drain and to have reconstruction of her biliary duct drainage to her small intestines. Historical: - Allergies: 11:51 No Known Allergies; ss - PMHx: 11:51 Gastric Reflux; Thyroid problem; ss - PSHx: 11:51 Cholecystectomy; tubal ligation; ss - Immunization history:: Client reports receiving the 2nd dose of the Covid vaccine. - Social history:: Smoking status: Patient denies any tobacco usage or history of. ROS: 11:54 Constitutional: Negative for fever, chills, and weight loss, Cardiovascular: Negative pm1 for chest pain, palpitations, and edema, Respiratory: Negative for shortness of breath, cough, wheezing, and pleuritic chest pain. 11:54 Back: Negative for injury and pain, MS/Extremity: Negative for injury and deformity, Skin: Negative for injury, rash, and discoloration, Neuro: Negative for headache, weakness, numbness, tingling, and seizure. 11:54 Abdomen/GI: Positive for abdominal pain, nausea and vomiting, Negative for diarrhea, constipation. 11:54 All other systems are negative. Exam: 11:54 Constitutional: This is a well developed, well nourished patient who is awake, alert, pm1 and in no acute distress. Head/Face: Normocephalic, atraumatic. 11:54 Back: No spinal tenderness. No costovertebral tenderness. Full range of motion. Skin: Warm, dry with normal turgor. Normal color with no rashes, no lesions, and no evidence of cellulitis. MS/ Extremity: Pulses equal, no cyanosis. Neurovascular intact. Full, normal range of motion. 11:54 Cardiovascular: Exam negative for acute changes, Rate: normal, Rhythm: regular, Pulses: no pulse deficits are appreciated, Heart sounds: normal. 11:54 Respiratory: Exam negative for acute changes, respiratory distress, shortness of breath, Breath sounds: are clear throughout. 11:54 Abdomen/GI: Inspection: scar(s), Multiple scars present in the abdominal area. Percutaneous drain to right upper quadrant without any surrounding drainage or cellulitis, Palpation: soft, in all quadrants, mild abdominal tenderness, in the right upper quadrant. 11:54 Neuro: Exam negative for acute changes, Orientation: is normal, Mentation: is normal, Motor: is normal, moves all fours. Vital Signs: 11:49 BP 108 / 83; Pulse 79; Resp 20; Temp 98.8(TE); Pulse Ox 100% on R/A; ss 13:16 BP 115 / 53; Pulse 79; Resp 18; Pulse Ox 99% on R/A; ld1 14:22 BP 121 / 51; Pulse 94; Resp 18; Pulse Ox 100% on R/A; ld1 MDM: 11:53 Patient medically screened. christiane 14:45 Data reviewed: vital signs. Data interpreted: Pulse oximetry: on room air is 100 %. pm1 Interpretation: normal. Counseling: I had a detailed discussion with the patient and/or guardian regarding: the historical points, exam findings, and any diagnostic results supporting the discharge/admit diagnosis, lab results, radiology results, the need for outpatient follow up, Surgeon on Friday as scheuduled, to return to the emergency department if symptoms worsen or persist or if there are any questions or concerns that arise at home. 02/23 11:54 Order name: CBC with Diff; Complete Time: 13:14 ld1 02/23 11:54 Order name: CMP; Complete Time: 13:44 ld1 02/23 11:54 Order name: Lipase; Complete Time: 13:44 ld1 02/23 11:56 Order name: COVID-19 SARS RT PCR (Document "Date of Onset" if Symptomatic); Complete pm1 Time: 14:00 02/23 12:06 Order name: Urine Dipstick-Ancillary; Complete Time: 12:09 EDMS 02/23 12:13 Order name: Urine --Ancillary (enter results); Complete Time: 13:44 eb 02/23 11:54 Order name: IV Saline Lock; Complete Time: 12:33 ld1 02/23 11:54 Order name: Labs collected and sent; Complete Time: 12:34 ld1 02/23 11:54 Order name: Urine Dipstick-Ancillary (obtain specimen); Complete Time: 12:05 ld1 02/23 11:56 Order name: CT Abd/Pelvis - IV Contrast Only; Complete Time: 13:14 pm1 02/23 13:09 Order name: Manual Differential; Complete Time: 13:14 EDMS 02/23 11:54 Order name: Urine Test (obtain specimen); Complete Time: 12:05 ld1 Administered Medications: 12:33 Drug: morphine 4 mg Route: IVP; Site: left antecubital; ld1 12:33 Drug: Zofran (Ondansetron) 4 mg Route: IVP; Site: left antecubital; ld1 14:12 Drug: Bentyl (dicyclomine) 20 mg Route: IM; Site: right deltoid; ld1 Disposition Summary: 02/23/22 14:46 Discharge Ordered Location: Home pm1 Problem: new pm1 Symptoms: have improved pm1 Condition: Stable pm1 Diagnosis - Abdominal pain, unspecified pm1 Followup: pm1 - With: Emergency Department - When: As needed - Reason: Worsening of condition Followup: pm1 - With: Private Physician - When: 2 - 3 days - Reason: Recheck today's complaints, Continuance of care, Re-evaluation by your physician Discharge Instructions: - Discharge Summary Sheet pm1 - Abdominal Pain, Adult pm1 Forms: - Medication Reconciliation Form pm1 - Thank You Letter pm1 - Antibiotic Education pm1 - Prescription Opioid Use pm1 - Work release form eb Prescriptions: - ondansetron 4 mg Oral tablet,disintegrating - place 1 tablet by TRANSLINGUAL route every 8 hours As needed; 12 tablet; pm1 Refills: 0, Product Selection Permitted - dicyclomine 20 mg Oral Tablet - take 1 tablet by ORAL route 4 times per day As needed; 20 tablet; Refills: 0, pm1 Product Selection Permitted - Tylenol-Codeine #3 300 mg-30 mg Oral - take 2 tablet by ORAL route every 6 hours As needed; 20 tablet; Refills: 0, pm1 Product Selection Permitted Signatures: Dispatcher [employer] EDMS Eliud Dutton MD MD cha Smirch, Shelby RN RN ss Mohamud Wing, MALCOM EPIC SPECIALIST pm1 Zoe Bhakta RN RN ld1
[2022-02-23 17:08] VITALS: TEMP 98.8
[2022-02-23 17:10] VITALS: BP 121/51; O2SAT 100
== END 2022-02-23 15:23 | disposition home or self-care (01) ==
LOC: ER 11:18
DX: R10.11 Right upper quadrant pain (principal); R11.2 Nausea with vomiting, unspecified; Z20.822 Contact with and (suspected) exposure to COVID-19
CPT/HCPCS: 85025; 36415; 81025; 81003; 83690; 80053; 74177; 96375; 96372; 96374; 99284; U0003; Q9967; J0500; J2405

== ENCOUNTER → 2023-11-05 | Emergency (ER) | payer BC ==
[~2023-11-05] MED LIST: MORPHINE 4 MG/ML SYR ONE; NA CHLORIDE 0.9% 1,000 ML ONE; ONDANSETRON 4 MG/2 ML VIAL ONE
--- OUTSIDE RECORDS SUMMARY | 2023-11-05 17:26 | XMS REPORT | Continuity of Care Document ---
Author Name Unknown Address [address] [place] [address] [facility] thconnect Address 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 Role Phone SHANIQUA STEWART Attending Clinician Unavailable SHANIQUA STEWART Admitting Clinician Unavailable Payers Payer Name Policy Type Policy Number Effective Date Expirati on Date Source BCBS OS POS/PPO/EPO [id number] 2017 00:00:00 Allergies, Adverse Reactions, Alerts Allergy Name Allergy Type Status Severity Reaction(s) Onset Date Inactive Date Treating Clinician Comments Source NO KNOWN ALLERGIE S Allergy Active [facility] Vital Signs Vital Name Observation Time Observation Value Comments S ource WEIGHT 2020-04-01 00:00:00 74.39 kg HEIGHT 2020-04-01 00:00:00 160 cm Encounters Start Date/Time End Date/Time Encounter Type Admission Type Attending Clinicians Care Facility Care Department Encounter ID Source 2020-04-01 21:44:00 Inpatient ER SHANIQUA STEWART [facility] Internal Med [id number] [facility] 2020-04-12 00:00:00 2020-04-12 00:00:00 Outpatient [facility] [id number] [facility]
[2023-11-05 18:11] LABS: Absolute Lymphocytes (CBC) 1.7 K/uL (0.7-4.9); Lymphocytes % 15.6 % (15.3-44.8); MCV 89.4 fL (80-100); MPV 8.8 fL (7.6-11.3); Platelets 225 thou/uL (152-406); RBC Red Blood Cell Count 4.47 M/uL (3.86-4.86)
[2023-11-05 18:16] LABS: Specific Gravity 1.028 (1.005-1.030); Urine Bacteria None Seen /HPF (<20); Urine Bilirubin NEGATIVE (Negative); Urine Blood Negative (Negative); Urine Clarity Clear (Clear); Urine Color Yellow (Yellow); Urine Crystals Unidentified Few /HPF (None Seen); Urine Glucose NEGATIVE (Negative); Urine Mucus Slight /HPF (None Seen); Urine Protein TRACE (Negative); Urine RBC <5 /HPF (None Seen); Urine Urobilinogen 3+ (Normal)
[2023-11-05 18:26] LABS: Albumin 3.4 g/dL (3.4-5.0); Bilirubin Total 0.8 mg/dL (0.2-1.0); Potassium 3.5 mEq/L (3.5-5.1); Protein, Total 7.9 g/dL (6.4-8.2)
--- NOTE | 2023-11-05 18:53 | RAD REPORT ---
EXAM DESCRIPTION: CTAbdomen Pelvis W Contrast - 11/05/2023 6:44 pm CLINICAL HISTORY: Abdominal pain. ABD PAIN COMPARISON: <Comparisons> TECHNIQUE: Biphasic CT imaging of the abdomen and pelvis was performed with 100 ml non-ionic IV cont rast. All CT scans are performed using dose optimization technique as appropriate and may include automated exposure control or mA/KV adjustment according to patient size. FINDINGS: The lung bases are clear. The liver demonstrates postsurgical changes. Cholecystectomy. Spleen, pancreas, adrenal glands and ki dneys are within normal limits. No bowel obstruction, free air, free fluid or abscess. The appendix is normal. No evidence of signi ficant lymphadenopathy. No suspicious bony findings. IMPRESSION: No acute intra-abdominal or pelvic finding.
--- NOTE | 2023-11-05 19:45 | ER ---
Nurse's Notes [facility] Name: Janey Hernandez Age: 48 yrs Sex: Female : 1975 Arrival Date: 11/05/2023 Time: 17:24 Bed 4 Private MD: Diagnosis: Upper abdominal pain, unspecified Presentation: 11/05 17:35 Chief complaint: Patient states: has had a lot of surgeries on my bile duct, pain iw started Friday evening, + nausea, dark colored urine, intermittent fever , I've had a lot of abdominal surgeries since having a cholecystectomy in 2010. Coronavirus screen: At this time, the client does not indicate any symptoms associated with coronavirus-19. Ebola Screen: Patient negative for fever greater than or equal to 101.5 degrees Fahrenheit, and additional compatible Ebola Virus Disease symptoms Patient denies exposure to infectious person. Patient denies travel to an Ebola-affected area in the 21 days before illness onset. No symptoms or risks identified at this time. Risk Assessment: Do you want to hurt yourself or someone else? Patient reports no desire to harm self or others. Onset of symptoms was November 03, 2023. 17:35 Method Of Arrival: Ambulatory iw 17:35 Acuity: MICHAEL 3 iw [employer]PER[employer]S: 17:39 LMP N/A - control method, Not iw Historical: - Allergies: 17:39 No Known Allergies; iw - PMHx: 17:37 Gastric Reflux; Thyroid problem; iw - PSHx: 17:37 Cholecystectomy; tubal ligation; iw - Immunization history:: Adult Immunizations up to date, Client reports receiving the 2nd dose of the Covid vaccine. - Social history:: Smoking status: Patient denies any tobacco usage or history of. Screenin:13 [facility] ED Fall Risk Assessment (Adult) History of falling in the last 3 months, jb4 including since admission No falls in past 3 months (0 pts). Abuse screen: Denies threats or abuse. Nutritional screening: No deficits noted. Tuberculosis screening: No symptoms or risk factors identified. Assessment: 19:00 General: Appears in no apparent distress. comfortable, Behavior is calm, cooperative, jb4 appropriate for age. Pain: Complains of pain in abdomen Pain does not radiate. Pain currently is 8 out of 10 on a pain scale. Neuro: Level of Consciousness is awake, alert, obeys commands, Oriented to person, place, time, situation. Cardiovascular: Patient's skin is warm and dry. Respiratory: Airway is patent Respiratory effort is even, unlabored, Respiratory pattern is regular, symmetrical. GI: Abdomen is flat, non-distended. : No signs and/or symptoms were reported regarding the genitourinary system. EENT: No signs and/or symptoms were reported regarding the EENT system. Derm: Skin is intact, Skin is pink, warm \T\ dry. 20:13 Reassessment: Patient appears in no apparent distress at this time. Patient and/or jb4 family updated on plan of care and expected duration. Pain level reassessed. Patient is alert, oriented x 3, equal unlabored respirations, skin warm/dry/pink. Vital Signs: 17:39 BP 142 / 94; Pulse 111; Resp 16; Temp 98.5; Pulse Ox 98% on R/A; Weight 79.38 kg; iw Height 5 ft. 3 in. ; Pain 9/10; 20:13 BP 141 / 80; Pulse 88; Resp 16; Pulse Ox 99% ; jb4 17:39 Body Mass Index 31.00 (79.38 kg, 160.02 cm) iw 17:39 Pain Scale: Adult iw ED Course: 17:26 Patient arrived in ED. rg4 17:29 [facility]C [facility] kb 17:29 Gordy Banerjee MD is Attending Physician. kb 17:37 Triage completed. iw 17:40 Arm band placed on. iw 18:04 CBC with Diff Sent. bc6 18:05 CMP Sent. bc6 18:05 Lipase Sent. bc6 18:05 Test, Urine Sent. bc6 18:05 Urinalysis w/ reflexes Sent. bc6 18:05 Inserted saline lock: 22 gauge in right antecubital area, using aseptic technique. bc6 18:46 CT Abd/Pelvis - IV Contrast Only In Process Unspecified. EDMS 20:13 Patient has correct armband on for positive identification. Bed in low position. Call jb4 light in reach. Side rails up X 1. 20:13 No provider procedures requiring assistance completed. IV discontinued, intact, jb4 bleeding controlled, No redness/swelling at site. Pressure dressing applied. Administered Medications: 19:38 Drug: NS 0.9% IV 1000 ml IV at 1 bolus Per protocol; 1000 mL bolus Route: IV; Rate: 1 jb4 bolus; Site: right antecubital; 19:38 Drug: Ondansetron IVP 4 mg IVP once; over 2 minutes Route: IVP; Site: right antecubital;jb4 19:38 Drug: morphine IVP or IV 4 mg IVP once over 4 mins Route: IVP; Infused Over: 4 mins; jb4 Site: right antecubital; Outcome: 19:44 Discharge ordered by MD. olmstead 20:13 Discharged to home ambulatory, jb4 20:13 Condition: stable 20:13 Discharge instructions given to patient, Instructed on discharge instructions, follow up and referral plans. Demonstrated understanding of instructions, follow-up care, 20:20 Patient left the ED. jb4 Signatures: Dispatcher [employer] EDTierra Brown, VISUAL DISPLAY MANAGER-C VISUAL DISPLAY MANAGER-Ckb Shakira Torres, RN Lauren Kelly rg4 Ad Whitt RN RN jb4 Gloria Martin bc6
--- NOTE | 2023-11-05 19:45 | EDPHYS ---
Physician Documentation [facility] Name: Janey Hernandez Age: 48 yrs Sex: Female : 1975 Arrival Date: 11/05/2023 Time: 17:24 Bed 4 Private MD: ED Physician Gordy Banerjee HPI: 11/05 19:42 This 48 yrs old Female presents to ER via Ambulatory with complaints of Abdominal Pain, kb Urinary Problem. 19:42 Patient is a 48-year-old female who presents for right upper quadrant pain that started kb 3 days ago. Denies fever, vomiting, diarrhea. Reports nausea. States she has had previous bile duct surgeries so she wanted to get checked out for that.. 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 - Social history:: Smoking status: Patient denies any tobacco usage or history of. ROS: 19:42 Constitutional: Negative for fever, chills, and weight loss, kb 19:42 Abdomen/GI: Positive for abdominal pain, nausea, 19:42 All other systems are negative, Exam: 19:42 Constitutional: This is a well developed, well nourished patient who is awake, alert, kb and in no acute distress. Head/Face: Normocephalic, atraumatic. ENT: Moist Mucous membranes Cardiovascular: Regular rate Respiratory: Respirations even and unlabored. No increased work of breathing. Talking in full sentences Skin: Warm, dry with normal turgor. Normal color. MS/ Extremity: Pulses equal, no cyanosis. Neurovascular intact. Full, normal range of motion. Neuro: Awake and alert, GCS 15, oriented to person, place, time, and situation. Moves all extremities. Normal gait. 19:42 Abdomen/GI: Inspection: abdomen appears normal, Bowel sounds: normal, Palpation: soft, in all quadrants, mild abdominal tenderness, in the right upper quadrant, Vital Signs: 17:39 BP 142 / 94; Pulse 111; Resp 16; Temp 98.5; Pulse Ox 98% on R/A; Weight 79.38 kg; iw Height 5 ft. 3 in. ; Pain 9/10; 20:13 BP 141 / 80; Pulse 88; Resp 16; Pulse Ox 99% ; jb4 17:39 Body Mass Index 31.00 (79.38 kg, 160.02 cm) iw 17:39 Pain Scale: Adult iw MDM: 17:29 Patient medically screened. kb 19:42 Data reviewed: vital signs, nurses notes. kb 19:43 Differential diagnosis: gastroesophageal reflux disease, non-specific abd pain, kb pancreatitis. Counseling: I had a detailed discussion with the patient and/or guardian regarding the historical points, exam findings, and any diagnostic results supporting the discharge/admit diagnosis, lab results, radiology results, the need for outpatient follow up, a family practitioner, a recyclable materials sorter, to return to the emergency department if symptoms worsen or persist or if there are any questions or concerns that arise at home. ED course: Patient will call tomorrow for follow-up with surgeon/GI.. 11/05 17:38 Order name: CBC with Diff; Complete Time: 18:20 kb 11/05 17:38 Order name: CMP; Complete Time: 18:35 kb 11/05 17:38 Order name: Lipase; Complete Time: 18:35 kb 11/05 17:38 Order name: Test, Urine; Complete Time: 18:20 kb 11/05 17:38 Order name: Urinalysis w/ reflexes; Complete Time: 18:20 kb 11/05 17:38 Order name: CT Abd/Pelvis - IV Contrast Only; Complete Time: 19:15 kb 11/05 17:38 Order name: IV Saline Lock; Complete Time: 18:04 kb 11/05 17:38 Order name: Labs collected and sent; Complete Time: 18:04 kb Administered Medications: 19:38 Drug: NS 0.9% IV 1000 ml IV at 1 bolus Per protocol; 1000 mL bolus Route: IV; Rate: 1 jb4 bolus; Site: right antecubital; 19:38 Drug: Ondansetron IVP 4 mg IVP once; over 2 minutes Route: IVP; Site: right antecubital;jb4 19:38 Drug: morphine IVP or IV 4 mg IVP once over 4 mins Route: IVP; Infused Over: 4 mins; jb4 Site: right antecubital; Disposition Summary: 11/05/23 19:44 Discharge Ordered Notes: Location: Home kb Condition: Stable kb Diagnosis - Upper abdominal pain, unspecified kb Followup: kb - With: Emergency Department - When: As needed - Reason: Worsening of condition Followup: kb - With: Private Physician - When: 2 - 3 days - Reason: Recheck today's complaints, Continuance of care, Re-evaluation by your physician Discharge Instructions: - Discharge Summary Sheet kb - Abdominal Pain, Adult, [id number] kb Forms: - Medication Reconciliation Form kb - Thank You Letter kb - Antibiotic Education kb - Prescription Opioid Use kb - Patient Portal Instructions kb - Leadership Thank You Letter kb Signatures: Dispatcher [employer] Tierra Resendez, LICENSED AND CERTIFIED MIDWIFE-C LICENSED AND CERTIFIED MIDWIFE-Shakira Fernandes, RN RN Ad Barraza RN RN jb4
[2023-11-06 01:05] VITALS: BP 141/80; TEMP 98.5; O2SAT 99
== END ==
LOC: ER 17:24
DX: R10.11 Right upper quadrant pain (principal)
CPT/HCPCS: 85025; 81001; 36415; 81025; 83690; 80053; 74177; Q9967; J2405; J7030

== ENCOUNTER 2024-01-19 19:11 | Emergency (ER) | payer BC ==
[2024-01-19] MEDS ORDERED: LIDOCAINE 1% MPF 5 ML VIAL ONE (20:17)
[2024-01-19] MEDS ORDERED: TDAP (DIPHTH,PERTUSS(ACELL),TET VAC) 0.5 ML VIAL IMVAC ONE (20:18)
--- NOTE | 2024-01-19 21:49 | EDPHYS ---
Physician Documentation [facility] Name: Janey Hernandez Age: 48 yrs Sex: Female : 1975 Arrival Date: 01/19/2024 Time: 19:11 Bed 16 Private MD: ED Physician Earl Davey HPI: 01/18 21:50 This 48 yrs old Female presents to ER via Ambulatory with complaints of Laceration To kb Hand. 21:50 Pt is a 48 year old female who presents for laceration to right hand after accidentally kb cutting it on a green michael can that she had just opened. Full ROM of fingers. . 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 - Infectious Disease History:: Denies. - Social history:: Smoking status: Patient denies any tobacco usage or history of. ROS: 21:50 Constitutional: As per HPI kb Exam: 21:50 Constitutional: This is a well developed, well nourished patient who is awake, alert, kb and in no acute distress. Head/Face: Normocephalic, atraumatic. ENT: Moist Mucous membranes Cardiovascular: Regular rate Respiratory: Respirations even and unlabored. No increased work of breathing. Talking in full sentences MS/ Extremity: Pulses equal, no cyanosis. Neurovascular intact. Full, normal range of motion. Neuro: Awake and alert, GCS 15, oriented to person, place, time, and situation. Moves all extremities. Normal gait. 21:50 Skin: injury, laceration(s), the wound is approximately 1.5 cm(s), of the outer aspect of right palm, that can be described as clean, no foreign body, irregular, without bleeding, Vital Signs: 19:34 BP 156 / 90; Pulse 71; Resp 16; Temp 98.3; Pulse Ox 99% ; Weight 77.11 kg; Height 5 ft. vc1 3 in. ; Pain 9/10; 20:54 BP 165 / 89; Pulse 71; Resp 16; Pulse Ox 100% ; Pain 6/10; pf1 21:58 BP 154 / 95; Pulse 81; Resp 16; Temp 98.1; Pulse Ox 100% on R/A; Pain 0/10; pf1 19:34 Body Mass Index 30.11 (77.11 kg, 160.02 cm) vc1 19:34 Pain Scale: Adult vc1 20:54 Pain Scale: Adult pf1 21:58 Pain Scale: Adult pf1 Laceration: 21:49 Wound Repair of 1.5cm ( 0.6in ) subcutaneous laceration to outer aspect of right palm. kb Irregularly shaped.. Distal neuro/vascular/tendon intact. Anesthesia: Local anesthetic administered with 2 mls of 1% lidocaine. Wound prep: Extensive cleansing with hibiclenz by me, Wound irrigation with saline by me. Skin closed with 3 1-0 Prolene using simple sutures and sterile technique. Patient tolerated well. MDM: 19:24 Patient medically screened. kb 21:50 Differential diagnosis: superficial laceration, tendon injury, vascular injury. Data kb reviewed: vital signs, nurses notes. Counseling: I had a detailed discussion with the patient and/or guardian regarding the historical points, exam findings, and any diagnostic results supporting the discharge/admit diagnosis, the need for outpatient follow up, a family practitioner, to return to the emergency department if symptoms worsen or persist or if there are any questions or concerns that arise at home. 01/18 19:53 Order name: Dressing - Wound; Complete Time: 21:56 kb 01/18 19:53 Order name: Gloves, Sterile; Complete Time: 20:46 kb 01/18 19:53 Order name: Prolene, Sutures; Complete Time: 20:46 kb 01/18 19:53 Order name: Setup Suture Tray; Complete Time: 20:46 kb Administered Medications: 20:46 Drug: Boostrix Tdap IM 0.5 ml IM once; as a single dose Route: IM; Site: left deltoid; pf1 20:55 Follow up: Response: No adverse reaction pf1 21:30 Drug: Lidocaine Infiltration (1 %) 1 vials 5 ml Infiltration once; to bedside {Note: pf1 administered by MALCOM Mayorga.} Volume: 5 ml; Route: Infiltration; 21:57 Follow up: Response: No adverse reaction; Marked relief of symptoms; Pain is decreased pf1 Disposition Summary: 01/19/24 21:48 Discharge Ordered Notes: Location: Home kb Condition: Stable kb Diagnosis - Laceration without foreign body of right hand kb Followup: kb - With: Emergency Department - When: As needed - Reason: Worsening of condition Followup: kb - With: Private Physician - When: 2 - 3 days - Reason: Recheck today's complaints, Continuance of care, Re-evaluation by your physician Discharge Instructions: - Discharge Summary Sheet kb - Laceration Care, Adult, [id number] kb Forms: - Medication Reconciliation Form kb - Thank You Letter kb - Antibiotic Education kb - Prescription Opioid Use kb - Patient Portal Instructions kb - Leadership Thank You Letter kb Addendum: 01/21/2024 12:22 I was immediately available on-site in the Emergency Department for consultation in the m s3 care of the patient. Signatures: Tierra Rodgers, TAMPER OPERATOR-C TAMPER OPERATOR-Ckb Earl Davey DO DO ms3 Jing Dumont RN RN vc1 Rebeca Dominguez RN RN pf1
--- NOTE | 2024-01-19 21:49 | ER ---
Nurse's Notes [facility] Name: Janey Hernandez Age: 48 yrs Sex: Female : 1975 Arrival Date: 01/19/2024 Time: 19:11 Bed 16 Private MD: Diagnosis: Laceration without foreign body of right hand Presentation: 01/18 19:34 Chief complaint: Patient states: Cut right hand on green michael can. Coronavirus screen: vc1 At this time, the client does not indicate any symptoms associated with coronavirus-19. Ebola Screen: Patient negative for fever greater than or equal to 101.5 degrees Fahrenheit, and additional compatible Ebola Virus Disease symptoms Patient denies exposure to infectious person. Patient denies travel to an Ebola-affected area in the 21 days before illness onset. No symptoms or risks identified at this time. Complicating Factors: cut on can. Initial Sepsis Screen: Does the patient meet any 2 criteria? No. Patient's initial sepsis screen is negative. Does the patient have a suspected source of infection? No. Patient's initial sepsis screen is negative. Risk Assessment: Do you want to hurt yourself or someone else? Patient reports no desire to harm self or others. Onset of symptoms was January 19, 2024. 19:34 Method Of Arrival: Ambulatory vc1 19:34 Acuity: MICHAEL 4 vc1 Triage Assessment: 19:36 General: Appears in no apparent distress. uncomfortable, Behavior is calm, cooperative, vc1 appropriate for age. Pain: Complains of pain in outer aspect of right palm Pain does not radiate. Pain currently is 9 out of 10 on a pain scale. Quality of pain is described as burning. EENT: No deficits noted. No signs and/or symptoms were reported regarding the EENT system. Neuro: Level of Consciousness is awake, alert, obeys commands, Oriented to person, place, time, situation, Appropriate for age. Cardiovascular: No deficits noted. Respiratory: Airway is patent Respiratory effort is even, unlabored, Respiratory pattern is regular, symmetrical. GI: No deficits noted. No signs and/or symptoms were reported involving the gastrointestinal system. : No deficits noted. No signs and/or symptoms were reported regarding the genitourinary system. Derm: Wound noted outer aspect of right palm. Musculoskeletal: No deficits noted. No signs and/or symptoms reported regarding the musculoskeletal system. Injury Description: Laceration sustained to outer aspect of right palm is jagged, 0.5 to 2.5 cm long. 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 - Infectious Disease History:: Denies. - Social history:: Smoking status: Patient denies any tobacco usage or history of. Screenin:53 [facility] ED Fall Risk Assessment (Adult) History of falling in the last 3 months, pf1 including since admission No falls in past 3 months (0 pts) Confusion or Disorientation No (0 pts) Intoxicated or Sedated No (0 pts) Impaired Gait No (0 pts) Mobility Assist Device Used No (0 pt) Altered Elimination No (0 pt) Score/Fall Risk Level 0 - 2 = Low Risk Oriented to surroundings, Maintained a safe environment, Educated pt \T\ family on fall prevention, incl call for assistance when getting out of bed, Assessed \T\ reinforced patient's understanding of fall precautions, Provided non-skid footwear, Hourly rounding (assess needs \T\ fall precautionary measures) done, Used ambulatory aids as needed (educated on \T\ assisted with), Used gait belt as appropriate. Abuse screen: Denies threats or abuse. Nutritional screening: No deficits noted. Tuberculosis screening: No symptoms or risk factors identified. Assessment: 20:09 General: Appears in no apparent distress. comfortable, well groomed, well developed, pf1 Behavior is calm, cooperative, appropriate for age, quiet. 20:09 Pain: Complains of pain in right hand and outer aspect of right palm Pain currently is pf1 7 out of 10 on a pain scale. Quality of pain is described as aching, Pain began 1830. Neuro: No deficits noted. Level of Consciousness is awake, alert, obeys commands, Oriented to person, place, time, situation. Cardiovascular: No deficits noted. Capillary refill < 3 seconds Patient's skin is warm and dry. Respiratory: No deficits noted. Airway is patent Respiratory effort is even, unlabored, Respiratory pattern is regular, symmetrical. GI: No deficits noted. No signs and/or symptoms were reported involving the gastrointestinal system. : No deficits noted. No signs and/or symptoms were reported regarding the genitourinary system. EENT: No deficits noted. No signs and/or symptoms were reported regarding the EENT system. Derm: Reports pain that is 7 out of 10 on a pain scale. Injury Description: Laceration sustained to outer aspect of right palm is 0.5 to 2.5 cm long, not bleeding, was sustained 1829. 20:53 Reassessment: Patient appears in no apparent distress at this time. Patient and/or pf1 family updated on plan of care and expected duration. Pain level reassessed. Patient is alert, oriented x 3, equal unlabored respirations, skin warm/dry/pink. 21:56 Reassessment: Patient appears in no apparent distress at this time. Patient and/or pf1 family updated on plan of care and expected duration. Pain level reassessed. Patient is alert, oriented x 3, equal unlabored respirations, skin warm/dry/pink. Patient states symptoms have improved. Vital Signs: 19:34 BP 156 / 90; Pulse 71; Resp 16; Temp 98.3; Pulse Ox 99% ; Weight 77.11 kg; Height 5 ft. vc1 3 in. ; Pain 9/10; 20:54 BP 165 / 89; Pulse 71; Resp 16; Pulse Ox 100% ; Pain 6/10; pf1 21:58 BP 154 / 95; Pulse 81; Resp 16; Temp 98.1; Pulse Ox 100% on R/A; Pain 0/10; pf1 19:34 Body Mass Index 30.11 (77.11 kg, 160.02 cm) vc1 19:34 Pain Scale: Adult vc1 20:54 Pain Scale: Adult pf1 21:58 Pain Scale: Adult pf1 ED Course: 19:18 Patient arrived in ED. gm2 19:24 Tierra Rodgers FNP-C is PHCP. kb 19:24 Earl Davey DO is Attending Physician. kb 19:36 Triage completed. vc1 19:36 Arm band placed on left wrist. vc1 20:09 Patient has correct armband on for positive identification. Bed in low position. Call pf1 light in reach. 20:46 Rebeca Dominguez, RN is Primary Nurse. pf1 20:54 Patient did not have IV access during this emergency room visit. pf1 21:55 Dressings: Band aid x 1 outer aspect of right palm. pf1 21:59 Provided Education on: wound care and suture removal. pf1 21:59 No provider procedures requiring assistance completed. pf1 Administered Medications: 20:46 Drug: Boostrix Tdap IM 0.5 ml IM once; as a single dose Route: IM; Site: left deltoid; pf1 20:55 Follow up: Response: No adverse reaction pf1 21:30 Drug: Lidocaine Infiltration (1 %) 1 vials 5 ml Infiltration once; to bedside {Note: pf1 administered by NP. Tierra} Volume: 5 ml; Route: Infiltration; 21:57 Follow up: Response: No adverse reaction; Marked relief of symptoms; Pain is decreased pf1 Medication: 21:59 Vaccine Information Statement (VIS) provided today. Questions and/or concerns pf1 addressed. VIS edition date: May 25, 2022. Outcome: 21:48 Discharge ordered by . kb 21:59 Discharged to home ambulatory, pf1 21:59 Condition: improved 21:59 Discharge instructions given to patient, Instructed on discharge instructions, follow up and referral plans. Demonstrated understanding of instructions, follow-up care, wound care, 22:00 Patient left the ED. pf1 Signatures: Tierra Rodgers, BARREL CHARRER HELPER-C BARREL CHARRER HELPER-Jing Valverde RN RN vc1 Rebeca Dominguez, RN RN pf1 Abigail Manuel gm2 Corrections: (The following items were deleted from the chart) 21:58 21:57 Patient has correct armband on for positive identification. Bed in low position. pf1 Call light in reach. pf1
[2024-01-20 06:28] VITALS: BP 154/95; TEMP 98.1; O2SAT 100
== END 2024-01-19 22:00 | disposition home or self-care (01) ==
LOC: ER 19:11
PROC: 0HQFXZZ Repair Right Hand Skin, External Approach (ICD-10-PCS; principal; 2024-01-19)
DX: S61.411A Laceration without foreign body of right hand, initial encounter (principal)
CPT/HCPCS: 96372; 99284; 12001; J2001